=== PATIENT | male | born 1960 | race Caucasian/White ===

== ENCOUNTER 2020-04-01 06:26 | Observation (INO) ==
--- NOTE | 2020-03-31 11:02 | Anesthesiology Consultation ---
Date of Service March 31, 2020 Assessment & Plan (1) Encounter for pre-operative examination: Chart Review Chart Review: Acceptable Risk for Surgery (pending CBC with diff DOS and DOS Leal rapid test results ) and Patient NOT seen in Pre Admission Testing Will check CBC with diff stat AM of surgery (not done preoperatively) Per nursing assessment 03/31/2020, patient resides in [facility]. No recent travel. No known Covid positive contacts or Covid related symptoms. 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 Discussed with Dr. Rodrigues, will order rapid Leal test for AM of surgery. Consults Requested none History Surgery Operation Date: 04/01/20 08:15 Proposed Procedures p Transurethral Resection Bladder Tumor - John Keller DO Height/Weight Height: 5 ft 10 in Weight: 97.522 kg Allergies Allergy/AdvReac Type Severity Reaction Status Date / Time No Known Allergies Allergy Mild Verified 04/01/20 06:45 Medications Home Medications Medication Instructions Recorded Confirmed Last Taken aspirin 81 mg tablet,delayed 81 mg PO QAM 03/30/20 04/01/20 03/30/20 07:00 release levothyroxine 175 mcg capsule 175 mcg PO QAM 03/30/20 04/01/20 03/31/20 07:00 lisinopril 20 mg tablet 20 mg PO QAM 03/30/20 04/01/20 03/31/20 07:00 ciprofloxacin HCl [Cipro] 500 mg PO Q12H #6 tab 04/01/20 Unknown oxycodone-acetaminophen [Percocet] 1 tab PO Q8H PRN #7 tab 04/01/20 Unknown tamsulosin 0.4 mg PO HS #30 cap 04/01/20 Unknown Active Medications Generic Name Dose Route Start Last Admin Trade Name Freq PRN Reason Stop Dose Admin Lactated Ringer's 1,000 mls @ 15 mls/hr 04/01/20 06:00 04/01/20 06:47 Lr IV 04/02/20 05:59 15 mls/hr .Q24H UMBERTO Administration Past Medical History Medical History Arthritis Coronary artery disease S/p stent in 2007 Foot drop, right DOES NOT WEAR BRACE Hyperlipidemia Hypertension Hypothyroidism Myocardial Infarction 2008 Exercise / Class Metabolic Activity II 4-5 Yardwork/Stairs/Walk up hill Past Family History Family History Mother Diabetes Heart disease Cancer Hypertension Family history of diabetes mellitus Father Heart disease Past Surgical History Surgical History History of colonoscopy History of tooth extraction S/P coronary artery stent placement 2007 AT [facility] (1 STENT PLACED) Past Anesthesia History No Hx of Anesthesia Complications and No Family Hx of Anesthesia Complications History of PONV No Hx of PONV and No Hx of Motion Sickness Social History Smoking Status: Former smoker tobacco type: cigarettes Do You Dip or Chew Tobacco: No Smoking End Date: 30 years ago Hx Alcohol Use: No Hx Substance Use: No substance use type: does not use Physical Exam Vital Signs Last Vital Signs Temp 36.8 C 04/01/20 07:03 Pulse 51 L 04/01/20 07:03 Resp 18 04/01/20 07:03 BP 165/83 H 04/01/20 07:03 Pulse Ox 99 04/01/20 07:03 Testing Laboratory Results 04/01/20 06:57 Laboratory Tests 03/30/20 16:55 Sodium 139 Potassium 4.0 Chloride 105 Carbon Dioxide 28 BUN 16 Creatinine 1.19 Glucose 80 03/30/20= UA= 100+ protein, large urine blood, >30 urine RBC, >30 urine WBC, 1+ bacteria (culture pending) Electrocardiogram Date: 03/30/20 Findings: + SB @ (50) Otherwise normal EKG. Chest X-Ray Date: 03/30/20 Findings: + NAD The cardiomediastinal silhouette is unremarkable noting atherosclerotic calcification of the thoracic aorta.
[~2020-04-01 06:26] MED LIST: CIPROFLOXACIN / D5W 400 MG/200 ML BAG IV SCH; LR 15ML/HR IV SCH
[2020-04-01 07:13] LABS: Basophils # (auto) 0.05 K/uL (0-0.2); Basophils % (auto) 0.7 %; Eosinophils # (auto) 0.42 K/uL (0-0.5); Eosinophils % (auto) 6.2 %; Hemoglobin 14.1 g/dL (14.0-18.0); Immature Granulocytes # (auto) 0.02 K/uL (0.00-0.02); Immature Granulocytes % (auto) 0.3 %; Lymphocytes # (auto) 2.36 K/uL (1.2-3.4); Lymphocytes % (auto) 34.7 %; Mean Corpuscular Hemoglobin 30.4 pg (25-34); Mean Corpuscular Volume 92.7 fL (80-100); Mean Platelet Volume 9.2 fL (7.4-10.4); Monocytes % (auto) 8.8 %; Neutrophils # (auto) 3.35 K/uL (1.4-6.5); Neutrophils % (auto) 49.3 %; Platelet Count 240 K/uL (130-400); RDW Coefficient of Variation 12.7 % (11.5-14.5); RDW Standard Deviation 43.3 fL (36.4-46.3); Red Blood Count 4.64 M/uL (4.7-6.1)
[2020-04-01 07:17] LABS: Mean Corpuscular Hgb Conc 32.8 g/dL (32-36)
--- NOTE | 2020-04-01 07:18 | History & Physical Bridge Note ---
Date of Service April 01, 2020 History & Physical Bridge Note I have examined the patient, reviewed the History & Physical and in the interval since the performance of the History & Physical I have noted the following changes of clinical significance: no changes noted
[2020-04-01] MEDS ORDERED: MIDAZOLAM HCL 1 MG/ML 2ML VIAL ONE (07:34)
[2020-04-01] MEDS ORDERED: PROPOFOL IV EMULSION 10 MG/ML 20 ML VIAL IV ONE ×5 (07:34→10:03)
[2020-04-01] MEDS ORDERED: LIDOCAINE HCL 2% 2 ML VIAL/AMP(20MG/ML) INFIL ONE ×2 (07:34→10:03)
[2020-04-01] MEDS ORDERED: ONDANSETRON INJ 2 MG/ML 2 ML VIAL ONE (07:34)
[2020-04-01] MEDS ORDERED: fentaNYL citrate 100 MCG/2 ML VIAL ONE ×2 (07:34→09:46)
[2020-04-01] MEDS ORDERED: ACETAMINOPHEN 1000 MG/100 ML IV IV ONE (07:42)
[2020-04-01] MEDS ORDERED: ONDANSETRON INJ 2 MG/ML 2 ML VIAL IV PRN (07:47)
[2020-04-01] MEDS ORDERED: fentaNYL citrate 100 MCG/2 ML VIAL IV PRN (07:47)
[2020-04-01] MEDS ORDERED: ePHEDrine sulfate 50 MG/ML AMP IV PRN (07:47)
[2020-04-01] MEDS ORDERED: ATROPINE SULFATE 0.1 MG/ML 10ML SYR IV PRN (07:47)
[2020-04-01] MEDS ORDERED: BELLADONNA/OPIUM SUPP 60 MG SUPP PR ONE ×2 (09:30→09:32)
[2020-04-01] MEDS ORDERED: DIATRIZOATE MEGLUMINE 30% 100ML VIAL INSTIL ONE (09:41)
[2020-04-01] MEDS ORDERED: DEXAMETHASONE SOD INJ 4 MG/ML VIAL ONE (11:02)
[2020-04-01 11:13] LABS: Hematocrit (blood only) 36.8 % (42-52); Hemoglobin 12.6 g/dL (14.0-18.0)
--- NOTE | 2020-04-01 11:33 | Post Operative Brief Note ---
PG Immediate Post Op with CF Date of Surgery April 01, 2020 Pre & Post Diagnosis Operation Date: 04/01/20 08:15 Pre-Op Diagnosis: Bladder Mass Post-Op Diagnosis: Bladder Mass I identified the patient and participated in the time-out.: Yes Procedure Operation Date: 04/01/20 08:15 Actual Procedures p Transurethral Resection Large Bladder Tumor - John Keller, Surgeon John eKller, II, DO Charter Coordinator nONE Estimated Blood Loss 50 Findings Consistent with Post-Op Diagnosis Massive Tumor of base Specimens Specimen Description: A. Bladder tumor Drains Francisco Catheter (24fr Hematuria 3-way catheter inserted by surgeon at end of case) Complications none Disposition Disposition: Recovery Room Overlapping Procedure I was present for: the critical portions of procedure. I was immediately available: during the entire case. Back up surgeon: was not required during procedure.
[2020-04-01] MEDS ORDERED: MoRPHine SULFATE 4 MG/ML 1 ML CARP\\VIAL IV PRN (12:57)
[2020-04-01 13:21] LABS: Basophils # (auto) 0.03 K/uL (0-0.2); Basophils % (auto) 0.3 %; Eosinophils # (auto) 0.18 K/uL (0-0.5); Eosinophils % (auto) 1.6 %; Hematocrit (blood only) 37.9 % (42-52); Hemoglobin 12.9 g/dL (14.0-18.0); Immature Granulocytes # (auto) 0.02 K/uL (0.00-0.02); Immature Granulocytes % (auto) 0.2 %; Lymphocytes % (auto) 12.5 %; Mean Corpuscular Hemoglobin 31.3 pg (25-34); Mean Platelet Volume 9.3 fL (7.4-10.4); Monocytes # (auto) 0.37 K/uL (0.11-0.59); Monocytes % (auto) 3.3 %; Neutrophils # (auto) 9.21 K/uL (1.4-6.5); Neutrophils % (auto) 82.1 %; Platelet Count 230 K/uL (130-400); RDW Coefficient of Variation 12.6 % (11.5-14.5); RDW Standard Deviation 42.6 fL (36.4-46.3); Red Blood Count 4.12 M/uL (4.7-6.1); White Blood Count 11.21 K/uL (4.8-10.8)
--- NOTE | 2020-04-01 13:34 | Hospitalist Consultation ---
Date of Consultation April 01, 2020 Assessment & Plan (1) Bladder mass: - S/p surgical bladder mass resection completed today by Dr. Keller - Pain management, bowel regimen and DVT ppx per the primary team - PT/OT consults - Follow am CBC to monitor for acute blood loss with history of hematuria (2) Coronary artery disease: -History of FL in 2007, continue ASA 81 mg daily, lisinopril 20 mg daily (3) Essential hypertension: - BP is well controlled, no additional recommendations as far as antihypertensives at this time. (4) Hyperlipidemia: -Patient is not on statin therapy, check lipid panel with a.m. lab, none to review here in our system (5) Hypothyroidism: -Continue levothyroxine 175 mcg daily - Check TSH wih am labs CODE: Full code Thank you for involving us in the care of Mr. Degroot. If you have any questions or concerns please do not hesitate to call. At this time medicine will follow along. Supervising Physician Co-Signing Physician Notes I personally saw and examined the patient. I verified all ruelas points and agree with KELLI Castellano with the following exceptions and/or additions: 59-year-old male status post transurethral resection of large bladder tumor today. Medicine consulted for high blood pressure, coronary artery disease. Patient was doing well earlier when seen by KELLI. Since that time he had a vagal faints associated with standing up and after straining to get a bowel movement out. Captiva dizzy prior to fainting. Nursing note consistent with vasovagal event. O/E - HS, bradycardia, no murmurs, regular rate, Chest CTAB, Abdo mild suprapubic tenderness. A/P Vasovagal/orthostatic syncope - in setting of longstanding sinus bradycardia, straining bowel movement and standing. EKG without heart block. No history of syncopal events. Will hold lisinopril and monitor blood pressure. Patient is falls risk. Repeat labs in AM. If he has a further episode will transfer to med/tele for monitoring Sinus bradycardia - longstanding as per patient. Constipation - MiraLAX daily. If patient requiring ongoing opiates for pain recommend stimulant laxative such as senna in addition. Hypertension - hold lisinopril as above Coronary artery disease -remote history of myocardial infarction. He should continue on aspirin indefinitely but will defer to urology when to restart this given current hematuria and operation today. Holding lisinopril as above. He should also still be on a statin. He reports recently having lab work therefore will defer restarting this to his PCP with those results. He should follow-up in the next 1 to 2 weeks. Hypothyroidism - reportedly had this checked with his PCP as outpatient. 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 Continue levothyroxine 175 mcg p.o. every morning. Follow-up with PCP for TSH results History of Present Illness Attending Physician: John Keller, II, DO History of Present Illness This is a 59-year-old male with PMHx of CAD, history of FL in 2007 s/p stent placement, HTN, HLD, hypothyroidism who underwent transurethral resection large bladder tumor by Dr. Keller on 04/01/2020. Medicine has been consulted for hypertension and history of CAD. Highest blood pressure reading was 165/83 this morning and has subsequently improved to 120s over 70s after receiving morning dose of lisinopril 20 mg. Patient is not on any other antihypertensives. Patient is doing well since having tumor resection, three-way bladder irrigation has been placed draining sevilla red urine, little amounts of clots. He denies any abdominal pain, some mild pressure but other than that feels fairly comfortable. His is present at bedside and all their questions and concerns were addressed minus specific questions regarding surgical procedure, which hospital medicine will defer to urology to answer. He has not yet eaten, but has a tray being delivered. Patient is tolerating liquids without difficulty. Allergies Allergy/AdvReac Type Severity Reaction Status Date / Time No Known Allergies Allergy Mild Verified 04/01/20 06:45 Home Medications Home Medications Medication Instructions Recorded Confirmed Type aspirin 81 mg tablet,delayed 81 mg PO QAM 03/30/20 04/01/20 History release levothyroxine 175 mcg capsule 175 mcg PO QAM 03/30/20 04/01/20 History lisinopril 20 mg tablet 20 mg PO QAM 03/30/20 04/01/20 History ciprofloxacin HCl [Cipro] 500 mg PO Q12H #6 tab 04/01/20 Rx oxycodone-acetaminophen [Percocet] 1 tab PO Q8H PRN #7 tab 04/01/20 Rx tamsulosin 0.4 mg PO HS #30 cap 04/01/20 Rx Patient History Medical History (Updated 04/01/20 @ 13:27 by Edelmira Castellano PA-C) Arthritis Coronary artery disease S/p stent in 2007 Foot drop, right DOES NOT WEAR BRACE Hyperlipidemia Hypertension Hypothyroidism Myocardial Infarction 2007 Surgical History History of colonoscopy History of tooth extraction S/P coronary artery stent placement 2007 AT [facility] (1 STENT PLACED) Family History Mother Diabetes Heart disease Cancer Hypertension Family history of diabetes mellitus Father Heart disease Social History (Updated 03/30/20 @ 15:18 by MATIAS Contreras) Smoking Status: Former smoker Tobacco Type: Cigarettes Second Hand Exposure: Yes (IN THE PAST); Hx Alcohol Use: No Hx Substance Use: No Preferred Language: Jamaican Field Technician Required: No Beliefs That Will Affect Care: None marital status: Current Living Situation: Spouse current occupational status: employed Feels Safe at Home: Yes Review of Systems Review of Systems: Constitutional: No fever, sweats or chills Eyes: No diplopia, no worsening or blurred vision ENT: normal hearing, no trouble swallowing Respiratory: No cough, sputum, dyspnea at rest or on exertion Cardiovascular: No chest pain, tightness or palpitations Abdomen: No pain, nausea, vomiting, diarrhea or constipation : Three-way bladder irrigation in place Musculoskeletal: No joint pain, calf pain, swelling Neurologic: No weakness, numbness/tingling, or balance problems Psychiatric: No anxiety or depression Skin: No rash or itch Physical Exam Physical Exam: General: awake, alert, no apparent distress Head: Normocephalic, atraumatic ENT: PERRL, EOMI, no pharyngeal exudate, mucous membranes moist Chest: Clear to auscultation, on room air, no adventitious breath sounds Cardiac: Regular rate and rhythm, no murmur, no JVD, normal peripheral pulses, good capillary refill Abdominal: NABS x 4 quadrants, soft, nondistended, nontender to palpation, no rebound or guarding : Three-way bladder irrigation in place, draining well, bright red urine in bag, minimal clots Extremities: Normal inspection, no peripheral edema or erythema, calfs nontender to palpation Psych: Normal mood and affect Neuro: AAO x 3, strength intact bilaterally and rated 5/5, no motor deficits, speech is clear, no peripheral sensory deficits Results & Data Results & Data ([facility]) Vital Signs (Past 12 Hours) Vital Signs Temp Pulse Pulse Pulse Resp BP Pulse Ox 04/01/20 12:57 36.6 C 49 L 14 121/76 98 04/01/20 12:45 37.1 C 50 L 14 134/75 100 04/01/20 12:20 36.7 C 49 L 14 140/78 100 04/01/20 12:10 43 L 14 134/85 100 04/01/20 12:00 57 L 16 117/92 100 04/01/20 11:50 49 L 15 138/88 100 04/01/20 11:46 36.5 C 60 12 126/84 100 04/01/20 07:03 36.8 C 51 L 18 165/83 H 99 PG Care Time/CCT Total # of Minutes Spent Total Time Spent with Patient: Total time spent is greater than 50% in coordination of care (as documented) at patient's floor/unit and/or counseling patient: Coding Level of Care Code 77575 Inpt Consult Level 4 Diagnoses Bladder mass N32.89 Coronary artery disease I25.10 Essential hypertension I10 Hyperlipidemia E78.5 Hypothyroidism E03.9
[2020-04-01] MEDS: SODIUM CHLORIDE 0.9% 1000ML 1,000 ML IV SCH (13:40)
[2020-04-01 13:54] LABS: BUN Creatinine Ratio 16.3 (10-20); Calcium 8.6 mg/dl (8.5-10.1); Est GFR (African American) 69.5; Potassium 5.9 mmol/L (3.5-5.1)
--- NOTE | 2020-04-01 13:54 | Operative Report ---
PG Post Operative Report Pre & Post Diagnosis Operation Date: 04/01/20 08:15 Pre-Op Diagnosis: Bladder Mass Post-Op Diagnosis: Bladder Mass I identified the patient and participated in the time-out.: Yes Procedure Operation Date: 04/01/20 08:15 Actual Procedures p Transurethral Resection Large Bladder Tumor, Resection of left Ureteral Orifice. - John Keller DO Surgeon John Keller, II, DO Employment Interviewer None Estimated Blood Loss 50 Findings Consistent with Post-Op Diagnosis Massive tumor taking the entire base, trigone, bilateral lateral vanessa, and bladder neck. Greater than 10cm of area resected. Specimens Bladder mass. Drains [address] Anesthesia Type General Complications none Disposition Disposition: Recovery Room Indications Patient with bladder tumor. Risks and benefits discussed at length. Description of Procedure Patient was consented and brought back to the operating room. Patient was placed under anesthesia in the supine position and moved to the dorsal lithotomy position. Patient was prepped and draped in the regular sterile fashion. A time out was completed. A 30degree Cystoscope was placed into the bladder and the entire bladder was examined. The UO's as well as the entire base were obstructed by the mass. Tumor covered a majority of the base and posterior wall as well as the bladder neck, trigone, and laterall vanessa. The dome appeared free of tumor. Greater than 10 cm and approximately half of the bladder was involved with tumor. The resection scope with the fine bipolar loop was selected. The entire tumor was assessed. The tumor was resected. The bulk of the tumor was removed and sent for analysis. The left ureteral orifice was resected and unroofed of the tumor. This was wide and drained easily. An extended period of time was required and significant vascular issues were through the tumor. The resection bed and edges of the resection were fulgurated and the entire area inspected.The wound bed was irritated and bled easily. The bladder was inspected a final time. The scope was removed. A 3 way catheter was placed to allow irrigation. The patient was cleaned, aroused from anesthesia, and transferred to the pacu in stable condition having tolerated the procedure well with no complications. I was present and participated in all aspects of the procedure. The patient will be monitored in the PACU until transferred. I attest to the content of the Intraoperative Record and any orders documented therein. Any exceptions are noted below.
[2020-04-01] MEDS: CEFAZOLIN 2000MG 2,000 MG/15 ML SYR IV SCH ×2 (15:34→22:53)
[2020-04-01] MEDS ORDERED: SODIUM CHLORIDE 0.9% 1000ML 500 ML IV ONE (16:04)
[2020-04-01] MEDS: OXYCODONE HCL IR 5 MG TAB (IMMEDIATE RELEASE) PO PRN ×2 (17:02→21:40)
--- NOTE | 2020-04-01 17:41 | Anesthesiology Progress Note ---
Date of Service April 01, 2020 Anesthesia Post Procedure Vital Signs Vital Signs: Temp Pulse Pulse Pulse Resp BP Pulse Ox 04/01/20 15:47 36.8 C 48 L 16 139/85 100 04/01/20 14:40 78 16 128/83 98 04/01/20 13:52 52 L 15 126/82 96 04/01/20 12:57 36.6 C 49 L 14 121/76 98 04/01/20 12:45 37.1 C 50 L 14 134/75 100 04/01/20 12:20 36.7 C 49 L 14 140/78 100 04/01/20 12:10 43 L 14 134/85 100 04/01/20 12:00 57 L 16 117/92 100 04/01/20 11:50 49 L 15 138/88 100 04/01/20 11:46 36.5 C 60 12 126/84 100 04/01/20 07:03 36.8 C 51 L 18 165/83 H 99 Pain Intensity Lower Abdomen: Pain Intensity: 0 Transfer of Care Handoff Completed per policy Notes Mental Status: alert / awake / arousable and participated in evaluation Patient Amnestic to Procedure: Yes Nausea / Vomiting: adequately controlled Pain: adequately controlled Airway Patency, RR, SpO2: stable & adequate BP & HR: stable & adequate Hydration State: stable & adequate Anesthetic Complications: no major complications apparent and Pt Satisfied with anesthetic care
[2020-04-01 18:22] LABS: Hematocrit (blood only) 35.4 % (42-52)
[2020-04-01] MEDS ORDERED: POLYETHYLENE (MIRALAX) 17 GM PACK PO ONE (21:18)
[2020-04-02 01:36] LABS: BUN Creatinine Ratio 12.9 (10-20); Calcium 8.2 mg/dl (8.5-10.1); Creatinine Clr Calc Pharmacy 72.1 ml/min; Est GFR (African American) 70.9; Est GFR (Non-African American) 61.2; Potassium 4.4 mmol/L (3.5-5.1)
[2020-04-02] MEDS: SODIUM CHLORIDE 0.9% 1000ML 1,000 ML IV SCH (02:24)
[2020-04-02 05:32] LABS: Hematocrit (blood only) 30.9 % (42-52); Hemoglobin 10.7 g/dL (14.0-18.0); Mean Corpuscular Hemoglobin 31.9 pg (25-34); Mean Corpuscular Hgb Conc 34.6 g/dL (32-36); Mean Corpuscular Volume 92.2 fL (80-100); Mean Platelet Volume 9.3 fL (7.4-10.4); Platelet Count 217 K/uL (130-400); RDW Coefficient of Variation 12.8 % (11.5-14.5); RDW Standard Deviation 43.3 fL (36.4-46.3); Red Blood Count 3.35 M/uL (4.7-6.1); White Blood Count 11.78 K/uL (4.8-10.8)
[2020-04-02] MEDS: CEFAZOLIN 2000MG 2,000 MG/15 ML SYR IV SCH (06:06)
[2020-04-02] MEDS: OXYCODONE HCL IR 5 MG TAB (IMMEDIATE RELEASE) PO PRN ×2 (06:06→11:14)
[2020-04-02 06:07] LABS: Albumin Level 2.9 gm/dl (3.4-5.0); BUN Creatinine Ratio 13.6 (10-20); Creatinine Clr Calc Pharmacy 77.7 ml/min; Est GFR (African American) 77.5; Est GFR (Non-African American) 66.9; Potassium 4.7 mmol/L (3.5-5.1)
[2020-04-02 06:10] LABS: Albumin Globulin Ratio 1.1 (0.9-2); Bilirubin,Total 0.4 mg/dl (0.2-1); Globulin 2.5 gm/dl (2.5-4.0); Total Protein 5.4 gm/dl (6.4-8.2)
[2020-04-02] MEDS ORDERED: LEVOTHYROXINE SODIUM 175 MCG TABLET PO SCH (06:30)
--- NOTE | 2020-04-02 07:26 | Urology Progress Note ---
Date of Service April 02, 2020 Assessment & Plan (1) Bladder mass: Postop day 1 status post very large TURBT CBI clamped this morning Observe for the time being Potential DC home later this afternoon plus or minus catheter Admission and Anticipated Discharge Date Admission Date: April 01, 2020 Subjective 1 vasovagal episode last night No fall, feels well now, no recurrence of the symptoms CBI running overnight without issue, no pain Urine clear this morning Physical Exam Physical Exam: CBI slowurine clear Constitutional: well developed and well nourished Respiratory: no respiratory distress Cardiovascular: Extremities: no pedal edema Gastrointestinal (Abdomen): Inspection/Auscultation: abdomen normal to inspection Results & Data ([facility]) Vital Signs (Past 12 Hours) Vital Signs Temp Pulse Resp BP Pulse Ox 04/02/20 02:48 36.8 C 50 L 18 142/79 H 100 04/01/20 23:47 36.8 C 52 L 18 131/73 96 PG Care Time/CCT Total # of Minutes Spent Total Time Spent with Patient: Total time spent is greater than 50% in coordination of care (as documented) at patient's floor/unit and/or counseling patient: Coding Level of Care Code 51229 Subseq Hosp Care Lvl 2 Diagnoses Bladder mass N32.89
--- NOTE | 2020-04-02 08:58 | Hospitalist Progress Note ---
Date of Service April 02, 2020 Assessment & Plan (1) Bladder mass: -POD #1 S/p surgical bladder mass resection completed 04/[address] Keller - Pain management, bowel regimen and DVT ppx per the primary team - PT/OT consults -Hgb down to 10.7 today, compared, was 12.9 on admission. Expected acute blood loss with history of hematuria, no need for transfusion at this time. Syncopal episode last night resolved with fluid bolus, BP stable. 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 no additional recommendations as far as antihypertensives at this time. (4) Hyperlipidemia: -Patient is not on statin therapy (5) Hypothyroidism: -Continue levothyroxine 175 mcg daily -Check TSH wih am labs CODE: Full code Thank you for involving us in the care of Mr. Degroot. If you have any questions or concerns please do not hesitate to call. Medicine will follow along. Admission and Anticipated Discharge Date Admission Date: April 01, 2020 Subjective The patient was seen and examined this morning. Pt states doing well today. Has not yet gotten up to walk yet, but anticipating this. CBI is clamped. Hopeful for discharge home today per urology. Last night he attempted to get up and have a BM but had a syncopal episode while sitting on the toilet. Nursing was with him at all times. Our team was alerted and he received NSS 500 ml bolus with improvement in BP. Hgb down a little today, no need for transfusion. Review of Systems Review of Systems: Constitutional: No fever, sweats or chills Eyes: No diplopia, no worsening or blurred vision ENT: normal hearing, no trouble swallowing Respiratory: No cough, sputum, dyspnea at rest or on exertion Cardiovascular: No chest pain, tightness or palpitations Abdomen: No pain, nausea, vomiting, diarrhea or constipation : Three-way bladder irrigation in place Musculoskeletal: No joint pain, calf pain, swelling Neurologic: No weakness, numbness/tingling, or balance problems Psychiatric: No anxiety or depression Skin: No rash or itch Physical Exam Physical Exam: General: awake, alert, no apparent distress Head: Normocephalic, atraumatic ENT: PERRL, EOMI, no pharyngeal exudate, mucous membranes moist Chest: Clear to auscultation, on room air, no adventitious breath sounds Cardiac: Regular rate and rhythm, no murmur, no JVD, normal peripheral pulses, good capillary refill Abdominal: NABS x 4 quadrants, soft, nondistended, nontender to palpation, no rebound or guarding : Three-way bladder irrigation in place, tube clamped, red urine in bag, minimal clots Extremities: Normal inspection, no peripheral edema or erythema, calfs nontender to palpation Psych: Normal mood and affect Neuro: AAO x 3, strength intact bilaterally and rated 5/5, no motor deficits, speech is clear, no peripheral sensory deficits Results & Data Results & Data ([facility]) Vital Signs (Past 12 Hours) Vital Signs Temp Pulse Resp BP Pulse Ox 04/02/20 07:45 36.7 C 51 L 16 141/77 H 98 04/02/20 02:48 36.8 C 50 L 18 142/79 H 100 04/01/20 23:47 36.8 C 52 L 18 131/73 96 PG Care Time/CCT Total # of Minutes Spent Total Time Spent with Patient: Total time spent is greater than 50% in coordination of care (as documented) at patient's floor/unit and/or counseling patient: Coding Level of Care Code 47959 Inpt Consult Level 3 Diagnoses Bladder mass N32.89 Coronary artery disease I25.10 Essential hypertension I10 Hyperlipidemia E78.5 Hypothyroidism E03.9
[2020-04-02] MEDS ORDERED: POLYETHYLENE (MIRALAX) 17 GM PACK PO SCH (09:00)
--- NOTE | 2020-04-03 23:00 | Electrocardiogram Report ---
Test Reason : Blood Pressure : / mmHG Vent. Rate : 051 BPM Atrial Rate : 051 BPM P-R Int : 138 ms QRS Dur : 092 ms QT Int : 448 ms P-R-T Axes : 052 -02 003 degrees QTc Int : 412 ms Sinus bradycardia Otherwise normal ECG When compared with ECG of 30-MAR-2020 15:48, No significant change was found Confirmed by Hosea Guzman ([id number]) on 04/03/2020 11:00:12 PM Referred By: John Keller Confirmed By:Hosea Guzman
--- NOTE | 2020-04-06 09:19 | Discharge Summary ---
Date of Service April 06, 2020 Admission HPI Per Admitting Provider See H&P Admission Exam Per Admitting Provider See H&P Principal Diagnosis Bladder Mass, Positive Cytology Discharge Exam General: Alert in no acute distress. HEENT: Normocephalic Atraumatic. Inspection normal. Psychologic: Normal affect. Skin: [place] and Dry. No rashes or visible lesions. Abdomen: Soft Non-distended. No rebound or guarding. Discharge Data Allergies Allergy/AdvReac Type Severity Reaction Status Date / Time No Known Allergies Allergy Mild Verified 04/01/20 06:45 Consultations 04/01/20 12:57 Consult Hospitalist Routine Procedures Performed Operation Date: 04/01/20 08:15 Actual Procedures p Transurethral Resection Large Bladder Tumor - John Keller DO Hospital Course (1) Bladder mass: Postop day 1 status post very large TURBT CBI clamped this morning Observe for the time being Potential DC home later this afternoon plus or minus catheter Total Time Total Time Spent Total Time Spent (In Minutes): 10 minutes Total Time Includes: Examination of the Patient, Discharge Planning, Medication Reconciliation and Communication With Other Providers Discharge Plan Discharge Items Patient Disposition: Home - Self-Care Reason For Visit: Bladder Mass Discharge Diagnosis: Same Activity: Resume your previous activity Lifting: No more than 25 pounds Bathing Comment: May shower in 1 day, no tub bath or soaking until follow-up Sexual Activity: Wait until after follow-up appointment Exercise/Sports: Wait until after follow-up appointment Driving/Machine Use: No driving while taking prescription pain medication Non-emergency contact: Urologist Call non-emergency contact if: you have any medication questions, your symptoms worsen, your pain is not controlled, your pain is worsening, your pain is unusual for you, your pain is concerning for you, you have a fever and your temperature is above 101.5 Follow-up/Referrals: John Keller DO [Physician] - 04/16/20 ( OFFICE WILL CALL YOU IN THE MORNING OF THE FOR A PHONE CALL CHECK UP.) Juan Miguel Stephenson [Primary Care Provider] - Diet: Regular Addtl Attending Provider Instructions: May have blood in urine. May have discomfort. Call if any issues. You will have a voiding trial scheduled in about 10-14 days, call office to confirm appointment. Catheter care instructions per nursing. Please take all medications as prescribed and keep all follow-ups as scheduled. Please call our office at [phone] with any questions, concerns or need to r eschedule appointments for any reason. We are happy to assist you. Tips for your recovery at home: Dont be alarmed by brownish or reddish blood or clots in your urine. This is a result of the procedure. However, if this does not improve after 1 week, please contact our office. Drink plenty of fluids during the day (enough to keep your urine very light colored). This will help keep a healthy flow of urine. Do not lift >25 lbs until your followup Avoid constipation. Please use a stool softener (Colace) for the first two weeks after your procedure Be sure to finish the antibiotics as prescribed. If you go home with a catheter, please wash tubing where it enters your body twice daily with mild soap (Dove or Dial). Once your catheter is removed, expect some blood in your urine and some burning when you urinate. You should have an appointment to have this removed, if you do not please call our office to arrange. When to call [facility] at [phone]: Your urine contains heavy blood clots You are constantly leaking urine Fever of 101F or higher, chills, nausea, or vomiting Your pain is not relieved with medication Pending Studies at Discharge: Yes (pathology) Stand-Alone Forms: My [facility] Medications and DC Order Prescriptions: New ciprofloxacin HCl [Cipro] 500 mg tablet 500 mg PO Q12H Qty: 6 RF: 0 tamsulosin 0.4 mg capsule 0.4 mg PO HS Qty: 30 RF: 0 oxycodone-acetaminophen [Percocet] 7.5-325 mg tablet 1 tab PO Q8H PRN (Reason: pain) Qty: 7 RF: 0 Continued lisinopril 20 mg tablet 20 mg PO QAM RF: 0 levothyroxine 175 mcg capsule 175 mcg PO QAM RF: 0 aspirin 81 mg tablet,delayed release (DR/EC) 81 mg PO QAM RF: 0 Discharge Orders: Discharge Order (Routine); Ordered 04/02/20 Ordered By: Erendira Hernández/Other Patient Handouts: Emptying and Cleaning Your Urinary Catheter Bag, Discharge Instructions Caring for Your Leg Bag Admission Data Admit Date/Time: 04/01/20 12:14 Attending Provider: John Keller Admit Provider: John Keller Primary Care Provider: Juan Miguel Stephenson Other Providers: Zakia Christianson ; Los Reilly ; Zbigniew Guadarrama ; Claudia Geiger ; Fan Prince ; Geovany Thompson ; Brendan Chavira ; Joan Cabello ; Esme Sanchez ; Edelmira Castellano ; Matt Alves ; Shelby Crow ; Cata William ; Doug Kraus ; Dave Saab ; Francis Grant ; Radha Escobar ; Clarence Schaefer ; Roberto Bernard ; [place] ; Robert Burgos ; Keya Devries ; Roxann Devries ; Tj Last ; Misty Baird ; Huey Guerra ; Mykel Buckley ; Kalie Gunn ; Nick Torres Other Interventions: Discharge Summary Assessment (RN) Last Done: 04/02/20 16:00 Coding Level of Care Code D/C Day Management <30 mins Diagnoses Bladder mass N32.89
== END 2020-04-02 16:49 | disposition home or self-care (01) ==
LOC: ASU 06:26 → 3N 06:26

== ENCOUNTER 2020-06-22 19:18 | Inpatient (IN) ==
[2020-06-22] MEDS ORDERED: ACETAMINOPHEN 500 MG TAB PO STA (19:48)
[2020-06-22] MEDS ORDERED: SODIUM CHLORIDE 0.9% 1000ML 1,000 ML IV SCH (20:00)
--- NOTE | 2020-06-22 20:31 | Emergency Department Note ---
Impression & Plan Acute pyelonephritis, Sepsis ED Provider Note NAME: DAISY JONES AGE: 60 SEX: M : 1960 ARRIVES VIA: Walk-In INFORMANT: Patient, ED PROVIDER(S): Arnoldo Morales MD Chief Complaint: Fever HPI: Patient does present with concern for fever. The patient has had some associated weakness and decreased p.o. intake. The patient does have a history of bladder cancer/gross for she does see Dr. Keller on occasion. The patient states that he recently traveled to [place] to go hunting but was unable to do so as he was feeling unwell. The patient's had approximate 2 days of symptoms. The patient denies any chest pains or shortness of breath. The patient has not had any nausea or vomiting. The patient does have a known history of CAD status post stent placement this does not feel similar to that. The patient has had a dry nonproductive cough. Patient is a former smoker. Patient had tried to take Motrin earlier today after he noticed a fever of 101 seem to improve his symptoms but subsequently the patient rechecked his temperature and it was 102. ROS: See HPI for pertinent positives and negatives. A total of 10 systems were reviewed and otherwise negative. Past medical history: See below Surgical history: See below Social history: See below Physical Exam: GENERAL: Wearing glasses and a mask. NAD, non-toxic. EYE EXAM: Normal conjunctiva. PERRL, no anisocoria and EOM's grossly intact w/o pain. NECK: Supple, no nuchal rigidity, no adenopathy, non-tender. No signs of meningismus. LUNGS: Clear to auscultation. Normal chest wall mechanics. HEART: NSR, no MRG. ABDOMEN: Abdomen soft, non-tender, normo-active bowel sounds, no masses, no rebound or guarding. BACK: No CVA TTP. SKIN: No rashes and no bruising. UPPER EXTREMITIES: Upper extremities are grossly normal. LOWER EXTREMITIES: Grossly normal, no edema. Negative Homans' sign bilaterally. NEURO EXAM: A&O x3, cranial nerves II-XII grossly intact, normal speech, moves all 4 extremities on command w/o issue. Differential diagnoses: Infection, dehydration, metabolic abnormality, hypo/hyperglycemia, electrolyte disturbance, anemia, hypoxia, cardiac sources, intracerebral event, toxicologic, neurologic, as well as other pathologies. Course: Patient was seen and evaluated the bedside. Full history physical exam was pe rformed. EKG: Indication: Weakness Normal sinus rhythm, rate of 80, normal intervals, normal axis, no ST changes or T WI. Imaging Studies: 1 view chest x-ray No acute findings. No appreciable change from previous chest x-ray CT abdomen pelvis with IV contrast Bilateral ureteral stents with mild right greater than left hydronephrosis. Mild bladder wall thickening with perinephric and periureteral stranding and irregular low-attenuation of the bilateral kidneys. Findings may represent an infectious process neoplastic etiology not excluded. Mild fluid in small bowel loops. Nonspecific enteritis not excluded in the appropriate clinical setting. Scattered colonic diverticula. Normal caliber appendix mildly enlarged fatty liver. Heterogeneous opacification of the femoral veins bilaterally presumably related to phase of contrast. Mild basilar atelectatic changes. Cardiac monitoring: An order was placed for continuous cardiac monitoring. The monitor shows a rate of 99 with sinus rhythm. MDM: Patient was seen due to concern for weakness and fever. Blood work was obtained along with a coronavirus swab and the patient was treated with IV fluids and antipyretics. Patient did have a significant white count of 19 with mild anemia. Patient's Covid test was negative. Patient does have a mild hyponatremia and the patient's creatinine. Patient does have elevated glucose. Given the patient's white count with fever and history of having bladder tumor resection and stent placement a CT of the abdomen pelvis was ordered. This does show the concern for possible pyelonephritis. The patient had been ordered doxycycline given the coag negative staph seen on prior urine culture as well as Rocephin for the possibility of gram-negative coverage. The patient's vitals are stable. I did speak with the on-call hospitalist Dr. Naeem MD. The patient was admitted to the medicine service Past Med/Surg History Medical History Arthritis Coronary artery disease S/p stent in 2007, no longer follows with [facility], PCP only. 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 Negative DSE 2013. Foot drop, right DOES NOT WEAR BRACE Hyperlipidemia Hypertension Hypothyroidism Myocardial Infarction 2007. S/p single stent. EF preserved based on 2014 echo. 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 Beliefs That Will Affect Care: None marital status: Current Living Situation: Spouse and Family current occupational status: employed Feels Safe at Home: Yes Assistive Devices: Denture - Upper and Glasses Allergies Allergies Allergy/AdvReac Type Severity Reaction Status Date / Time No Known Allergies Allergy Mild Verified 06/22/20 08:17 Home Meds Home Medications Medication Instructions Recorded Confirmed aspirin 81 mg tablet,delayed 81 mg PO QAM 03/30/20 06/22/20 release levothyroxine 175 mcg capsule 175 mcg PO QAM 03/30/20 06/22/20 lisinopril 20 mg tablet 20 mg PO QAM 03/30/20 06/22/20 atorvastatin 80 mg PO QAM 05/04/20 06/22/20 acetaminophen [Tylenol Extra 1,000 mg PO Q6H PRN 06/22/20 06/22/20 Strength] fluticasone propionate 2 spray INTRANASAL DAILY PRN 06/22/20 06/22/20 tamsulosin 0.4 mg PO HS PRN 06/22/20 06/22/20 Results & Data (ED) Vital Signs Vital Signs - 24 hr 06/22/20 19:26 06/22/20 20:06 06/22/20 20:15 Temperature 37.8 C H Temperature Source Temporal Artery Scan Pulse Rate 99 H 84 Pulse Rate from SpO2 Sensor 84 Respiratory Rate 20 20 24 Respiratory Effort / Characteristics Non-Labored Respiratory Depth Shallow Normal Respiratory Pattern Regular Blood Pressure 116/79 158/83 H Blood Pressure Mean 91 128 Pulse Oximetry 96 97 Oxygen Delivery Method Room Air Room Air Sepsis Recent Fever Within 48 Hours Yes Sepsis New/Unexplained Change in Mental Status No Sepsis Action Taken by Nursing No Action Required 06/22/20 20:20 06/22/20 20:30 06/22/20 21:00 Temperature Temperature Source Pulse Rate 77 73 76 Pulse Rate from SpO2 Sensor 79 73 76 Respiratory Rate 18 23 20 Respiratory Effort / Characteristics Respiratory Depth Respiratory Pattern Blood Pressure 146/80 H 121/69 Blood Pressure Mean 102 89 Pulse Oximetry 98 97 97 Oxygen Delivery Method Sepsis Recent Fever Within 48 Hours Sepsis New/Unexplained Change in Mental Status Sepsis Action Taken by Nursing 06/22/20 21:01 06/22/20 21:30 06/22/20 22:28 Temperature Temperature Source Pulse Rate 84 73 69 Pulse Rate from SpO2 Sensor 82 73 67 Respiratory Rate 20 12 18 Respiratory Effort / Characteristics Respiratory Depth Respiratory Pattern Blood Pressure 114/51 L 120/70 Blood Pressure Mean 84 75 Pulse Oximetry 97 97 97 Oxygen Delivery Method Sepsis Recent Fever Within 48 Hours Sepsis New/Unexplained Change in Mental Status Sepsis Action Taken by Nursing 06/22/20 22:30 Temperature 36.8 C Temperature Source Pulse Rate 64 Pulse Rate from SpO2 Sensor 64 Respiratory Rate 13 Respiratory Effort / Characteristics Respiratory Depth Respiratory Pattern Blood Pressure 116/75 Blood Pressure Mean 83 Pulse Oximetry 97 Oxygen Delivery Method Sepsis Recent Fever Within 48 Hours Sepsis New/Unexplained Change in Mental Status Sepsis Action Taken by Skilled Nursing Medications Current Medication List: was personally reviewed by me Laboratory Data Attestation: I reviewed the patient's lab results. Result diagrams: 06/22/20 20:16 06/22/20 21:44 Lab Results 06/22/20 06/22/20 06/22/20 Range/Units 20:16 20:16 20:17 WBC 19.35 H (4.8-10.8) K/uL RBC 4.18 L (4.7-6.1) M/uL Hgb 11.8 L (14.0-18.0) g/dL Hct 35.8 L (42-52) % MCV 85.6 (80-100) fL MCH 28.2 (25-34) pg MCHC 33.0 (32-36) g/dL RDW Std Deviation 46.4 H (36.4-46.3) fL RDW Coeff of Jovanna 14.8 H (11.5-14.5) % Plt Count 567 H (130-400) K/uL MPV 8.4 (7.4-10.4) fL Immature Gran % (Auto) 0.5 % Neut % (Auto) 75.9 % Lymph % (Auto) 11.5 % Andrews % (Auto) 11.7 % Eos % (Auto) 0.2 % Baso % (Auto) 0.2 % Neut # (Auto) 14.69 H (1.4-6.5) K/uL Lymph # (Auto) 2.23 (1.2-3.4) K/uL Andrews # (Auto) 2.27 H (0.11-0.59) K/uL Eos # (Auto) 0.04 (0-0.5) K/uL Baso # (Auto) 0.03 (0-0.2) K/uL Immature Gran # (Auto) 0.09 H (0.00-0.02) K/uL Sodium 129 L (136-145) mmol/L Potassium (3.5-5.1) mmol/L Chloride 98 (98-107) mmol/L Carbon Dioxide 27 (21-32) mmol/L Anion Gap 4.0 (3-11) BUN 17 (7-18) mg/dl Creatinine 1.70 H (0.6-1.4) mg/dl Est Cr Clr Drug Dosing 49.5 ml/min Est GFR ( Amer) 49.0 Est GFR (Non-Af Amer) 42.3 BUN/Creatinine Ratio 10.3 (10-20) Glucose 199 H (70-99) mg/dl Calcium 8.9 (8.5-10.1) mg/dl Total Bilirubin 0.6 (0.2-1) mg/dl AST (15-37) U/L ALT 41 (12-78) U/L Alkaline Phosphatase 97 (45-117) U/L Troponin I < 0.015 (0-0.045) ng/ml Total Protein 8.2 (6.4-8.2) gm/dl Albumin 2.8 L (3.4-5.0) gm/dl Globulin 5.4 H (2.5-4.0) gm/dl Albumin/Globulin Ratio 0.5 L (0.9-2) TSH 1.610 (0.300-4.500) uIu/ml Urine Color Urine Appearance (Clear) Urine pH (4.5-7.5) Ur Specific [place]ina (1.000-1.030) Urine Protein (Negative) Urine Glucose (UA) (Negative) Urine Ketones (Negative) Urine Blood (Negative) Urine Nitrite (Negative) Urine Bilirubin (Negative) Urine Urobilinogen (Negative) Ur Leukocyte Esterase (Negative) Urine WBC (Auto) (0-5) /hpf Urine RBC (Auto) (0-4) /hpf U Hyaline Cast (Auto) (0-5) /lpf U Epithel Cells (Auto) (0-5) /lpf Urine Bacteria (Auto) (Negative) Urine Yeast COVID-19 Eval Order Influ A Molecular Assay Negative (Negative) Influ B Molecular Assay Negative (Negative) SARS-CoV-2, RNA, NAAT (NEGATIVE) 06/22/20 06/22/20 06/22/20 Range/Units 20:17 20:17 20:17 WBC (4.8-10.8) K/uL RBC (4.7-6.1) M/uL Hgb (14.0-18.0) g/dL Hct (42-52) % MCV (80-100) fL MCH (25-34) pg MCHC (32-36) g/dL RDW Std Deviation (36.4-46.3) fL RDW Coeff of Jovanna (11.5-14.5) % Plt Count (130-400) K/uL MPV (7.4-10.4) fL Immature Gran % (Auto) % Neut % (Auto) % Lymph % (Auto) % Andrews % (Auto) % Eos % (Auto) % Baso % (Auto) % Neut # (Auto) (1.4-6.5) K/uL Lymph # (Auto) (1.2-3.4) K/uL Andrews # (Auto) (0.11-0.59) K/uL Eos # (Auto) (0-0.5) K/uL Baso # (Auto) (0-0.2) K/uL Immature Gran # (Auto) (0.00-0.02) K/uL Sodium (136-145) mmol/L Potassium (3.5-5.1) mmol/L Chloride (98-107) mmol/L Carbon Dioxide (21-32) mmol/L Anion Gap (3-11) BUN (7-18) mg/dl Creatinine (0.6-1.4) mg/dl Est Cr Clr Drug Dosing ml/min Est GFR ( Amer) Est GFR (Non-Af Amer) BUN/Creatinine Ratio (10-20) Glucose (70-99) mg/dl Calcium (8.5-10.1) mg/dl Total Bilirubin (0.2-1) mg/dl AST (15-37) U/L ALT (12-78) U/L Alkaline Phosphatase (45-117) U/L Troponin I (0-0.045) ng/ml Total Protein (6.4-8.2) gm/dl Albumin (3.4-5.0) gm/dl Globulin (2.5-4.0) gm/dl Albumin/Globulin Ratio (0.9-2) TSH (0.300-4.500) uIu/ml Urine Color Yellow Urine Appearance Turbid A (Clear) Urine pH 5.5 (4.5-7.5) Ur Specific [place] 1.016 (1.000-1.030) Urine Protein 2+ H (Negative) Urine Glucose (UA) 1+ H (Negative) Urine Ketones Negative (Negative) Urine Blood 3+ H (Negative) Urine Nitrite Positive A (Negative) Urine Bilirubin Negative (Negative) Urine Urobilinogen Negative (Negative) Ur Leukocyte Esterase 3+ H (Negative) Urine WBC (Auto) >30 H (0-5) /hpf Urine RBC (Auto) 10-30 H (0-4) /hpf U Hyaline Cast (Auto) 1-5 (0-5) /lpf U Epithel Cells (Auto) 10-20 H (0-5) /lpf Urine Bacteria (Auto) 1+ H (Negative) Urine Yeast Not Reportable COVID-19 Eval [facility] Influ A Molecular Assay (Negative) Influ B Molecular Assay (Negative) SARS-CoV-2, RNA, NAAT NEGATIVE (NEGATIVE) 06/22/20 Range/Units 21:44 WBC (4.8-10.8) K/uL RBC (4.7-6.1) M/uL Hgb (14.0-18.0) g/dL Hct (42-52) % MCV (80-100) fL MCH (25-34) pg MCHC (32-36) g/dL RDW Std Deviation (36.4-46.3) fL RDW Coeff of Jovanna (11.5-14.5) % Plt Count (130-400) K/uL MPV (7.4-10.4) fL Immature Gran % (Auto) % Neut % (Auto) % Lymph % (Auto) % Andrews % (Auto) % Eos % (Auto) % Baso % (Auto) % Neut # (Auto) (1.4-6.5) K/uL Lymph # (Auto) (1.2-3.4) K/uL Andrews # (Auto) (0.11-0.59) K/uL Eos # (Auto) (0-0.5) K/uL Baso # (Auto) (0-0.2) K/uL Immature Gran # (Auto) (0.00-0.02) K/uL Sodium (136-145) mmol/L Potassium 3.6 (3.5-5.1) mmol/L Chloride (98-107) mmol/L Carbon Dioxide (21-32) mmol/L Anion Gap (3-11) BUN (7-18) mg/dl Creatinine (0.6-1.4) mg/dl Est Cr Clr Drug Dosing ml/min Est GFR ( Amer) Est GFR (Non-Af Amer) BUN/Creatinine Ratio (10-20) Glucose (70-99) mg/dl Calcium (8.5-10.1) mg/dl Total Bilirubin (0.2-1) mg/dl AST 25 (15-37) U/L ALT (12-78) U/L Alkaline Phosphatase (45-117) U/L Troponin I (0-0.045) ng/ml Total Protein (6.4-8.2) gm/dl Albumin (3.4-5.0) gm/dl Globulin (2.5-4.0) gm/dl Albumin/Globulin Ratio (0.9-2) TSH (0.300-4.500) uIu/ml Urine Color Urine Appearance (Clear) Urine pH (4.5-7.5) Ur Specific Nakina (1.000-1.030) Urine Protein (Negative) Urine Glucose (UA) (Negative) Urine Ketones (Negative) Urine Blood (Negative) Urine Nitrite (Negative) Urine Bilirubin (Negative) Urine Urobilinogen (Negative) Ur Leukocyte Esterase (Negative) Urine WBC (Auto) (0-5) /hpf Urine RBC (Auto) (0-4) /hpf U Hyaline Cast (Auto) (0-5) /lpf U Epithel Cells (Auto) (0-5) /lpf Urine Bacteria (Auto) (Negative) Urine Yeast COVID-19 Eval Order Influ A Molecular Assay (Negative) Influ B Molecular Assay (Negative) SARS-CoV-2, RNA, NAAT (NEGATIVE) Administered Medications Discontinued Medications Acetaminophen (Acetaminophen 500 Mg Tab) 1,000 mg PO NOW STA Stop: 06/22/20 19:49 Last Admin: 06/22/20 20:19 Dose: 1,000 mg Documented by: [id number] Doxycycline Hyclate (Doxycycline Hyclate 100 Mg Cap) 100 mg PO NOW STA Stop: 06/22/20 21:35 Last Admin: 06/22/20 21:49 Dose: 100 mg Documented by: [id number] Sodium Chloride (Nss 1000ml) 1,000 mls @ 999 mls/hr IV .Q1H1M UMBERTO Stop: 06/22/20 21:00 Last Infusion: 06/22/20 21:20 Dose: 0 mls/hr Documented by: [id number] Admin: 06/22/20 20:19 Dose: 999 mls/hr Documented by: [id number] Ceftriaxone Sodium (Rocephin) 2,000 mg in 70 mls @ 140 mls/hr IV NOW STA Stop: 06/22/20 22:03 Last Infusion: 06/22/20 22:19 Dose: 0 mls/hr Documented by: [id number] Admin: 06/22/20 21:49 Dose: 140 mls/hr Documented by: [id number] Ioversol (Ioversol 100ml) 95 ml IV ONCE ONE Stop: 06/22/20 22:08 Last Admin: 06/22/20 22:10 Dose: 95 ml Documented by: [id number] Discharge Plan Visit Data Chief Complaint: Fever Stated Complaint: FEVER FOR A WEEK ED Provider: Arnoldo Morales Discharge Problem: Acute pyelonephritis, Sepsis Forms Stand Alone Forms: [facility] Prescriptions Prescriptions: No Action lisinopril 20 mg tablet 20 mg PO QAM RF: 0 levothyroxine 175 mcg capsule 175 mcg PO QAM RF: 0 aspirin 81 mg tablet,delayed release (DR/EC) 81 mg PO QAM RF: 0 acetaminophen [Tylenol Extra Strength] 500 mg Capsule 1,000 mg PO Q6H PRN (Reason: Pain) RF: 0 atorvastatin 80 mg Tablet 80 mg PO QAM RF: 0 fluticasone propionate 50 mcg/actuation spray,suspension 2 spray INTRANASAL DAILY PRN (Reason: Nasal Congestion) RF: 0 tamsulosin 0.4 mg capsule 0.4 mg PO HS PRN (Reason: ..) RF: 0 Discharge Problem: Sepsis Qualifiers: Sepsis type: sepsis due to unspecified organism Sepsis acute organ dysfunction status: unspecified Qualified Code(s): A41.9 - Sepsis, unspecified organism
[2020-06-22 20:34] LABS: Basophils # (auto) 0.03 K/uL (0-0.2); Basophils % (auto) 0.2 %; Eosinophils # (auto) 0.04 K/uL (0-0.5); Eosinophils % (auto) 0.2 %; Hematocrit (blood only) 35.8 % (42-52); Hemoglobin 11.8 g/dL (14.0-18.0); Immature Granulocytes # (auto) 0.09 K/uL (0.00-0.02); Immature Granulocytes % (auto) 0.5 %; Lymphocytes # (auto) 2.23 K/uL (1.2-3.4); Lymphocytes % (auto) 11.5 %; Mean Corpuscular Hemoglobin 28.2 pg (25-34); Mean Corpuscular Volume 85.6 fL (80-100); Mean Platelet Volume 8.4 fL (7.4-10.4); Monocytes # (auto) 2.27 K/uL (0.11-0.59); Monocytes % (auto) 11.7 %; Neutrophils # (auto) 14.69 K/uL (1.4-6.5); Neutrophils % (auto) 75.9 %; Platelet Count 567 K/uL (130-400); RDW Coefficient of Variation 14.8 % (11.5-14.5); RDW Standard Deviation 46.4 fL (36.4-46.3); Red Blood Count 4.18 M/uL (4.7-6.1); White Blood Count 19.35 K/uL (4.8-10.8)
[2020-06-22 20:54] LABS: Influenza A virus by PCR Negative (Negative); Influenza B virus by PCR Negative (Negative)
[2020-06-22 21:07] LABS: Alanine Aminotransferase 41 U/L (12-78); Albumin Globulin Ratio 0.5 (0.9-2); Albumin Level 2.8 gm/dl (3.4-5.0); Alkaline Phosphatase 97 U/L (45-117); BUN Creatinine Ratio 10.3 (10-20); Bilirubin,Total 0.6 mg/dl (0.2-1); Blood Urea Nitrogen 17 mg/dl (7-18); Calcium 8.9 mg/dl (8.5-10.1); Carbon Dioxide 27 mmol/L (21-32); Chloride 98 mmol/L (98-107); Creatinine Clr Calc Pharmacy 49.5 ml/min; Est GFR (Non-African American) 42.3; Globulin 5.4 gm/dl (2.5-4.0); Glucose 199 mg/dl (70-99); Sodium 129 mmol/L (136-145); Total Protein 8.2 gm/dl (6.4-8.2); Troponin I < 0.015 ng/ml (0-0.045)
[2020-06-22 21:25] LABS: Appearance Urine Turbid (Clear); Bilirubin Urine Negative (Negative); Blood Urine 3+ (Negative); Color Urine Yellow; Glucose Urine UA 1+ (Negative); Ketones Urine Negative (Negative); Leukocyte Esterase Urine 3+ (Negative); Nitrite Urine Positive (Negative); Protein Urine 2+ (Negative); Specific Gravity Urine 1.016 (1.000-1.030); Urobilinogen Urine Negative (Negative); WBC Urine Automated >30 /hpf (0-5); pH Urine 5.5 (4.5-7.5)
[2020-06-22] MEDS ORDERED: DOXYCYCLINE HYCLATE 100 MG CAP PO STA (21:34)
[2020-06-22] MEDS ORDERED: cefTRIAXone SODIUM 2,000 MG/70 ML BAG IV STA (21:34)
[2020-06-22 21:41] LABS: Bacteria Urine Automated 1+ (Negative)
[2020-06-22] MEDS ORDERED: IOVERSOL 100ml IV ONE (22:07)
[2020-06-22 22:25] LABS: Potassium 3.6 mmol/L (3.5-5.1)
--- NOTE | 2020-06-22 23:30 | History & Physical Report ---
Date of Service June 22, 2020 Assessment & Plan (1) Acute pyelonephritis: Pt is a 60yo with a Hx of bladder cancer s/p 2 resections with upcoming BCG therapy, CAD s/p stent placement, HLD, HTN and Hypothyroidism admitted with an acute complicated UTI. Acute complicated UTI in the setting of stent placements for bladder cancer -Pt states he has been having fevers as high as 102 for the last week, denies dysuria or suprapubic tenderness. -Also with weakness, nonproductive cough -Has Dx of noninvasive papillary urothelial carcinoma. -Vitals stable on admission, WBC=19.3, Cr-1.70 with baseline ~1.1. -UA with 3+ blood, 1+glucose, +nitrites, 3+leukocyte esterase, 1+ bacteria. Urine Cx pending -CT abd/pelvis: stents present with R>L hydronephrosis, mild bladder wall thickening with perinephric/periureteral stranding -No blood Cx drawn as pt received antibiotics in ED -COVID negative -Lyme IgM, IgG pending with AM labs. Received a dose of doxycycline in the ED (pt states he was recently hunting in [place]). -consult [facility]- Pt follows with Dr. Keller -NPO for possible procedure in AM -Continue Rocephin, s/p one dose in ED -continue home tamsulosin 0.4mg PRN -NSS@80mls/hr YOHAN -Cr of 1.70 as noted above -Baseline of ~1.1 -NSS@80mls/hr -hold nephrotoxic drugs- home lisinopril -trend BMP for continued monitoring Hyponatremia -Na of 129 on admission -Likely secondary to dehydration -NSS@80mls -Trend with AM BMPs, consider further workup if persistent Hyperglycemia -Glucose of 199 noted on admission, also glucose noted in urine -HgbA1c ordered for AM -consider ISS while hospitalized if a1c> or equal to 6.5 CAD s/p stent placement -EKG with NSR, HR of 80, qtc of 415 -Hx of stents placement ~2007 -continue home atorvastatin 80mg -hold home aspirin given potential procedure in AM -hold home lisinopril due to nephrotoxicity as above HTN -holding home lisinopril due to nephrotoxicity as above Hypothyroidism -continue home levothyroxine 175mcg FEN/GI: NPO, NSS@80mls/hr DVT prophylaxis: SCDs, holding chemicals due to potential procedure in AM CODE STATUS: Full Code Dispo: Med/Surg (2) Essential hypertension: (3) Bladder cancer: (4) Hyperlipidemia: (5) Coronary artery disease: (6) Hypothyroidism: History of Present Illness Primary Care Provider: Juan Miguel Will Stephenson Pt is a 60yo with a Hx of bladder cancer s/p 2 resections with upcoming BCG therapy, CAD s/p stent placement, HLD, HTN and Hypothyroidism admitted with an acute complicated UTI. Pt states that for the last week he has been having fevers without dysuria or abdominal/suprapubic pain. States today his fever was as high as 102. States he has a Hx of bladder cancer diagnosed about 2 months ago and has had 2 surgeries. States he is scheduled to have followup procedures in a few weeks. In addition to the fevers, he has been having weakness, cough. States he was also hunting in [place] during the last week, though he denies coming into contact with any known COVID contacts. He states that he smoked for 20years 2ppd but stopped about 20 years ago. Also distant Hx of alcohol use. Lives in [place] with his . 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 Allergies Allergy/AdvReac Type Severity Reaction Status Date / Time No Known Allergies Allergy Mild Verified 06/22/20 08:17 Home Medications Medication Instructions Recorded Confirmed Type aspirin 81 mg tablet,delayed 81 mg PO QAM 03/30/20 06/22/20 History release levothyroxine 175 mcg capsule 175 mcg PO QAM 03/30/20 06/22/20 History lisinopril 20 mg tablet 20 mg PO QAM 03/30/20 06/22/20 History atorvastatin 80 mg PO QAM 05/04/20 06/22/20 History acetaminophen [Tylenol Extra 1,000 mg PO Q6H PRN 06/22/20 06/22/20 History Strength] fluticasone propionate 2 spray INTRANASAL DAILY PRN 06/22/20 06/22/20 History tamsulosin 0.4 mg PO HS PRN 06/22/20 06/22/20 History Past Med/Surg History Medical History Arthritis Coronary artery disease S/p stent in 2007, no longer follows with [facility], PCP only. 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 Negative DSE 2013. Foot drop, right DOES NOT WEAR BRACE Hyperlipidemia Hypertension Hypothyroidism Myocardial Infarction 2007. S/p single stent. EF preserved based on 2013 echo. Surgical History History of colonoscopy History of surgery for bladder tumor> Mar 2020 History of tooth extraction S/P coronary artery stent placement 2007 AT [facility] (1 STENT PLACED) Family History Mother Diabetes Heart disease Cancer Hypertension Family history of diabetes mellitus Father Heart disease Social History Smoking Status: Former smoker Tobacco Type: Cigarettes Second Hand Exposure: No; Do You Dip or Chew Tobacco: No; Tobacco Cessation Education Requested by Patient: No Hx Alcohol Use: No Hx Substance Use: No Preferred Language: Serbian Communication Ability: Effective Industrial Safety Engineer Required: No Beliefs That Will Affect Care: None marital status: Current Living Situation: Spouse current occupational status: employed Other Information That Helps Us Care for You: No Feels Safe at Home: Yes Safety Concerns: Feels Safe At This Time Assistive Devices: Glasses Review of Systems Constitutional: + fever, + fatigue and + weakness; no chills and no sweats Eyes: no worsening vision Ear, Nose, Mouth, Throat: no nasal congestion, no nasal discharge and no sore throat Respiratory: + cough; no dyspnea Cardiovascular: + dyspnea; no chest pain, no palpitations and no edema Gastrointestinal: no abdominal pain, no nausea, no vomiting, no constipation, no diarrhea/loose stools and no blood in stools Genitourinary: no dysuria and no hematuria Musculoskeletal: no back pain Integumentary: no rash Neurologic: no tingling, no numbness, no headache(s) and no confusion Psychiatric: no confusion Physical Exam Physical Exam: General: Alert, oriented. No acute distress, laying in bed resting Skin: No noted rashes or bruises Psych: Appropriate mood and affect Neuro: No gross deficits HEENT: NC/AT Chest: Nontender to palpation. CV: RRR, Normal s1, s2. No murmurs appreciated Resp: Breath sounds clear bilaterally, no increased effort of breathing. Abdomen:Soft, tender to palpation in suprapubic area. No guarding. Extremities: No edema in lower extremities bilaterally. Results & Data Results & Data ([facility]) Vital Signs (Past 12 Hours) Vital Signs Temp Pulse Resp BP Pulse Ox 06/22/20 22:30 36.8 C 64 13 116/75 97 06/22/20 22:28 69 18 120/70 97 06/22/20 21:30 73 12 114/51 L 97 06/22/20 21:01 84 20 97 06/22/20 21:00 76 20 121/69 97 06/22/20 20:30 73 23 146/80 H 97 06/22/20 20:20 77 18 98 06/22/20 20:15 84 24 158/83 H 06/22/20 20:06 20 97 06/22/20 19:26 37.8 C H 99 H 20 116/79 96 Supervising Physician Co-Signing Physician Notes Attending addendum: I have physically seen this patient, have supervised the medical residents activities, and agree with the H&P unless as otherwise noted. Assessment and Plan: Acute pyelonephritis/bilateral ureteral stents/mild right greater than left hydronephrosis- History of noninvasive papillary urothelial carcinoma Follow urinalysis and urine culture and sensitivity Tamsulosin 0.4 mg p.o. daily empiric ceftriaxone 1 g IV daily NSS at 80 mils per hour Consult urology Dr. Keller Acute kidney injury- Creatinine 1.70 [place] base 1.12. NSS at 80 mils per hour. Repeat BMP and magnesium level in the a.m. Hyponatremia- Sodium 129 upon admission. Repeat BMP in a.m. CAD/hypertension/stented coronary arteries- Hold aspirin and lisinopril for now. Remainder of orders and notations as noted Resident Activity Tracking Resident Involvement: Resident Care Provided Care Provided: Adult [facility]
[2020-06-23] MEDS: SODIUM CHLORIDE 0.9% 1000ML 1,000 ML IV SCH ×2 (00:56→13:24)
[2020-06-23] MEDS ORDERED: TAMSULOSIN HCL 0.4 MG CAP PO PRN (00:56)
[2020-06-23] MEDS: LEVOTHYROXINE SODIUM 175 MCG TABLET PO SCH (06:03)
[2020-06-23] MEDS: ACETAMINOPHEN 1,000 MG/100 ML VIAL IV PRN ×2 (06:11→15:29)
--- NOTE | 2020-06-23 06:51 | XRay Report ---
XR chest 1V portable CLINICAL HISTORY: weakness COMPARISON STUDY: Chest radiograph March 30, 2020. FINDINGS: Lung volumes are normal. Lungs are clear. There is no pneumothorax or pleural effusion. Car diac size is normal. Mediastinal contours are normal. There is no evidence for pulmonary edema. IMPRESSION: No acute cardiopulmonary findings. ACT 112: Negative or not required by law. Electronically signed by: Rolf Jc M.D. 06/23/2020 6:49 AM
--- NOTE | 2020-06-23 07:50 | CT Scan Report ---
CT SCAN OF THE ABDOMEN AND PELVIS WITH IV CONTRAST CLINICAL HISTORY: Fever. Leukocytosis. Bladder mass. COMPARISON STUDY: Abdominal CT dated 03/30/2020. TECHNIQUE: Following the IV administration of 95 cc of Optiray 320, CT scan of the abdomen and pelvi s is performed from the lung bases to the proximal femora. Images are reviewed in the axial, sagittal , and coronal planes. IV contrast was administered without complication. A dose lowering technique wa s utilized adhering to the principles of ALARA. CT DOSE: 814.37 mGy.cm FINDINGS: Lung bases: The heart is normal in size and without pericardial effusion. There are coronary artery c alcifications. A small hiatal hernia is noted. The lung bases are clear. Liver: The contrast-enhanced liver is normal in size and contour. There is diminished hepatic attenua tion suggesting steatosis. There is no intrahepatic biliary ductal dilatation. The hepatic veins and portal veins are patent. Gallbladder: Unremarkable. Spleen: Normal in size and attenuation. Pancreas: Unremarkable. Adrenal glands: Unremarkable. Kidneys: The contrast enhanced kidneys are normal in size. Bilateral ureteral stents are in appropria te position. There is fullness of the renal collecting system bilaterally without hydronephrosis. An extrarenal pelvis is seen on the right. There is diffuse urothelial thickening and enhancement identi fied in the renal collecting system bilaterally and involving both ureters. No ureteral calcification s are identified. There is no gas present within the renal collecting systems. There is heterogeneous enhancement of both kidneys with bilateral perinephric stranding. Abdominal vasculature: The abdominal aorta is normal in course and caliber noting mild atheroscleroti c calcification. Bowel: There is no bowel obstruction. There are scattered colonic diverticula without CT evidence of acute diverticulitis. Moderate fecal retention is noted in the colon. The appendix is well-visualize d and normal. Peritoneum: There is no intraperitoneal free air or abdominal ascites. Lymphadenopathy: None. Pelvic viscera: The prostate gland is diminutive and heterogeneous. The bladder wall is thickened and there is pericystic inflammation. The large bladder mass seen on 03/30/2020 is not visualized on today 's examination. The bladder contains the ends of bilateral ureteral stents. Skeletal structures: No lytic or blastic lesions are seen. IMPRESSION: 1. Bilateral ureteral stents are in appropriate position. There is fullness of the renal collecting s ystems without hydronephrosis. 2. Urothelial thickening and enhancement is present involving both ureters and the renal collecting s ystems. Additionally, there is heterogeneous enhancement of both kidneys with associated perinephric and periureteric stranding. Although some of this could be related to the presence of indwelling sten ts, urinary tract infection/bilateral pyelonephritis is favored. Correlation with urinalysis will be required. 3. The bladder wall is thickened and there is pericystic inflammation. This could represent treatment related change and/or superimposed cystitis. Again, correlation with clinical findings and urinalysi s will be required. 4. The large bladder mass seen on 03/30/2020 is no longer apparent. 5. Additional findings as above. ACT 112: Negative or not required by law. Electronically signed by: Alex Nieto M.D. 06/23/2020 7:49 AM
[2020-06-23] MEDS: ATORVASTATIN 40 MG TAB PO SCH (08:24)
[2020-06-23 08:49] LABS: Basophils # (auto) 0.04 K/uL (0-0.2); Basophils % (auto) 0.2 %; Eosinophils # (auto) 0.02 K/uL (0-0.5); Eosinophils % (auto) 0.1 %; Hematocrit (blood only) 33.9 % (42-52); Hemoglobin 11.3 g/dL (14.0-18.0); Immature Granulocytes # (auto) 0.07 K/uL (0.00-0.02); Immature Granulocytes % (auto) 0.4 %; Lymphocytes # (auto) 2.32 K/uL (1.2-3.4); Lymphocytes % (auto) 12.3 %; Mean Corpuscular Hemoglobin 28.3 pg (25-34); Mean Corpuscular Hgb Conc 33.3 g/dL (32-36); Mean Platelet Volume 8.3 fL (7.4-10.4); Monocytes # (auto) 1.97 K/uL (0.11-0.59); Monocytes % (auto) 10.5 %; Neutrophils # (auto) 14.43 K/uL (1.4-6.5); Neutrophils % (auto) 76.5 %; Platelet Count 508 K/uL (130-400); RDW Coefficient of Variation 14.5 % (11.5-14.5); RDW Standard Deviation 45.3 fL (36.4-46.3); Red Blood Count 3.99 M/uL (4.7-6.1); White Blood Count 18.85 K/uL (4.8-10.8)
[2020-06-23] MEDS ORDERED: lisinopril 20 MG TAB PO SCH (09:00)
[2020-06-23 09:23] LABS: Estimated Average Glucose 160 mg/dl; Hemoglobin A1C 7.2 % (4.5-5.6)
[2020-06-23 09:25] LABS: BUN Creatinine Ratio 11.7 (10-20); Calcium 9.2 mg/dl (8.5-10.1); Creatinine Clr Calc Pharmacy 58.3 ml/min; Est GFR (African American) 59.9; Est GFR (Non-African American) 51.7; Potassium 3.9 mmol/L (3.5-5.1)
[2020-06-23 09:39] LABS: Lyme Ab IgG w/WB Rflx Negative (Negative); Lyme Ab IgM w/WB Rflx Negative (Negative)
--- NOTE | 2020-06-23 10:29 | Urology Consultation ---
Date of Consultation June 23, 2020 Assessment & Plan (1) Sepsis: 60 yo M with history of bladder cancer admitted for sepsis, complicated UTI. - Imaging and plan of care reviewed with Dr. Keller - CT showed stents in good position, mild thickening and distention of bladder, mild fullness of renal collecting system - No acute intervention planned today, okay to have diet today and reassess in AM - UC&S pending, continue broad spectrum abx, follow cultures - Continue antibiotics and supportive care - Order placed for bladder scan post void residual after next void to ensure bladder emptying, bladder scan Q6H prn - Per chart review, pt voided 250 mL, PVR 0 mL @1145 - Will continue to follow while inpatient History of Present Illness Reason for Consultation: Hydronephrosis, UTI Attending Physician: Mukesh James MD History of Present Illness 60 yo M with history of bladder cancer admitted for sepsis, complicated UTI. PMHx of CAD, hyperlipidemia, hypothyroidism, bladder cancer, hypertension. Patient is known to our service, follows with Dr. Keller for history of bladder cancer s/p TURBT x 2. He presented to [facility] ED on 06/22/20 with symptoms of fever and weakness ongoing for about 1 week. Temperature on arrival 37.8. Lab work: creatinine 1.70, WBC 19.35, Hgb 11.8. UA positive for nitrites, 1+ bacteria, 10-30 RBCs, >30 WBCs. Urine culture collected. Treated with IVF, Tylenol, Doxycycline and IV Rocephin in ED, no blood cultures collected. Admitted for sepsis, acute pyelonephritis. Our service is consulted for complicated UTI, hydronephrosis. Chart review: Tmax 39.2 on 06/23 @0600 Creatinine (06/23) - 1.44 WBC (06/23) - 18.85 UC&S - pending On IV Ceftriaxone Contrasted CT A/P IMPRESSION: 1. Bilateral ureteral stents are in appropriate position. There is fullness of the renal collecting systems without hydronephrosis. 2. Urothelial thickening and enhancement is present involving both ureters and the renal collecting systems. Heterogeneous enhancement of both kidneys with associated perinephric and periureteric stranding. 3. The bladder wall is thickened and there is pericystic inflammation. 4. The large bladder mass seen on 03/30/2020 is no longer apparent. Pt seen and examined at bedside this AM. Awake, alert and sitting up in bed. Reports he is feeling better since admission. Reports fever this AM, feeling better at this time. No nausea or vomiting. Denies fever or chills at present. Voiding without difficulty. No dysuria or hematuria. Feels he is emptying bladder completely. No additional concerns today. Allergies Allergy/AdvReac Type Severity Reaction Status Date / Time No Known Allergies Allergy Mild Verified 06/22/20 08:17 Home Medications Medication Instructions Recorded Confirmed Type aspirin 81 mg tablet,delayed 81 mg PO QAM 03/30/20 06/22/20 History release levothyroxine 175 mcg capsule 175 mcg PO QAM 03/30/20 06/22/20 History lisinopril 20 mg tablet 20 mg PO QAM 03/30/20 06/22/20 History atorvastatin 80 mg PO QAM 05/04/20 06/22/20 History acetaminophen [Tylenol Extra 1,000 mg PO Q6H PRN 06/22/20 06/22/20 History Strength] fluticasone propionate 2 spray INTRANASAL DAILY PRN 06/22/20 06/22/20 History tamsulosin 0.4 mg PO HS PRN 06/22/20 06/22/20 History Patient History Medical History Arthritis Coronary artery disease S/p stent in 2007, no longer follows with [facility], PCP only. 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 Negative DSE 2013. Foot drop, right DOES NOT WEAR BRACE Hyperlipidemia Hypertension Hypothyroidism Myocardial Infarction 2007. S/p single stent. EF preserved based on 2014 echo. Surgical History History of colonoscopy History of surgery for bladder tumor> Mar 2020 History of tooth extraction S/P coronary artery stent placement 2007 AT [facility] (1 STENT PLACED) Family History Mother Diabetes Heart disease Cancer Hypertension Family history of diabetes mellitus Father Heart disease Social History Smoking Status: Former smoker Tobacco Type: Cigarettes Second Hand Exposure: No; Do You Dip or Chew Tobacco: No; Tobacco Cessation Education Requested by Patient: No Hx Alcohol Use: No Hx Substance Use: No Preferred Language: Somali Communication Ability: Effective Machinery Cleaner Required: No Beliefs That Will Affect Care: None marital status: Current Living Situation: Spouse current occupational status: employed Other Information That Helps Us Care for You: No Feels Safe at Home: Yes Safety Concerns: Feels Safe At This Time Assistive Devices: Denture - Lower and Glasses Review of Systems Review of Systems: All systems reviewed & are unremarkable except as noted in HPI & below Constitutional: as per Subjective / HPI Gastrointestinal: as per Subjective / HPI Genitourinary: + as per Subjective / HPI Physical Exam Constitutional: well developed and well nourished; no acute distress and not ill appearing Respiratory: normal respiratory effort and able to speak in complete sentences; no respiratory distress and no labored breathing Cardiovascular: Extremities: no pedal edema Gastrointestinal (Abdomen): Inspection/Auscultation: abdomen normal to inspection; abdomen not distended Percussion/Palpation: abdomen soft; abdomen nontender and no guarding Musculoskeletal: Head/Neck/Chest: normocephalic and head atraumatic Extremities: extremities normal to inspection Skin: Skin warm Neurologic: moves all extremities and awake Psychiatric: Orientation: alert and oriented x 3 Genitourinary: no CVA tenderness Pt voiding spontaneously, urinal on bedside table with clear concentrated yellow urine Results & Data ([facility]) Vital Signs (Past 12 Hours) Vital Signs Temp Pulse Pulse Resp BP BP Pulse Ox 06/23/20 07:14 37.7 C H 68 18 100/62 96 06/23/20 06:04 39.2 C H 06/23/20 00:20 37.7 C H 82 14 184/77 H 100 06/23/20 00:01 59 L 22 145/78 H 100 06/23/20 00:00 59 L 22 99 06/22/20 23:30 57 L 23 113/70 98 06/22/20 23:01 58 L 17 99 06/22/20 23:00 58 L 17 131/71 99 06/22/20 22:31 63 96 06/22/20 22:30 36.8 C 64 13 116/75 97 06/22/20 22:28 69 18 120/70 97 PG Care Time/CCT Total # of Minutes Spent Total Time Spent with Patient: Total time spent is greater than 50% in coordination of care (as documented) at patient's floor/unit and/or counseling patient: Coding Level of Care Code 96043 Inpt Consult Level 3 Diagnoses Sepsis A41.9 Sepsis acute organ dysfunction status: unspecified Sepsis type: sepsis due to unspecified organism (1) Sepsis Sepsis acute organ dysfunction status: unspecified Sepsis type: sepsis due to unspecified organism Qualified Code(s): A41.9 - Sepsis, unspecified organism
--- NOTE | 2020-06-23 17:06 | Hospitalist Progress Note ---
Date of Service June 23, 2020 Assessment & Plan (1) Acute pyelonephritis: -Pt states he has been having fevers as high as 102 for the last week, denies dysuria or suprapubic tenderness. -Also with weakness, nonproductive cough -Has Dx of noninvasive papillary urothelial carcinoma. -UA with 3+ blood, 1+glucose, +nitrites, 3+leukocyte esterase, 1+ bacteria. Urine Cx pending -CT abd/pelvis: stents present with R>L hydronephrosis, mild bladder wall thickening with perinephric/periureteral stranding -No blood Cx drawn as pt received antibiotics in ED -COVID negative -Lyme negative -[facility] -NPO tonight and re-evaluate in the morning for need for procedure -Continue Rocephin -continue home tamsulosin 0.4mg PRN -Continue NSS@80mls/hr (2) Acute kidney injury: -Cr of 1.70 on admission, trending down to 1.44 today -Baseline of ~1.1 -NSS@80mls/hr -hold nephrotoxic drugs- home lisinopril -trend BMP for continued monitoring (3) Hyponatremia: Resolved (4) Hyperglycemia: A1c is 7.2% Patient has not previously been diagnosed with diabetes Discussed with patient and machine joint cutter was also in to see him. Bsgs ac & hs Pharmacy glycemic management (5) Coronary artery disease: -EKG with NSR, HR of 80, qtc of 415 -Hx of stents placement ~2007 -continue home atorvastatin 80mg -hold home aspirin given potential procedure in AM -hold home lisinopril due to nephrotoxicity as above (6) Hypothyroidism: continue levothyroxine (7) DVT prophylaxis: scds - hold chemoprophylaxis in case patient needs procedure tomorrow Admission and Anticipated Discharge Date Admission Date: June 22, 2020 Supervising Physician Co-Signing Physician Notes Attending Attestation: Chart reviewed in detail, care plan d/w MATIAS Escobar. I agree w/ the ruelas components of her documentation. b/l pyelonephritis / UTI. COMPLICATED given the presence of ureteral stents. await final cx results. cont IV rocephin. YOHAN improved. wbc count improving. oLs Reilly MD Subjective Mr. Degroot is feeling better today. He was febrile early this morning. Review of Systems Constitutional: + fever; no chills and no body aches Respiratory: no cough and no dyspnea Cardiovascular: no chest pain and no palpitations Gastrointestinal: no abdominal pain, no nausea and no vomiting Genitourinary: no dysuria and no urinary hesitancy Musculoskeletal: no back pain and no joint pain Integumentary: no rash Physical Exam Physical Exam: General: no distress Eyes: normal inspection, PERLL Respiratory: chest non tender, clear to auscultation, normal breath sounds, no respiratory distress, no accessory muscle use Cardiac: regular rate and rhythm, no rub or gallop, no murmur, no edema, no jvd GI/: active bowel sounds, no abd pain or tenderness, soft, non distended Extremities: normal range of motion, normal strength, non tender Neuro/Psych: alert and oriented x 3, normal mood and affect Skin: normal color, dry Results & Data Results & Data ([facility]) Vital Signs (Past 12 Hours) Vital Signs Temp Pulse Resp BP Pulse Ox 06/23/20 16:56 37.1 C 06/23/20 15:03 38.9 C H 76 16 123/66 97 06/23/20 07:14 37.7 C H 68 18 100/62 96 06/23/20 06:04 39.2 C H PG Care Time/CCT Total # of Minutes Spent Total Time Spent with Patient: Total time spent is greater than 50% in coordination of care (as documented) at patient's floor/unit and/or counseling patient: Coding Level of Care Code 39703 Subseq Hosp Care Lvl 3 Diagnoses Acute pyelonephritis N10 Acute kidney injury N17.9 Hyponatremia E87.1 Hyperglycemia R73.9 Coronary artery disease I25.10 Hypothyroidism E03.9 DVT prophylaxis Z29.9
[2020-06-23] MEDS ORDERED: PHARMACY GLYCEMIC MGMT CONSULT PRN (17:22)
[2020-06-23] MEDS: INSULIN ASPART 100 UNITS/ML 3 ML PEN SC SCH ×2 (18:39→20:55)
--- NOTE | 2020-06-23 19:38 | Pharmacy Report ---
Pharmacy Glycemic Short Note 2 - Date of Service June 23, 2020 - Glycemic Short BSG Results (Last 24 hours): 06/22/20 06/23/20 06/23/20 20:16 08:31 18:35 Glucose 199 H 141 H POC Glucose 248 H OUTPATIENT ANTIDIABETIC REGIMEN: * ASSESSMENT: * Patient has not previously been diagnosed with diabetes. Hemoglobin A1C is 7.2. Started more conservatively since we are unsure of how the patient will respond to insulin treatment. PLAN FOR INPATIENT GLYCEMIC CONTROL: * Hold outpatient oral diabetes medications * Bolus insulin * NovoLog per scale ACHS or Q6hrs while NPO * Goal Range: Low 120 mg/dL - High 150 mg/dL * Correction Factor: 30 mg/dL/unit * Nutritional / Prandial insulin per carb ratio of 1 unit per 10 grams CHO consumed PLAN FOR DISCHARGE: *
--- NOTE | 2020-06-23 21:15 | Electrocardiogram Report ---
Test Reason : Blood Pressure : / mmHG Vent. Rate : 080 BPM Atrial Rate : 080 BPM P-R Int : 130 ms QRS Dur : 090 ms QT Int : 360 ms P-R-T Axes : 056 017 051 degrees QTc Int : 415 ms Normal sinus rhythm Normal ECG When compared with ECG of 01-APR-2020 21:52, Vent. rate has increased BY 29 BPM Nonspecific T wave abnormality no longer evident in Inferior leads Confirmed by Hosea Guzman ([id number]) on 06/23/2020 9:15:24 PM Referred By: REFERRED SELF Confirmed By:Hosea Guzman
[2020-06-23] MEDS ORDERED: DEXTROSE 50% 50 ML SYRINGE IV PRN (21:45)
[2020-06-23] MEDS ORDERED: GLUCOSE 10 TABS/TUBE PO PRN (21:45)
[2020-06-23] MEDS ORDERED: CARBOHYDRATES FOR HYPOGLYCEMIA PO PRN (21:45)
[2020-06-23] MEDS ORDERED: GLUCAGON FOR INJ 1 MG VIAL IM PRN (21:45)
[2020-06-23] MEDS ORDERED: GLUCOSE 40% GEL 15 GM TUBE PO PRN (21:45)
[2020-06-23] MEDS: cefTRIAXone SODIUM 2,000 MG in DEXTROSE 5% 50 ML IV SCH (21:58)
[2020-06-24] MEDS: SODIUM CHLORIDE 0.9% 1000ML 1,000 ML IV SCH ×2 (02:41→15:24)
[2020-06-24] MEDS ORDERED: Nursing to Pharmacy Communication SCH ×2 (04:45→12:15)
--- NOTE | 2020-06-24 05:14 | Billing Data ---
Date of Service June 24, 2020 Coding Level of Care Code 04997 Initial Inpt Care Lvl 3
[2020-06-24] MEDS: LEVOTHYROXINE SODIUM 175 MCG TABLET PO SCH (05:44)
[2020-06-24] MEDS: INSULIN ASPART 100 UNITS/ML 3 ML PEN SC SCH ×5 (05:44→22:16)
[2020-06-24 07:05] LABS: Basophils # (auto) 0.03 K/uL (0-0.2); Basophils % (auto) 0.3 %; Eosinophils % (auto) 1.9 %; Hematocrit (blood only) 32.5 % (42-52); Hemoglobin 10.5 g/dL (14.0-18.0); Immature Granulocytes # (auto) 0.03 K/uL (0.00-0.02); Immature Granulocytes % (auto) 0.3 %; Lymphocytes # (auto) 2.41 K/uL (1.2-3.4); Lymphocytes % (auto) 22.3 %; Mean Corpuscular Hemoglobin 27.9 pg (25-34); Mean Corpuscular Hgb Conc 32.3 g/dL (32-36); Mean Corpuscular Volume 86.2 fL (80-100); Mean Platelet Volume 8.2 fL (7.4-10.4); Monocytes # (auto) 0.99 K/uL (0.11-0.59); Monocytes % (auto) 9.2 %; Neutrophils # (auto) 7.13 K/uL (1.4-6.5); Platelet Count 524 K/uL (130-400); RDW Coefficient of Variation 14.5 % (11.5-14.5); RDW Standard Deviation 45.8 fL (36.4-46.3); Red Blood Count 3.77 M/uL (4.7-6.1); White Blood Count 10.79 K/uL (4.8-10.8)
[2020-06-24 07:34] LABS: BUN Creatinine Ratio 16.1 (10-20); Calcium 8.6 mg/dl (8.5-10.1); Creatinine Clr Calc Pharmacy 66.7 ml/min; Est GFR (African American) 70.4; Est GFR (Non-African American) 60.7; Potassium 4.2 mmol/L (3.5-5.1)
[2020-06-24] MEDS: ATORVASTATIN 40 MG TAB PO SCH (08:29)
--- NOTE | 2020-06-24 10:25 | Pharmacy Report ---
Pharmacy Glycemic Short Note 2 - Date of Service June 24, 2020 - Glycemic Short BSG Results (Last 24 hours): 06/23/20 06/23/20 06/24/20 18:35 20:51 05:42 Glucose POC Glucose 248 H 139 H 138 H 06/24/20 06:43 Glucose 115 H POC Glucose OUTPATIENT ANTIDIABETIC REGIMEN: * n/a * HbA1c: 7.2% ASSESSMENT: * Patient with previously undiagnosed DM. * Novolog initiated last evening, conservatively. * Patient rec'd one dose of insulin to cover carbs at dinner, which seemed to be sufficient. * No further changes required at this time. PLAN FOR INPATIENT GLYCEMIC CONTROL: * Hold outpatient oral diabetes medications * Bolus insulin * NovoLog per scale ACHS or Q6hrs while NPO * Goal Range: Low 120 mg/dL - High 150 mg/dL * Correction Factor: 30 mg/dL/unit * Nutritional / Prandial insulin per carb ratio of 1 unit per 10 grams CHO consumed
--- NOTE | 2020-06-24 11:48 | Urology Progress Note ---
Date of Service June 24, 2020 Assessment & Plan (1) Acute pyelonephritis: Assessment Pyelonephritis Patient is improving on current antibiotic regimen Cultures are pending Anticipate switching to oral antibiotics once sensitivities obtained Stents are in good position No plans on further OR this admission Admission and Anticipated Discharge Date Admission Date: June 22, 2020 Subjective Patient is afebrile vital signs are stable He says he feels much better He is voiding without difficulty Urine is clear Physical Exam Physical Exam: Constitutional Well-developed well-nourished In no acute distress, Healthy appearing Neuro/psych Alert and oriented x3 Normal mood Normal affect Normal coordination Skin Normal color Normal turgor No rashes Warm and Dry Neck Normal visual inspection Pulmonary Normal rhythm and effort No respiratory distress No audible wheezes Able to speak in complete sentences Cardiac No peripheral edema Results & Data ([facility]) Vital Signs (Past 12 Hours) Vital Signs Temp Pulse Resp BP Pulse Ox 06/24/20 07:27 37.0 C 45 L 18 136/65 96 Laboratory Results Laboratory Results - last 24 hr 06/23/20 06/23/20 06/24/20 18:35 20:51 05:42 WBC RBC Hgb Hct MCV MCH MCHC RDW Std Deviation RDW Coeff of Jovanna Plt Count MPV Immature Gran % (Auto) Neut % (Auto) Lymph % (Auto) Cassia % (Auto) Eos % (Auto) Baso % (Auto) Neut # (Auto) Lymph # (Auto) [place] # (Auto) Eos # (Auto) Baso # (Auto) Immature Gran # (Auto) Sodium Potassium Chloride Carbon Dioxide Anion Gap BUN Creatinine Est Cr Clr Drug Dosing Est GFR ( Amer) Est GFR (Non-Af Amer) BUN/Creatinine Ratio Glucose POC Glucose 248 H 139 H 138 H Calcium 06/24/20 06/24/20 06:43 06:43 WBC 10.79 RBC 3.77 L Hgb 10.5 L Hct 32.5 L MCV 86.2 MCH 27.9 MCHC 32.3 RDW Std Deviation 45.8 RDW Coeff of Jovanna 14.5 Plt Count 524 H MPV 8.2 Immature Gran % (Auto) 0.3 Neut % (Auto) 66.0 Lymph % (Auto) 22.3 Cassia % (Auto) 9.2 Eos % (Auto) 1.9 Baso % (Auto) 0.3 Neut # (Auto) 7.13 H Lymph # (Auto) 2.41 Cassia # (Auto) 0.99 H Eos # (Auto) 0.20 Baso # (Auto) 0.03 Immature Gran # (Auto) 0.03 H Sodium 135 L Potassium 4.2 Chloride 105 Carbon Dioxide 26 Anion Gap 4.0 BUN 20 H Creatinine 1.26 Est Cr Clr Drug Dosing 66.7 Est GFR ( Amer) 70.4 Est GFR (Non-Af Amer) 60.7 BUN/Creatinine Ratio 16.1 Glucose 115 H POC Glucose Calcium 8.6 PG Care Time/CCT Total # of Minutes Spent Total Time Spent with Patient: Total time spent is greater than 50% in coordination of care (as documented) at patient's floor/unit and/or counseling patient: Coding Level of Care Code 87811 Subseq Hosp Care Lvl 2 Diagnoses Acute pyelonephritis N10
--- NOTE | 2020-06-24 11:53 | Hospitalist Progress Note ---
Date of Service June 24, 2020 Assessment & Plan (1) Acute pyelonephritis: * Pt states he has been having fevers as high as 102 for the last week, denies dysuria or suprapubic tenderness. * Also with weakness, nonproductive cough. COVID negative. CXR without acute findings. * Has Dx of noninvasive papillary urothelial carcinoma. * UA with 3+ blood, 1+glucose, +nitrites, 3+leukocyte esterase, 1+ bacteria. * --> Urine Cx pending -- now with staph species. sensitivities to fol;pw * CT abd/pelvis: stents present with R>L hydronephrosis, mild bladder wall thickening with perinephric/periureteral stranding * No blood Cx drawn as pt received antibiotics in ED * -COVID negative * Lyme negative * Consult [facility] Urology -- no plans for OR during this admission and will order diet * Continue rocpephin until sensitivities resulted -- likely able to transition to macrobid tomorrow morning * continue home tamsulosin 0.4mg PRN * Continue NSS@80mls/hr * Cr improved to 1.26 (was 1.7 on admission) (2) Essential hypertension: * Chronic. Stable * BP 136/65 * Home lisinopril on hold in setting of YOHAN/pyelo as above * Continue to monitor (3) Bladder cancer: * Follows locally with Urology * Stents in acceptable position * To follow up outpatient for further management (4) Hyperlipidemia: * Atorvastatin 80mg daily (5) Coronary artery disease: * EKG with NSR, HR of 80, qtc of 415 * -Hx of stents placement ~2007 * -continue home atorvastatin 80mg * -hold home aspirin given potential procedure in AM * -hold home lisinopril due to nephrotoxicity as above (6) Hypothyroidism: * continue levothyroxine 175mcg daily (7) Diabetes: * New * A1c 7.0 * Educator consulted -- diet/exercise and follow up with PCP (8) DVT prophylaxis: * SCDs * Chemoprophylaxis held for possible OR today Dispo: likely transition to PO abx in am and discharge with Urology follow up Admission and Anticipated Discharge Date Admission Date: June 22, 2020 Supervising Physician Co-Signing Physician Notes Attending Attestation: Chart reviewed in detail, care plan d/w KELLI Christianson. I agree w/ the ruelas components of her documentation. b/l pyelonephritis / UTI. COMPLICATED given the presence of ureteral stents. urine cx with staph species - cont rocephin. await final cx results. noted that leukocytosis has resolved Los Reilly MD Subjective Patient evaluated this morning. Has not been seen by Urology yet this morning. Discussed if no intervention then we will order diet. Urine culture still pending. No reported further subjective fevers although did have a fever yesterday. None further this morning. No chest pain, shortness of breath, abdominal pain, nausea or vomiting at this time. PVR have been acceptable. Possible discharge tomorrow on oral antibiotics once we have sensitivities. Questions/concerns addressed at this time. Review of Systems Review of Systems: All systems reviewed & are unremarkable except as noted in HPI & below Physical Exam Constitutional: WD/WN, vitals as above + well hydrated; no acute distress Eyes: + anicteric sclerae and PERRL Neck: normal visual inspection and trachea midline Respiratory: normal respiratory effort, lungs clear to auscultation Cardiovascular: RRR, no murmur, no edema Gastrointestinal (Abdomen): normal bowel sounds, soft, nontender, no hepatosplenomegaly Musculoskeletal: no cyanosis or clubbing, extremities motor strength 5/5 Skin: warm, moist Psychiatric: A+Ox3, euthymic affect Results & Data Results & Data ([facility]) Vital Signs (Past 12 Hours) Vital Signs Temp Pulse Resp BP Pulse Ox 06/24/20 07:27 37.0 C 45 L 18 136/65 96 Laboratory Results 06/24/20 06/24/20 06/24/20 Range/Units 12:01 06:43 06:43 WBC 10.79 (4.8-10.8) K/uL RBC 3.77 L (4.7-6.1) M/uL Hgb 10.5 L (14.0-18.0) g/dL Hct 32.5 L (42-52) % MCV 86.2 (80-100) fL MCH 27.9 (25-34) pg MCHC 32.3 (32-36) g/dL RDW Std Deviation 45.8 (36.4-46.3) fL RDW Coeff of Jovanna 14.5 (11.5-14.5) % Plt Count 524 H (130-400) K/uL MPV 8.2 (7.4-10.4) fL Immature Gran % (Auto) 0.3 % Neut % (Auto) 66.0 % Lymph % (Auto) 22.3 % [place] % (Auto) 9.2 % Eos % (Auto) 1.9 % Baso % (Auto) 0.3 % Neut # (Auto) 7.13 H (1.4-6.5) K/uL Lymph # (Auto) 2.41 (1.2-3.4) K/uL [place] # (Auto) 0.99 H (0.11-0.59) K/uL Eos # (Auto) 0.20 (0-0.5) K/uL Baso # (Auto) 0.03 (0-0.2) K/uL Immature Gran # (Auto) 0.03 H (0.00-0.02) K/uL Sodium 135 L (136-145) mmol/L Potassium 4.2 (3.5-5.1) mmol/L Chloride 105 (98-107) mmol/L Carbon Dioxide 26 (21-32) mmol/L Anion Gap 4.0 (3-11) BUN 20 H (7-18) mg/dl Creatinine 1.26 (0.6-1.4) mg/dl Est Cr Clr Drug Dosing 66.7 ml/min Est GFR ( Amer) 70.4 Est GFR (Non-Af Amer) 60.7 BUN/Creatinine Ratio 16.1 (10-20) Glucose 115 H (70-99) mg/dl POC Glucose 119 H (70-99) mg/dl Calcium 8.6 (8.5-10.1) mg/dl 06/24/20 06/23/20 06/23/20 Range/Units 05:42 20:51 18:35 WBC (4.8-10.8) K/uL RBC (4.7-6.1) M/uL Hgb (14.0-18.0) g/dL Hct (42-52) % MCV (80-100) fL MCH (25-34) pg MCHC (32-36) g/dL RDW Std Deviation (36.4-46.3) fL RDW Coeff of Jovanna (11.5-14.5) % Plt Count (130-400) K/uL MPV (7.4-10.4) fL Immature Gran % (Auto) % Neut % (Auto) % Lymph % (Auto) % [place] % (Auto) % Eos % (Auto) % Baso % (Auto) % Neut # (Auto) (1.4-6.5) K/uL Lymph # (Auto) (1.2-3.4) K/uL [place] # (Auto) (0.11-0.59) K/uL Eos # (Auto) (0-0.5) K/uL Baso # (Auto) (0-0.2) K/uL Immature Gran # (Auto) (0.00-0.02) K/uL Sodium (136-145) mmol/L Potassium (3.5-5.1) mmol/L Chloride (98-107) mmol/L Carbon Dioxide (21-32) mmol/L Anion Gap (3-11) BUN (7-18) mg/dl Creatinine (0.6-1.4) mg/dl Est Cr Clr Drug Dosing ml/min Est GFR ( Amer) Est GFR (Non-Af Amer) BUN/Creatinine Ratio (10-20) Glucose (70-99) mg/dl POC Glucose 138 H 139 H 248 H (70-99) mg/dl Calcium (8.5-10.1) mg/dl PG Care Time/CCT Total # of Minutes Spent Total Time Spent with Patient: Total time spent is greater than 50% in coordination of care (as documented) at patient's floor/unit and/or counseling patient: Coding Level of Care Code 83116 Subseq Hosp Care Lvl 2 Diagnoses Acute pyelonephritis N10 Essential hypertension I10 Bladder cancer C67.9 Hyperlipidemia E78.5 Coronary artery disease I25.10 Hypothyroidism E03.9 Diabetes E11.9 DVT prophylaxis Z29.9
[2020-06-24] MEDS ORDERED: COUGH DROP (SUGAR FREE) LOZ 24 LOZ/1 BOX BUCCAL ONE (17:52)
[2020-06-24] MEDS: cefTRIAXone SODIUM 2,000 MG in DEXTROSE 5% 50 ML IV SCH (22:01)
[2020-06-25] MEDS: LEVOTHYROXINE SODIUM 175 MCG TABLET PO SCH (04:09)
[2020-06-25] MEDS: SODIUM CHLORIDE 0.9% 1000ML 1,000 ML IV SCH (04:09)
[2020-06-25 05:08] LABS: Basophils # (auto) 0.03 K/uL (0-0.2); Basophils % (auto) 0.3 %; Eosinophils # (auto) 0.31 K/uL (0-0.5); Eosinophils % (auto) 3.1 %; Hematocrit (blood only) 35.5 % (42-52); Hemoglobin 11.4 g/dL (14.0-18.0); Immature Granulocytes # (auto) 0.03 K/uL (0.00-0.02); Immature Granulocytes % (auto) 0.3 %; Lymphocytes # (auto) 2.62 K/uL (1.2-3.4); Lymphocytes % (auto) 26.4 %; Mean Corpuscular Hemoglobin 27.7 pg (25-34); Mean Corpuscular Hgb Conc 32.1 g/dL (32-36); Mean Corpuscular Volume 86.4 fL (80-100); Mean Platelet Volume 8.7 fL (7.4-10.4); Monocytes # (auto) 0.73 K/uL (0.11-0.59); Monocytes % (auto) 7.4 %; Neutrophils % (auto) 62.5 %; Platelet Count 566 K/uL (130-400); RDW Coefficient of Variation 14.4 % (11.5-14.5); RDW Standard Deviation 46.1 fL (36.4-46.3); Red Blood Count 4.11 M/uL (4.7-6.1); White Blood Count 9.92 K/uL (4.8-10.8)
[2020-06-25 05:30] LABS: BUN Creatinine Ratio 16.9 (10-20); Creatinine Clr Calc Pharmacy 68.9 ml/min; Est GFR (African American) 73.2; Est GFR (Non-African American) 63.1; Potassium 4.4 mmol/L (3.5-5.1)
[2020-06-25] MEDS: ATORVASTATIN 40 MG TAB PO SCH (08:49)
[2020-06-25] MEDS: INSULIN ASPART 100 UNITS/ML 3 ML PEN SC SCH ×2 (08:51→12:53)
--- NOTE | 2020-06-25 09:45 | Discharge Summary ---
Date of Service June 25, 2020 Admission HPI Per Admitting Provider Pt is a 60yo with a Hx of bladder cancer s/p 2 resections with upcoming BCG therapy, CAD s/p stent placement, HLD, HTN and Hypothyroidism admitted with an acute complicated UTI. Pt states that for the last week he has been having fevers without dysuria or abdominal/suprapubic pain. States today his fever was as high as 102. States he has a Hx of bladder cancer diagnosed about 2 months ago and has had 2 surgeries. States he is scheduled to have followup procedures in a few weeks. In addition to the fevers, he has been having weakness, cough. States he was also hunting in [place] during the last week, though he denies coming into contact with any known COVID contacts. He states that he smoked for 20years 2ppd but stopped about 20 years ago. Also distant Hx of alcohol use. Lives in [place] with his . 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 Admission Exam Per Admitting Provider General: Alert, oriented. No acute distress, laying in bed resting Skin: No noted rashes or bruises Psych: Appropriate mood and affect Neuro: No gross deficits HEENT: NC/AT Chest: Nontender to palpation. CV: RRR, Normal s1, s2. No murmurs appreciated Resp: Breath sounds clear bilaterally, no increased effort of breathing. Abdomen:Soft, tender to palpation in suprapubic area. No guarding. Extremities: No edema in lower extremities bilaterally. Principal Diagnosis Acute Complicated Pyelonephritis Discharge Exam Constitutional WD/WN, vitals as above + well hydrated; no acute distress Eyes + anicteric sclerae and PERRL ENMT mmm Neck normal visual inspection and trachea midline Respiratory normal respiratory effort, lungs clear to auscultation Cardiovascular RRR, no murmur, no edema Gastrointestinal (Abdomen) normal bowel sounds, soft, nontender, no hepatosplenomegaly Musculoskeletal no cyanosis or clubbing, extremities motor strength 5/5 Skin warm, dry Neurologic PERRL, EOMI, accommodation nl, no face palsy, no dysarthria Psychiatric A+Ox3, euthymic affect Lymphatic no cervical or axillary lymphadenopathy Discharge Data Allergies Allergy/AdvReac Type Severity Reaction Status Date / Time No Known Allergies Allergy Mild Verified 06/22/20 08:17 Consultations 06/22/20 23:11 ED Decision to Admit Stat 06/23/20 00:56 Consult Urology Routine Ordered Studies 06/22/20 21:36 CT abd pelvis IV con only Urgent CXR Diabetes Follow up Diabetes Follow-up Needed for Newly Diagnosed Diabetes Hospital Course (1) Acute pyelonephritis: Pt presented with reported fevers as high as 102 for the last week, denies dysuria or suprapubic tenderness. Also of note with weakness, non-productive cough (on lisinopril but not new). Has Dx of noninvasive papillary urothelial carcinoma -- s/p resection x 2 (last May 17, 2020) No further fever since 37.8 evening 06/23 but max 39.2C on admission COVID negative. Lyme negative. Anaplasmosis not checked although patient LFTs wnl and continues to be afebrile since 06/23. If continues outpt would rec checking via PCP given recent travel to [place] CXR without acute findings CTA/P with b/l stents (for recent bladder CA and stenting with Urology) in appropriate position, fullness of renal collecting systems without hydronephrosis. Urothelial thickening and enhancement is present involving both ureters and the renal collecting systems. Additionally, there is heterogeneous enhancement of both kidneys with associated perinephric and periureteric stranding. Although some of this could be related to the presence of indwelling stents, urinary tract infection/bilateral pyelonephritis is favored. BCx NGTD preliminary, although were drawn after abx UA with 3+ blood, 1+glucose, +nitrites, 3+leukocyte esterase, 1+ bacteria Symptom control, IVF and supportive care provided Culture with coag negative staph (same as cx 05/13/19) and was transitioned from Rocephin to Bactrim at discharge to complete abx course 14 days Urology consulted -- no plans for OR during this admission and follow up for routine procedures recommended Cr 1.7 on admission but normalized to 1.22 prior to discharge. Encouraged PO fluids and rec repeat labs next week to ensure resolution (2) Acute kidney injury: Cr of 1.70 on admission IVF as above Cr 1.22 Rec continued holding of lisinopril for next day and then can resume Sunday unless BPs elevated prior to that. Of note, patient with chronic dry cough for months and could be from lisinopril. Also, has never had dedicated chest CT but with weight loss/cough, could consider outpatient per PCP descretion (3) Hyponatremia: Resolved (4) Hyperglycemia: A1c is 7.2% Patient had not previously been diagnosed with diabetes Discussed with patient and staff educator was also in to see him. Bsgs ac & hs Pharmacy glycemic management Recommended diet/exercise and f/u with PCP. If continues to be elevated would initiate metformin (5) Coronary artery disease: EKG with NSR, HR of 80, qtc of 415 Hx of stents placement ~2007 continue home atorvastatin 80mg hold home lisinopril due to nephrotoxicity as above and can resume in next 2 days Continued ASA at discharge (held for possible procedure) (6) Hypothyroidism: continued levothyroxine 175mcg daily (7) DVT prophylaxis: SCDs Chemoprophylaxis held for possible OR. Patient ambulating frequently. 99% on RA and no calf tenderness reported Total Time Total Time Spent Total Time Spent (In Minutes): 60 Discharge Plan Discharge Items Patient Disposition: Home - Self-Care Reason For Visit: UTI, HYDRONEPHROSIS Discharge Diagnosis: UTI, Pyelonephritis Goals: You have been hospitalized for an acute medical problem. During your stay at [facility], we have made an effort to correct the problem that brought you to the hospital while keeping you as comfortable as possible. Medications were used to bring your condition under control and your discharge instructions will include directions for any medications you should take after leaving the hospital. Please make sure you see your Primary Care Provider as pa rt of your follow up plan. Activity: Resume your previous activity Non-emergency contact: Primary Care Provider and Urologist Call non-emergency contact if: you have any medication questions, your symptoms worsen and you have a fever Follow-up/Referrals: Maxx Stark MD [Physician] - Juan Miguel Stephenson [Primary Care Provider] - Diet: Carb Consistent or DM2 and Heart Healthy Addtl Attending Provider Instructions: You have been hospitalized for fever and found to have a urinary tract infection with backup of fluid to your kidneys, called pyelonephritis. You have been treated with IV antibiotics and are being discharged on: * Bactrim 1 tablet by mouth TWICE daily for total of 14 days -- you have * 12 days left of treatment as you have received 2 days worth in IV while in the hospital You should continue to hold your lisinopril for the next 2 days and resume on 06/27. Your kidney function returned to normal range with IV fluids, but you should continue to hold for next day to ensure it remains normal and follow up with PCP for repeat labs once resumed. Of note, chronic cough can also be due to lisinopril use and you may want to discuss switching to alternative agent in the future to see if this resolves your issue as well. Urology was consulted and felt stents to be in good position and did not feel surgical intervention warranted at this time and will follow up for routine procedure as an outpatient. Your A1c was checked (for diabetes) and found to be elevated at 7.2. Please follow healthy diet and follow up with your primary care provider regarding starting diabetic medication such as metformin if diet/exercise alone are inef fective. You were tested for COVID-19 and this was NEGATIVE. Regarding your cough, your CXR was negative for acute findings, but you were noted to have a small hiatal hernia and are being sent with Pepcid to take for possible reflux but also Tessalon pearls to use as needed for cough. If this persists, as discussed, would recommend more dedicated chest imaging given chronic cough and weight loss (although weight loss could have been sign from recent bladder cancer). You may also want to discuss following up with hematology/oncology, Dr. Alonzo, in the future. As per our discussion, you would not like this set up at this time but their office number is [phone]. Please follow up with Urology and your primary care provider in the next week to monitor your progress. Please return to the emergency department with any worsening fever, chills, abdominal pain, nausea or vomiting, or for any other symptoms that are concerning for you. It has been a pleasure being a part of the medical team providing for you while you have been in the hospital. Take care! Pending Studies at Discharge: Yes Studies:: Blood cultures-- no growth to date Stand-Alone Forms: My [employer], Smoking Cessation Medications and DC Order Prescriptions: New sulfamethoxazole-trimethoprim [Bactrim DS] 800-160 mg tablet 1 tab PO BID 12 Days Qty: 24 RF: 0 benzonatate 100 mg capsule 100 mg PO TID PRN (Reason: cough) Qty: 14 RF: 0 famotidine [Pepcid AC] 20 mg tablet 20 mg PO DAILY Qty: 30 RF: 0 Continued lisinopril 20 mg tablet 20 mg PO QAM RF: 0 levothyroxine 175 mcg capsule 175 mcg PO QAM RF: 0 aspirin 81 mg tablet,delayed release (DR/EC) 81 mg PO QAM RF: 0 acetaminophen 500 mg Capsule 1,000 mg PO Q6H PRN (Reason: Pain) RF: 0 atorvastatin 80 mg Tablet 80 mg PO QAM RF: 0 fluticasone propionate 50 mcg/actuation spray,suspension 2 spray INTRANASAL DAILY PRN (Reason: Nasal Congestion) RF: 0 tamsulosin 0.4 mg capsule 0.4 mg PO HS PRN (Reason: ..) RF: 0 Discharge Orders: Discharge Order (Routine); Ordered 06/25/20 Ordered By: Zakia Hernández/Other Patient Handouts: Exercise to Manage Your Blood Sugar, Diabetes: Meal Planning, A1C Admission Data Admit Date/Time: 06/22/20 23:30 Attending Provider: Brendan Chavira Admit Provider: Mukesh James Primary Care Provider: Juan Miguel Stephenson Other Providers: Mukesh James ; Maxx Stark Other Interventions: Discharge Summary Assessment (RN) Last Done: 06/25/20 12:30 Supervising Physician Co-Signing Physician Notes Patient seen and examined on the day of discharge. I agree with the discharge summary by Zakia PEREIRA. I have reviewed the chart including labs, imaging and plans for discharge. patient feeling much, much better ambulating in the halls, eating better, no difficulty breathing labs show that Cr is back to baseline urine culture with coag negative staph, sensitive to Bactrim - Pyelonephritis: coag negative staph on culture, transition to Bactrim on discharge for a full 14 day course - Acute kidney injury: resolved with hydration and treatment of UTI - Bladder cancer: follow up with urology Coding Level of Care Code D/C Day Management >30 mins Diagnoses Acute pyelonephritis N10 Acute kidney injury N17.9 Hyponatremia E87.1 Hyperglycemia R73.9 Coronary artery disease I25.10 Hypothyroidism E03.9 DVT prophylaxis Z29.9
--- NOTE | 2020-06-25 11:45 | Pharmacy Report ---
Pharmacy Glycemic Short Note 2 - Date of Service June 25, 2020 - Glycemic Short BSG Results (Last 24 hours): 06/24/20 06/24/20 06/24/20 12:01 17:18 20:34 Glucose POC Glucose 119 H 96 103 H 06/25/20 06/25/20 04:37 08:16 Glucose 104 H POC Glucose 126 H OUTPATIENT ANTIDIABETIC REGIMEN: * n/a * HbA1c: 7.2% ASSESSMENT: 06/25: * Mr Degroot was concerned about his Novolog dose at dinnertime yesterday, so carb coverage was loosened slightly to allow for a lower dose. * BSGs remain well-controlled. * No other changes required at this time. 06/24 * Patient with previously undiagnosed DM. * Novolog initiated last evening, conservatively. * Patient rec'd one dose of insulin to cover carbs at dinner, which seemed to be sufficient. * No further changes required at this time. PLAN FOR INPATIENT GLYCEMIC CONTROL: * Hold outpatient oral diabetes medications * Basal insulin -- not required at this time * Bolus insulin * NovoLog per scale ACHS or Q6hrs while NPO * Goal Range: Low 120 mg/dL - High 150 mg/dL * Correction Factor: 30 mg/dL/unit * Nutritional / Prandial insulin per carb ratio of 1 unit per 12 grams CHO consumed
--- NOTE | 2020-07-04 19:32 | Coding Query ---
SEPSIS To promote full compliance with coding requirements relating to patient care, physician participation is requested in all cases of security services manager uncertainty. Please assist us with the question(s) below: In responding to this query, please exercise your independent professional judgement. The fact that a question is asked does not imply that any particular answer is desired or expected. We appreciate your clarification on this issue. Throughout the medical record, you have clearly documented a localized infection and your patient has clinical evidence of a generalized sepsis or severe sepsis. The term urosepsis is a nonspecific entity and is coded as an UTI. If the patient has sepsis, severe sepsis, from an urinary source or some other source, please clarify in your response below. The medical record reflects the following clinical findings: Patient admitted with acute pyelonephritis . Has bilateral indwelling ureteral stents to treat CA bladder. Acute Kidney failure mentioned in progress notes. ED and H/P records mention Sepsis. Seeking clarification - if Sepsis was treated during this IP stay. Please select the appropriate response below. Thanks for your help! MARCI Guidry [facility] [place] ____ ( )Bacteremia (Nonspecific laboratory finding of bacteria in the blood) Specify Organism ( ) Present on Admission ( ) Not present on admission ( ) Unable to clinically determine ( ) Septicemia (Systemic disease associated with the presence of pathogenic microorganisms in the blood): Specify Organism ( ) Present on Admission ( ) Not present on admission ( ) Unable to clinically determine ( ) Sepsis Specify Organism Specify Associated Condition/Diagnosis ( ) Present on Admission ( ) Not present on admission ( ) Unable to clinically determine ( ) Severe Sepsis (Sepsis associated with acute organ dysfunction) Specify Organism Specify Associated Condition/Diagnosis ( ) Present on Admission ( ) Not present on admission ( ) Unable to clinically determine ( ) Septic Shock (Severe sepsis with acute circulatory failure, unexplained by other causes) ( ) Present on Admission ( ) Not present on admission ( ) Unable to clinically determine ( x) Other, patient has: no evidence of sepsis, had pyelonephritis, sepsis is NOT in the discharge summary for this reason [facility]
== END 2020-06-25 13:45 | disposition home or self-care (01) | DRG 690 ==
LOC: ED 19:18 → 3N 23:30 → SUATTDRO 23:30 → 3N 06-23 00:11

== ENCOUNTER 2021-02-16 17:44 | Inpatient (IN) ==
[2021-02-16] MEDS ORDERED: ACETAMINOPHEN 1,000 MG/100 ML VIAL IV STA (19:29)
[2021-02-16] MEDS ORDERED: SODIUM CHLORIDE 0.9% 1000ML 1,000 ML IV SCH (19:30)
[2021-02-16 19:53] LABS: Appearance Urine Turbid (Clear); Bacteria Urine Automated 2+ (Negative); Bilirubin Urine Negative (Negative); Blood Urine 3+ (Negative); Color Urine Yellow; Glucose Urine UA Negative (Negative); Ketones Urine Negative (Negative); Leukocyte Esterase Urine 3+ (Negative); Nitrite Urine Positive (Negative); Protein Urine 2+ (Negative); RBC Urine Automated >30 /hpf (0-4); Specific Gravity Urine 1.012 (1.000-1.030); Urobilinogen Urine Negative (Negative); WBC Urine Automated >30 /hpf (0-5); pH Urine 5.5 (4.5-7.5)
[2021-02-16 20:06] LABS: Basophils # (auto) 0.07 K/uL (0-0.2); Basophils % (auto) 0.4 %; Eosinophils # (auto) 0.77 K/uL (0-0.5); Eosinophils % (auto) 3.9 %; Hematocrit (blood only) 42.7 % (42-52); Hemoglobin 14.9 g/dL (14.0-18.0); Immature Granulocytes # (auto) 0.08 K/uL (0.00-0.02); Immature Granulocytes % (auto) 0.4 %; Lymphocytes # (auto) 2.18 K/uL (1.2-3.4); Lymphocytes % (auto) 10.9 %; Mean Corpuscular Hemoglobin 31.6 pg (25-34); Mean Corpuscular Hgb Conc 34.9 g/dL (32-36); Mean Corpuscular Volume 90.5 fL (80-100); Mean Platelet Volume 9.3 fL (7.4-10.4); Monocytes # (auto) 1.71 K/uL (0.11-0.59); Monocytes % (auto) 8.6 %; Neutrophils # (auto) 15.12 K/uL (1.4-6.5); Neutrophils % (auto) 75.8 %; Platelet Count 217 K/uL (130-400); Red Blood Count 4.72 M/uL (4.7-6.1); White Blood Count 19.93 K/uL (4.8-10.8)
[2021-02-16] MEDS ORDERED: PIPERACILLIN/TAZOBACTAM 4.5 GM/120 ML BAG IV ONE (20:13)
--- NOTE | 2021-02-16 20:18 | Emergency Department Note ---
History of Present Illness General Chief complaint: Fever Stated complaint: FEVER Time Seen by Provider: 02/16/21 19:28 History of Present Illness Provider complaint: Fever Onset (ago): day(s) 1 Maximum Pain Intensity: 7 Current Pain Intensity: 7 Associated symptoms: + fever/chills; no confusion, no chest pain, no cough, no headaches, no loss of appetite, no malaise, no nausea/vomiting, no shortness of breath, no syncope or no weakness 60-year-old male presents emergency department for fever. Patient reports he started having chills last night and started having fever today. Patient is currently being treated by urology for bladder cancer. He recently had a stent placed in his ureter and had his Francisco catheter removed on Sunday. Patient is reporting suprapubic abdominal pain. Patient states he feels like he has a UTI. No chest pain or difficulty breathing. Patient is vaccine gets COVID-19. No nausea vomiting or diarrhea. Home Medications Medication Instructions Recorded Confirmed Type aspirin 81 mg tablet,delayed 81 mg PO QAM 03/30/20 02/07/21 History release levothyroxine 175 mcg capsule 175 mcg PO QAM 03/30/20 02/07/21 History lisinopril 20 mg tablet (Zestril) 20 mg PO QAM 03/30/20 02/07/21 History atorvastatin 80 mg tablet 80 mg PO QAM 05/04/20 02/07/21 History fluticasone propionate 50 2 spray INTRANASAL DAILY PRN 06/22/20 02/07/21 History mcg/actuation nasal spray,suspension (Flonase Allergy Relief) ezetimibe 10 mg tablet (Zetia) 10 mg PO QAM 10/09/20 02/07/21 History ibuprofen 200 mg tablet 600 mg PO Q6H PRN 10/09/20 02/07/21 History metformin 500 mg tablet,extended 500 mg PO QAM 10/09/20 02/07/21 History release 24 hr omeprazole 20 mg capsule,delayed 20 mg PO QAM 10/09/20 02/07/21 History release acetaminophen 500 mg capsule 1,000 mg PO Q6H PRN 01/25/21 02/07/21 History oxycodone-acetaminophen 5 mg-325 1 tab PO Q8H PRN #10 tab 02/07/21 Rx mg tablet (Percocet) phenazopyridine 200 mg tablet 200 mg PO Q8H PRN #10 tab 02/07/21 Rx (Pyridium) tamsulosin 0.4 mg capsule 0.4 mg PO HS #30 cap 02/07/21 Rx Allergies Allergy/AdvReac Type Severity Reaction Status Date / Time No Known Allergies Allergy Mild Verified 02/07/21 07:49 Past Med/Surg History Medical History Arthritis Bladder cancer AND URETERAL CANCER? 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 Diabetes NIDDM Foot drop, right No brace GERD (gastroesophageal reflux disease) Hyperlipidemia Hypomagnesemia Myocardial Infarction 2007 > stent x1 Ureteral cancer Surgical History History of cardiac cath stent x1 (2007) History of colonoscopy History of cystoscopy Multiple Cysto, bladder biopsy (07/12/20): MAC sedation at [facility] TURBT (05/17/20): LMA#5 at [facility] History of tooth extraction Family History Mother Diabetes Heart disease Cancer Hypertension Family history of diabetes mellitus Father Heart disease Social History Smoking Status: Former smoker Tobacco Type: Cigarettes Second Hand Exposure: Yes (FATHER SMOKED/SPOUSE USED TO SMOKE); Hx Alcohol Use: No Hx Substance Use: No Preferred Language: Bengali Communication Ability: Effective Tilting Saw Operator Required: No Beliefs That Will Affect Care: None marital status: Current Living Situation: Spouse current occupational status: employed 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 Feels Safe at Home: Yes Assistive Devices: Denture - Upper and Glasses Review of Systems A total of 10 systems reviewed and were otherwise negative Physical Exam Vital Signs Vital Signs - 24 hr 02/16/21 17:52 02/16/21 19:28 02/16/21 19:31 Temperature 37.7 C H Temperature Source Oral Pulse Rate 104 H 87 Pulse Rate [Finger] Pulse Rate from SpO2 Sensor 82 Respiratory Rate 20 16 Respiratory Effort / Characteristics Non-Labored Spontaneous Non-Labored Spontaneous Respiratory Depth Normal Blood Pressure 124/77 137/77 Blood Pressure [Right Arm] Blood Pressure Mean 92 97 Blood Pressure Mean [Right Arm] Pulse Oximetry 94 94 Oxygen Delivery Method Room Air Room Air Room Air Sepsis Recent Fever Within 48 Hours Yes Sepsis New/Unexplained Change in Mental Status N/A Sepsis Action Taken by Nursing No Action Required 02/16/21 19:32 02/16/21 19:33 02/16/21 19:58 Temperature 38.0 C H Temperature Source Oral Pulse Rate Pulse Rate [Finger] 93 H Pulse Rate from SpO2 Sensor Respiratory Rate 14 Respiratory Effort / Characteristics Non-Labored Spontaneous Respiratory Depth Blood Pressure Blood Pressure [Right Arm] 137/77 Blood Pressure Mean Blood Pressure Mean [Right Arm] 97 Pulse Oximetry 94 Oxygen Delivery Method Room Air Room Air Sepsis Recent Fever Within 48 Hours Sepsis New/Unexplained Change in Mental Status Sepsis Action Taken by Nursing 02/16/21 20:28 02/16/21 20:30 02/16/21 21:00 Temperature Temperature Source Pulse Rate 85 Pulse Rate [Finger] Pulse Rate from SpO2 Sensor 83 Respiratory Rate 24 Respiratory Effort / Characteristics Non-Labored Spontaneous Non-Labored Spontaneous Respiratory Depth Blood Pressure 118/70 Blood Pressure [Right Arm] Blood Pressure Mean 86 Blood Pressure Mean [Right Arm] Pulse Oximetry 95 Oxygen Delivery Method Room Air Room Air Room Air Sepsis Recent Fever Within 48 Hours Sepsis New/Unexplained Change in Mental Status Sepsis Action Taken by Nursing Physical Exam GENERAL: He is oriented to person, place, and time. He appears well-developed and well-nourished. He does not appear distressed. HENT: Exam performed. - Head: Normocephalic and atraumatic. - Right Ear: External ear normal. No mastoid tenderness. - Left Ear: External ear normal. No mastoid tenderness. - Mouth/Throat: The oropharynx is clear and moist. No trismus in the jaw. No dental abscesses or uvula swelling. No oropharyngeal exudate or tonsillar absc esses. EYES: Conjunctivae and EOM are normal. Pupils are equal, round, and reactive to light. Right eye exhibits no discharge. Left eye exhibits no discharge. No scleral icterus. NECK: Normal range of motion. Neck supple. No JVD present. No spinous process tenderness present. No carotid bruit present. No rigidity. No tracheal deviation and normal range of motion present. No Brudzinski's sign and no Kernig's sign noted. CV: Normal rate, regular rhythm, normal heart sounds and intact distal pulses. There is no peripheral edema. Palpable radial pulses bue. PULM/CHEST: Effort normal and breath sounds normal. No respiratory distress. No stridor. He has no wheezes. He has no rales. - Chest Wall: He exhibits no tenderness. ABD: The abdomen is soft. Bowel sounds are normal. He has no distension. No mass is present. There is no tenderness. There is no rebound, no guarding, no Calvin's sign and no tenderness at McBurney's point. Rovsig negative. MUSC/SKEL: Normal range of motion. There is no peripheral edema, tenderness or deformity. LYMPH: No cervical adenopathy. NEURO: He is alert and oriented to person, place, and time. He has normal strength. No cranial nerve deficit or sensory deficit. Coordination and gait normal. GCS eye subscore is 4. GCS verbal subscore is 5. GCS motor subscore is 6. Cerebellar tests wnl. SKIN: Skin is warm and dry. He is not diaphoretic. PSYCH: He has a normal mood and affect. Behavior is normal. Judgment and thought content normal. Course Course 1927: The patient was evaluated in room B2. A complete history and physical exam was performed Cardiac monitoring: An order was placed for continuous cardiac monitoring. The monitor shows a rate of 90 with sinus rhythm EMR reviewed. Patient follows with Dr. Keller and Dr. Ayala. On February 07, 2021, 9 days ago the patient had a cystoscopy with urethral dilatation and transurethral resection of a prostate lesion patient had a laser tumor ablation retrograde pyelogram and a stent placed. Patient had his Francisco catheter removed 2 days ago by nurse. 2125: Vital signs stable. Labs show leukocytosis of 19.9. Lactic acid within normal limits. Urinalysis does appear to be because of infection. CT does show bilateral ureteral stents in place with hydronephrosis and bladder wall thickening. [facility] Zosyn ordered for the patient. Administered Medications Discontinued Medications Sodium Chloride (Nss 1000ml) 1,000 mls @ 999 mls/hr IV .Q1H1M [facility] Stop: 02/16/21 20:30 Last Infusion: 02/16/21 21:08 Dose: 0 mls/hr Documented by: [id number] Admin: 02/16/21 20:07 Dose: 999 mls/hr Documented by: [id number] Acetaminophen (Ofirmev) 1,000 mg in 100 mls @ 400 mls/hr IV NOW STA Stop: 02/16/21 19:43 Last Infusion: 02/16/21 20:23 Dose: 0 mls/hr Documented by: [id number] Admin: 02/16/21 20:08 Dose: 400 mls/hr Documented by: [id number] Piperacillin Sod/Tazobactam Sod (Zosyn) 4.5 gm in 120 mls @ 240 mls/hr IV NOW ONE Stop: 02/16/21 20:42 Last Admin: 02/16/21 21:12 Dose: 240 mls/hr Documented by: [id number] Medical Decision Making Laboratory Data Result diagrams: 02/16/21 19:51 02/16/21 20:30 Lab Results 02/16/21 02/16/21 02/16/21 Range/Units 19:42 19:51 19:51 WBC 19.93 H (4.8-10.8) K/uL RBC 4.72 (4.7-6.1) M/uL Hgb 14.9 (14.0-18.0) g/dL Hct 42.7 (42-52) % MCV 90.5 (80-100) fL MCH 31.6 (25-34) pg MCHC 34.9 (32-36) g/dL RDW Std Deviation 43.0 (36.4-46.3) fL RDW Coeff of Jovanna 13.0 (11.5-14.5) % Plt Count 217 (130-400) K/uL MPV 9.3 (7.4-10.4) fL Immature Gran % (Auto) 0.4 % Neut % (Auto) 75.8 % Lymph % (Auto) 10.9 % [place] % (Auto) 8.6 % Eos % (Auto) 3.9 % Baso % (Auto) 0.4 % Neut # (Auto) 15.12 H (1.4-6.5) K/uL Lymph # (Auto) 2.18 (1.2-3.4) K/uL [place] # (Auto) 1.71 H (0.11-0.59) K/uL Eos # (Auto) 0.77 H (0-0.5) K/uL Baso # (Auto) 0.07 (0-0.2) K/uL Immature Gran # (Auto) 0.08 H (0.00-0.02) K/uL PT Cancelled INR Cancelled APTT Cancelled PTT Ratio Cancelled Sodium Potassium Chloride Carbon Dioxide Anion Gap BUN Creatinine Est Cr Clr Drug Dosing Est GFR ( Amer) Est GFR (Non-Af Amer) BUN/Creatinine Ratio Glucose Lactate (0.4-2.0) mmol/L Calcium Magnesium Total Bilirubin AST ALT Alkaline Phosphatase Troponin I Total Protein Albumin Globulin Albumin/Globulin Ratio Procalcitonin Urine Color Yellow Urine Appearance Turbid A (Clear) Urine pH 5.5 (4.5-7.5) Ur Specific [place] 1.012 (1.000-1.030) Urine Protein 2+ H (Negative) Urine Glucose (UA) Negative (Negative) Urine Ketones Negative (Negative) Urine Blood 3+ H (Negative) Urine Nitrite Positive A (Negative) Urine Bilirubin Negative (Negative) Urine Urobilinogen Negative (Negative) Ur Leukocyte Esterase 3+ H (Negative) Urine WBC (Auto) >30 H (0-5) /hpf Urine RBC (Auto) >30 H (0-4) /hpf U Hyaline Cast (Auto) 1-5 (0-5) /lpf U Epithel Cells (Auto) 5-10 H (0-5) /lpf Urine Bacteria (Auto) 2+ H (Negative) COVID-19 Eval Order SARS-CoV-2 (PCR) (Negative) 02/16/21 02/16/21 02/16/21 Range/Units 19:51 19:51 19:51 WBC (4.8-10.8) K/uL RBC (4.7-6.1) M/uL Hgb (14.0-18.0) g/dL Hct (42-52) % MCV (80-100) fL MCH (25-34) pg MCHC (32-36) g/dL RDW Std Deviation (36.4-46.3) fL RDW Coeff of Jovanna (11.5-14.5) % Plt Count (130-400) K/uL MPV (7.4-10.4) fL Immature Gran % (Auto) % Neut % (Auto) % Lymph % (Auto) % [place] % (Auto) % Eos % (Auto) % Baso % (Auto) % Neut # (Auto) (1.4-6.5) K/uL Lymph # (Auto) (1.2-3.4) K/uL [place] # (Auto) (0.11-0.59) K/uL Eos # (Auto) (0-0.5) K/uL Baso # (Auto) (0-0.2) K/uL Immature Gran # (Auto) (0.00-0.02) K/uL PT INR APTT PTT Ratio Sodium Cancelled Potassium Cancelled Chloride Cancelled Carbon Dioxide Cancelled Anion Gap Cancelled BUN Cancelled Creatinine Cancelled Est Cr Clr Drug Dosing Cancelled Est GFR ( Amer) Cancelled Est GFR (Non-Af Amer) Cancelled BUN/Creatinine Ratio Cancelled Glucose Cancelled Lactate 1.2 (0.4-2.0) mmol/L Calcium Cancelled Magnesium Cancelled Total Bilirubin Cancelled AST Cancelled ALT Cancelled Alkaline Phosphatase Cancelled Troponin I Cancelled Total Protein Cancelled Albumin Cancelled Globulin Cancelled Albumin/Globulin Ratio Cancelled Procalcitonin Cancelled Urine Color Urine Appearance (Clear) Urine pH (4.5-7.5) Ur Specific [place] (1.000-1.030) Urine Protein (Negative) Urine Glucose (UA) (Negative) Urine Ketones (Negative) Urine Blood (Negative) Urine Nitrite (Negative) Urine Bilirubin (Negative) Urine Urobilinogen (Negative) Ur Leukocyte Esterase (Negative) Urine WBC (Auto) (0-5) /hpf Urine RBC (Auto) (0-4) /hpf U Hyaline Cast (Auto) (0-5) /lpf U Epithel Cells (Auto) (0-5) /lpf Urine Bacteria (Auto) (Negative) COVID-19 Eval Order SARS-CoV-2 (PCR) (Negative) 02/16/21 02/16/21 02/16/21 Range/Units 20:03 20:03 20:30 WBC (4.8-10.8) K/uL RBC (4.7-6.1) M/uL Hgb (14.0-18.0) g/dL Hct (42-52) % MCV (80-100) fL MCH (25-34) pg MCHC (32-36) g/dL RDW Std Deviation (36.4-46.3) fL RDW Coeff of Jovanna (11.5-14.5) % Plt Count (130-400) K/uL MPV (7.4-10.4) fL Immature Gran % (Auto) % Neut % (Auto) % Lymph % (Auto) % [place] % (Auto) % Eos % (Auto) % Baso % (Auto) % Neut # (Auto) (1.4-6.5) K/uL Lymph # (Auto) (1.2-3.4) K/uL [place] # (Auto) (0.11-0.59) K/uL Eos # (Auto) (0-0.5) K/uL Baso # (Auto) (0-0.2) K/uL Immature Gran # (Auto) (0.00-0.02) K/uL PT INR APTT PTT Ratio Sodium 136 Potassium 3.9 Chloride 106 Carbon Dioxide 24 Anion Gap 6.0 BUN 14 Creatinine 1.23 Est Cr Clr Drug Dosing 71.4 Est GFR ( Amer) 72.5 Est GFR (Non-Af Amer) 62.5 BUN/Creatinine Ratio 11.7 Glucose 135 H Lactate (0.4-2.0) mmol/L Calcium 8.4 L Magnesium 1.6 L Total Bilirubin 0.5 AST 17 ALT 38 Alkaline Phosphatase 66 Troponin I < 0.015 Total Protein 6.5 Albumin 3.2 L Globulin 3.3 Albumin/Globulin Ratio 1.0 Procalcitonin Urine Color Urine Appearance (Clear) Urine pH (4.5-7.5) Ur Specific [place] (1.000-1.030) Urine Protein (Negative) Urine Glucose (UA) (Negative) Urine Ketones (Negative) Urine Blood (Negative) Urine Nitrite (Negative) Urine Bilirubin (Negative) Urine Urobilinogen (Negative) Ur Leukocyte Esterase (Negative) Urine WBC (Auto) (0-5) /hpf Urine RBC (Auto) (0-4) /hpf U Hyaline Cast (Auto) (0-5) /lpf U Epithel Cells (Auto) (0-5) /lpf Urine Bacteria (Auto) (Negative) COVID-19 Eval Order Covid19 at [facility] SARS-CoV-2 (PCR) NEGATIVE (Negative) 02/16/21 Range/Units 20:30 WBC (4.8-10.8) K/uL RBC (4.7-6.1) M/uL Hgb (14.0-18.0) g/dL Hct (42-52) % MCV (80-100) fL MCH (25-34) pg MCHC (32-36) g/dL RDW Std Deviation (36.4-46.3) fL RDW Coeff of Jovanna (11.5-14.5) % Plt Count (130-400) K/uL MPV (7.4-10.4) fL Immature Gran % (Auto) % Neut % (Auto) % Lymph % (Auto) % [place] % (Auto) % Eos % (Auto) % Baso % (Auto) % Neut # (Auto) (1.4-6.5) K/uL Lymph # (Auto) (1.2-3.4) K/uL [place] # (Auto) (0.11-0.59) K/uL Eos # (Auto) (0-0.5) K/uL Baso # (Auto) (0-0.2) K/uL Immature Gran # (Auto) (0.00-0.02) K/uL PT 10.3 INR 1.0 APTT 37.6 H PTT Ratio 1.4 Sodium Potassium Chloride Carbon Dioxide Anion Gap BUN Creatinine Est Cr Clr Drug Dosing Est GFR ( Amer) Est GFR (Non-Af Amer) BUN/Creatinine Ratio Glucose Lactate (0.4-2.0) mmol/L Calcium Magnesium Total Bilirubin AST ALT Alkaline Phosphatase Troponin I Total Protein Albumin Globulin Albumin/Globulin Ratio Procalcitonin Urine Color Urine Appearance (Clear) Urine pH (4.5-7.5) Ur Specific [place] (1.000-1.030) Urine Protein (Negative) Urine Glucose (UA) (Negative) Urine Ketones (Negative) Urine Blood (Negative) Urine Nitrite (Negative) Urine Bilirubin (Negative) Urine Urobilinogen (Negative) Ur Leukocyte Esterase (Negative) Urine WBC (Auto) (0-5) /hpf Urine RBC (Auto) (0-4) /hpf U Hyaline Cast (Auto) (0-5) /lpf U Epithel Cells (Auto) (0-5) /lpf Urine Bacteria (Auto) (Negative) COVID-19 Eval Order SARS-CoV-2 (PCR) (Negative) Imaging Data Radiologist's Impression: Abdomen/Pelvis CT 02/16/21 19:28 CT OF THE ABDOMEN AND PELVIS WITHOUT CONTRAST CLINICAL HISTORY: Fever. Bladder cancer. COMPARISON STUDY: CT of the abdomen and pelvis October 09, 2020. TECHNIQUE: Axial images of the abdomen and pelvis were obtained without IV contrast. Images were reviewed in the axial, sagittal, and coronal planes. Automated exposure control was utilized for the study. A dose lowering technique was utilized adhering to the principles of ALARA. FINDINGS: Lung bases are unremarkable. Evaluation of the abdomen and pelvis is suboptimal on this unenhanced exam. No pneumatosis, free air or portal venous gas is present. Hepatic steatosis is noted. Unenhanced images of the spleen, adrenal glands and pancreas are unremarkable. There is no biliary or pancreatic ductal dilatation. There is no peripancreatic or pericholecystic infiltration. Colonic diverticulosis is noted without evidence for acute diverticulitis. The appendix is normal. No suspicious lesions are identified within visualized skeletal structures. There is no abdominal or pelvic lymphadenopathy. Bilateral ureteral stents are in place. Bilateral ureteral dilatation is again noted. This was shown on prior exam. There is mild right hydronephrosis. There is no left hydronephrosis. A small amount of gas within the bladder is present. Irregular bladder wall thickening is noted with adjacent infiltration. There is also presacral/perirectal infiltration. No urinary calculi are identified. IMPRESSION: 1. Bilateral ureteral stents in place. Persistent bilateral ureteral dilatation with mild right hydronephrosis. 2. Irregular bladder wall thickening with adjacent infiltration. The findings are nonspecific and could be correlated with urinalysis. 3. Colonic diverticulosis. No evidence for acute diverticulitis. No bowel obstruction. ACT 112: Negative or not required by law. Electronically signed by: Rolf Jc M.D. 02/16/2021 9:10 PM Chest X-Ray 02/16/21 19:28 XR chest 1V portable CLINICAL HISTORY: SEPSIS COMPARISON STUDY: Chest radiograph October 09, 2020. FINDINGS: Lung volumes are normal. Lungs are clear. There is no pneumothorax or pleural effusion. Cardiac size is normal. Mediastinal contours are normal. There is no evidence for pulmonary edema. IMPRESSION: No acute cardiopulmonary findings. ACT 112: Negative or not required by law. Electronically signed by: Rolf Jc M.D. 02/16/2021 8:20 PM ECG Data Indication: + abdominal pain Rate (beats per minute): 91 Rhythm: + normal sinus ECG Intervals/blocks: + Normal QRS, + Normal [place] and + Normal QT-c ECG ST segments: + Normal ST segments [facility] Narrative 1927: The patient was evaluated in room B2. A complete history and physical exam was performed Cardiac monitoring: An order was placed for continuous cardiac monitoring. The monitor shows a rate of 90 with sinus rhythm EMR reviewed. Patient follows with Dr. Keller and Dr. Ayala. On February 07, 2021, 9 days ago the patient had a cystoscopy with urethral dilatation and transurethral resection of a prostate lesion patient had a laser tumor ablation retrograde pyelogram and a stent placed. Patient had his [place] catheter removed 2 days ago by nurse. 2125: Vital signs stable. Labs show leukocytosis of 19.9. Lactic acid within normal limits. Urinalysis does appear to be because of infection. CT does show bilateral ureteral stents in place with hydronephrosis and bladder wall thickening. [facility] Zosyn ordered for the patient. Impression & Plan Acute UTI, Sepsis Discharge Plan Visit Data Chief Complaint: Fever Stated Complaint: FEVER ED Provider: Dawson Wilkinson Discharge Problem: Acute UTI, Sepsis Patient Disposition: Admitted As Inpatient Forms Stand Alone Forms: [facility] Prescriptions Prescriptions: No Action oxycodone-acetaminophen [Percocet] 5-325 mg tablet 1 tab PO Q8H PRN (Reason: pain) Qty: 10 RF: 0 lisinopril [Zestril] 20 mg tablet 20 mg PO QAM RF: 0 levothyroxine 175 mcg capsule 175 mcg PO QAM RF: 0 aspirin 81 mg tablet,delayed release (DR/EC) 81 mg PO QAM RF: 0 atorvastatin 80 mg Tablet 80 mg PO QAM RF: 0 fluticasone propionate [Flonase Allergy Relief] 50 mcg/actuation spray,suspension 2 spray INTRANASAL DAILY PRN (Reason: Nasal Congestion) RF: 0 acetaminophen [Tylenol Extra Strength] 500 mg Capsule 1,000 mg PO Q6H PRN (Reason: Pain) RF: 0 phenazopyridine [Pyridium] 200 mg tablet 200 mg PO Q8H PRN (Reason: pain) Qty: 10 RF: 0 tamsulosin 0.4 mg capsule 0.4 mg PO HS Qty: 30 RF: 0 ibuprofen 200 mg Tablet 600 mg PO Q6H PRN (Reason: Pain) RF: 0 omeprazole 20 mg capsule,delayed release(DR/EC) 20 mg PO QAM RF: 0 metformin 500 mg tablet extended release 24 hr 500 mg PO QAM RF: 0 ezetimibe [Zetia] 10 mg tablet 10 mg PO QAM RF: 0 Referrals Referrals: Shemar Tai MD [Primary Care Provider] - Discharge Problem: Sepsis Qualifiers: Sepsis type: sepsis due to unspecified organism Severe sepsis acute organ dysfunction type: unspecified Severe sepsis shock status: unspecified
--- NOTE | 2021-02-16 20:21 | XRay Report ---
XR chest 1V portable CLINICAL HISTORY: SEPSIS COMPARISON STUDY: Chest radiograph October 09, 2020. FINDINGS: Lung volumes are normal. Lungs are clear. There is no pneumothorax or pleural effusion. Car diac size is normal. Mediastinal contours are normal. There is no evidence for pulmonary edema. IMPRESSION: No acute cardiopulmonary findings. ACT 112: Negative or not required by law. Electronically signed by: Rolf Jc M.D. 02/16/2021 8:20 PM
[2021-02-16 21:04] LABS: Partial Thromboplastin Ratio 1.4; Partial Thromboplastin Time 37.6 Seconds (21.0-31.0); Prothrombin Time 10.3 Seconds (9.0-12.0)
[2021-02-16 21:08] LABS: Alanine Aminotransferase 38 U/L (12-78); Albumin Level 3.2 gm/dl (3.4-5.0); Aspartate Aminotransferase 17 U/L (15-37); BUN Creatinine Ratio 11.7 (10-20); Blood Urea Nitrogen 14 mg/dl (7-18); Calcium 8.4 mg/dl (8.5-10.1); Carbon Dioxide 24 mmol/L (21-32); Chloride 106 mmol/L (98-107); Creatinine Clr Calc Pharmacy 71.4 ml/min; Est GFR (African American) 72.5 ml/min; Est GFR (Non-African American) 62.5 ml/min; Glucose 135 mg/dl (70-99); Magnesium 1.6 mg/dl (1.8-2.4); Potassium 3.9 mmol/L (3.5-5.1); Sodium 136 mmol/L (136-145)
--- NOTE | 2021-02-16 21:11 | CT Scan Report ---
CT OF THE ABDOMEN AND PELVIS WITHOUT CONTRAST CLINICAL HISTORY: Fever. Bladder cancer. COMPARISON STUDY: CT of the abdomen and pelvis October 09, 2020. TECHNIQUE: Axial images of the abdomen and pelvis were obtained without IV contrast. Images were revi ewed in the axial, sagittal, and coronal planes. Automated exposure control was utilized for the cassi dy. A dose lowering technique was utilized adhering to the principles of ALARA. FINDINGS: Lung bases are unremarkable. Evaluation of the abdomen and pelvis is suboptimal on this une nhanced exam. No pneumatosis, free air or portal venous gas is present. Hepatic steatosis is noted. U nenhanced images of the spleen, adrenal glands and pancreas are unremarkable. There is no biliary or pancreatic ductal dilatation. There is no peripancreatic or pericholecystic infiltration. Colonic div erticulosis is noted without evidence for acute diverticulitis. The appendix is normal. No suspicious lesions are identified within visualized skeletal structures. There is no abdominal or pelvic lympha denopathy. Bilateral ureteral stents are in place. Bilateral ureteral dilatation is again noted. This was shown on prior exam. There is mild right hydronephrosis. There is no left hydronephrosis. A small amount of gas within the bladder is present. Irregular bladder wall thickening is noted with adjacent infiltra tion. There is also presacral/perirectal infiltration. No urinary calculi are identified. IMPRESSION: 1. Bilateral ureteral stents in place. Persistent bilateral ureteral dilatation with mild right hydro nephrosis. 2. Irregular bladder wall thickening with adjacent infiltration. The findings are nonspecific and cou ld be correlated with urinalysis. 3. Colonic diverticulosis. No evidence for acute diverticulitis. No bowel obstruction. ACT 112: Negative or not required by law. Electronically signed by: Rolf Jc M.D. 02/16/2021 9:10 PM
[2021-02-16 21:13] LABS: Alkaline Phosphatase 66 U/L (45-117); Bilirubin,Total 0.5 mg/dl (0.2-1); Globulin 3.3 gm/dl (2.5-4.0); Total Protein 6.5 gm/dl (6.4-8.2); Troponin I < 0.015 ng/ml (0-0.045)
[2021-02-16] MEDS ORDERED: POLYETHYLENE (MIRALAX) 17 GM PACK PO PRN (23:01)
[2021-02-16] MEDS ORDERED: PIPERACILL/TAZOBAC CONSULT ACTIVE PRN (23:01)
[2021-02-16] MEDS ORDERED: FLUTICASONE PROPIONATE NA SPR 16 GM BTL PRN (23:01)
[2021-02-16] MEDS ORDERED: NITROGLYCERIN SL 0.4 MG/TAB TAB SL PRN (23:01)
[2021-02-16] MEDS: SODIUM CHLORIDE 0.9% 1000ML 1,000 ML IV SCH (23:54)
[2021-02-16] MEDS: ENOXAPARIN INJ 40 MG/0.4 ML SYR SQ SCH (23:55)
--- NOTE | 2021-02-17 00:20 | History and Physical Report ---
DATE OF ADMISSION: 02/16/2021. CHIEF COMPLAINT: Fever, abdominal pain. HISTORY OF PRESENT ILLNESS: This is a 60-year-old male with past medical history significant for hypothyroidism, prediabetes, hyperlipidemia, chronic rhinitis, history of [place], history of sinus bradycardia, history of GERD, history of right foot drop, history of cardiac stent, history of beta chong intolerance. The patient recently on 02/07/2021 had a cystoscopy for bladder cancer and status post cystoscopy with ureteral dilatation and transurethral resection of the prostate lesion and bilateral ureteroscopy with ureteral dilatation, brush biopsy, and stent placement. The patient has not had the biopsy results yet. The patient says since couple of days he is having chills and today afternoon he developed fever and lower abdominal discomfort, that is the reason he came here. Denies any burning micturition or hematuria. Normal bowel movements. Currently, no chest pain, no shortness of breath, no cough, no headache, no blurred visions, no earache, no runny nose, no sore throat. Appetite is okay. No dysphagia. The patient was having temp spike in the ER at 38 degrees and somewhat tachycardic when he came in. He had white count of 19. Urinalysis positive. ALLERGIES: No known drug allergies. PAST MEDICAL HISTORY: As mentioned above. PAST SURGICAL HISTORY: Cardiac catheterization, colonoscopy. MEDICATIONS: The patient is on Tylenol Extra Strength 1000 mg p.o. q. 6 hours p.r.n., aspirin 81 mg p.o. daily, atorvastatin 80 mg p.o. a.m., Zetia 10 mg p.o. a.m., Flonase 2 sprays intranasal daily p.r.n., ibuprofen 600 mg p.o. q. 6 hours p.r.n., levothyroxine 175 mcg p.o. a.m., lisinopril 20 mg p.o. a.m., Metformin 500 mg p.o. a.m., omeprazole 20 mg p.o. a.m., Flomax 0.4 mg p.o. at bedtime. FAMILY HISTORY: Significant for aunt has diabetes, uncle has diabetes, mother has hypertension and thyroid disorder, maternal grandfather had lung disorder. SOCIAL HISTORY: . Quit smoking in 2001. Smoked 2 packs a day for 20 years. Alcohol, rarely. No drug use. REVIEW OF SYSTEMS: As per HPI. Rest of the review of systems is negative. PHYSICAL EXAMINATION: GENERAL: The patient is of moderate build, not in acute distress. VITAL SIGNS: T-max 38, pulse currently 72, respiratory rate 18, blood pressure 100/52, oxygen 96% on room air. HEENT: Pupils equal, round and reactive to light. Oral mucosa moist. NECK: No JVD, no neck masses. CARDIOVASCULAR: S1 and S2 heard. Regular rate and rhythm. No murmur, no gallop. RESPIRATORY SYSTEM: Normal AP diameter. No accessory muscle use. No wheezing, no crackles. ABDOMEN: Soft, bowel sounds present, nontender, no distention. No CVA tenderness. CENTRAL NERVOUS SYSTEM: Cranial nerves II-XII grossly intact, nonfocal. EXTREMITIES: No edema, no erythema. LABORATORY DATA: WBC 19.9, hemoglobin 14.9, hematocrit 42.7, platelets 217. PT 10.3, INR 1, APTT 37.6. Sodium 136, potassium 3.9, chloride 106, bicarbonate 24, BUN 14, creatinine 1.2, serum glucose 135. Lactate 1.2, calcium 8.4, magnesium 1.6, total bilirubin 0.5, AST 17, ALT 38, alkaline phosphatase 66. Troponin I less than 0.015. Procalcitonin 0.9. Urinalysis, positive for nitrite and +3 leukocyte esterase and +2 bacteria. SARS-CoV-2 PCR negative. IMAGING DATA: Chest x-ray, no acute cardiopulmonary findings. CT of the abdomen and pelvis, bilateral ureteral stents in place, persistent bilateral ureteral dilatation with mild right hydronephrosis. Irregular bladder wall thickening with adjacent infiltration, the findings are nonspecific and could be correlated with urinalysis. Colonic diverticulosis, no evidence of acute diverticulitis. No bowel obstruction. EKG: Sinus rhythm with marked sinus arrhythmia at a rate of 91, no significant change was found. ASSESSMENT AND PLAN: This is a 60-year-old male who recently had a procedure for his urinary bladder cancer and status post stent placement, presents with fever and abdominal discomfort. 1. Fever and abdominal discomfort with urinary tract infection complicated, possible sepsis with tachycardia and white count and fever. ER started Zosyn, which will continue. IV fluids. Consult urology in the a.m.. 2. History of diabetes: We will hold metformin and placed on insulin sliding scale. Follow the blood sugars. 3. History of hypothyroidism: Continue Synthroid. 4. History of hypertension: Continue lisinopril. 5. History of coronary artery disease: Status post stent, continue statin, Zetia, aspirin. 6. Deep venous thrombosis prophylaxis: Lovenox. DISPOSITION: Admit to med tele. PT/OT prior to discharge. Social service to help with discharge planning. Level 1 full code. Job ID: [id number] [facility]
[2021-02-17] MEDS: PIPERACILLIN/TAZOBACTAM 3.375 GM in DEXTROSE 5% 100 ML IV SCH ×3 (02:30→17:09)
[2021-02-17 05:41] LABS: Basophils # (auto) 0.05 K/uL (0-0.2); Basophils % (auto) 0.3 %; Eosinophils # (auto) 0.48 K/uL (0-0.5); Eosinophils % (auto) 2.5 %; Hematocrit (blood only) 39.3 % (42-52); Hemoglobin 13.3 g/dL (14.0-18.0); Immature Granulocytes # (auto) 0.05 K/uL (0.00-0.02); Immature Granulocytes % (auto) 0.3 %; Lymphocytes % (auto) 12.2 %; Mean Corpuscular Hemoglobin 30.9 pg (25-34); Mean Corpuscular Hgb Conc 33.8 g/dL (32-36); Mean Corpuscular Volume 91.2 fL (80-100); Mean Platelet Volume 8.8 fL (7.4-10.4); Monocytes # (auto) 1.99 K/uL (0.11-0.59); Monocytes % (auto) 10.5 %; Neutrophils # (auto) 14.04 K/uL (1.4-6.5); Neutrophils % (auto) 74.2 %; Platelet Count 199 K/uL (130-400); RDW Coefficient of Variation 13.1 % (11.5-14.5); Red Blood Count 4.31 M/uL (4.7-6.1); White Blood Count 18.91 K/uL (4.8-10.8)
[2021-02-17] MEDS: LEVOTHYROXINE SODIUM 175 MCG TABLET PO SCH (05:56)
[2021-02-17 06:08] LABS: BUN Creatinine Ratio 10.1 (10-20); Calcium 8.5 mg/dl (8.5-10.1); Creatinine Clr Calc Pharmacy 66.2 ml/min; Est GFR (African American) 65.9 ml/min; Est GFR (Non-African American) 56.9 ml/min; Magnesium 1.7 mg/dl (1.8-2.4); Potassium 3.8 mmol/L (3.5-5.1)
[2021-02-17] MEDS ORDERED: VANCOMYCIN CONSULT ACTIVE PRN (06:58)
[2021-02-17] MEDS ORDERED: VANCOMYCIN HCL 2,250 MG in SODIUM CHLORIDE 0.9% 500 ML IV STA (07:00)
[2021-02-17] MEDS ORDERED: MAGNESIUM SULFATE / D5W 1 GM/100 ML BAG IV ONE (07:15)
[2021-02-17 07:32] LABS: Estimated Average Glucose 143 mg/dl; Hemoglobin A1C 6.6 % (4.5-5.6)
[2021-02-17] MEDS: ATORVASTATIN 40 MG TAB PO SCH (08:12)
[2021-02-17] MEDS: EZETIMIBE 10 MG TABLET PO SCH (08:12)
[2021-02-17] MEDS: PANTOprazole 40 MG TAB PO SCH (08:13)
[2021-02-17] MEDS: ASPIRIN 81 MG ECTAB PO SCH (08:13)
[2021-02-17] MEDS: MAGNESIUM OXIDE 400 MG TAB PO SCH ×2 (08:14→20:10)
[2021-02-17] MEDS: INSULIN ASPART 100 UNITS/ML 3 ML PEN SC SCH ×4 (08:15→20:11)
--- NOTE | 2021-02-17 08:49 | Electrocardiogram Report ---
Test Reason : Blood Pressure : / mmHG Vent. Rate : 091 BPM Atrial Rate : 091 BPM P-R Int : 126 ms QRS Dur : 090 ms QT Int : 332 ms P-R-T Axes : 065 016 054 degrees QTc Int : 408 ms Sinus rhythm with occasional Premature atrial complexes Otherwise normal ECG When compared with ECG of 09-OCT-2020 12:50, No significant change was found Confirmed by Mustapha Daniel ([id number]) on 02/17/2021 8:48:37 AM Referred By: Harsha Bai Confirmed By:Mustapha Daniel
[2021-02-17] MEDS ORDERED: lisinopril 20 MG TAB PO SCH (09:00)
--- NOTE | 2021-02-17 09:38 | Pharmacy Report ---
Pharmacy Vanc AUC Short Note - Date of Service February 17, 2021 - Assessment & Plan Assessment 60 year old M receiving vancomycin/Zosyn for treatment of complicated UTI. 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 urine culture growing Gram negative bacilli with nitrite positive. Day # 1 of antimicrobial therapy. Plan Vancomycin * AUC/BEREKET is the preferred PK/PD target for vancomycin * AUC guided dosing is effective and associated with decreased risk of nephrotoxicity compared to traditional trough targets * Trough level of ~15 mcg/mL is predicted to achieve target AUC/BEREKET of 400-600 mg/L.hr * vancomycin 2250 mg IV x 1 then Continue dose of 1250 mg IV every 12 hours * No trough as ordered empirically (48 hours). Order trough as appropriate. Pharmacy will continue to follow and will adjust dose/frequency as necessary. Thank you.
--- NOTE | 2021-02-17 10:42 | Urology Consultation ---
Date of Consultation February 17, 2021 Assessment & Plan (1) Acute UTI: (2) Bladder cancer: 60 year old male with bladder cancer and upper tract UCC admitted for fever secondary to presumed UTI; s/p recent urologic procedure on 02/07. - Plan of care reviewed with Dr. Keller - Patient afebrile overnight, Tmax 38.0 on 02/16 at 1933 - Lab work reviewed - creatinine 1.33, WBC 18.91 (previously 19.93), Hgb 13.3 - UC&S showing prelim gram negative bacilli, BCx pending - on IV Vancomycin and Zosyn, follow cultures - CTAP shows b/l stents in good position, b/l ureteral dilatation, mild right hydro; bladder wall thickening with adjacent infiltration - No acute intervention indicated at this time - Pathology still under review with Dr. Keller and pathologist - Continue antibiotics, supportive care, and management per primary team - Will continue to follow History of Present Illness Reason for Consultation: UTI, bladder tumor Requesting Physician: Dr. Landaverde Attending Physician: Lee Ware MD History of Present Illness 60 year old male with past medical history of hyperlipidemia, diabetes, GERD, [place], CAD s/p stent, bladder cancer, upper tract UCC admitted for fever secondary to presumed UTI, s/p recent urologic procedure. He presented to [facility] ED on 02/16/21 with c/o fever, chills, urinary symptoms. Temp 37.7 on arrival, Tmax 38.0. Lab work showed leukocytosis 19.93, creatinine 1.23, Lactic acid within normal limits. Urinalysis showed >30 WBCs, >30 RBCs, 2+ bacteria, positive nitrates. Urine culture and blood cultures collected. CTAP showed bilateral ureteral stents in place; persistent bilateral ureteral dilatation with mild right hydronephrosis; irregular bladder wall thickening with adjacent infiltration. He was treated with IVF, Acetaminophen and Zosyn in ER. He was admitted to hospital medicine service. Our service is consulted for UTI, bladder tumor. Patient known to our service, follows with Dr. Keller for history of bladder cancer and upper tract UCC. He is recently s/p TURBT large, Transurethral resection of prostate lesion, Bilateral ureteroscopy with ureteral dilation, brush biopsy, selective cytology, LASER tumor ablation, retrograde pyelogram, and stent placement; Right ureteral biopsy on 02/07/[address] Keller. Chart review: Afebrile overnight Tmax 38.0 on 02/16 at 1933 Creatinine 1.33 WBC 18.91 Urine culture prelim gram negative bacilli BCx pending On IV Zosyn and Vancomycin VS - BP 108/71, HR 76, Resp 20, Temp 37.1, O2 93% RA Patient seen and examined at bedside. He is awake, alert and sitting up in bed. No complaints at this time. Reports feeling better since arrival. No flank pain. Notes intermittent chills, last episode yesterday evening. Denies fever overnight. Notes urinary frequency. Feels like he is emptying bladder. No dysuria at present. Mild bladder discomfort. No hematuria. Low appetite, but no nausea or vomiting. No additional concerns at this time. Allergies Allergy/AdvReac Type Severity Reaction Status Date / Time No Known Allergies Allergy Mild Verified 02/16/21 21:39 Home Medications Medication Instructions Recorded Confirmed Type aspirin 81 mg tablet,delayed 81 mg PO QAM 03/30/20 02/16/21 History release levothyroxine 175 mcg capsule 175 mcg PO QAM 03/30/20 02/16/21 History lisinopril 20 mg tablet (Zestril) 20 mg PO QAM 03/30/20 02/16/21 History atorvastatin 80 mg tablet 80 mg PO QAM 05/04/20 02/16/21 History fluticasone propionate 50 2 spray INTRANASAL DAILY PRN 06/22/20 02/16/21 History mcg/actuation nasal spray,suspension (Flonase Allergy Relief) ezetimibe 10 mg tablet (Zetia) 10 mg PO QAM 10/09/20 02/16/21 History ibuprofen 200 mg tablet 600 mg PO Q6H PRN 10/09/20 02/16/21 History metformin 500 mg tablet,extended 500 mg PO QAM 10/09/20 02/16/21 History release 24 hr omeprazole 20 mg capsule,delayed 20 mg PO QAM 10/09/20 02/16/21 History release acetaminophen 500 mg capsule 1,000 mg PO Q6H PRN 01/25/21 02/16/21 History tamsulosin 0.4 mg capsule 0.4 mg PO HS #30 cap 02/07/21 02/16/21 Rx Patient History Medical History Arthritis Bladder cancer AND URETERAL CANCER? 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 Diabetes NIDDM Foot drop, right No brace GERD (gastroesophageal reflux disease) Hyperlipidemia Hypomagnesemia Myocardial Infarction 2008 > stent x1 Ureteral cancer Surgical History History of cardiac cath stent x1 (2007) History of colonoscopy History of cystoscopy Multiple Cysto, bladder biopsy (07/12/20): MAC sedation at [facility] TURBT (05/17/20): LMA#5 at [facility] History of tooth extraction Family History Mother Diabetes Heart disease Cancer Hypertension Family history of diabetes mellitus Father Heart disease Social History Smoking Status: Former smoker Tobacco Type: Cigarettes Smoking End Date: 25 years ago; Second Hand Exposure: No; Hx Alcohol Use: No Hx Substance Use: No Preferred Language: Malagasy Communication Ability: Effective [employer] Required: No Beliefs That Will Affect Care: None marital status: Current Living Situation: Spouse current occupational status: employed current occupation: [[employer] How many Children do You have: 2 Other Information That Helps Us Care for You: No Feels Safe at Home: Yes Safety Concerns: Feels Safe At This Time Assistive Devices: Denture - Upper, Denture - Lower and Glasses Review of Systems Constitutional: as per Subjective / HPI Gastrointestinal: as per Subjective / HPI Genitourinary: + as per Subjective / HPI Physical Exam Constitutional: WD/WN, vitals as above Respiratory: normal respiratory effort and able to speak in complete sentences; no respiratory distress and no labored breathing Cardiovascular: Extremities: no pedal edema Gastrointestinal (Abdomen): Inspection/Auscultation: abdomen normal to inspection; abdomen not distended Musculoskeletal: Head/Neck/Chest: normocephalic and head atraumatic Skin: no rashes, warm and dry Neurologic: moves all extremities and awake Psychiatric: Orientation: alert, oriented x 3 and cooperative Affect: euthymic affect Results & Data ([facility]) Vital Signs (Past 12 Hours) Vital Signs Temp Pulse Resp BP BP Pulse Ox 02/17/21 08:00 37.1 C 76 20 108/71 93 02/17/21 03:42 37.6 C H 87 16 98/61 L 93 02/16/21 22:58 36.8 C 76 20 125/81 96 PG Care Time/CCT Total # of Minutes Spent Total Time Spent with Patient: Total time spent is greater than 50% in coordination of care (as documented) at patient's floor/unit and/or counseling patient: Coding Level of Care Code 51317 Inpt Consult Level 3 Diagnoses Acute UTI N39.0 Bladder cancer C67.9
[2021-02-17] MEDS: SODIUM CHLORIDE 0.9% 1000ML 1,000 ML IV SCH (11:25)
--- NOTE | 2021-02-17 12:27 | Hospitalist Progress Note ---
Date of Service February 17, 2021 Assessment & Plan (1) Acute UTI: (2) Bladder cancer: Plan: This is a 60-year-old male who recently had a procedure for his urinary bladder cancer and status post stent placement, presents with fever and abdominal discomfort. 1. Fever and abdominal discomfort with urinary tract infection complicated, possible sepsis with tachycardia and white count and fever. ER started Zosyn, which will continue. Added vanco. IV fluids. Urology consulted - cont. current treatment U cultx - Gram negat. bacilli Blood cultx - negative so far 2. History of diabetes: We will hold metformin and placed on insulin sliding scale. Follow the blood sugars. 3. History of hypothyroidism: Continue Synthroid. 4. History of hypertension: Continue lisinopril. 5. History of coronary artery disease: Status post stent, continue statin, Zetia, aspirin. DVT prophylaxis: Lovenox. DISPOSITION: PT/OT prior to discharge. Social service to help with discharge planning. Code: Full code. Admission and Anticipated Discharge Date Admission Date: February 16, 2021 Subjective Pt seen in follow up of UTI (after urological procedure) Currently laying in bed and stating occasional chills, frequent urination Spiked fever agian No chest pain, shortness of breath, nausea or vomiting Urology following Review of Systems Review of Systems: all systems reviewed - negative except as above Physical Exam Physical Exam: This is a 60-year-old male who recently had a procedure for his urinary bladder cancer and status post stent placement, presents with fever and abdominal discomfort. 1. Fever and abdominal discomfort with urinary tract infection complicated, possible sepsis with tachycardia and white count and fever. ER started Zosyn, which will continue. IV fluids. Consult urology in the a.m.. 2. History of diabetes: We will hold metformin and placed on insulin sliding scale. Follow the blood sugars. 3. History of hypothyroidism: Continue Synthroid. 4. History of hypertension: Continue lisinopril. 5. History of coronary artery disease: Status post stent, continue statin, Zetia, aspirin. 6. Deep venous thrombosis prophylaxis: Lovenox. DISPOSITION: Admit to med tele. PT/OT prior to discharge. Social service to help with discharge planning. Level 1 full code. Results & Data Results & Data ([facility]) Vital Signs (Past 12 Hours) Vital Signs Temp Pulse Resp BP BP Pulse Ox 02/17/21 12:24 36.9 C 74 20 123/74 96 02/17/21 08:00 37.1 C 76 20 108/71 93 02/17/21 03:42 37.6 C H 87 16 98/61 L 93 Laboratory Results 02/17/21 02/17/21 02/17/21 Range/Units 08:13 05:27 05:27 WBC (4.8-10.8) K/uL RBC (4.7-6.1) M/uL Hgb (14.0-18.0) g/dL Hct (42-52) % MCV (80-100) fL MCH (25-34) pg MCHC (32-36) g/dL RDW Std Deviation (36.4-46.3) fL RDW Coeff of Jovanna (11.5-14.5) % Plt Count (130-400) K/uL MPV (7.4-10.4) fL Immature Gran % (Auto) % Neut % (Auto) % Lymph % (Auto) % Smyth % (Auto) % Eos % (Auto) % Baso % (Auto) % Neut # (Auto) (1.4-6.5) K/uL Lymph # (Auto) (1.2-3.4) K/uL Smyth # (Auto) (0.11-0.59) K/uL Eos # (Auto) (0-0.5) K/uL Baso # (Auto) (0-0.2) K/uL Immature Gran # (Auto) (0.00-0.02) K/uL PT INR APTT PTT Ratio Sodium 137 Potassium 3.8 Chloride 107 Carbon Dioxide 26 Anion Gap 4.0 BUN 13 Creatinine 1.33 Est Cr Clr Drug Dosing 66.2 Est GFR ( Amer) 65.9 Est GFR (Non-Af Amer) 56.9 BUN/Creatinine Ratio 10.1 Glucose 151 H POC Glucose 143 H (70-99) mg/dl Estimat Average Glucose 143 mg/dl Hemoglobin A1c 6.6 H (4.5-5.6) % Lactate (0.4-2.0) mmol/L Calcium 8.5 Magnesium 1.7 L Total Bilirubin AST ALT Alkaline Phosphatase Troponin I Total Protein Albumin Globulin Albumin/Globulin Ratio Procalcitonin Urine Color Urine Appearance (Clear) Urine pH (4.5-7.5) Ur Specific Langston (1.000-1.030) Urine Protein (Negative) Urine Glucose (UA) (Negative) Urine Ketones (Negative) Urine Blood (Negative) Urine Nitrite (Negative) Urine Bilirubin (Negative) Urine Urobilinogen (Negative) Ur Leukocyte Esterase (Negative) Urine WBC (Auto) (0-5) /hpf Urine RBC (Auto) (0-4) /hpf U Hyaline Cast (Auto) (0-5) /lpf U Epithel Cells (Auto) (0-5) /lpf Urine Bacteria (Auto) (Negative) COVID-19 Eval Order SARS-CoV-2 (PCR) (Negative) 02/17/21 02/16/21 02/16/21 Range/Units 05:27 23:20 20:30 WBC 18.91 H (4.8-10.8) K/uL RBC 4.31 L (4.7-6.1) M/uL Hgb 13.3 L (14.0-18.0) g/dL Hct 39.3 L (42-52) % MCV 91.2 (80-100) fL MCH 30.9 (25-34) pg MCHC 33.8 (32-36) g/dL RDW Std Deviation 44.0 (36.4-46.3) fL RDW Coeff of Jovanna 13.1 (11.5-14.5) % Plt Count 199 (130-400) K/uL MPV 8.8 (7.4-10.4) fL Immature Gran % (Auto) 0.3 % Neut % (Auto) 74.2 % Lymph % (Auto) 12.2 % Smyth % (Auto) 10.5 % Eos % (Auto) 2.5 % Baso % (Auto) 0.3 % Neut # (Auto) 14.04 H (1.4-6.5) K/uL Lymph # (Auto) 2.30 (1.2-3.4) K/uL Smyth # (Auto) 1.99 H (0.11-0.59) K/uL Eos # (Auto) 0.48 (0-0.5) K/uL Baso # (Auto) 0.05 (0-0.2) K/uL Immature Gran # (Auto) 0.05 H (0.00-0.02) K/uL PT INR APTT PTT Ratio Sodium Potassium Chloride Carbon Dioxide Anion Gap BUN Creatinine Est Cr Clr Drug Dosing Est GFR ( Amer) Est GFR (Non-Af Amer) BUN/Creatinine Ratio Glucose POC Glucose 125 H (70-99) mg/dl Estimat Average Glucose mg/dl Hemoglobin A1c (4.5-5.6) % Lactate (0.4-2.0) mmol/L Calcium Magnesium Total Bilirubin AST ALT Alkaline Phosphatase Troponin I Total Protein Albumin Globulin Albumin/Globulin Ratio Procalcitonin 0.94 H Urine Color Urine Appearance (Clear) Urine pH (4.5-7.5) Ur Specific Langston (1.000-1.030) Urine Protein (Negative) Urine Glucose (UA) (Negative) Urine Ketones (Negative) Urine Blood (Negative) Urine Nitrite (Negative) Urine Bilirubin (Negative) Urine Urobilinogen (Negative) Ur Leukocyte Esterase (Negative) Urine WBC (Auto) (0-5) /hpf Urine RBC (Auto) (0-4) /hpf U Hyaline Cast (Auto) (0-5) /lpf U Epithel Cells (Auto) (0-5) /lpf Urine Bacteria (Auto) (Negative) COVID-19 Eval Order SARS-CoV-2 (PCR) (Negative) 02/16/21 02/16/21 02/16/21 Range/Units 20:30 20:30 20:03 WBC (4.8-10.8) K/uL RBC (4.7-6.1) M/uL Hgb (14.0-18.0) g/dL Hct (42-52) % MCV (80-100) fL MCH (25-34) pg MCHC (32-36) g/dL RDW Std Deviation (36.4-46.3) fL RDW Coeff of Jovanna (11.5-14.5) % Plt Count (130-400) K/uL MPV (7.4-10.4) fL Immature Gran % (Auto) % Neut % (Auto) % Lymph % (Auto) % Smyth % (Auto) % Eos % (Auto) % Baso % (Auto) % Neut # (Auto) (1.4-6.5) K/uL Lymph # (Auto) (1.2-3.4) K/uL Smyth # (Auto) (0.11-0.59) K/uL Eos # (Auto) (0-0.5) K/uL Baso # (Auto) (0-0.2) K/uL Immature Gran # (Auto) (0.00-0.02) K/uL PT 10.3 INR 1.0 APTT 37.6 H PTT Ratio 1.4 Sodium 136 Potassium 3.9 Chloride 106 Carbon Dioxide 24 Anion Gap 6.0 BUN 14 Creatinine 1.23 Est Cr Clr Drug Dosing 71.4 Est GFR ( Amer) 72.5 Est GFR (Non-Af Amer) 62.5 BUN/Creatinine Ratio 11.7 Glucose 135 H POC Glucose (70-99) mg/dl Estimat Average Glucose mg/dl Hemoglobin A1c (4.5-5.6) % Lactate (0.4-2.0) mmol/L Calcium 8.4 L Magnesium 1.6 L Total Bilirubin 0.5 AST 17 ALT 38 Alkaline Phosphatase 66 Troponin I < 0.015 Total Protein 6.5 Albumin 3.2 L Globulin 3.3 Albumin/Globulin Ratio 1.0 Procalcitonin Urine Color Urine Appearance (Clear) Urine pH (4.5-7.5) Ur Specific Langston (1.000-1.030) Urine Protein (Negative) Urine Glucose (UA) (Negative) Urine Ketones (Negative) Urine Blood (Negative) Urine Nitrite (Negative) Urine Bilirubin (Negative) Urine Urobilinogen (Negative) Ur Leukocyte Esterase (Negative) Urine WBC (Auto) (0-5) /hpf Urine RBC (Auto) (0-4) /hpf U Hyaline Cast (Auto) (0-5) /lpf U Epithel Cells (Auto) (0-5) /lpf Urine Bacteria (Auto) (Negative) COVID-19 Eval Order SARS-CoV-2 (PCR) NEGATIVE (Negative) 02/16/21 02/16/21 02/16/21 Range/Units 20:03 19:51 19:51 WBC (4.8-10.8) K/uL RBC (4.7-6.1) M/uL Hgb (14.0-18.0) g/dL Hct (42-52) % MCV (80-100) fL MCH (25-34) pg MCHC (32-36) g/dL RDW Std Deviation (36.4-46.3) fL RDW Coeff of Jovanna (11.5-14.5) % Plt Count (130-400) K/uL MPV (7.4-10.4) fL Immature Gran % (Auto) % Neut % (Auto) % Lymph % (Auto) % Smyth % (Auto) % Eos % (Auto) % Baso % (Auto) % Neut # (Auto) (1.4-6.5) K/uL Lymph # (Auto) (1.2-3.4) K/uL Smyth # (Auto) (0.11-0.59) K/uL Eos # (Auto) (0-0.5) K/uL Baso # (Auto) (0-0.2) K/uL Immature Gran # (Auto) (0.00-0.02) K/uL PT INR APTT PTT Ratio Sodium Potassium Chloride Carbon Dioxide Anion Gap BUN Creatinine Est Cr Clr Drug Dosing Est GFR ( Amer) Est GFR (Non-Af Amer) BUN/Creatinine Ratio Glucose POC Glucose (70-99) mg/dl Estimat Average Glucose mg/dl Hemoglobin A1c (4.5-5.6) % Lactate 1.2 (0.4-2.0) mmol/L Calcium Magnesium Total Bilirubin AST ALT Alkaline Phosphatase Troponin I Total Protein Albumin Globulin Albumin/Globulin Ratio Procalcitonin Cancelled Urine Color Urine Appearance (Clear) Urine pH (4.5-7.5) Ur Specific Langston (1.000-1.030) Urine Protein (Negative) Urine Glucose (UA) (Negative) Urine Ketones (Negative) Urine Blood (Negative) Urine Nitrite (Negative) Urine Bilirubin (Negative) Urine Urobilinogen (Negative) Ur Leukocyte Esterase (Negative) Urine WBC (Auto) (0-5) /hpf Urine RBC (Auto) (0-4) /hpf U Hyaline Cast (Auto) (0-5) /lpf U Epithel Cells (Auto) (0-5) /lpf Urine Bacteria (Auto) (Negative) COVID-19 Eval Order Covid19 at [facility] SARS-CoV-2 (PCR) (Negative) 02/16/21 02/16/21 02/16/21 Range/Units 19:51 19:51 19:51 WBC 19.93 H (4.8-10.8) K/uL RBC 4.72 (4.7-6.1) M/uL Hgb 14.9 (14.0-18.0) g/dL Hct 42.7 (42-52) % MCV 90.5 (80-100) fL MCH 31.6 (25-34) pg MCHC 34.9 (32-36) g/dL RDW Std Deviation 43.0 (36.4-46.3) fL RDW Coeff of Jovanna 13.0 (11.5-14.5) % Plt Count 217 (130-400) K/uL MPV 9.3 (7.4-10.4) fL Immature Gran % (Auto) 0.4 % Neut % (Auto) 75.8 % Lymph % (Auto) 10.9 % Smyth % (Auto) 8.6 % Eos % (Auto) 3.9 % Baso % (Auto) 0.4 % Neut # (Auto) 15.12 H (1.4-6.5) K/uL Lymph # (Auto) 2.18 (1.2-3.4) K/uL Smyth # (Auto) 1.71 H (0.11-0.59) K/uL Eos # (Auto) 0.77 H (0-0.5) K/uL Baso # (Auto) 0.07 (0-0.2) K/uL Immature Gran # (Auto) 0.08 H (0.00-0.02) K/uL PT Cancelled INR Cancelled APTT Cancelled PTT Ratio Cancelled Sodium Cancelled Potassium Cancelled Chloride Cancelled Carbon Dioxide Cancelled Anion Gap Cancelled BUN Cancelled Creatinine Cancelled Est Cr Clr Drug Dosing Cancelled Est GFR ( Amer) Cancelled Est GFR (Non-Af Amer) Cancelled BUN/Creatinine Ratio Cancelled Glucose Cancelled POC Glucose (70-99) mg/dl Estimat Average Glucose mg/dl Hemoglobin A1c (4.5-5.6) % Lactate (0.4-2.0) mmol/L Calcium Cancelled Magnesium Cancelled Total Bilirubin Cancelled AST Cancelled ALT Cancelled Alkaline Phosphatase Cancelled Troponin I Cancelled Total Protein Cancelled Albumin Cancelled Globulin Cancelled Albumin/Globulin Ratio Cancelled Procalcitonin Urine Color Urine Appearance (Clear) Urine pH (4.5-7.5) Ur Specific Langston (1.000-1.030) Urine Protein (Negative) Urine Glucose (UA) (Negative) Urine Ketones (Negative) Urine Blood (Negative) Urine Nitrite (Negative) Urine Bilirubin (Negative) Urine Urobilinogen (Negative) Ur Leukocyte Esterase (Negative) Urine WBC (Auto) (0-5) /hpf Urine RBC (Auto) (0-4) /hpf U Hyaline Cast (Auto) (0-5) /lpf U Epithel Cells (Auto) (0-5) /lpf Urine Bacteria (Auto) (Negative) COVID-19 Eval Order SARS-CoV-2 (PCR) (Negative) 02/16/21 Range/Units 19:42 WBC (4.8-10.8) K/uL RBC (4.7-6.1) M/uL Hgb (14.0-18.0) g/dL Hct (42-52) % MCV (80-100) fL MCH (25-34) pg MCHC (32-36) g/dL RDW Std Deviation (36.4-46.3) fL RDW Coeff of Jovanna (11.5-14.5) % Plt Count (130-400) K/uL MPV (7.4-10.4) fL Immature Gran % (Auto) % Neut % (Auto) % Lymph % (Auto) % Smyth % (Auto) % Eos % (Auto) % Baso % (Auto) % Neut # (Auto) (1.4-6.5) K/uL Lymph # (Auto) (1.2-3.4) K/uL Smyth # (Auto) (0.11-0.59) K/uL Eos # (Auto) (0-0.5) K/uL Baso # (Auto) (0-0.2) K/uL Immature Gran # (Auto) (0.00-0.02) K/uL PT INR APTT PTT Ratio Sodium Potassium Chloride Carbon Dioxide Anion Gap BUN Creatinine Est Cr Clr Drug Dosing Est GFR ( Amer) Est GFR (Non-Af Amer) BUN/Creatinine Ratio Glucose POC Glucose (70-99) mg/dl Estimat Average Glucose mg/dl Hemoglobin A1c (4.5-5.6) % Lactate (0.4-2.0) mmol/L Calcium Magnesium Total Bilirubin AST ALT Alkaline Phosphatase Troponin I Total Protein Albumin Globulin Albumin/Globulin Ratio Procalcitonin Urine Color Yellow Urine Appearance Turbid A (Clear) Urine pH 5.5 (4.5-7.5) Ur Specific Langston 1.012 (1.000-1.030) Urine Protein 2+ H (Negative) Urine Glucose (UA) Negative (Negative) Urine Ketones Negative (Negative) Urine Blood 3+ H (Negative) Urine Nitrite Positive A (Negative) Urine Bilirubin Negative (Negative) Urine Urobilinogen Negative (Negative) Ur Leukocyte Esterase 3+ H (Negative) Urine WBC (Auto) >30 H (0-5) /hpf Urine RBC (Auto) >30 H (0-4) /hpf U Hyaline Cast (Auto) 1-5 (0-5) /lpf U Epithel Cells (Auto) 5-10 H (0-5) /lpf Urine Bacteria (Auto) 2+ H (Negative) COVID-19 Eval Order SARS-CoV-2 (PCR) (Negative) Medications Administered Current Inpatient Medications Acetaminophen (Acetaminophen 325 Mg Tab) 650 mg PO Q4H PRN PRN Reason: Pain or Fever Stop: 03/18/21 23:00 Aspirin (Aspirin 81 Mg Ectab) 81 mg PO [facility] Stop: 03/19/21 08:59 Last Admin: 02/17/21 08:13 Dose: 81 mg Documented by: Atorvastatin Calcium ([facility]vastatin 40 Mg Tab) [facility] Stop: 03/19/21 08:59 Last Admin: 02/17/21 08:12 Dose: 80 mg Documented by: Ezetimibe (Ezetimibe 10 Mg Tablet) [facility] [place] Stop: 03/19/21 08:59 Last Admin: 02/17/21 08:12 Dose: 10 mg Documented by: Enoxaparin Sodium (Enoxaparin Inj 40 Mg/0.4 Ml Syr) 40 mg SQ Q24H [facility] Stop: 03/19/21 00:00 Last Admin: 02/16/21 23:55 Dose: 40 mg Documented by: Fluticasone Propionate (Fluticasone Propionate Na Spr 16 Gm Btl) 2 sprays NA DAILY PRN PRN Reason: Nasal Congestion Stop: 03/18/21 23:00 Sodium Chloride (Nss 1000ml) 1,000 mls @ 125 mls/hr IV .Q8H [facility] Stop: 02/17/21 15:14 Last Admin: 02/17/21 11:25 Dose: 125 mls/hr Documented by: Piperacillin Sod/Tazobactam (Sod 3.375 gm/ Dextrose) 115 mls @ 28.75 mls/hr IV Q8H [facility]; Protocol Stop: 02/27/21 01:59 Last Admin: 02/17/21 12:19 Dose: 28.8 mls/hr Documented by: Vancomycin HCl 1,250 mg/ (Sodium Chloride) 275 mls @ 200 mls/hr IV Q12H [facility]; Pr otocol Stop: 02/19/21 19:59 Insulin Aspart (Insulin Aspart 100 Units/Ml 3 Ml Pen) 0 units SC ACHS [facility] Stop: 03/19/21 07:29 Last Admin: 02/17/21 12:22 Dose: Not Given Documented by: Levothyroxine Sodium (Levothyroxine Sodium 175 Mcg Tablet) 175 mcg PO DAILYBB [facility] Stop: 03/19/21 06:29 Last Admin: 02/17/21 05:56 Dose: 175 mcg Documented by: Lisinopril (Lisinopril 20 Mg Tab) [facility] [place] Stop: 03/19/21 08:59 Magnesium Oxide (Magnesium Oxide 400 Mg Tab) 400 mg PO BID [facility] Stop: 03/19/21 08:59 Last Admin: 02/17/21 08:14 Dose: 400 mg Documented by: Miscellaneous Information (Piperacill/Tazobac Consult Active) 1 ea N/A UD PRN PRN Reason: Consult Stop: 03/18/21 23:00 Miscellaneous Information (Vancomycin Consult Active) 1 ea N/A UD PRN PRN Reason: Consult Stop: 03/19/21 06:57 Nitroglycerin (Nitroglycerin Sl 0.4 Mg/Tab Tab) 0.4 mg SL UD PRN PRN Reason: Chest Pain Stop: 03/18/21 23:00 Pantoprazole Sodium (Pantoprazole 40 Mg Tab) 40 mg PO QAM [facility] Stop: 03/19/21 08:59 Last Admin: 02/17/21 08:13 Dose: 40 mg Documented by: Polyethylene Glycol (Polyethylene (Miralax) 17 Gm Pack) 17 gm PO DAILY PRN PRN Reason: Constipation Stop: 03/18/21 23:00 Tamsulosin HCl (Tamsulosin Hcl 0.4 Mg Cap) 0.4 mg PO [facility] Stop: 03/19/21 20:59
[2021-02-17] MEDS: ACETAMINOPHEN 325 MG TAB PO PRN ×2 (17:09→22:59)
[2021-02-17] MEDS: VANCOMYCIN HCL 1,250 MG in SODIUM CHLORIDE 0.9% 250 ML IV SCH (20:10)
[2021-02-17] MEDS: TAMSULOSIN HCL 0.4 MG CAP PO SCH (20:10)
[2021-02-17] MEDS: ENOXAPARIN INJ 40 MG/0.4 ML SYR SQ SCH (22:58)
[2021-02-18] MEDS: PIPERACILLIN/TAZOBACTAM 3.375 GM in DEXTROSE 5% 100 ML IV SCH ×3 (02:17→17:48)
[2021-02-18] MEDS: LEVOTHYROXINE SODIUM 175 MCG TABLET PO SCH (05:27)
--- NOTE | 2021-02-18 07:36 | Hospitalist Progress Note ---
Date of Service February 18, 2021 Assessment & Plan (1) Acute UTI: (2) Bladder cancer: Plan: This is a 60-year-old male who recently had a procedure for his urinary bladder cancer and status post stent placement, presents with fever and abdominal discomfort. 1. Fever and abdominal discomfort with urinary tract infection complicated, possible sepsis with tachycardia and white count and fever. ER started Zosyn, which will continue. Added vanco. IV fluids. Urology consulted - cont. current treatment U cultx - Gram negat. bacilli Blood cultx - negative so far 2. History of diabetes: We will hold metformin and placed on insulin sliding scale. Follow the blood sugars. 3. History of hypothyroidism: Continue Synthroid. 4. History of hypertension: Continue lisinopril. 5. History of coronary artery disease: Status post stent, continue statin, Zetia, aspirin. DVT prophylaxis: Lovenox. DISPOSITION: PT/OT prior to discharge. Social service to help with discharge planning. Code: Full code. Admission and Anticipated Discharge Date Admission Date: February 16, 2021 Subjective Pt seen in follow up of UTI (after urological procedure) Currently laying in bed in NAD Spiked fever again but feeling better overall No chest pain, shortness of breath, nausea or vomiting Urology following Review of Systems Review of Systems: Already systems reviewed, negative unless mentioned above Physical Exam Physical Exam: GENERAL: The patient is of moderate build, not in acute distress. HEENT: NC/AT, Pupils equal, round and reactive to light. Oral mucosa moist. NECK: No JVD, no neck masses. CARDIOVASCULAR: S1 and S2 heard. Regular rate and rhythm. No murmur, no gallop. RESPIRATORY: Normal AP diameter. No accessory muscle use. No wheezing, no crackles. ABDOMEN: Soft, bowel sounds present, nontender, no distention. No CVA tenderness. NEURO: Alert and oriented x3, speech fluent, no facial asymmetry, moves extremities spontaneously EXTREMITIES: No edema, no erythema. Results & Data Results & Data ([facility]) Vital Signs (Past 12 Hours) Vital Signs Temp Pulse Pulse Resp BP Pulse Ox 02/18/21 03:00 37.1 C 65 18 104/52 L 95 02/17/21 23:29 37.9 C H 59 L 62 18 124/53 L 99 Laboratory Results 02/18/21 02/18/21 02/18/21 Range/Units 11:58 08:59 08:59 WBC 13.14 H (4.8-10.8) K/uL RBC 4.21 L (4.7-6.1) M/uL Hgb 12.9 L (14.0-18.0) g/dL Hct 38.8 L (42-52) % MCV 92.2 (80-100) fL MCH 30.6 (25-34) pg MCHC 33.2 (32-36) g/dL RDW Std Deviation 43.6 (36.4-46.3) fL RDW Coeff of Jovanna 13.0 (11.5-14.5) % Plt Count 199 (130-400) K/uL MPV 9.0 (7.4-10.4) fL Sodium 137 (136-145) mmol/L Potassium 4.0 (3.5-5.1) mmol/L Chloride 107 (98-107) mmol/L Carbon Dioxide 22 (21-32) mmol/L Anion Gap 8.0 (3-11) BUN 17 (7-18) mg/dl Creatinine 1.36 (0.6-1.4) mg/dl Est Cr Clr Drug Dosing 64.7 ml/min Est GFR ( Amer) 64.2 ml/min Est GFR (Non-Af Amer) 55.4 ml/min BUN/Creatinine Ratio 12.4 (10-20) Glucose 209 H (70-99) mg/dl POC Glucose 181 H (70-99) mg/dl Calcium 8.8 (8.5-10.1) mg/dl Phosphorus 1.6 L (2.5-4.9) mg/dl Magnesium 1.9 (1.8-2.4) mg/dl 02/18/21 02/17/21 02/17/21 Range/Units 07:58 20:02 17:08 WBC (4.8-10.8) K/uL RBC (4.7-6.1) M/uL Hgb (14.0-18.0) g/dL Hct (42-52) % MCV (80-100) fL MCH (25-34) pg MCHC (32-36) g/dL RDW Std Deviation (36.4-46.3) fL RDW Coeff of Jovanna (11.5-14.5) % Plt Count (130-400) K/uL MPV (7.4-10.4) fL Sodium (136-145) mmol/L Potassium (3.5-5.1) mmol/L Chloride (98-107) mmol/L Carbon Dioxide (21-32) mmol/L Anion Gap (3-11) BUN (7-18) mg/dl Creatinine (0.6-1.4) mg/dl Est Cr Clr Drug Dosing ml/min Est GFR ( Amer) ml/min Est GFR (Non-Af Amer) ml/min BUN/Creatinine Ratio (10-20) Glucose (70-99) mg/dl POC Glucose 114 H 155 H 112 H (70-99) mg/dl Calcium (8.5-10.1) mg/dl Phosphorus (2.5-4.9) mg/dl Magnesium (1.8-2.4) mg/dl Medications Administered Current Inpatient Medications Acetaminophen (Acetaminophen 325 Mg Tab) 650 mg PO Q4H PRN PRN Reason: Pain or Fever Stop: 03/18/21 23:00 Last Admin: 02/18/21 12:47 Dose: 650 mg Documented by: Aspirin (Aspirin 81 Mg Ectab) 81 mg PO [facility] Stop: 03/19/21 08:59 Last Admin: 02/18/21 09:00 Dose: 81 mg Documented by: Atorvastatin Calcium ([facility]orvastatin 40 Mg Tab) [facility] Stop: 03/19/21 08:59 Last Admin: 02/18/21 09:01 Dose: 80 mg Documented by: Ezetimibe (Ezetimibe 10 Mg Tablet) 10 mg PO [facility] Stop: 03/19/21 08:59 Last Admin: 02/18/21 09:00 Dose: 10 mg Documented by: Enoxaparin Sodium (Enoxaparin Inj 40 Mg/0.4 Ml Syr) [address] [facility] Stop: 03/19/21 00:00 Last Admin: 02/17/21 22:58 Dose: 40 mg Documented by: Fluticasone Propionate (Fluticasone Propionate Na Spr 16 Gm Btl) 2 sprays NA DAILY PRN PRN Reason: Nasal Congestion Stop: 03/18/21 23:00 Piperacillin Sod/Tazobactam (Sod 3.375 gm/ Dextrose) 115 mls @ 28.75 mls/hr IV Q8H [facility]; Protocol Stop: 02/27/21 01:59 Last Infusion: 02/18/21 13:43 Dose: Infused Documented by: Vancomycin HCl 1,250 mg/ (Sodium Chloride) 275 mls @ 200 mls/hr IV Q12H [facility]; Protocol Stop: 02/19/21 19:59 Last Infusion: 02/18/21 11:10 Dose: Infused Documented by: Insulin Aspart (Insulin Aspart 100 Units/Ml 3 Ml Pen) [address] [facility] Stop: 03/19/21 07:29 Last Admin: 02/18/21 12:47 Dose: 2 units Documented by: Levothyroxine Sodium (Levothyroxine Sodium 175 Mcg Tablet) [address] [facility] Stop: 03/19/21 06:29 Last Admin: 02/18/21 05:27 Dose: 175 mcg Documented by: Lisinopril (Lisinopril 20 Mg Tab) [address] [facility] Stop: 03/19/21 08:59 Magnesium Oxide (Magnesium Oxide 400 Mg Tab) [address] [facility] Stop: 03/19/21 08:59 Last Admin: 02/18/21 09:01 Dose: 400 mg Documented by: Miscellaneous Information (Piperacill/Tazobac Consult Active) 1 ea N/A UD PRN PRN Reason: Consult Stop: 03/18/21 23:00 Miscellaneous Information (Vancomycin Consult Active) 1 ea N/A UD PRN PRN Reason: Consult Stop: 03/19/21 06:57 Nitroglycerin (Nitroglycerin Sl 0.4 Mg/Tab Tab) 0.4 mg SL UD PRN PRN Reason: Chest Pain Stop: 03/18/21 23:00 Pantoprazole Sodium (Pantoprazole 40 Mg Tab) [address] [facility] Stop: 03/19/21 08:59 Last Admin: 02/18/21 09:01 Dose: 40 mg Documented by: Polyethylene Glycol (Polyethylene (Miralax) 17 Gm Pack) 17 gm PO DAILY PRN PRN Reason: Constipation Stop: 03/18/21 23:00 Potassium Phosphate (Potassium Phos 3 Mmol/1 Ml Infusion) 9 mmol IV NOW STA Stop: 02/18/21 14:16 Potassium Phosphate (Pot Phosphate Monobasic W/ Sod Tab) [address] [facility] Stop: 03/20/21 16:59 Tamsulosin HCl (Tamsulosin Hcl 0.4 Mg Cap) 0.[address] [facility] Stop: 03/19/21 20:59 Last Admin: 02/17/21 20:10 Dose: 0.4 mg Documented by:
[2021-02-18] MEDS: VANCOMYCIN HCL 1,250 MG in SODIUM CHLORIDE 0.9% 250 ML IV SCH ×2 (08:59→20:13)
[2021-02-18] MEDS: INSULIN ASPART 100 UNITS/ML 3 ML PEN SC SCH ×4 (08:59→20:19)
[2021-02-18] MEDS: EZETIMIBE 10 MG TABLET PO SCH (09:00)
[2021-02-18] MEDS: ASPIRIN 81 MG ECTAB PO SCH (09:00)
[2021-02-18] MEDS ORDERED: MAGNESIUM SULFATE / D5W 1 GM/100 ML BAG IV ONE (09:00)
[2021-02-18] MEDS: PANTOprazole 40 MG TAB PO SCH (09:01)
[2021-02-18] MEDS: ATORVASTATIN 40 MG TAB PO SCH (09:01)
[2021-02-18] MEDS: MAGNESIUM OXIDE 400 MG TAB PO SCH ×2 (09:01→20:21)
[2021-02-18 09:11] LABS: Hematocrit (blood only) 38.8 % (42-52); Hemoglobin 12.9 g/dL (14.0-18.0); Mean Corpuscular Hemoglobin 30.6 pg (25-34); Mean Corpuscular Hgb Conc 33.2 g/dL (32-36); Mean Corpuscular Volume 92.2 fL (80-100); Platelet Count 199 K/uL (130-400); RDW Standard Deviation 43.6 fL (36.4-46.3); Red Blood Count 4.21 M/uL (4.7-6.1); White Blood Count 13.14 K/uL (4.8-10.8)
--- NOTE | 2021-02-18 09:22 | Urology Progress Note ---
Date of Service February 18, 2021 Assessment & Plan (1) Acute UTI: (2) Bladder cancer: Plan: 60 year old male with bladder cancer and upper tract UCC admitted for fever secondary to presumed UTI; s/p recent urologic procedure on 02/07. - Plan of care reviewed with Dr. Keller - Patient afebrile overnight, febrile yesterday - Tmax 38.7 on 02/17 at 1700 - Lab work reviewed - creatinine 1.36, WBC 13.14 (previously 18.91) - UC&S showing prelim gram negative bacilli, BCx NGTD - on IV Vancomycin and Zosyn, follow cultures - No acute intervention indicated at this time - Voiding spontaneously, PVR yesterday 190 mL - acceptable, continue to monitor qshift and prn - Pathology still under review with Dr. Keller and pathologist - Continue antibiotics, supportive care, and management per primary team - Follow-up outpatient with Dr. Keller as scheduled on 02/25 Thank you for allowing us to participate in the acute care of Mr. Degroot. Please reconsult us with additional questions, concerns or changes in patient status. Admission and Anticipated Discharge Date Admission Date: February 16, 2021 Subjective Awake, alert and sitting up in bed. No issues overnight. Reports that he feels better today. Notes fever/chills yesterday early evening, but none overnight. Denies flank, abdominal or suprapubic pain. Low appetite, but improving. No nausea or vomiting. Voiding spontaneously. No dysuria or hematuria. Per chart review, voided 400 mL, PVR of 190 mL yesterday. No additional concerns today. Chart review: Afebrile overnight, Tmax 38.7 on 02/17 @1700, WBC 13.14, Creatinine 1.36 UC&S prelim gram negative bacilli BCx NGTD On IV Vancomycin, Zosyn Review of Systems Constitutional: as per Subjective / HPI Gastrointestinal: as per Subjective / HPI Genitourinary: + as per Subjective / HPI Physical Exam Constitutional: WD/WN, vitals as above Respiratory: normal respiratory effort and able to speak in complete sentences; no respiratory distress and no labored breathing Cardiovascular: Extremities: no pedal edema Gastrointestinal (Abdomen): Inspection/Auscultation: abdomen normal to inspection; abdomen not distended Percussion/Palpation: abdomen soft; abdomen nontender and no guarding Musculoskeletal: Head/Neck/Chest: normocephalic and head atraumatic Extremities: extremities normal to inspection Skin: no rashes, warm and dry Neurologic: moves all extremities and awake Psychiatric: Orientation: alert, oriented x 3 and cooperative Affect: euthymic affect Genitourinary: no CVA tenderness Results & Data ([facility]) Vital Signs (Past 12 Hours) Vital Signs Temp Pulse Pulse Resp BP BP Pulse Ox 02/18/21 07:52 37.3 C 71 19 125/70 95 02/18/21 03:00 37.1 C 65 18 104/52 L 95 02/17/21 23:29 37.9 C H 59 L 62 18 124/53 L 99 PG Care Time/CCT Total # of Minutes Spent Total Time Spent with Patient: Total time spent is greater than 50% in coordination of care (as documented) at patient's floor/unit and/or counseling patient: Coding Level of Care Code 38626 Subseq Hosp Care Lvl 2 Diagnoses Acute UTI N39.0 Bladder cancer C67.9
[2021-02-18 09:48] LABS: BUN Creatinine Ratio 12.4 (10-20); Calcium 8.8 mg/dl (8.5-10.1); Creatinine Clr Calc Pharmacy 64.7 ml/min; Est GFR (African American) 64.2 ml/min; Est GFR (Non-African American) 55.4 ml/min; Magnesium 1.9 mg/dl (1.8-2.4)
[2021-02-18 09:49] LABS: Phosphorus 1.6 mg/dl (2.5-4.9)
[2021-02-18] MEDS: ACETAMINOPHEN 325 MG TAB PO PRN (12:47)
[2021-02-18] MEDS ORDERED: POTASSIUM PHOS 3 MMOL/1 ML INFUSION IV STA (14:15)
[2021-02-18] MEDS ORDERED: POTASSIUM PHOSPHATE 9 MMOL in SODIUM CHLORIDE 0.9% 250 ML IV ONE (14:45)
[2021-02-18] MEDS: POT PHOSPHATE MONOBASIC W/ SOD TAB PO SCH ×2 (17:48→20:19)
[2021-02-18] MEDS ORDERED: VANCOMYCIN TROUGH ONE (19:30)
[2021-02-18] MEDS: TAMSULOSIN HCL 0.4 MG CAP PO SCH (20:20)
--- NOTE | 2021-02-18 21:24 | Pharmacy Report ---
Pharmacy Abx Dose Short Note - Date of Service February 18, 2021 - Assessment & Plan Assessment 60 year old M receiving vancomycin/Zosyn for treatment of complicated UTI. 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 Urine culture from 02/16 growing gram-negative bacilli. Patient has been persistently/intermittently febrile (Tmax of 38.1 C today). WBC improving (19 -> 13 K). Plan Vancomycin * Trough level of 9.5 mcg/mL is subtherapeutic * Change to 1500 mg IV every 12 hours * Goal trough level for this empiric indication : 15 to 20 mcg/mL * Trough random level ordered for: 02/20/21 Zosyn * 3.375 g IV q8h is appropriate based on BMI, indication, and renal function Pharmacy will continue to follow and will adjust dose/frequency as necessary. Thank you.
[2021-02-18] MEDS: ENOXAPARIN INJ 40 MG/0.4 ML SYR SQ SCH (23:18)
[2021-02-19] MEDS: PIPERACILLIN/TAZOBACTAM 3.375 GM in DEXTROSE 5% 100 ML IV SCH ×3 (02:30→18:03)
[2021-02-19] MEDS ORDERED: VANCOMYCIN HCL 1,500 MG in SODIUM CHLORIDE 0.9% 500 ML IV SCH (06:00)
[2021-02-19] MEDS: LEVOTHYROXINE SODIUM 175 MCG TABLET PO SCH (06:18)
[2021-02-19] MEDS: PANTOprazole 40 MG TAB PO SCH (08:39)
[2021-02-19] MEDS: ASPIRIN 81 MG ECTAB PO SCH (08:39)
[2021-02-19] MEDS: ATORVASTATIN 40 MG TAB PO SCH (08:39)
[2021-02-19] MEDS: EZETIMIBE 10 MG TABLET PO SCH (08:39)
[2021-02-19] MEDS: MAGNESIUM OXIDE 400 MG TAB PO SCH ×2 (08:39→20:38)
[2021-02-19] MEDS: POT PHOSPHATE MONOBASIC W/ SOD TAB PO SCH ×4 (08:40→20:37)
[2021-02-19 08:43] LABS: Creatinine Clr Calc Pharmacy 71.5 ml/min; Est GFR (African American) 72.5 ml/min; Est GFR (Non-African American) 62.5 ml/min
[2021-02-19] MEDS: INSULIN ASPART 100 UNITS/ML 3 ML PEN SC SCH ×4 (08:48→21:03)
[2021-02-19 09:27] LABS: Hematocrit (blood only) 34.3 % (42-52); Hemoglobin 11.8 g/dL (14.0-18.0); Mean Corpuscular Hemoglobin 31.3 pg (25-34); Mean Corpuscular Hgb Conc 34.4 g/dL (32-36); Mean Platelet Volume 9.5 fL (7.4-10.4); Platelet Count 205 K/uL (130-400); RDW Coefficient of Variation 12.7 % (11.5-14.5); RDW Standard Deviation 42.3 fL (36.4-46.3); Red Blood Count 3.77 M/uL (4.7-6.1)
--- NOTE | 2021-02-19 09:45 | Hospitalist Progress Note ---
Date of Service February 19, 2021 Assessment & Plan (1) Acute UTI: (2) Bladder cancer: Plan: This is a 60-year-old male who recently had a procedure for his urinary bladder cancer and status post stent placement, presents with fever and abdominal discomfort. 1. Fever and abdominal discomfort with urinary tract infection complicated, possible sepsis with tachycardia and white count and fever. ER started Zosyn, which will continue. Added vanco. IV fluids. Urology consulted - cont. current treatment U cultx - Gram negat. bacilli - E.coli Blood cultx - negative so far 2. History of diabetes: We will hold metformin and placed on insulin sliding scale. Follow the blood sugars. 3. History of hypothyroidism: Continue Synthroid. 4. History of hypertension: Continue lisinopril. 5. History of coronary artery disease: Status post stent, continue statin, Zetia, aspirin. DVT prophylaxis: Lovenox. DISPOSITION: Plan to discharge home once medically stable. Code: Full code. Admission and Anticipated Discharge Date Admission Date: February 16, 2021 Subjective Pt seen in follow up of UTI (after urological procedure) Currently laying in bed in NAD Spiked fever again yesterday but feeling better overall No chest pain, shortness of breath, nausea or vomiting No abd. pain, nausea or vomiting Urology consulted Review of Systems Constitutional: + fever (yesterday) Respiratory: no cough and no dyspnea Cardiovascular: no chest pain and no palpitations Gastrointestinal: no abdominal pain and no vomiting Physical Exam Physical Exam: GENERAL: The patient is of moderate build, not in acute distress. HEENT: NC/AT, Pupils equal, round and reactive to light. Oral mucosa moist. NECK: No JVD, no neck masses. CARDIOVASCULAR: S1 and S2 heard. Regular rate and rhythm. No murmur, no gallop. RESPIRATORY: Normal AP diameter. No accessory muscle use. No wheezing, no crackles. ABDOMEN: Soft, bowel sounds present, nontender, no distention. No CVA tenderness. NEURO: Alert and oriented x3, speech fluent, no facial asymmetry, moves extremities spontaneously EXTREMITIES: No edema, no erythema. Results & Data Results & Data ([facility]) Vital Signs (Past 12 Hours) Vital Signs Temp Pulse Pulse Resp BP BP Pulse Ox 02/19/21 07:47 37.0 C 51 L 53 L 19 135/81 96 02/19/21 03:45 36.9 C 69 18 117/69 97 02/19/21 00:00 36.9 C 79 18 126/75 93 02/18/21 23:59 61 Laboratory Results 02/19/21 02/19/21 02/19/21 Range/Units 08:00 08:00 07:56 WBC 11.60 H (4.8-10.8) K/uL RBC 3.77 L (4.7-6.1) M/uL Hgb 11.8 L (14.0-18.0) g/dL Hct 34.3 L (42-52) % MCV 91.0 (80-100) fL MCH 31.3 (25-34) pg MCHC 34.4 (32-36) g/dL RDW Std Deviation 42.3 (36.4-46.3) fL RDW Coeff of Jovanna 12.7 (11.5-14.5) % Plt Count 205 (130-400) K/uL MPV 9.5 (7.4-10.4) fL Sodium 138 (136-145) mmol/L Potassium 3.9 (3.5-5.1) mmol/L Chloride 109 H (98-107) mmol/L Carbon Dioxide 28 (21-32) mmol/L Anion Gap 1.0 L (3-11) BUN 18 (7-18) mg/dl Creatinine 1.18 1.23 (0.6-1.4) mg/dl Est Cr Clr Drug Dosing 74.5 71.5 ml/min Est GFR ( Amer) 76.2 72.5 ml/min Est GFR (Non-Af Amer) 65.7 62.5 ml/min BUN/Creatinine Ratio 15.0 (10-20) Glucose 110 H (70-99) mg/dl POC Glucose (70-99) mg/dl Calcium 8.6 (8.5-10.1) mg/dl Phosphorus 2.5 (2.5-4.9) mg/dl Magnesium 2.1 (1.8-2.4) mg/dl Vancomycin Trough (See Comment) mcg/ml 02/19/21 02/18/21 02/18/21 Range/Units 07:35 20:19 19:49 WBC (4.8-10.8) K/uL RBC (4.7-6.1) M/uL Hgb (14.0-18.0) g/dL Hct (42-52) % MCV (80-100) fL MCH (25-34) pg MCHC (32-36) g/dL RDW Std Deviation (36.4-46.3) fL RDW Coeff of Jovanna (11.5-14.5) % Plt Count (130-400) K/uL MPV (7.4-10.4) fL Sodium (136-145) mmol/L Potassium (3.5-5.1) mmol/L Chloride (98-107) mmol/L Carbon Dioxide (21-32) mmol/L Anion Gap (3-11) BUN (7-18) mg/dl Creatinine (0.6-1.4) mg/dl Est Cr Clr Drug Dosing ml/min Est GFR ( Amer) ml/min Est GFR (Non-Af Amer) ml/min BUN/Creatinine Ratio (10-20) Glucose (70-99) mg/dl POC Glucose 122 H 142 H (70-99) mg/dl Calcium (8.5-10.1) mg/dl Phosphorus (2.5-4.9) mg/dl Magnesium (1.8-2.4) mg/dl Vancomycin Trough 9.5 (See Comment) mcg/ml 02/18/21 02/18/21 Range/Units 16:49 11:58 WBC (4.8-10.8) K/uL RBC (4.7-6.1) M/uL Hgb (14.0-18.0) g/dL Hct (42-52) % MCV (80-100) fL MCH (25-34) pg MCHC (32-36) g/dL RDW Std Deviation (36.4-46.3) fL RDW Coeff of Jovanna (11.5-14.5) % Plt Count (130-400) K/uL MPV (7.4-10.4) fL Sodium (136-145) mmol/L Potassium (3.5-5.1) mmol/L Chloride (98-107) mmol/L Carbon Dioxide (21-32) mmol/L Anion Gap (3-11) BUN (7-18) mg/dl Creatinine (0.6-1.4) mg/dl Est Cr Clr Drug Dosing ml/min Est GFR ( Amer) ml/min Est GFR (Non-Af Amer) ml/min BUN/Creatinine Ratio (10-20) Glucose (70-99) mg/dl POC Glucose 115 H 181 H (70-99) mg/dl Calcium (8.5-10.1) mg/dl Phosphorus (2.5-4.9) mg/dl Magnesium (1.8-2.4) mg/dl Vancomycin Trough (See Comment) mcg/ml Medications Administered Current Inpatient Medications Acetaminophen (Acetaminophen 325 Mg Tab) 650 mg PO Q4H PRN PRN Reason: Pain or Fever Stop: 03/18/21 23:00 Last Admin: 02/18/21 12:47 Dose: 650 mg Documented by: Aspirin (Aspirin 81 Mg Ectab) [facility] [place] Stop: 03/19/21 08:59 Last Admin: 02/19/21 08:39 Dose: 81 mg Documented by: Atorvastatin Calcium (Atorvastatin 40 Mg Tab) 80 [facility] [place] Stop: 03/19/21 08:59 Last Admin: 02/19/21 08:39 Dose: 80 mg Documented by: Ezetimibe (Ezetimibe 10 Mg Tablet) 10 [facility] [place] Stop: 03/19/21 08:59 Last Admin: 02/19/21 08:39 Dose: 10 mg Documented by: Enoxaparin Sodium (Enoxaparin Inj 40 Mg/0.4 Ml Syr) 40 mg SQ Q24H [facility] Stop: 03/19/21 00:00 Last Admin: 02/18/21 23:18 Dose: 40 mg Documented by: Fluticasone Propionate (Fluticasone Propionate Na Spr 16 Gm Btl) 2 sprays NA DAILY PRN PRN Reason: Nasal Congestion Stop: 03/18/21 23:00 Piperacillin Sod/Tazobactam (Sod 3.375 gm/ Dextrose) 115 mls @ 28.75 mls/hr IV Q8H [facility]; Protocol Stop: 02/27/21 01:59 Last Admin: 02/19/21 10:09 Dose: 28.8 mls/hr Documented by: Vancomycin HCl 1,500 mg/ (Sodium Chloride) 530 mls @ 200 mls/hr IV Q12H [facility]; Protocol Stop: 02/24/21 05:59 Last Infusion: 02/19/21 08:54 Dose: Infused Documented by: Insulin Aspart (Insulin Aspart 100 Units/Ml 3 Ml Pen) 0 units SC ACHS [facility] Stop: 03/19/21 07:29 Last Admin: 02/19/21 08:48 Dose: Not Given Documented by: Levothyroxine Sodium (Levothyroxine Sodium 175 Mcg Tablet) 175 mcg PO DAILYBB [facility] Stop: 03/19/21 06:29 Last Admin: 02/19/21 06:18 Dose: 175 mcg Documented by: Lisinopril (Lisinopril 20 Mg Tab) 20 mg PO QAM [facility] Stop: 03/19/21 08:59 Magnesium Oxide (Magnesium Oxide 400 Mg Tab) 400 mg PO BID [facility] Stop: 03/19/21 08:59 Last Admin: 02/19/21 08:39 Dose: 400 mg Documented by: Miscellaneous Information (Piperacill/Tazobac Consult Active) 1 ea N/A UD PRN PRN Reason: Consult Stop: 03/18/21 23:00 Miscellaneous Information (Vancomycin Consult Active) 1 ea N/A UD PRN PRN Reason: Consult Stop: 03/19/21 06:57 Nitroglycerin (Nitroglycerin Sl 0.4 Mg/Tab Tab) 0.4 mg SL UD PRN PRN Reason: Chest Pain Stop: 03/18/21 23:00 Pantoprazole Sodium (Pantoprazole 40 Mg Tab) 40 mg PO QAM [facility] Stop: 03/19/21 08:59 Last Admin: 02/19/21 08:39 Dose: 40 mg Documented by: Polyethylene Glycol (Polyethylene (Miralax) 17 Gm Pack) 17 gm PO DAILY PRN PRN Reason: Constipation Stop: 03/18/21 23:00 Potassium Phosphate (Pot Phosphate Monobasic W/ Sod Tab) 1 tab PO QID [facility] Stop: 03/20/21 16:59 Last Admin: 02/19/21 08:40 Dose: 1 tab Documented by: Tamsulosin HCl (Tamsulosin Hcl 0.4 Mg Cap) 0.4 mg PO HS [facility] Stop: 03/19/21 20:59 Last Admin: 02/18/21 20:20 Dose: 0.4 mg Documented by:
[2021-02-19 09:52] LABS: Calcium 8.6 mg/dl (8.5-10.1); Creatinine Clr Calc Pharmacy 74.5 ml/min; Est GFR (African American) 76.2 ml/min; Est GFR (Non-African American) 65.7 ml/min; Magnesium 2.1 mg/dl (1.8-2.4); Potassium 3.9 mmol/L (3.5-5.1)
[2021-02-19 09:54] LABS: Phosphorus 2.5 mg/dl (2.5-4.9)
[2021-02-19] MEDS: POLYETHYLENE (MIRALAX) 17 GM PACK PO SCH (12:06)
[2021-02-19] MEDS: TAMSULOSIN HCL 0.4 MG CAP PO SCH (20:37)
[2021-02-20] MEDS: ENOXAPARIN INJ 40 MG/0.4 ML SYR SQ SCH ×2 (01:01→23:10)
[2021-02-20] MEDS: PIPERACILLIN/TAZOBACTAM 3.375 GM in DEXTROSE 5% 100 ML IV SCH (03:06)
[2021-02-20] MEDS ORDERED: VANCOMYCIN TROUGH ONE (05:30)
[2021-02-20] MEDS: LEVOTHYROXINE SODIUM 175 MCG TABLET PO SCH (05:44)
[2021-02-20 06:41] LABS: Hematocrit (blood only) 35.4 % (42-52); Mean Corpuscular Hemoglobin 30.5 pg (25-34); Mean Corpuscular Hgb Conc 33.9 g/dL (32-36); Mean Corpuscular Volume 89.8 fL (80-100); Mean Platelet Volume 8.9 fL (7.4-10.4); Platelet Count 211 K/uL (130-400); RDW Coefficient of Variation 12.5 % (11.5-14.5); RDW Standard Deviation 41.3 fL (36.4-46.3); Red Blood Count 3.94 M/uL (4.7-6.1); White Blood Count 10.05 K/uL (4.8-10.8)
[2021-02-20 07:06] LABS: BUN Creatinine Ratio 15.5 (10-20); Calcium 9.1 mg/dl (8.5-10.1); Creatinine Clr Calc Pharmacy 76.5 ml/min; Est GFR (African American) 78.6 ml/min; Est GFR (Non-African American) 67.8 ml/min; Magnesium 2.2 mg/dl (1.8-2.4); Potassium 3.9 mmol/L (3.5-5.1)
[2021-02-20 07:12] LABS: Phosphorus 3.5 mg/dl (2.5-4.9)
[2021-02-20] MEDS: INSULIN ASPART 100 UNITS/ML 3 ML PEN SC SCH ×4 (08:12→20:45)
[2021-02-20] MEDS: POLYETHYLENE (MIRALAX) 17 GM PACK PO SCH (08:12)
[2021-02-20] MEDS: POT PHOSPHATE MONOBASIC W/ SOD TAB PO SCH ×4 (08:13→20:44)
[2021-02-20] MEDS: EZETIMIBE 10 MG TABLET PO SCH (08:13)
[2021-02-20] MEDS: MAGNESIUM OXIDE 400 MG TAB PO SCH ×2 (08:14→20:45)
[2021-02-20] MEDS: ASPIRIN 81 MG ECTAB PO SCH (08:14)
[2021-02-20] MEDS: ATORVASTATIN 40 MG TAB PO SCH (08:14)
[2021-02-20] MEDS: PANTOprazole 40 MG TAB PO SCH (08:15)
--- NOTE | 2021-02-20 08:29 | Hospitalist Progress Note ---
Date of Service February 20, 2021 Assessment & Plan (1) Acute UTI: (2) Bladder cancer: Plan: This is a 60-year-old male who recently had a procedure for his urinary bladder cancer and status post stent placement, presents with fever and abdominal discomfort. 1. Fever and abdominal discomfort with urinary tract infection complicated, possible sepsis with tachycardia and white count and fever. ER started Zosyn, which will continue. Added vanco. IV fluids. Urology consulted - cont. current treatment U cultx - Gram negat. bacilli - E.coli Blood cultx - negative so far Pt continues to intermittently spike fever, feeling much better clinically however. T-max yesterday (02/19) 37.9 C, will switch to ciprofloxacin according to urine culture sensitivities. Plan is also to discharge on ciprofloxacin. Continue to closely monitor for any fevers, but blood cell count now normalized. 2. History of diabetes: We will hold metformin and placed on insulin sliding scale. Follow the blood sugars. 3. History of hypothyroidism: Continue Synthroid. 4. History of hypertension: Continue lisinopril. 5. History of coronary artery disease: Status post stent, continue statin, Zetia, aspirin. DVT prophylaxis: Lovenox. DISPOSITION: Plan to discharge home once medically stable (likely tomorrow). Code: Full code. Admission and Anticipated Discharge Date Admission Date: February 16, 2021 Subjective Pt seen in follow up of UTI (after urological procedure) Currently sitting up in chair in NAD Spiked fever again yesterday but feeling well overall No chest pain, shortness of breath, nausea or vomiting No abd. pain, nausea or vomiting Urology consulted Review of Systems Review of Systems: Already systems reviewed, negative unless mentioned above Constitutional: + fever (yesterday) Respiratory: no cough and no dyspnea Cardiovascular: no chest pain and no palpitations Gastrointestinal: no abdominal pain and no vomiting Physical Exam Physical Exam: GENERAL: The patient is of moderate build, not in acute distress. HEENT: NC/AT, Pupils equal, round and reactive to light. Oral mucosa moist. NECK: No JVD, no neck masses. CARDIOVASCULAR: S1 and S2 heard. Regular rate and rhythm. No murmur, no gallop. RESPIRATORY: Normal AP diameter. No accessory muscle use. No wheezing, no crackles. ABDOMEN: Soft, bowel sounds present, nontender, no distention. No CVA tenderness. NEURO: Alert and oriented x3, speech fluent, no facial asymmetry, moves extremities spontaneously EXTREMITIES: No edema, no erythema. Results & Data Results & Data ([facility]) Vital Signs (Past 12 Hours) Vital Signs Temp Pulse Pulse Resp BP Pulse Ox 02/20/21 07:44 36.6 C 50 L 16 125/75 98 02/20/21 02:50 36.8 C 51 L 18 108/62 97 02/20/21 00:17 47 L 02/19/21 22:37 36.9 C 50 L 18 113/68 96 Laboratory Results 02/20/21 02/20/21 02/20/21 Range/Units 07:27 06:31 06:31 WBC 10.05 (4.8-10.8) K/uL RBC 3.94 L (4.7-6.1) M/uL Hgb 12.0 L (14.0-18.0) g/dL Hct 35.4 L (42-52) % MCV 89.8 (80-100) fL MCH 30.5 (25-34) pg MCHC 33.9 (32-36) g/dL RDW Std Deviation 41.3 (36.4-46.3) fL RDW Coeff of Jovanna 12.5 (11.5-14.5) % Plt Count 211 (130-400) K/uL MPV 8.9 (7.4-10.4) fL Sodium 140 (136-145) mmol/L Potassium 3.9 (3.5-5.1) mmol/L Chloride 107 (98-107) mmol/L Carbon Dioxide 29 (21-32) mmol/L Anion Gap 4.0 (3-11) BUN 18 (7-18) mg/dl Creatinine 1.15 (0.6-1.4) mg/dl Est Cr Clr Drug Dosing 76.5 ml/min Est GFR ( Amer) 78.6 ml/min Est GFR (Non-Af Amer) 67.8 ml/min BUN/Creatinine Ratio 15.5 (10-20) Glucose 145 H (70-99) mg/dl POC Glucose 118 H (70-99) mg/dl Calcium 9.1 (8.5-10.1) mg/dl Phosphorus 3.5 D (2.5-4.9) mg/dl Magnesium 2.2 (1.8-2.4) mg/dl 02/19/21 02/19/21 02/19/21 Range/Units 20:34 16:37 11:43 WBC (4.8-10.8) K/uL RBC (4.7-6.1) M/uL Hgb (14.0-18.0) g/dL Hct (42-52) % MCV (80-100) fL MCH (25-34) pg MCHC (32-36) g/dL RDW Std Deviation (36.4-46.3) fL RDW Coeff of Jovanna (11.5-14.5) % Plt Count (130-400) K/uL MPV (7.4-10.4) fL Sodium (136-145) mmol/L Potassium (3.5-5.1) mmol/L Chloride (98-107) mmol/L Carbon Dioxide (21-32) mmol/L Anion Gap (3-11) BUN (7-18) mg/dl Creatinine (0.6-1.4) mg/dl Est Cr Clr Drug Dosing ml/min Est GFR ( Amer) ml/min Est GFR (Non-Af Amer) ml/min BUN/Creatinine Ratio (10-20) Glucose (70-99) mg/dl POC Glucose 116 H 98 138 H (70-99) mg/dl Calcium (8.5-10.1) mg/dl Phosphorus (2.5-4.9) mg/dl Magnesium (1.8-2.4) mg/dl 02/19/21 02/19/21 02/19/21 Range/Units 08:00 08:00 07:56 WBC 11.60 H (4.8-10.8) K/uL RBC 3.77 L (4.7-6.1) M/uL Hgb 11.8 L (14.0-18.0) g/dL Hct 34.3 L (42-52) % MCV 91.0 (80-100) fL MCH 31.3 (25-34) pg MCHC 34.4 (32-36) g/dL RDW Std Deviation 42.3 (36.4-46.3) fL RDW Coeff of Jovanna 12.7 (11.5-14.5) % Plt Count 205 (130-400) K/uL MPV 9.5 (7.4-10.4) fL Sodium 138 (136-145) mmol/L Potassium 3.9 (3.5-5.1) mmol/L Chloride 109 H (98-107) mmol/L Carbon Dioxide 28 (21-32) mmol/L Anion Gap 1.0 L (3-11) BUN 18 (7-18) mg/dl Creatinine 1.18 1.23 (0.6-1.4) mg/dl Est Cr Clr Drug Dosing 74.5 71.5 ml/min Est GFR ( Amer) 76.2 72.5 ml/min Est GFR (Non-Af Amer) 65.7 62.5 ml/min BUN/Creatinine Ratio 15.0 (10-20) Glucose 110 H (70-99) mg/dl POC Glucose (70-99) mg/dl Calcium 8.6 (8.5-10.1) mg/dl Phosphorus 2.5 (2.5-4.9) mg/dl Magnesium 2.1 (1.8-2.4) mg/dl Medications Administered Current Inpatient Medications Acetaminophen (Acetaminophen 325 Mg Tab) 650 mg PO Q4H PRN PRN Reason: Pain or Fever Stop: 03/18/21 23:00 Last Admin: 02/18/21 12:47 Dose: 650 mg Documented by: Aspirin (Aspirin 81 Mg Ectab) 81 mg PO [facility] Stop: 03/19/21 08:59 Last Admin: 02/20/21 08:14 Dose: 81 mg Documented by: Atorvastatin Calcium (Atorvastatin 40 Mg Tab) 80 mg PO [facility] Stop: 03/19/21 08:59 Last Admin: 02/20/21 08:14 Dose: 80 mg Documented by: Ezetimibe (Ezetimibe 10 Mg Tablet) 10 mg PO [facility] Stop: 03/19/21 08:59 Last Admin: 02/20/21 08:13 Dose: 10 mg Documented by: Enoxaparin Sodium (Enoxaparin Inj 40 Mg/0.4 Ml Syr) 40 mg SQ Q24H [facility] Stop: 03/19/21 00:00 Last Admin: 02/20/21 01:01 Dose: 40 mg Documented by: Fluticasone Propionate (Fluticasone Propionate Na Spr 16 Gm Btl) 2 sprays NA DAILY PRN PRN Reason: Nasal Congestion Stop: 03/18/21 23:00 Piperacillin Sod/Tazobactam (Sod 3.375 gm/ Dextrose) 115 mls @ 28.75 mls/hr IV Q8H [facility]; Protocol Stop: 02/27/21 01:59 Last Infusion: 02/20/21 07:34 Dose: Infused Documented by: Ciprofloxacin (Cipro / D5w) 400 mg in 200 mls @ 100 mls/hr IV Q12H [facility]; Protocol Stop: 03/02/21 08:29 Insulin Aspart (Insulin Aspart 100 Units/Ml 3 Ml Pen) 0 units SC ACHS [facility] Stop: 03/19/21 07:29 Last Admin: 02/20/21 08:12 Dose: Not Given Documented by: Levothyroxine Sodium (Levothyroxine Sodium 175 Mcg Tablet) 175 mcg PO DAILYBB [facility] Stop: 03/19/21 06:29 Last Admin: 02/20/21 05:44 Dose: 175 mcg Documented by: Lisinopril (Lisinopril 20 Mg Tab) 20 mg PO QAM [facility] Stop: 03/19/21 08:59 Magnesium Oxide (Magnesium Oxide 400 Mg Tab) 400 mg PO BID [facility] Stop: 03/19/21 08:59 Last Admin: 02/20/21 08:14 Dose: 400 mg Documented by: Miscellaneous Information (Piperacill/Tazobac Consult Active) 1 ea N/A UD PRN PRN Reason: Consult Stop: 03/18/21 23:00 Nitroglycerin (Nitroglycerin Sl 0.4 Mg/Tab Tab) 0.4 mg SL UD PRN PRN Reason: Chest Pain Stop: 03/18/21 23:00 Pantoprazole Sodium (Pantoprazole 40 Mg Tab) 40 mg PO QAM [facility] Stop: 03/19/21 08:59 Last Admin: 02/20/21 08:15 Dose: 40 mg Documented by: Polyethylene Glycol (Polyethylene (Miralax) 17 Gm Pack) 17 gm PO DAILY [facility] Stop: 03/21/21 10:59 Last Admin: 02/20/21 08:12 Dose: Not Given Documented by: Potassium Phosphate (Pot Phosphate Monobasic W/ Sod Tab) 1 tab PO QID [facility] Stop: 03/20/21 16:59 Last Admin: 02/20/21 08:13 Dose: 1 tab Documented by: Tamsulosin HCl (Tamsulosin Hcl 0.4 Mg Cap) 0.4 mg PO HS [facility] Stop: 03/19/21 20:59 Last Admin: 02/19/21 20:37 Dose: 0.4 mg Documented by:
[2021-02-20] MEDS: CIPROFLOXACIN / D5W 400 MG/200 ML BAG IV SCH ×2 (11:14→23:09)
[2021-02-20] MEDS: TAMSULOSIN HCL 0.4 MG CAP PO SCH (20:45)
[2021-02-21 04:40] VITALS: TEMP 98.1
[2021-02-21] MEDS: LEVOTHYROXINE SODIUM 175 MCG TABLET PO SCH (06:16)
[2021-02-21 07:42] VITALS: PULSE 47; O2SAT 97
[2021-02-21] MEDS: ASPIRIN 81 MG ECTAB PO SCH (08:09)
[2021-02-21] MEDS: ATORVASTATIN 40 MG TAB PO SCH (08:09)
[2021-02-21] MEDS: EZETIMIBE 10 MG TABLET PO SCH (08:10)
[2021-02-21] MEDS: MAGNESIUM OXIDE 400 MG TAB PO SCH (08:10)
[2021-02-21] MEDS: POT PHOSPHATE MONOBASIC W/ SOD TAB PO SCH (08:10)
[2021-02-21] MEDS: PANTOprazole 40 MG TAB PO SCH (08:10)
--- NOTE | 2021-02-21 08:14 | Hospitalist Progress Note ---
Date of Service February 21, 2021 Assessment & Plan (1) Acute UTI: (2) Bladder cancer: Plan: This is a 60-year-old male who recently had a procedure for his urinary bladder cancer and status post stent placement, presents with fever and abdominal discomfort. 1. Fever and abdominal discomfort with urinary tract infection complicated, possible sepsis with tachycardia and white count and fever. ER started Zosyn, which will continue. Added vanco. IV fluids. Urology consulted - cont. current treatment U cultx - Gram negat. bacilli - E.coli Blood cultx - negative so far Pt continues to intermittently spike fever, feeling much better clinically however. T-max yesterday (02/19) 37.9 C, will switch to ciprofloxacin according to urine culture sensitivities. Plan is also to discharge on ciprofloxacin. Continue to closely monitor for any fevers, but blood cell count now normalized. 02/21 -switch Zosyn to ciprofloxacin according to sensitivities yesterday Patient afebrile at least for 24 hours Clinically patient feels well and eager to be discharged Patient will need to follow-up with urology, PCP, and finish antibiotic treatment with ciprofloxacin at home 2. History of diabetes: We will hold metformin and placed on insulin sliding scale. Follow the blood sugars. 3. History of hypothyroidism: Continue Synthroid. 4. History of hypertension: Continue lisinopril. 5. History of coronary artery disease: Status post stent, continue statin, Zetia, aspirin. DVT prophylaxis: Lovenox. DISPOSITION: Plan to discharge home today. Code: Full code. Admission and Anticipated Discharge Date Admission Date: February 16, 2021 Subjective Pt seen in follow up of UTI (after urological procedure) Currently sitting up in chair in NAD Afebrile at least 24 hrs No chest pain, shortness of breath, nausea or vomiting No abd. pain, nausea or vomiting Urology consulted Patient eager to be discharged home Review of Systems Constitutional: no fever and no chills Respiratory: no cough and no dyspnea Cardiovascular: no chest pain and no palpitations Gastrointestinal: no abdominal pain and no vomiting Physical Exam Physical Exam: GENERAL: The patient is of moderate build, not in acute distress. HEENT: NC/AT, Pupils equal, round and reactive to light. Oral mucosa moist. NECK: No JVD, no neck masses. CARDIOVASCULAR: S1 and S2 heard. Regular rate and rhythm. No murmur, no gallop. RESPIRATORY: Normal AP diameter. No accessory muscle use. No wheezing, no crackles. ABDOMEN: Soft, bowel sounds present, nontender, no distention. No CVA tenderness. NEURO: Alert and oriented x3, speech fluent, no facial asymmetry, moves extremities spontaneously EXTREMITIES: No edema, no erythema. Results & Data Results & Data ([facility]) Vital Signs (Past 12 Hours) Vital Signs Temp Pulse Pulse Resp BP Pulse Ox 02/21/21 07:40 36.7 C 47 L 20 132/80 97 02/21/21 07:00 46 L 02/21/21 03:46 36.7 C 44 L 18 133/77 96 02/21/21 00:00 43 L 02/20/21 23:29 37.2 C 45 L 18 144/82 H 95 Medications Administered Current Inpatient Medications Acetaminophen (Acetaminophen 325 Mg Tab) 650 mg PO Q4H PRN PRN Reason: Pain or Fever Stop: 03/18/21 23:00 Last Admin: 02/18/21 12:47 Dose: 650 mg Documented by: Aspirin (Aspirin 81 Mg Ectab) 81 mg PO [facility] Stop: 03/19/21 08:59 Last Admin: 02/21/21 08:09 Dose: 81 mg Documented by: Atorvastatin Calcium (Atorvastatin 40 Mg Tab) 80 mg PO [facility] Stop: 03/19/21 08:59 Last Admin: 02/21/21 08:09 Dose: 80 mg Documented by: Ezetimibe (Ezetimibe 10 Mg Tablet) 10 mg PO [facility] Stop: 03/19/21 08:59 Last Admin: 02/21/21 08:10 Dose: 10 mg Documented by: Enoxaparin Sodium (Enoxaparin Inj 40 Mg/0.4 Ml Syr) 40 mg SQ Q24H [facility] Stop: 03/19/21 00:00 Last Admin: 02/20/21 23:10 Dose: 40 mg Documented by: Fluticasone Propionate (Fluticasone Propionate Na Spr 16 Gm Btl) 2 sprays NA DAILY PRN PRN Reason: Nasal Congestion Stop: 03/18/21 23:00 Ciprofloxacin (Cipro / D5w) 400 mg in 200 mls @ 100 mls/hr IV Q12H [facility]; Protocol Stop: 03/02/21 09:59 Last Infusion: 02/21/21 01:38 Dose: Infused Documented by: Insulin Aspart (Insulin Aspart 100 Units/Ml 3 Ml Pen) 0 units SC ACHS [facility] Stop: 03/19/21 07:29 Last Admin: 02/20/21 20:45 Dose: Not Given Documented by: Levothyroxine Sodium (Levothyroxine Sodium 175 Mcg Tablet) 175 mcg PO DAILYBB [facility] Stop: 03/19/21 06:29 Last Admin: 02/21/21 06:16 Dose: 175 mcg Documented by: Lisinopril (Lisinopril 20 Mg Tab) 20 mg PO QAM [facility] Stop: 03/19/21 08:59 Magnesium Oxide (Magnesium Oxide 400 Mg Tab) 400 mg PO BID [facility] Stop: 03/19/21 08:59 Last Admin: 02/21/21 08:10 Dose: 400 mg Documented by: Nitroglycerin (Nitroglycerin Sl 0.4 Mg/Tab Tab) 0.4 mg SL UD PRN PRN Reason: Chest Pain Stop: 03/18/21 23:00 Pantoprazole Sodium (Pantoprazole 40 Mg Tab) 40 mg PO QAM [facility] Stop: 03/19/21 08:59 Last Admin: 02/21/21 08:10 Dose: 40 mg Documented by: Polyethylene Glycol (Polyethylene (Miralax) 17 Gm Pack) 17 gm PO DAILY [facility] Stop: 03/21/21 10:59 Last Admin: 02/20/21 08:12 Dose: Not Given Documented by: Potassium Phosphate (Pot Phosphate Monobasic W/ Sod Tab) 1 tab PO QID [facility] Stop: 03/20/21 16:59 Last Admin: 02/21/21 08:10 Dose: 1 tab Documented by: Tamsulosin HCl (Tamsulosin Hcl 0.4 Mg Cap) 0.4 mg PO HS [facility] Stop: 03/19/21 20:59 Last Admin: 02/20/21 20:45 Dose: 0.4 mg Documented by:
[2021-02-21] MEDS: INSULIN ASPART 100 UNITS/ML 3 ML PEN SC SCH (08:23)
--- NOTE | 2021-02-21 08:23 | Discharge Summary ---
Date of Service February 21, 2021 Admission HPI Per Admitting Provider This is a 60-year-old male with past medical history significant for hypothyroidism, prediabetes, hyperlipidemia, chronic rhinitis, history of AR, history of sinus bradycardia, history of GERD, history of right foot drop, history of cardiac stent, history of beta chong intolerance. The patient recently on 02/07/2021 had a cystoscopy for bladder cancer and status post cystoscopy with ureteral dilatation and transurethral resection of the prostate lesion and bilateral ureteroscopy with ureteral dilatation, brush biopsy, and stent placement. The patient has not had the biopsy results yet. The patient says since couple of days he is having chills and today afternoon he developed fever and lower abdominal discomfort, that is the reason he came here. Denies any burning micturition or hematuria. Normal bowel movements. Currently, no chest pain, no shortness of breath, no cough, no headache, no blurred visions, no earache, no runny nose, no sore throat. Appetite is okay. No dysphagia. The patient was having temp spike in the ER at 38 degrees and somewhat tachycardic when he came in. He had white count of 19. Urinalysis positive. Admission Exam Per Admitting Provider GENERAL: The patient is of moderate build, not in acute distress. VITAL SIGNS: T-max 38, pulse currently 72, respiratory rate 18, blood pressure 100/52, oxygen 96% on room air. HEENT: Pupils equal, round and reactive to light. Oral mucosa moist. NECK: No JVD, no neck masses. CARDIOVASCULAR: S1 and S2 heard. Regular rate and rhythm. No murmur, no gallop. RESPIRATORY SYSTEM: Normal AP diameter. No accessory muscle use. No wheezing, no crackles. ABDOMEN: Soft, bowel sounds present, nontender, no distention. No CVA tenderness. CENTRAL NERVOUS SYSTEM: Cranial nerves II-XII grossly intact, nonfocal. EXTREMITIES: No edema, no erythema. Principal Diagnosis UTI History of bladder carcinoma Discharge Exam GENERAL: The patient is of moderate build, not in acute distress. HEENT: NC/AT, Pupils equal, round and reactive to light. Oral mucosa moist. NECK: No JVD, no neck masses. CARDIOVASCULAR: S1 and S2 heard. Regular rate and rhythm. No murmur, no gallop. RESPIRATORY: Normal AP diameter. No accessory muscle use. No wheezing, no crackles. ABDOMEN: Soft, bowel sounds present, nontender, no distention. No CVA tenderness. NEURO: Alert and oriented x3, speech fluent, no facial asymmetry, moves extremities spontaneously EXTREMITIES: No edema, no erythema. Discharge Data Allergies Allergy/AdvReac Type Severity Reaction Status Date / Time No Known Allergies Allergy Mild Verified 02/16/21 21:39 Consultations 02/16/21 21:17 ED Decision to Admit Stat 02/17/21 08:00 Consult Urology Routine Ordered Studies 02/16/21 19:28 CT abd pelvis wo con Stat IMPRESSION: 1. Bilateral ureteral stents in place. Persistent bilateral ureteral dilatation with mild right hydronephrosis. 2. Irregular bladder wall thickening with adjacent infiltration. The findings are nonspecific and could be correlated with urinalysis. 3. Colonic diverticulosis. No evidence for acute diverticulitis. No bowel obstruction. Hospital Course (1) Acute UTI: (2) Bladder cancer: This is a 60-year-old male who recently had a procedure for his urinary bladder cancer and status post stent placement, presents with fever and abdominal discomfort. 1. Fever and abdominal discomfort with urinary tract infection complicated, possible sepsis with tachycardia and white count and fever. ER started Zosyn, which will continue. Added vanco. IV fluids. Urology consulted - cont. current treatment U cultx - Gram negat. bacilli - E.coli Blood cultx - negative so far Pt continues to intermittently spike fever, feeling much better clinically howev er. T-max yesterday (02/19) 37.9 C, will switch to ciprofloxacin according to urine culture sensitivities. Plan is also to discharge on ciprofloxacin. Continue to closely monitor for any fevers, but blood cell count now normalized. 02/21 -switch Zosyn to ciprofloxacin according to sensitivities yesterday Patient afebrile at least for 24 hours Clinically patient feels well and eager to be discharged Patient will need to follow-up with urology, PCP, and finish antibiotic treatment with ciprofloxacin at home 2. History of diabetes: We will hold metformin and placed on insulin sliding scale. Follow the blood sugars. 3. History of hypothyroidism: Continue Synthroid. 4. History of hypertension: Continue lisinopril. 5. History of coronary artery disease: Status post stent, continue statin, Zetia, aspirin. DVT prophylaxis: Lovenox. DISPOSITION: Plan to discharge home today. Code: Full code. Total Time Total Time Spent Total Time Spent (In Minutes): 35 Discharge Plan Discharge Items Patient Disposition: Home - Self-Care Reason For Visit: FEVER Discharge Diagnosis: UTI History of bladder carcinoma Activity: Per Instructions section Non-emergency contact: Primary Care Provider and Urologist Call non-emergency contact if: you have any medication questions and your symptoms worsen Follow-up/Referrals: Shemar Tai MD [Primary Care Provider] - (Date & Time 02/25/2021 11:00 AM Provider Shemar Tai III, MD Department [facility] ) Diet: Carb Consistent or DM2 Addtl Attending Provider Instructions: Follow-up with your primary care doctor and urologist. Your primary care doctor appointment is scheduled for February 25. You can re- schedule at your convenience however you should be seen within 1 to 2 weeks. Take ciprofloxacin, antibiotic, for next 5 days as prescribed. It is recommended that you take probiotic while you are taking antibiotic, to prevent any abdominal discomfort. Pending Studies at Discharge: Yes Studies:: Final blood cultures Stand-Alone Forms: My [facility], Smoking Cessation Medications and DC Order Prescriptions: New ciprofloxacin HCl 500 mg tablet 500 mg PO Q12H 5 Days Qty: 10 RF: 0 Continued lisinopril [Zestril] 20 mg tablet 20 mg PO QAM RF: 0 levothyroxine 175 mcg capsule 175 mcg PO QAM RF: 0 aspirin 81 mg tablet,delayed release (DR/EC) 81 mg PO QAM RF: 0 atorvastatin 80 mg Tablet 80 mg PO QAM RF: 0 fluticasone propionate [Flonase Allergy Relief] 50 mcg/actuation spray,suspension 2 spray INTRANASAL DAILY PRN (Reason: Nasal Congestion) RF: 0 acetaminophen [Tylenol Extra Strength] 500 mg Capsule 1,000 mg PO Q6H PRN (Reason: Pain) RF: 0 tamsulosin 0.4 mg capsule 0.4 mg PO HS Qty: 30 RF: 0 ibuprofen 200 mg Tablet 600 mg PO Q6H PRN (Reason: Pain) RF: 0 omeprazole 20 mg capsule,delayed release(DR/EC) 20 mg PO QAM RF: 0 metformin 500 mg tablet extended release 24 hr 500 mg PO QAM RF: 0 ezetimibe [Zetia] 10 mg tablet 10 mg PO QAM RF: 0 Discharge Orders: Discharge Order (Routine); Ordered 02/21/21 Ordered By: Lee Hernández/Other Patient Handouts: A1C, Managing Type 2 Diabetes Admission Data Admit Date/Time: 02/16/21 22:07 Attending Provider: Lee Ware Admit Provider: Toney Landaverde Primary Care Provider: Shemar Tai Other Providers: Toney Landaverde ; John Keller
[2021-02-21 08:24] LABS: Hematocrit (blood only) 38.2 % (42-52); Hemoglobin 13.2 g/dL (14.0-18.0); Mean Corpuscular Hemoglobin 31.1 pg (25-34); Mean Corpuscular Hgb Conc 34.6 g/dL (32-36); Mean Corpuscular Volume 89.9 fL (80-100); Platelet Count 257 K/uL (130-400); RDW Coefficient of Variation 12.4 % (11.5-14.5); RDW Standard Deviation 40.8 fL (36.4-46.3); Red Blood Count 4.25 M/uL (4.7-6.1); White Blood Count 10.02 K/uL (4.8-10.8)
[2021-02-21] MEDS: POLYETHYLENE (MIRALAX) 17 GM PACK PO SCH (08:25)
[2021-02-21] MEDS: CIPROFLOXACIN / D5W 400 MG/200 ML BAG IV SCH (08:26)
[2021-02-21 08:40] LABS: BUN Creatinine Ratio 15.6 (10-20); Calcium 9.7 mg/dl (8.5-10.1); Creatinine Clr Calc Pharmacy 70.2 ml/min; Est GFR (African American) 71.8 ml/min; Est GFR (Non-African American) 61.9 ml/min; Magnesium 2.2 mg/dl (1.8-2.4); Phosphorus 3.5 mg/dl (2.5-4.9); Potassium 4.3 mmol/L (3.5-5.1)
[2021-02-21 10:52] VITALS: BP 117/69
== END 2021-02-21 11:57 | disposition home or self-care (01) | DRG 872 ==
LOC: ED 17:44 → 2N 22:07

== ENCOUNTER 2021-05-11 17:07 | Inpatient (IN) ==
--- NOTE | 2021-05-11 19:16 | XRay Report ---
SINGLE VIEW CHEST CLINICAL HISTORY: Sepsis. FINDINGS: 2 AP, portable, upright chest radiographs are compared to study dated 02/16/2021. The cardio mediastinal silhouette is unremarkable. The lungs and pleural spaces are clear. No pneumothorax is se en. The bony thorax is grossly intact. IMPRESSION: No active disease in the chest. ACT 112: Negative or not required by law. Electronically signed by: Alex Nieto M.D. 05/11/2021 7:15 PM
[2021-05-11 19:30] LABS: Appearance Urine Turbid (Clear); Bacteria Urine Automated Negative (Negative); Blood Urine 3+ (Negative); Color Urine Orange; Epithelial Cell Urine Auto >30 /lpf (0-5); Glucose Urine UA Trace (Negative); Ketones Urine Negative (Negative); Leukocyte Esterase Urine 2+ (Negative); Nitrite Urine Negative (Negative); Protein Urine 3+ (Negative); Specific Gravity Urine 1.021 (1.000-1.030); Urobilinogen Urine Negative (Negative); WBC Urine Automated >30 /hpf (0-5)
[2021-05-11 19:37] LABS: Basophils # (auto) 0.02 K/uL (0-0.2); Basophils % (auto) 0.2 %; Eosinophils # (auto) 0.36 K/uL (0-0.5); Eosinophils % (auto) 3.9 %; Immature Granulocytes # (auto) 0.03 K/uL (0.00-0.02); Immature Granulocytes % (auto) 0.3 %; Lymphocytes # (auto) 0.36 K/uL (1.2-3.4); Lymphocytes % (auto) 3.9 %; Mean Corpuscular Hemoglobin 31.1 pg (25-34); Mean Corpuscular Volume 88.9 fL (80-100); Mean Platelet Volume 9.2 fL (7.4-10.4); Monocytes # (auto) 0.29 K/uL (0.11-0.59); Monocytes % (auto) 3.2 %; Neutrophils # (auto) 8.12 K/uL (1.4-6.5); Neutrophils % (auto) 88.5 %; Platelet Count 185 K/uL (130-400); RDW Coefficient of Variation 13.8 % (11.5-14.5); RDW Standard Deviation 45.2 fL (36.4-46.3); White Blood Count 9.18 K/uL (4.8-10.8)
[2021-05-11 19:39] LABS: Bilirubin Urine 1+ (Negative)
[2021-05-11 19:43] LABS: RBC Urine Automated >30 /hpf (0-4)
[2021-05-11] MEDS ORDERED: SODIUM CHLORIDE 0.9% 1000ML 500 ML IV ONE (19:52)
--- NOTE | 2021-05-11 19:52 | Emergency Department Note ---
History of Present Illness General Chief complaint: Urinary Symptoms Stated complaint: UTI, FEVER, CHILLS Time Seen by Provider: 05/11/21 19:42 Source: patient History of Present Illness Provider complaint: Fever Onset (ago): hour(s) Location: head Severity: moderate Pain Consistency: + constant Quality: + other (Fever up to 102) Relieved By: + medication (Tylenol) Associated symptoms: no chest pain, no cough, no fever/chills, no headaches, no nausea/vomiting or no shortness of breath This is a 61-year-old male who presents with a fever starting approximately 3 PM today. The patient underwent cystoscopy and replacement of ureteral stent for bladder cancer. He was driving home from [facility] and he developed the chills. He is currently on an antibiotic which she thinks is ciprofloxacin. He started it 2 days ago. He does state after the surgery he felt like he had needles when he urinated. When he got here his temperature was over 102. He did take Tylenol prior to arrival and he is feeling better currently. He denies any headache, vomiting, cough or cold symptoms, chest pain, shortness of breath, abdominal pain, back pain or diarrhea. Home Medications Medication Instructions Recorded Confirmed Type aspirin 81 mg tablet,delayed 81 mg PO QAM 03/30/20 05/11/21 History release levothyroxine 175 mcg capsule 175 mcg PO QAM 03/30/20 05/11/21 History lisinopril 20 mg tablet (Zestril) 20 mg PO QAM 03/30/20 05/11/21 History atorvastatin 80 mg tablet 80 mg PO QAM 05/04/20 05/11/21 History fluticasone propionate 50 2 spray INTRANASAL DAILY PRN 06/22/20 05/11/21 History mcg/actuation nasal spray,suspension (Flonase Allergy Relief) ezetimibe 10 mg tablet (Zetia) 10 mg PO QAM 10/09/20 05/11/21 History ibuprofen 200 mg tablet 600 mg PO Q6H PRN 10/09/20 05/11/21 History metformin 500 mg tablet,extended 1,000 mg PO QAM 10/09/20 05/11/21 History release 24 hr omeprazole 20 mg capsule,delayed 20 mg PO QAM 10/09/20 05/11/21 History release acetaminophen 500 mg capsule 1,000 mg PO Q6H PRN 01/25/21 05/11/21 History tamsulosin 0.4 mg capsule 0.4 mg PO HS #30 cap 02/07/21 05/11/21 Rx oxybutynin chloride 5 mg tablet 5 mg PO DAILY #30 tab 04/05/21 05/11/21 Rx amitriptyline 25 mg tablet 25 mg PO DAILY 05/11/21 05/11/21 History Allergies Allergy/AdvReac Type Severity Reaction Status Date / Time No Known Allergies Allergy Mild Verified 03/30/21 09:52 Past Med/Surg History Medical History Arthritis Bladder cancer AND URETERAL CANCER? 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 Diabetes NIDDM Foot drop, right No brace GERD (gastroesophageal reflux disease) Hyperlipidemia Hypomagnesemia Myocardial Infarction 2007 > stent x1 Ureteral cancer Surgical History History of cardiac cath stent x1 (2007) History of colonoscopy History of cystoscopy Multiple Cysto, bladder biopsy (07/12/20): MAC sedation at [facility] TURBT (05/17/20): LMA#5 at [facility] History of tooth extraction Family History Mother Diabetes Heart disease Cancer Hypertension Family history of diabetes mellitus Father Heart disease Social History Smoking Status: Former smoker Tobacco Type: Cigarettes Second Hand Exposure: No; Do You Dip or Chew Tobacco: No; Tobacco Cessation Education Requested by Patient: No Hx Alcohol Use: No Hx Substance Use: No Preferred Language: [place] Communication Ability: Effective 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 and A total of 10 systems reviewed and were otherwise negative Physical Exam Vital Signs Vital Signs - 24 hr 05/11/21 17:13 05/11/21 20:49 Temperature 39.2 C H 37.7 C H Temperature Source Oral Oral Pulse Rate 117 H Pulse Rate [Finger] 91 H Pulse Rhythm Regular Pulse Strength Normal Pulse Strength [Finger] Normal Respiratory Rate 20 16 Respiratory Effort / Characteristics Non-Labored Spontaneous Non-Labored Spontaneous Respiratory Depth Normal Normal Respiratory Pattern Regular Blood Pressure 116/61 Blood Pressure [Right Arm] 96/57 L Blood Pressure Mean 79 Blood Pressure Mean [Right Arm] 70 Blood Pressure Position Sitting Blood Pressure Position [Right Arm] Lying Pulse Oximetry 95 94 Oxygen Delivery Method Room Air Room Air Sepsis Recent Fever Within 48 Hours Yes Sepsis New/Unexplained Change in Mental Status No Sepsis Action Taken by Nursing No Action Required Constitutional: Vital signs reviewed. Eyes: Pupils are equal round reactive to light. Conjunctiva are noninjected. ENT: Pharynx is clear without erythema or exudate. Mucous membranes are moist. Neck supple without meningeal signs. Respiratory: Clear to auscultation bilaterally. Breath sounds are equal bilaterally. Cardiovascular: Regular rate and rhythm. No rubs or gallops. GI: Soft, nondistended and nontender. Bowel sounds are present. Musculoskeletal: No peripheral edema. No CVA tenderness. Integumentary: No cyanosis. or jaundice. Neurological: The patient is awake and alert. No focal deficits. Psychiatric: Normal affect. Not anxious appearing. Course Administered Medications Sodium Chloride (Nss 1000ml) 1,000 mls @ 125 mls/hr IV .[facility]H [facility] Stop: 06/11/21 00:37 Last Admin: 05/12/21 01:20 Dose: 125 mls/hr Documented by: [id number] Piperacillin Sod/Tazobactam (Sod 3.375 gm/ Dextrose) 115 mls @ 28.75 mls/hr IV Q8H [facility]; Protocol Stop: 05/22/21 01:59 Last Admin: 05/12/21 01:20 Dose: 28.8 mls/hr Documented by: [id number] Magnesium Sulfate/Dextrose (Magnesium Sulfate / D5w) 1 gm in 100 mls @ 50 mls/hr IV Q2H [facility] Stop: 05/12/21 04:59 Last Admin: 05/12/21 01:20 Dose: 50 mls/hr Documented by: [id number] Discontinued Medications Acetaminophen (Acetaminophen 325 Mg Tab) 650 mg PO NOW STA Stop: 05/11/21 20:51 Last Admin: 05/11/21 21:25 Dose: 650 mg Documented by: [id number] Sodium Chloride (Nss 1000ml) 500 mls @ 999 mls/hr IV .Q31M ONE Stop: 05/11/21 20:22 Last Infusion: 05/11/21 21:20 Dose: 0 mls/hr Documented by: [id number] Admin: 05/11/21 20:07 Dose: 999 mls/hr Documented by: [id number] Piperacillin Sod/Tazobactam Sod (Zosyn) 4.5 gm in 120 mls @ 240 mls/hr IV NOW ONE Stop: 05/11/21 21:19 Last Infusion: 05/11/21 22:21 Dose: 0 mls/hr Documented by: [id number] Admin: 05/11/21 21:44 Dose: 240 mls/hr Documented by: [id number] Medical Decision Making Differential Diagnosis UTI, bacteremia, sepsis, YOHAN, pneumonia Medical Records Attestation: I reviewed the patient's medical records. I did perform a limited focused review of portions of the patient's old chart on the electronic medical record. The patient was seen by urology for bladder cancer involving both of his ureters. He was referred to [facility] for further care. Prior urine cultures demonstrate coag negative staph sensitive to Bactrim and E. coli sensitive to Bactrim and Cipro. Home Medications Current Medication List: was personally reviewed by me Laboratory Data Attestation: I reviewed the patient's lab results. Result diagrams: 05/11/21 19:19 05/11/21 19:19 Lab Results 05/11/21 05/11/21 05/11/21 Range/Units 19:09 19:19 19:19 WBC 9.18 (4.8-10.8) K/uL RBC 4.50 L (4.7-6.1) M/uL Hgb 14.0 (14.0-18.0) g/dL Hct 40.0 L (42-52) % MCV 88.9 (80-100) fL MCH 31.1 (25-34) pg MCHC 35.0 (32-36) g/dL RDW Std Deviation 45.2 (36.4-46.3) fL RDW Coeff of Jovanna 13.8 (11.5-14.5) % Plt Count 185 (130-400) K/uL MPV 9.2 (7.4-10.4) fL Immature Gran % (Auto) 0.3 % Neut % (Auto) 88.5 % Lymph % (Auto) 3.9 % [place] % (Auto) 3.2 % Eos % (Auto) 3.9 % Baso % (Auto) 0.2 % Neut # (Auto) 8.12 H (1.4-6.5) K/uL Lymph # (Auto) 0.36 L (1.2-3.4) K/uL [place] # (Auto) 0.29 (0.11-0.59) K/uL Eos # (Auto) 0.36 (0-0.5) K/uL Baso # (Auto) 0.02 (0-0.2) K/uL Immature Gran # (Auto) 0.03 H (0.00-0.02) K/uL PT (9.0-12.0) Seconds INR (0.9-1.1) APTT (21.0-31.0) Seconds PTT Ratio Sodium 134 L (136-145) mmol/L Potassium 4.1 (3.5-5.1) mmol/L Chloride 105 (98-107) mmol/L Carbon Dioxide 20 L (21-32) mmol/L Anion Gap 9.0 (3-11) BUN 22 H (7-18) mg/dl Creatinine 2.26 H (0.6-1.4) mg/dl Est Cr Clr Drug Dosing 39.0 ml/min Est GFR ( Amer) 34.5 ml/min Est GFR (Non-Af Amer) 29.8 ml/min BUN/Creatinine Ratio 9.5 L (10-20) Glucose 138 H (70-99) mg/dl Lactate (0.4-2.0) mmol/L Calcium 8.5 (8.5-10.1) mg/dl Magnesium 1.5 L (1.8-2.4) mg/dl Total Bilirubin 0.6 (0.2-1) mg/dl AST 39 H (15-37) U/L ALT 47 (12-78) U/L Alkaline Phosphatase 68 (45-117) U/L Troponin I < 0.015 (0-0.045) ng/ml Total Protein 7.2 (6.4-8.2) gm/dl Albumin 3.9 (3.4-5.0) gm/dl Globulin 3.3 (2.5-4.0) gm/dl Albumin/Globulin Ratio 1.2 (0.9-2) Urine Color Wagoner Urine Appearance Turbid A (Clear) Urine pH 6.0 (4.5-7.5) Ur Specific [place] 1.021 (1.000-1.030) Urine Protein 3+ H (Negative) Urine Glucose (UA) Trace H (Negative) Urine Ketones Negative (Negative) Urine Blood 3+ H (Negative) Urine Nitrite Negative (Negative) Urine Bilirubin 1+ H (Negative) Urine Urobilinogen Negative (Negative) Ur Leukocyte Esterase 2+ H (Negative) Urine WBC (Auto) >30 H (0-5) /hpf Urine RBC (Auto) >30 H (0-4) /hpf U Hyaline Cast (Auto) 5-10 H (0-5) /lpf U Epithel Cells (Auto) >30 H (0-5) /lpf Urine Bacteria (Auto) Negative (Negative) Ur Renal Epithelial Cell Not Reportable Granular Casts 1-5 H (0) /lpf Urine Yeast Not Reportable COVID-19 Eval Order SARS-CoV-2 (PCR) (Negative) 05/11/21 05/11/21 05/11/21 Range/Units 19:49 19:55 21:41 WBC (4.8-10.8) K/uL RBC (4.7-6.1) M/uL Hgb (14.0-18.0) g/dL Hct (42-52) % MCV (80-100) fL MCH (25-34) pg MCHC (32-36) g/dL RDW Std Deviation (36.4-46.3) fL RDW Coeff of Jovanna (11.5-14.5) % Plt Count (130-400) K/uL MPV (7.4-10.4) fL Immature Gran % (Auto) % Neut % (Auto) % Lymph % (Auto) % [place] % (Auto) % Eos % (Auto) % Baso % (Auto) % Neut # (Auto) (1.4-6.5) K/uL Lymph # (Auto) (1.2-3.4) K/uL [place] # (Auto) (0.11-0.59) K/uL Eos # (Auto) (0-0.5) K/uL Baso # (Auto) (0-0.2) K/uL Immature Gran # (Auto) (0.00-0.02) K/uL PT 11.0 (9.0-12.0) Seconds INR 1.1 (0.9-1.1) APTT 33.9 H (21.0-31.0) Seconds PTT Ratio 1.3 Sodium (136-145) mmol/L Potassium (3.5-5.1) mmol/L Chloride (98-107) mmol/L Carbon Dioxide (21-32) mmol/L Anion Gap (3-11) BUN (7-18) mg/dl Creatinine (0.6-1.4) mg/dl Est Cr Clr Drug Dosing ml/min Est GFR ( Amer) ml/min Est GFR (Non-Af Amer) ml/min BUN/Creatinine Ratio (10-20) Glucose (70-99) mg/dl Lactate 1.5 (0.4-2.0) mmol/L Calcium (8.5-10.1) mg/dl Magnesium (1.8-2.4) mg/dl Total Bilirubin (0.2-1) mg/dl AST (15-37) U/L ALT (12-78) U/L Alkaline Phosphatase (45-117) U/L Troponin I (0-0.045) ng/ml Total Protein (6.4-8.2) gm/dl Albumin (3.4-5.0) gm/dl Globulin (2.5-4.0) gm/dl Albumin/Globulin Ratio (0.9-2) Urine Color Urine Appearance (Clear) Urine pH (4.5-7.5) Ur Specific [place] (1.000-1.030) Urine Protein (Negative) Urine Glucose (UA) (Negative) Urine Ketones (Negative) Urine Blood (Negative) Urine Nitrite (Negative) Urine Bilirubin (Negative) Urine Urobilinogen (Negative) Ur Leukocyte Esterase (Negative) Urine WBC (Auto) (0-5) /hpf Urine RBC (Auto) (0-4) /hpf U Hyaline Cast (Auto) (0-5) /lpf U Epithel Cells (Auto) (0-5) /lpf Urine Bacteria (Auto) (Negative) Ur Renal Epithelial Cell Granular Casts (0) /lpf Urine Yeast COVID-19 Eval Order Covid19 at [facility] SARS-CoV-2 (PCR) (Negative) 05/11/21 Range/Units 21:41 WBC (4.8-10.8) K/uL RBC (4.7-6.1) M/uL Hgb (14.0-18.0) g/dL Hct (42-52) % MCV (80-100) fL MCH (25-34) pg MCHC (32-36) g/dL RDW Std Deviation (36.4-46.3) fL RDW Coeff of Jovanna (11.5-14.5) % Plt Count (130-400) K/uL MPV (7.4-10.4) fL Immature Gran % (Auto) % Neut % (Auto) % Lymph % (Auto) % [place] % (Auto) % Eos % (Auto) % Baso % (Auto) % Neut # (Auto) (1.4-6.5) K/uL Lymph # (Auto) (1.2-3.4) K/uL [place] # (Auto) (0.11-0.59) K/uL Eos # (Auto) (0-0.5) K/uL Baso # (Auto) (0-0.2) K/uL Immature Gran # (Auto) (0.00-0.02) K/uL PT (9.0-12.0) Seconds INR (0.9-1.1) APTT (21.0-31.0) Seconds PTT Ratio Sodium (136-145) mmol/L Potassium (3.5-5.1) mmol/L Chloride (98-107) mmol/L Carbon Dioxide (21-32) mmol/L Anion Gap (3-11) BUN (7-18) mg/dl Creatinine (0.6-1.4) mg/dl Est Cr Clr Drug Dosing ml/min Est GFR ( Amer) ml/min Est GFR (Non-Af Amer) ml/min BUN/Creatinine Ratio (10-20) Glucose (70-99) mg/dl Lactate (0.4-2.0) mmol/L Calcium (8.5-10.1) mg/dl Magnesium (1.8-2.4) mg/dl Total Bilirubin (0.2-1) mg/dl AST (15-37) U/L ALT (12-78) U/L Alkaline Phosphatase (45-117) U/L Troponin I (0-0.045) ng/ml Total Protein (6.4-8.2) gm/dl Albumin (3.4-5.0) gm/dl Globulin (2.5-4.0) gm/dl Albumin/Globulin Ratio (0.9-2) Urine Color Urine Appearance (Clear) Urine pH (4.5-7.5) Ur Specific [place] (1.000-1.030) Urine Protein (Negative) Urine Glucose (UA) (Negative) Urine Ketones (Negative) Urine Blood (Negative) Urine Nitrite (Negative) Urine Bilirubin (Negative) Urine Urobilinogen (Negative) Ur Leukocyte Esterase (Negative) Urine WBC (Auto) (0-5) /hpf Urine RBC (Auto) (0-4) /hpf U Hyaline Cast (Auto) (0-5) /lpf U Epithel Cells (Auto) (0-5) /lpf Urine Bacteria (Auto) (Negative) Ur Renal Epithelial Cell Granular Casts (0) /lpf Urine Yeast COVID-19 Eval Order SARS-CoV-2 (PCR) NEGATIVE (Negative) Imaging Data Radiologist's Impression: Chest X-Ray 05/11/21 17:16 SINGLE VIEW CHEST CLINICAL HISTORY: Sepsis. FINDINGS: 2 AP, portable, upright chest radiographs are compared to study dated 02/16/2021. The cardiomediastinal silhouette is unremarkable. The lungs and pleural spaces are clear. No pneumothorax is seen. The bony thorax is grossly intact. IMPRESSION: No active disease in the chest. ACT 112: Negative or not required by law. Electronically signed by: Alex Nieto M.D. 05/11/2021 7:15 PM KUB X-Ray 05/11/21 20:44 XR KUB/Abdomen 1 view INDICATION: MN ^eval stent. TECHNIQUE: 1 view of the abdomen was obtained. Comparison: None available at the time of this dictation. FINDINGS: Bilateral nephroureteral stents seen. The osseous structures are grossly unremarkable. The bowel gas pattern is nonobstructive. A moderate amount of stool is noted within the large bowel. IMPRESSION: Bilateral nephroureteral stents in expected position. ACT 112: Negative or not required by law. Electronically signed by: Brendan Kelly M.D. 05/11/2021 9:44 PM MDM Narrative I did evaluate the patient as noted above. The patient just underwent cystoscopy ureteroscopy at [facility]. He has bladder and ureteral cancer. He had a stent replaced as well and developed fever on the way home. IV access was established. I did treat him with normal saline IV. He was also given Tylenol p.o. I did order and personally reviewed the images of the patient's chest and KUB x-ray as described above. There is no evidence of pneumonia. KUB x-ray does not show any stent displacement. I did order a urine analysis. He does have an obvious infection. I did review his prior cultures on the EMR. His cultures have demonstrated E. coli and coag negative staph. I therefore treated him with Zosyn IV based on his sensitivities. Blood cultures were obtained prior to this. I did order and review the patient's blood work as noted in the electronic medical record. His white blood cell count is not elevated. He is not anemic. His chemistries demonstrate a sodium 134 and a carbon dioxide of 20. His creatinine unfortunately is elevated at 2.26 above his baseline. BUN is 22. Magnesium is 1.5. He was given IV magnesium. I did discuss case with Dr. Lee at [facility]. He is the urologist covering the patient's regular doctor. He agreed with my plan for management and recommended we place a Francisco catheter. I did order a Francisco catheter. I did discuss the plan with the patient he is agreeable to hospitalization here. He does state that he feels much better after the fluids and Tylenol. He does state that he has not really urinated much despite having a liter of fluids. A Francisco catheter was placed. Covid screening test is negative. I did discuss the case with the hospitalist and briefcase sewer. Impression & Plan YOHAN (acute kidney injury), Acute UTI, Postoperative fever, Hypomagnesemia Discharge Plan Visit Data Chief Complaint: Urinary Symptoms Stated Complaint: UTI, FEVER, CHILLS ED Provider: Fan Menjivar Discharge Problem: YOHAN (acute kidney injury), Acute UTI, Postoperative fever, Hypomagnesemia Patient Disposition: Admitted As Inpatient Discharge Instructions Interventions: ED Discharge Assessment Last Done: 05/12/21 00:30
[2021-05-11 19:54] LABS: Alanine Aminotransferase 47 U/L (12-78); Albumin Level 3.9 gm/dl (3.4-5.0); Aspartate Aminotransferase 39 U/L (15-37); BUN Creatinine Ratio 9.5 (10-20); Blood Urea Nitrogen 22 mg/dl (7-18); Calcium 8.5 mg/dl (8.5-10.1); Carbon Dioxide 20 mmol/L (21-32); Chloride 105 mmol/L (98-107); Est GFR (African American) 34.5 ml/min; Est GFR (Non-African American) 29.8 ml/min; Glucose 138 mg/dl (70-99); Magnesium 1.5 mg/dl (1.8-2.4); Potassium 4.1 mmol/L (3.5-5.1); Sodium 134 mmol/L (136-145)
[2021-05-11 19:59] LABS: Albumin Globulin Ratio 1.2 (0.9-2); Alkaline Phosphatase 68 U/L (45-117); Bilirubin,Total 0.6 mg/dl (0.2-1); Globulin 3.3 gm/dl (2.5-4.0); Total Protein 7.2 gm/dl (6.4-8.2); Troponin I < 0.015 ng/ml (0-0.045)
[2021-05-11 20:19] LABS: INR 1.1 (0.9-1.1); Partial Thromboplastin Ratio 1.3; Partial Thromboplastin Time 33.9 Seconds (21.0-31.0)
[2021-05-11] MEDS ORDERED: PIPERACILL/TAZOBAC CONSULT ACTIVE PRN (20:50)
[2021-05-11] MEDS ORDERED: PIPERACILLIN/TAZOBACTAM 4.5 GM/120 ML BAG IV ONE (20:50)
[2021-05-11] MEDS ORDERED: ACETAMINOPHEN 325 MG TAB PO STA (20:50)
--- NOTE | 2021-05-11 21:46 | XRay Report ---
XR KUB/Abdomen 1 view INDICATION: MN ^eval stent. TECHNIQUE: 1 view of the abdomen was obtained. Comparison: None available at the time of this dictation. FINDINGS: Bilateral nephroureteral stents seen. The osseous structures are grossly unremarkable. The bowel gas pattern is nonobstructive. A moderate amount of stool is noted within the large bowel. IMPRESSION: Bilateral nephroureteral stents in expected position. ACT 112: Negative or not required by law. Electronically signed by: Brendan Kelly M.D. 05/11/2021 9:44 PM
[2021-05-11] MEDS ORDERED: MAGNESIUM SULFATE / D5W 1 GM/100 ML BAG IV STA (23:42)
[2021-05-12] MEDS ORDERED: FLUTICASONE PROPIONATE NA SPR 16 GM BTL PRN (00:38)
[2021-05-12] MEDS ORDERED: NITROGLYCERIN SL 0.4 MG/TAB TAB SL PRN (00:38)
[2021-05-12] MEDS ORDERED: ONDANSETRON INJ 2 MG/ML 2 ML VIAL IV PRN (00:38)
[2021-05-12] MEDS ORDERED: hydrALAZINE HCL 20 MG/ML VIAL IV PRN (00:38)
[2021-05-12] MEDS ORDERED: GLUCAGON FOR INJ 1 MG VIAL IM PRN (01:00)
[2021-05-12] MEDS ORDERED: DEXTROSE 50% 50 ML SYRINGE IV PRN (01:00)
[2021-05-12] MEDS ORDERED: CARBOHYDRATES FOR HYPOGLYCEMIA PO PRN (01:00)
[2021-05-12] MEDS ORDERED: GLUCOSE 10 TABS/TUBE PO PRN (01:00)
[2021-05-12] MEDS ORDERED: GLUCOSE 40% GEL 15 GM TUBE PO PRN (01:00)
[2021-05-12] MEDS ORDERED: FLUARIX QUADRIVALENT 0.5 ML SYR IM ONE (01:03)
--- NOTE | 2021-05-12 01:14 | History and Physical Report ---
DATE OF ADMISSION: 05/11/2021. CHIEF COMPLAINT: UTI, possible sepsis. HISTORY OF PRESENT ILLNESS: This is a 61-year-old male with past medical history significant for hypothyroidism, prediabetes, hyperlipidemia, chronic rhinitis, history of SD, history of sinus bradycardia, history of GERD, history of right footdrop, history of cardiac stent, history of beta chong intolerance. 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 Today he went to [facility] for the plan of action and a cystoscopy was done and one of the stents were replaced. While coming back home, he developed fever. Recently also he was started on antibiotics, ciprofloxacin, 2 days ago. When he came to the ER, his temperature was 102. Currently resting comfortably. Mild abdominal discomfort. He micturated a small amount of urine in the ER, which was cloudy with mild burning micturition. No hematuria. Normal bladder and bowel movements. No chest pain, no shortness of breath, no cough, no headache, no blurred visions, no earache, no runny nose, no sore throat, no dysphagia, no nausea. ALLERGIES: No known drug allergies. PAST MEDICAL HISTORY: As mentioned above. PAST SURGICAL HISTORY: Cardiac catheterization, colonoscopy, cystoscopy. MEDICATIONS: The patient is on Tylenol 1000 mg p.o. q. 6 hours p.r.n., amitriptyline 25 mg p.o. daily, aspirin 81 mg p.o. daily, atorvastatin 80 mg p.o. a.m., Zetia 10 mg p.o. a.m., Flonase 2 sprays intranasal daily p.r.n., ibuprofen 600 mg p.o. q. 6 hours p.r.n., levothyroxine 175 mcg p.o. a.m., lisinopril 20 mg p.o. a.m., metformin 1000 mg p.o. a.m., omeprazole 20 mg p.o. a.m., oxybutynin 5 mg p.o. daily, Flomax 0.4 mg p.o. at bedtime. FAMILY HISTORY: Significant for aunt has diabetes, uncle has diabetes, mother has hypertension and thyroid disorder, maternal grandfather has lung disorder. SOCIAL HISTORY: . Quit smoking in 2001. Smoked 2 packs a day for 20 years. Alcohol, rarely. No drug use. REVIEW OF SYSTEMS: As per HPI. Rest of the review of systems is negative. PHYSICAL EXAMINATION: GENERAL: The patient is of moderate build, not in acute distress. VITAL SIGNS: Temperature 39, T-max 39.2, pulse 91, respiratory rate 16, blood pressure 96/57, oxygen 94% on room air. HEENT: Pupils equal, round and reactive to light. Oral mucosa moist. NECK: No JVD. No neck masses. CARDIOVASCULAR: S1 and S2 heard. Regular rate and rhythm. No murmur, no gallop. RESPIRATORY SYSTEM: Normal AP diameter. No accessory muscle use. No wheezing, no crackles. ABDOMEN: Soft, bowel sounds present, nontender, no distention. CENTRAL NERVOUS SYSTEM: Cranial nerves II through XII are grossly intact, nonfocal. EXTREMITIES: No edema, no erythema. LABORATORY DATA: WBC 10.1, hemoglobin 14, hematocrit 40, platelets 185. PT 11, INR 1.1, APTT 33.9. Sodium 134, potassium 4.1, chloride 105, bicarbonate 20, BUN 22, creatinine 2.2, serum glucose 138. Lactate 1.5, calcium 8.5, magnesium 1.5, total bilirubin 0.6, AST 39, ALT 47, alkaline phosphatase 60. Troponin I less than 0.015. Urinalysis positive for +3 blood, +2 leukocyte esterase. SARS-CoV-2 PCR negative. IMAGING DATA: KUB x-ray, bilateral ureteral stents in expected position. Chest x-ray, no active disease in the chest. EKG: Normal sinus rhythm at a rate of 74. Nonspecific ST abnormalities. No acute ST changes seen. ASSESSMENT AND PLAN: This is a 61-year-old male who presents with a complicated urinary tract infection, possible sepsis. 1. Complicated urinary tract infection and possible sepsis: History of bladder and ureteral cancer, status post bilateral ureteral stents. Today, one of the stents was replaced in [facility]. Based on previous cultures, he was in ER started on IV Zosyn, which will be continued. He has possible sepsis with a temp spike, tachycardia, and having blood pressures on the lower side. Lactic acid is okay. Placed him on IV fluids at 125 mL per hour. Follow the cultures. Follow the response. Closely monitor in the med tele.Later added iv vanco as he still spiking temp 2. bladder cancer. Stated post bilateral stents. Will also place him on Francisco catheter. Consult urology in the a.m. for further recommendations. 3. Acute kidney injury: Creatinine of 2.2, baseline creatinine of around 1.2, getting fluids, and Francisco and avoid nephrotoxic agents. Follow the labs. Will hold his lisinopril. Follow the labs in the a.m. 4. Hypomagnesemia: Will replace. 5. History of diabetes: Hold metformin. Placed on insulin sliding scale. Follow the blood sugars. 6. History of hypothyroidism: Continue Synthroid. 7. History of hypertension: Holding lisinopril for acute kidney injury. Will place him on IV hydralazine p.r.n. 8. History of coronary artery disease: Status post stent. Continue statin, Zetia, and aspirin. 9. Deep venous thrombosis prophylaxis: Lovenox. DISPOSITION: Closely monitor in the [employer] tele. PT/OT prior to discharge. Social service to help with discharge planning. Job ID: [id number] HEATHER
[2021-05-12] MEDS: SODIUM CHLORIDE 0.9% 1000ML 1,000 ML IV SCH ×3 (01:20→17:45)
[2021-05-12] MEDS: MAGNESIUM SULFATE / D5W 1 GM/100 ML BAG IV SCH ×2 (01:20→03:15)
[2021-05-12] MEDS: PIPERACILLIN/TAZOBACTAM 3.375 GM in DEXTROSE 5% 100 ML IV SCH ×3 (01:20→17:44)
[2021-05-12] MEDS: LEVOTHYROXINE SODIUM 175 MCG TABLET PO SCH (05:31)
[2021-05-12 05:46] LABS: Hematocrit (blood only) 35.3 % (42-52); Hemoglobin 12.1 g/dL (14.0-18.0); Mean Corpuscular Hgb Conc 34.3 g/dL (32-36); Mean Corpuscular Volume 90.5 fL (80-100); Mean Platelet Volume 8.7 fL (7.4-10.4); Platelet Count 142 K/uL (130-400); RDW Coefficient of Variation 14.1 % (11.5-14.5); RDW Standard Deviation 46.4 fL (36.4-46.3); White Blood Count 8.13 K/uL (4.8-10.8)
[2021-05-12 06:08] LABS: Calcium 7.8 mg/dl (8.5-10.1); Creatinine Clr Calc Pharmacy 38.8 ml/min; Est GFR (African American) 34.5 ml/min; Est GFR (Non-African American) 29.8 ml/min; Magnesium 2.2 mg/dl (1.8-2.4); Potassium 4.1 mmol/L (3.5-5.1)
[2021-05-12 06:21] LABS: Basophils # (auto) 0.03 K/uL (0-0.2); Basophils % (auto) 0.4 %; Eosinophils # (auto) 0.32 K/uL (0-0.5); Eosinophils % (auto) 3.9 %; Immature Granulocytes # (auto) 0.02 K/uL (0.00-0.02); Immature Granulocytes % (auto) 0.2 %; Lymphocytes # (auto) 0.76 K/uL (1.2-3.4); Lymphocytes % (auto) 9.3 %; Monocytes # (auto) 0.67 K/uL (0.11-0.59); Monocytes % (auto) 8.2 %; Neutrophils # (auto) 6.33 K/uL (1.4-6.5); RBC Morphology Unremarkable
--- NOTE | 2021-05-12 06:59 | Hospitalist Progress Note ---
Date of Service May 12, 2021 Assessment & Plan (1) Sepsis: (2) Acute UTI: (3) Ureteral cancer: (4) Postoperative fever: Plan: This is a 61-year-old male who presents with a complicated urinary tract infection, possible sepsis. 1. Complicated urinary tract infection and possible sepsis: History of bladder and ureteral cancer, status post bilateral ureteral stents. Status post urological procedure in [place] on today presentation. Developed fever on the way home from [facility]. Based on previous cultures, he was in ER started on IV Zosyn, which will be continued. He has possible sepsis with a temp spike, tachycardia, and having blood pressures on the lower side. Lactic acid normal Placed him on IV fluids at 125 mL per hour. Follow the cultures. Patient spiked fever this morning, vancomycin was also added 2. Bladder cancer, ureteral cancer. Stated post bilateral stents. Francisco catheter placed. Urology consulted for further recommendations. 3. Acute kidney injury: Creatinine of 2.2, baseline creatinine of around 1.2 Cont. IV fluids, and Francisco and avoid nephrotoxic agents. Follow the labs. Will hold his lisinopril for now 4. Hypomagnesemia: replace and monitor 5. History of diabetes: Hold metformin. Placed on insulin sliding scale. Follow the blood sugars. 6. History of hypothyroidism: Continue Synthroid. 7. History of hypertension: Holding lisinopril for acute kidney injury. IV hydralazine p.r.n. 8. CAD s/p stent. Continue statin, Zetia, and aspirin. DVT prophylaxis: Lovenox. Code: Full DISPOSITION: med tele. Plan to DC home once medically stable. Admission and Anticipated Discharge Date Admission Date: May 11, 2021 Subjective Patient seen in follow-up of fever, poss. sepsis, after urological procedure Had fever this morning, however now feeling better, tired However denies any chest pain shortness of breath abdominal pain, nausea vomiting Review of Systems Review of Systems: All systems reviewed & are unremarkable except as noted in Subjective Physical Exam Physical Exam: GENERAL: The patient is of moderate build, not in acute distress. HEENT: NC/AT, EOMI, PERR, Oral mucosa moist. NECK: No JVD. No neck masses. CARDIOVASCULAR: S1 and S2 heard. Regular rate and rhythm. No murmur, no gallop. RESPIRATORY: Normal AP diameter. No accessory muscle use. No wheezing, no crackles. ABDOMEN: Soft, bowel sounds present, nontender, no distention. NEURO: Alert oriented, answering questions appropriately, no facial asymmetry, speech fluent, moves extremities EXTREMITIES: No edema, no erythema. Results & Data Results & Data ([facility]) Vital Signs (Past 12 Hours) Vital Signs Temp Pulse Pulse Resp BP BP Pulse Ox 05/12/21 03:00 37.6 C H 68 18 90/50 L 95 05/12/21 01:30 64 05/12/21 00:38 36.8 C 70 18 105/62 91 05/12/21 00:00 37.4 C 70 16 95/69 L 95 05/11/21 20:49 37.7 C H 91 H 16 96/57 L 94 Pulse Ox 05/12/21 03:00 05/12/21 01:30 05/12/21 00:38 91 05/12/21 00:00 05/11/21 20:49 Laboratory Results 05/12/21 05/12/21 05/12/21 Range/Units 05:32 05:32 05:32 WBC 8.13 (4.8-10.8) K/uL RBC 3.90 L (4.7-6.1) M/uL Hgb 12.1 L (14.0-18.0) g/dL Hct 35.3 L (42-52) % MCV 90.5 (80-100) fL MCH 31.0 (25-34) pg MCHC 34.3 (32-36) g/dL RDW Std Deviation 46.4 H (36.4-46.3) fL RDW Coeff of Jovanna 14.1 (11.5-14.5) % Plt Count 142 (130-400) K/uL MPV 8.7 (7.4-10.4) fL Immature Gran % (Auto) 0.2 % Neut % (Auto) 78.0 % Lymph % (Auto) 9.3 % [place] % (Auto) 8.2 % Eos % (Auto) 3.9 % Baso % (Auto) 0.4 % Neut # (Auto) 6.33 (1.4-6.5) K/uL Lymph # (Auto) 0.76 L (1.2-3.4) K/uL [place] # (Auto) 0.67 H (0.11-0.59) K/uL Eos # (Auto) 0.32 (0-0.5) K/uL Baso # (Auto) 0.03 (0-0.2) K/uL Immature Gran # (Auto) 0.02 (0.00-0.02) K/uL RBC Morphology Unremarkable PT (9.0-12.0) Seconds INR (0.9-1.1) APTT (21.0-31.0) Seconds PTT Ratio Sodium 137 (136-145) mmol/L Potassium 4.1 (3.5-5.1) mmol/L Chloride 107 (98-107) mmol/L Carbon Dioxide 24 (21-32) mmol/L Anion Gap 6.0 (3-11) BUN 23 H (7-18) mg/dl Creatinine 2.26 H (0.6-1.4) mg/dl Est Cr Clr Drug Dosing 38.8 ml/min Est GFR ( Amer) 34.5 ml/min Est GFR (Non-Af Amer) 29.8 ml/min BUN/Creatinine Ratio 10.0 (10-20) Glucose 134 H (70-99) mg/dl Estimat Average Glucose Pending Hemoglobin A1c Pending Lactate (0.4-2.0) mmol/L Calcium 7.8 L (8.5-10.1) mg/dl Magnesium 2.2 (1.8-2.4) mg/dl Total Bilirubin (0.2-1) mg/dl AST (15-37) U/L ALT (12-78) U/L Alkaline Phosphatase (45-117) U/L Troponin I (0-0.045) ng/ml Total Protein (6.4-8.2) gm/dl Albumin (3.4-5.0) gm/dl Globulin (2.5-4.0) gm/dl Albumin/Globulin Ratio (0.9-2) Urine Color Urine Appearance (Clear) Urine pH (4.5-7.5) Ur Specific [place] (1.000-1.030) Urine Protein (Negative) Urine Glucose (UA) (Negative) Urine Ketones (Negative) Urine Blood (Negative) Urine Nitrite (Negative) Urine Bilirubin (Negative) Urine Urobilinogen (Negative) Ur Leukocyte Esterase (Negative) Urine WBC (Auto) (0-5) /hpf Urine RBC (Auto) (0-4) /hpf U Hyaline Cast (Auto) (0-5) /lpf U Epithel Cells (Auto) (0-5) /lpf Urine Bacteria (Auto) (Negative) Ur Renal Epithelial Cell Granular Casts (0) /lpf Urine Yeast COVID-19 Eval Order SARS-CoV-2 (PCR) (Negative) 05/11/21 05/11/21 05/11/21 Range/Units 21:41 21:41 19:55 WBC (4.8-10.8) K/uL RBC (4.7-6.1) M/uL Hgb (14.0-18.0) g/dL Hct (42-52) % MCV (80-100) fL MCH (25-34) pg MCHC (32-36) g/dL RDW Std Deviation (36.4-46.3) fL RDW Coeff of Jovanna (11.5-14.5) % Plt Count (130-400) K/uL MPV (7.4-10.4) fL Immature Gran % (Auto) % Neut % (Auto) % Lymph % (Auto) % [place] % (Auto) % Eos % (Auto) % Baso % (Auto) % Neut # (Auto) (1.4-6.5) K/uL Lymph # (Auto) (1.2-3.4) K/uL [place] # (Auto) (0.11-0.59) K/uL Eos # (Auto) (0-0.5) K/uL Baso # (Auto) (0-0.2) K/uL Immature Gran # (Auto) (0.00-0.02) K/uL RBC Morphology PT (9.0-12.0) Seconds INR (0.9-1.1) APTT (21.0-31.0) Seconds PTT Ratio Sodium (136-145) mmol/L Potassium (3.5-5.1) mmol/L Chloride (98-107) mmol/L Carbon Dioxide (21-32) mmol/L Anion Gap (3-11) BUN (7-18) mg/dl Creatinine (0.6-1.4) mg/dl Est Cr Clr Drug Dosing ml/min Est GFR ( Amer) ml/min Est GFR (Non-Af Amer) ml/min BUN/Creatinine Ratio (10-20) Glucose (70-99) mg/dl Estimat Average Glucose Hemoglobin A1c Lactate 1.5 (0.4-2.0) mmol/L Calcium (8.5-10.1) mg/dl Magnesium (1.8-2.4) mg/dl Total Bilirubin (0.2-1) mg/dl AST (15-37) U/L ALT (12-78) U/L Alkaline Phosphatase (45-117) U/L Troponin I (0-0.045) ng/ml Total Protein (6.4-8.2) gm/dl Albumin (3.4-5.0) gm/dl Globulin (2.5-4.0) gm/dl Albumin/Globulin Ratio (0.9-2) Urine Color Urine Appearance (Clear) Urine pH (4.5-7.5) Ur Specific [place] (1.000-1.030) Urine Protein (Negative) Urine Glucose (UA) (Negative) Urine Ketones (Negative) Urine Blood (Negative) Urine Nitrite (Negative) Urine Bilirubin (Negative) Urine Urobilinogen (Negative) Ur Leukocyte Esterase (Negative) Urine WBC (Auto) (0-5) /hpf Urine RBC (Auto) (0-4) /hpf U Hyaline Cast (Auto) (0-5) /lpf U Epithel Cells (Auto) (0-5) /lpf Urine Bacteria (Auto) (Negative) Ur Renal Epithelial Cell Granular Casts (0) /lpf Urine Yeast COVID-19 Eval Order Covid19 at [facility] SARS-CoV-2 (PCR) NEGATIVE (Negative) 05/11/21 05/11/21 05/11/21 Range/Units 19:49 19:19 19:19 WBC 9.18 (4.8-10.8) K/uL RBC 4.50 L (4.7-6.1) M/uL Hgb 14.0 (14.0-18.0) g/dL Hct 40.0 L (42-52) % MCV 88.9 (80-100) fL MCH 31.1 (25-34) pg MCHC 35.0 (32-36) g/dL RDW Std Deviation 45.2 (36.4-46.3) fL RDW Coeff of Jovanna 13.8 (11.5-14.5) % Plt Count 185 (130-400) K/uL MPV 9.2 (7.4-10.4) fL Immature Gran % (Auto) 0.3 % Neut % (Auto) 88.5 % Lymph % (Auto) 3.9 % [place] % (Auto) 3.2 % Eos % (Auto) 3.9 % Baso % (Auto) 0.2 % Neut # (Auto) 8.12 H (1.4-6.5) K/uL Lymph # (Auto) 0.36 L (1.2-3.4) K/uL [place] # (Auto) 0.29 (0.11-0.59) K/uL Eos # (Auto) 0.36 (0-0.5) K/uL Baso # (Auto) 0.02 (0-0.2) K/uL Immature Gran # (Auto) 0.03 H (0.00-0.02) K/uL RBC Morphology PT 11.0 (9.0-12.0) Seconds INR 1.1 (0.9-1.1) APTT 33.9 H (21.0-31.0) Seconds PTT Ratio 1.3 Sodium 134 L (136-145) mmol/L Potassium 4.1 (3.5-5.1) mmol/L Chloride 105 (98-107) mmol/L Carbon Dioxide 20 L (21-32) mmol/L Anion Gap 9.0 (3-11) BUN 22 H (7-18) mg/dl Creatinine 2.26 H (0.6-1.4) mg/dl Est Cr Clr Drug Dosing 39.0 ml/min Est GFR ( Amer) 34.5 ml/min Est GFR (Non-Af Amer) 29.8 ml/min BUN/Creatinine Ratio 9.5 L (10-20) Glucose 138 H (70-99) mg/dl Estimat Average Glucose Hemoglobin A1c Lactate (0.4-2.0) mmol/L Calcium 8.5 (8.5-10.1) mg/dl Magnesium 1.5 L (1.8-2.4) mg/dl Total Bilirubin 0.6 (0.2-1) mg/dl AST 39 H (15-37) U/L ALT 47 (12-78) U/L Alkaline Phosphatase 68 (45-117) U/L Troponin I < 0.015 (0-0.045) ng/ml Total Protein 7.2 (6.4-8.2) gm/dl Albumin 3.9 (3.4-5.0) gm/dl Globulin 3.3 (2.5-4.0) gm/dl Albumin/Globulin Ratio 1.2 (0.9-2) Urine Color Urine Appearance (Clear) Urine pH (4.5-7.5) Ur Specific [place] (1.000-1.030) Urine Protein (Negative) Urine Glucose (UA) (Negative) Urine Ketones (Negative) Urine Blood (Negative) Urine Nitrite (Negative) Urine Bilirubin (Negative) Urine Urobilinogen (Negative) Ur Leukocyte Esterase (Negative) Urine WBC (Auto) (0-5) /hpf Urine RBC (Auto) (0-4) /hpf U Hyaline Cast (Auto) (0-5) /lpf U Epithel Cells (Auto) (0-5) /lpf Urine Bacteria (Auto) (Negative) Ur Renal Epithelial Cell Granular Casts (0) /lpf Urine Yeast COVID-19 Eval Order SARS-CoV-2 (PCR) (Negative) 05/11/21 Range/Units 19:09 WBC (4.8-10.8) K/uL RBC (4.7-6.1) M/uL Hgb (14.0-18.0) g/dL Hct (42-52) % MCV (80-100) fL MCH (25-34) pg MCHC (32-36) g/dL RDW Std Deviation (36.4-46.3) fL RDW Coeff of Jovanna (11.5-14.5) % Plt Count (130-400) K/uL MPV (7.4-10.4) fL Immature Gran % (Auto) % Neut % (Auto) % Lymph % (Auto) % [place] % (Auto) % Eos % (Auto) % Baso % (Auto) % Neut # (Auto) (1.4-6.5) K/uL Lymph # (Auto) (1.2-3.4) K/uL [place] # (Auto) (0.11-0.59) K/uL Eos # (Auto) (0-0.5) K/uL Baso # (Auto) (0-0.2) K/uL Immature Gran # (Auto) (0.00-0.02) K/uL RBC Morphology PT (9.0-12.0) Seconds INR (0.9-1.1) APTT (21.0-31.0) Seconds PTT Ratio Sodium (136-145) mmol/L Potassium (3.5-5.1) mmol/L Chloride (98-107) mmol/L Carbon Dioxide (21-32) mmol/L Anion Gap (3-11) BUN (7-18) mg/dl Creatinine (0.6-1.4) mg/dl Est Cr Clr Drug Dosing ml/min Est GFR ( Amer) ml/min Est GFR (Non-Af Amer) ml/min BUN/Creatinine Ratio (10-20) Glucose (70-99) mg/dl Estimat Average Glucose Hemoglobin A1c Lactate (0.4-2.0) mmol/L Calcium (8.5-10.1) mg/dl Magnesium (1.8-2.4) mg/dl Total Bilirubin (0.2-1) mg/dl AST (15-37) U/L ALT (12-78) U/L Alkaline Phosphatase (45-117) U/L Troponin I (0-0.045) ng/ml Total Protein (6.4-8.2) gm/dl Albumin (3.4-5.0) gm/dl Globulin (2.5-4.0) gm/dl Albumin/Globulin Ratio (0.9-2) Urine Color Check Urine Appearance Turbid A (Clear) Urine pH 6.0 (4.5-7.5) Ur Specific [place] 1.021 (1.000-1.030) Urine Protein 3+ H (Negative) Urine Glucose (UA) Trace H (Negative) Urine Ketones Negative (Negative) Urine Blood 3+ H (Negative) Urine Nitrite Negative (Negative) Urine Bilirubin 1+ H (Negative) Urine Urobilinogen Negative (Negative) Ur Leukocyte Esterase 2+ H (Negative) Urine WBC (Auto) >30 H (0-5) /hpf Urine RBC (Auto) >30 H (0-4) /hpf U Hyaline Cast (Auto) 5-10 H (0-5) /lpf U Epithel Cells (Auto) >30 H (0-5) /lpf Urine Bacteria (Auto) Negative (Negative) Ur Renal Epithelial Cell Not Reportable Granular Casts 1-5 H (0) /lpf Urine Yeast Not Reportable COVID-19 Eval Order SARS-CoV-2 (PCR) (Negative) Medications Administered Current Inpatient Medications Acetaminophen (Acetaminophen 325 Mg Tab) 650 mg PO Q4H PRN PRN Reason: Pain or Fever Stop: 06/11/21 00:37 Last Admin: 05/12/21 07:49 Dose: 650 mg Documented by: Amitriptyline HCl (Amitriptyline Hcl 25 Mg Tab) 25 mg PO DAILY [facility] Stop: 06/11/21 08:59 Last Admin: 05/12/21 07:50 Dose: 25 mg Documented by: Aspirin (Aspirin 81 Mg Ectab) 81 mg PO QAM [facility] Stop: 06/11/21 08:59 Last Admin: 05/12/21 07:50 Dose: 81 mg Documented by: Atorvastatin Calcium (Atorvastatin 40 Mg Tab) 80 mg PO QAM [facility] Stop: 06/11/21 08:59 Last Admin: 05/12/21 07:50 Dose: 80 mg Documented by: Dextrose (Dextrose 50% 50 Ml Syringe) 25 - 50 ml IV UD PRN; Protocol PRN Reason: Hypoglycemia Protocol Stop: 06/11/21 00:59 Ezetimibe (Ezetimibe 10 Mg Tablet) 10 mg PO QAM [facility] Stop: 06/11/21 08:59 Last Admin: 05/12/21 07:50 Dose: 10 mg Documented by: Enoxaparin Sodium (Enoxaparin Inj 40 Mg/0.4 Ml Syr) 40 mg SQ Q24H [facility] Stop: 06/11/21 08:59 Last Admin: 05/12/21 07:51 Dose: 40 mg Documented by: Fluticasone Propionate (Fluticasone Propionate Na Spr 16 Gm Btl) 2 sprays NA DAILY PRN PRN Reason: Nasal Congestion Stop: 06/11/21 00:37 Glucagon (Glucagon For Inj 1 Mg Vial) 1 mg IM UD PRN; Protocol PRN Reason: Hypoglycemia Protocol Stop: 06/11/21 00:59 Glucose (Glucose 40% Gel 15 Gm Tube) 15 - 30 gm PO UD PRN; Protocol PRN Reason: Hypoglycemia Protocol Stop: 06/11/21 00:59 Glucose (Glucose 10 Tabs/Tube) 4 - 8 tabs PO UD PRN; Protocol PRN Reason: Hypoglycemia Protocol Stop: 06/11/21 00:59 Hydralazine HCl (Hydralazine Hcl 20 Mg/Ml Vial) 7.5 mg IV Q6H PRN PRN Reason: Hypertension Stop: 06/11/21 00:37 Sodium Chloride (Nss 1000ml) 1,000 mls @ 125 mls/hr IV .Q8H UMBERTO Stop: 06/11/21 00:37 Last Admin: 05/12/21 07:56 Dose: 125 mls/hr Documented by: Piperacillin Sod/Tazobactam (Sod 3.375 gm/ Dextrose) 115 mls @ 28.75 mls/hr IV Q8H UMBERTO; Protocol Stop: 05/22/21 01:59 Last Infusion: 05/12/21 04:58 Dose: Infused Documented by: Vancomycin HCl 2,250 mg/ (Sodium Chloride) 545 mls @ 200 mls/hr IV NOW ONE Stop: 05/12/21 10:43 Last Admin: 05/12/21 08:21 Dose: 200 mls/hr Documented by: Insulin Aspart (Insulin Aspart 100 Units/Ml 3 Ml Pen) 0 units SC ACHS UMBERTO Stop: 06/11/21 07:29 Levothyroxine Sodium (Levothyroxine Sodium 175 Mcg Tablet) 175 mcg PO DAILYBB [facility] Stop: 06/11/21 06:29 Last Admin: 05/12/21 05:31 Dose: 175 mcg Documented by: Miscellaneous (Carbohydrates For Hypoglycemia ) 15 - 30 gm PO UD PRN PRN Reason: Hypoglycemia Treatment Stop: 06/11/21 00:59 Miscellaneous Information (Piperacill/Tazobac Consult Active) 1 ea N/A UD PRN PRN Reason: Consult Stop: 06/10/21 20:49 Miscellaneous Information (Vancomycin Consult Active) 1 ea N/A UD PRN PRN Reason: Consult Stop: 06/11/21 07:00 Nitroglycerin (Nitroglycerin Sl 0.4 Mg/Tab Tab) 0.4 mg SL UD PRN PRN Reason: Chest Pain Stop: 06/11/21 00:37 Ondansetron HCl (Ondansetron Inj 2 Mg/Ml 2 Ml Vial) 4 mg IV Q6H PRN PRN Reason: Nausea Stop: 06/11/21 00:37 Oxybutynin Chloride (Oxybutynin Chloride 5 Mg Tab) 5 mg PO DAILY [facility] Stop: 06/11/21 08:59 Last Admin: 05/12/21 07:50 Dose: 5 mg Documented by: Pantoprazole Sodium (Pantoprazole 40 Mg Tab) 40 mg PO QAM [facility] Stop: 06/11/21 08:59 Last Admin: 05/12/21 07:50 Dose: 40 mg Documented by: Tamsulosin HCl (Tamsulosin Hcl 0.4 Mg Cap) 0.4 mg PO HS [facility] Stop: 06/11/21 20:59 (1) Sepsis Sepsis type: sepsis due to unspecified organism Severe sepsis acute organ dysfunction type: unspecified Severe sepsis shock status: unspecified
[2021-05-12] MEDS ORDERED: VANCOMYCIN CONSULT ACTIVE PRN (07:01)
[2021-05-12 07:15] LABS: Estimated Average Glucose 143 mg/dl; Hemoglobin A1C 6.6 % (4.5-5.6)
[2021-05-12] MEDS ORDERED: VANCOMYCIN HCL 1,000 MG in SODIUM CHLORIDE 0.9% 250 ML IV SCH (07:15)
--- NOTE | 2021-05-12 07:33 | Urology Consultation ---
Date of Consultation May 12, 2021 Assessment & Plan (1) Acute UTI: (2) YOHAN (acute kidney injury): (3) Ureteral cancer: (4) Bladder cancer: 61yo M with a hx of bladder cancer and upper tract UCC admitted for fever secondary to presumed UTI, s/p recent urologic procedure. - Plan of care reviewed with Dr. Keller - Tmax 39.2 over last 24 hrs; Febrile this morning at 38.6C - Labs reviewed -Wbc 8.13 and creatinine above baseline at 2.26, will continue to trend - KUB imaging reviewed- Bilateral ureteral stents in good positioning - Francisco catheter intact/draining, maintain for now - Urine and blood cultures pending, continues on IV Vanco and Zosyn - No acute intervention warranted at this time - Continue supportive care and antibiotic therapy, follow cultures - Exact procedure performed yesterday unknown at this time, will obtain recent records from [place] for review - Will continue to follow History of Present Illness Reason for Consultation: Bladder cancer, complicated UTI Attending Physician: Lee Ware MD History of Present Illness 61 year old male with past medical history of hyperlipidemia, diabetes, GERD, [place], CAD s/p stent, bladder cancer, upper tract UCC admitted for fever secondary to presumed UTI, s/p recent urologic procedure. Patient known to our service, follows with Dr. Keller for history of bladder cancer and upper tract UCC. He is recently s/p TURBT large, Transurethral resection of prostate lesion, Bilateral ureteroscopy with ureteral dilation, brush biopsy, selective cytology, LASER tumor ablation, retrograde pyelogram, and stent placement; Right ureteral biopsy on 02/07/[address] Keller. Chart review: T-max in 24 hours 39.2, recheck this AM 38.6 Wbc 8.13 Hgb 12.1 Creatinine 2.26 Urinalysis +2 leukocytes, >30 wbc, >30 rbc, negative bacteria, negative nitrates Urine culture pending Blood cultures pending Patient currently on IV Vancomycin and IV Zosyn. Francisco catheter intact/draining, urine output overnight 650ml KUB IMPRESSION: Bilateral nephroureteral stents in expected position. Patient examined at bedside this AM. Awake, resting in bed on arrival. He denies any pain or discomfort at this time. Febrile this AM at 38.6C, Tylenol administered per nursing. Denies chills. Tolerating diet, no nausea or vomiting. Francisco catheter intact, draining clear, yellow urine. No hematuria or dysuria. Denies back, flank, and suprapubic pain. No additional complaints at time of exam. Patient reports he was in [place] yesterday for a procedure. He is unsure of the exact procedure, but believes he had a kidney biopsy and exchange of one ureteral stent. While coming back home, he developed fever and reported to the ED immediately. He also reports being on oral antibiotics per [place] for his procedure. He started 2 days ago and had one dose left to take prior to coming into the ED. Allergies Allergy/AdvReac Type Severity Reaction Status Date / Time No Known Allergies Allergy Mild Verified 03/30/21 09:52 Home Medications Medication Instructions Recorded Confirmed Type aspirin 81 mg tablet,delayed 81 mg PO QAM 03/30/20 05/11/21 History release levothyroxine 175 mcg capsule 175 mcg PO QAM 03/30/20 05/11/21 History lisinopril 20 mg tablet (Zestril) 20 mg PO QAM 03/30/20 05/11/21 History atorvastatin 80 mg tablet 80 mg PO QAM 05/04/20 05/11/21 History fluticasone propionate 50 2 spray INTRANASAL DAILY PRN 06/22/20 05/11/21 History mcg/actuation nasal spray,suspension (Flonase Allergy Relief) ezetimibe 10 mg tablet (Zetia) 10 mg PO QAM 10/09/20 05/11/21 History ibuprofen 200 mg tablet 600 mg PO Q6H PRN 10/09/20 05/11/21 History metformin 500 mg tablet,extended 1,000 mg PO QAM 10/09/20 05/11/21 History release 24 hr omeprazole 20 mg capsule,delayed 20 mg PO QAM 10/09/20 05/11/21 History release acetaminophen 500 mg capsule 1,000 mg PO Q6H PRN 01/25/21 05/11/21 History tamsulosin 0.4 mg capsule 0.4 mg PO HS #30 cap 02/07/21 05/11/21 Rx oxybutynin chloride 5 mg tablet 5 mg PO DAILY #30 tab 04/05/21 05/11/21 Rx amitriptyline 25 mg tablet 25 mg PO DAILY 05/11/21 05/11/21 History Patient History Medical History Arthritis Bladder cancer AND URETERAL CANCER? 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 Diabetes NIDDM Foot drop, right No brace GERD (gastroesophageal reflux disease) Hyperlipidemia Hypomagnesemia Myocardial Infarction 2007 > stent x1 Ureteral cancer Surgical History History of cardiac cath stent x1 (2007) History of colonoscopy History of cystoscopy Multiple Cysto, bladder biopsy (07/12/20): MAC sedation at [facility] TURBT (05/17/20): LMA#5 at [facility] History of tooth extraction Family History Mother Diabetes Heart disease Cancer Hypertension Family history of diabetes mellitus Father Heart disease Social History Smoking Status: Former smoker Tobacco Type: Cigarettes Second Hand Exposure: No; Do You Dip or Chew Tobacco: No; Tobacco Cessation Education Requested by Patient: No Hx Alcohol Use: No Hx Substance Use: No Preferred Language: Fijian Communication Ability: Effective 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 Beliefs That Will Affect Care: None marital status: Current Living Situation: Spouse current occupational status: employed current occupation: [employer] How many Children do You have: 2 Other Information That Helps Us Care for You: No Feels Safe at Home: Yes Safety Concerns: Feels Safe At This Time Assistive Devices: Denture - Upper and Glasses Review of Systems Review of Systems: All systems reviewed & are unremarkable except as noted in HPI & below Physical Exam Constitutional: well developed and well nourished; no acute distress and not ill appearing Neck: normal visual inspection Respiratory: normal respiratory effort and able to speak in complete sentences; no labored breathing and no audible wheezes Gastrointestinal (Abdomen): Inspection/Auscultation: abdomen normal to inspection; abdomen not distended Percussion/Palpation: abdomen soft; abdomen nontender and no guarding Musculoskeletal: Head/Neck/Chest: normocephalic Skin: No visible rashes or lesions to exposed skin areas Neurologic: moves all extremities and awake Psychiatric: Orientation: alert, oriented x 3 and cooperative Genitourinary: no CVA tenderness Francisco catheter intact, draining clear, yellow urine Results & Data ([facility]) Vital Signs (Past 12 Hours) Vital Signs Temp Pulse Pulse Resp BP BP Pulse Ox 05/12/21 07:24 38.6 C H 79 20 97/58 L 92 05/12/21 07:20 74 05/12/21 03:00 37.6 C H 68 18 90/50 L 95 05/12/21 01:30 64 05/12/21 00:38 36.8 C 70 18 105/62 91 05/12/21 00:00 37.4 C 70 16 95/69 L 95 05/11/21 20:49 37.7 C H 91 H 16 96/57 L 94 Pulse Ox 05/12/21 07:24 05/12/21 07:20 05/12/21 03:00 05/12/21 01:30 05/12/21 00:38 91 05/12/21 00:00 05/11/21 20:49 PG Care Time/CCT Total # of Minutes Spent Total Time Spent with Patient: Total time spent is greater than 50% in coordination of care (as documented) at patient's floor/unit and/or counseling patient: Coding Level of Care Code 49925 Inpt Consult Level 3 Diagnoses Acute UTI N39.0 YOHAN (acute kidney injury) N17.9 Ureteral cancer C66.9 Bladder cancer C67.9
[2021-05-12] MEDS: ACETAMINOPHEN 325 MG TAB PO PRN ×2 (07:49→17:45)
[2021-05-12] MEDS: PANTOprazole 40 MG TAB PO SCH (07:50)
[2021-05-12] MEDS: ATORVASTATIN 40 MG TAB PO SCH (07:50)
[2021-05-12] MEDS: EZETIMIBE 10 MG TABLET PO SCH (07:50)
[2021-05-12] MEDS: OXYBUTYNIN CHLORIDE 5 MG TAB PO SCH (07:50)
[2021-05-12] MEDS: AMITRIPTYLINE HCL 25 MG TAB PO SCH (07:50)
[2021-05-12] MEDS: ASPIRIN 81 MG ECTAB PO SCH (07:50)
[2021-05-12] MEDS: ENOXAPARIN INJ 40 MG/0.4 ML SYR SQ SCH (07:51)
[2021-05-12] MEDS ORDERED: VANCOMYCIN HCL 2,250 MG in SODIUM CHLORIDE 0.9% 500 ML IV ONE (08:00)
[2021-05-12] MEDS: INSULIN ASPART 100 UNITS/ML 3 ML PEN SC SCH ×4 (09:39→21:10)
--- NOTE | 2021-05-12 10:11 | Pharmacy Report ---
Pharmacy Vanc AUC Short Note - Date of Service May 12, 2021 - Assessment & Plan Assessment 61 year old M receiving zosyn/vancomycin for treatment of suspected UTI. Patient has history of bladder cancer, with recent urologic procedures, patient reported procedure in [place] before developing fevers. Patient was on Bactrim for procedure, also has been on doxy and cipro in the last 90 days. Blood and urine cultures pending, previous urine cultures have grown e. coli, Enterococcus faecalis. Started empirically on zosyn/vancomycin, will follow culture. Current SCr is ~ double January value but has been steady. Plan Vancomycin * AUC/BEREKET is the preferred PK/PD target for vancomycin * AUC guided dosing is effective and associated with decreased risk of nephrotoxicity compared to traditional trough targets * Will begin 1250 mg q24H which is predicting an AUC of 584 mg/L.hr which is within target AUC/BEREKET of 400-600 mg/L.hr * Will re-assess tomorrow for change in renal function/appropriate trough timing. Pharmacy will continue to follow and will adjust dose/frequency as necessary. Thank you.
--- NOTE | 2021-05-12 16:35 | Electrocardiogram Report ---
Test Reason : Blood Pressure : / mmHG Vent. Rate : 074 BPM Atrial Rate : 074 BPM P-R Int : 130 ms QRS Dur : 094 ms QT Int : 374 ms P-R-T Axes : 071 028 040 degrees QTc Int : 415 ms Normal sinus rhythm Nonspecific ST abnormality Abnormal ECG When compared with ECG of 16-FEB-2021 19:44, Premature atrial complexes are no longer Present Confirmed by Hosea Guzman ([id number]) on 05/12/2021 4:35:25 PM Referred By: Sotero Jenkins Confirmed By:Hosea Guzman
[2021-05-12] MEDS ORDERED: KETOROLAC TROMETHAMINE 15 MG/ML VIAL IV ONE (19:38)
[2021-05-12] MEDS: TAMSULOSIN HCL 0.4 MG CAP PO SCH (21:13)
[2021-05-13] MEDS: SODIUM CHLORIDE 0.9% 1000ML 1,000 ML IV SCH ×3 (01:42→19:21)
[2021-05-13] MEDS: PIPERACILLIN/TAZOBACTAM 3.375 GM in DEXTROSE 5% 100 ML IV SCH ×3 (01:45→18:15)
[2021-05-13] MEDS ORDERED: VANCOMYCIN HCL 1,250 MG in SODIUM CHLORIDE 0.9% 250 ML IV SCH (04:00)
[2021-05-13] MEDS: LEVOTHYROXINE SODIUM 175 MCG TABLET PO SCH (05:54)
--- NOTE | 2021-05-13 07:46 | Urology Progress Note ---
Date of Service May 13, 2021 Assessment & Plan (1) Acute UTI: (2) YOHAN (acute kidney injury): (3) Ureteral cancer: (4) Bladder cancer: Plan: 61yo M with a hx of bladder cancer and upper tract UCC admitted for fever secondary to presumed UTI, s/p recent urologic procedure. - S/p cystoscopy, bilateral retrograde pyelogram, bilateral ureteroscopy with tumor biopsy, and bilateral stent placement with Dr. Graves on 05/11 ([facility]). - Plan of care reviewed with Dr. Keller. - T-max 38.7 C over last 24 hrs, afebrile this AM. - Labs reviewed - creatinine improved to 1.65 (previously 2.26). - Preliminary urine culture no growth. - Preliminary blood cultures no growth after 24 hours. - KUB imaging reviewed- Bilateral ureteral stents in good positioning. - Tolerating lara catheter with clear urine, maintain catheter at this time. - No acute intervention warranted at this time. - Continue supportive care, antibiotic therapy, and close monitoring. - Ultimately patient will need close follow up with [facility] Urology. Per patient, plans to undergo more extensive surgical procedure with Dr. Graves pending results of most recent pathology. - Will continue to follow clinical progress during hospital stay. Admission and Anticipated Discharge Date Admission Date: May 11, 2021 Subjective Patient examined at bedside. He is awake, alert, non-toxic on exam. Reports he is feeling better overall since admission. Currently denies flank or abdominal pain. Denies dysuria or hematuria. Tolerating lara catheter well without difficulty. Lara patent, draining clear yellow urine. Subjectively denies fevers or chills. Denies nausea or vomiting. Has been ambulating without difficulty. Chart review: T-max over past 24 hours 38.7 C, afebrile this AM. Labs 05/12 - Wbc 8.13 Hgb 12.1 Creatinine 2.23 Labs this AM - Creatinine 1.65 Preliminary urine culture no growth. Preliminary blood cultures no growth after 24 hours. Patient currently on IV Vanco and IV Zosyn. Did review operative note from [facility]. Patient underwent cystoscopy, bilateral retrograde pyelogram, bilateral ureteroscopy with tumor biopsy, and bilateral stent placement with Dr. Graves on 10/13. Denies additional urologic concerns today. Review of Systems Constitutional: as per Subjective / HPI and + fever; no chills Gastrointestinal: as per Subjective / HPI; no nausea and no vomiting Genitourinary: + as per Subjective / HPI Physical Exam Constitutional: well developed and well nourished; no acute distress and not ill appearing Respiratory: normal respiratory effort and able to speak in complete sentences; no respiratory distress and no audible wheezes Gastrointestinal (Abdomen): Inspection/Auscultation: abdomen normal to inspection; abdomen not distended Percussion/Palpation: abdomen soft; abdomen nontender and no guarding Psychiatric: Orientation: alert, oriented x 3 and cooperative Affect: euthymic affect Genitourinary: no CVA tenderness Lara catheter intact draining clear yellow urine. Results & Data ([facility]) Vital Signs (Past 12 Hours) Vital Signs Temp Pulse Pulse Resp BP Pulse Ox 05/13/21 04:13 37.0 C 57 L 18 122/74 97 05/12/21 23:42 36.6 C 53 L 18 107/64 94 05/12/21 23:09 65 PG Care Time/CCT Total # of Minutes Spent Total Time Spent with Patient: Total time spent is greater than 50% in coordination of care (as documented) at patient's floor/unit and/or counseling patient: Coding Level of Care Code 11099 Subseq Hosp Care Lvl 2 Diagnoses Acute UTI N39.0 YOHAN (acute kidney injury) N17.9 Ureteral cancer C66.9 Bladder cancer C67.9
[2021-05-13 08:22] LABS: Creatinine Clr Calc Pharmacy 53.2 ml/min; Est GFR (African American) 50.4 ml/min; Est GFR (Non-African American) 43.5 ml/min
[2021-05-13] MEDS: OXYBUTYNIN CHLORIDE 5 MG TAB PO SCH (09:12)
[2021-05-13] MEDS: EZETIMIBE 10 MG TABLET PO SCH (09:12)
[2021-05-13] MEDS: AMITRIPTYLINE HCL 25 MG TAB PO SCH (09:12)
[2021-05-13] MEDS: ATORVASTATIN 40 MG TAB PO SCH (09:12)
[2021-05-13] MEDS: PANTOprazole 40 MG TAB PO SCH (09:12)
[2021-05-13] MEDS: ASPIRIN 81 MG ECTAB PO SCH (09:12)
[2021-05-13] MEDS: ENOXAPARIN INJ 40 MG/0.4 ML SYR SQ SCH (09:16)
[2021-05-13] MEDS: INSULIN ASPART 100 UNITS/ML 3 ML PEN SC SCH ×4 (11:32→20:49)
--- NOTE | 2021-05-13 13:17 | Hospitalist Progress Note ---
Date of Service May 13, 2021 Assessment & Plan (1) Sepsis: (2) Acute UTI: (3) Ureteral cancer: (4) Postoperative fever: Plan: This is a 61-year-old male who presents with a complicated urinary tract infection, possible sepsis. 1. Complicated urinary tract infection and possible sepsis: History of bladder and ureteral cancer, status post bilateral ureteral stents. Status post urological procedure in [place] on the day of presentation. S/p cystoscopy, bilateral retrograde pyelogram, bilateral ureteroscopy with tumor biopsy, and bilateral stent placement with Dr. Graves on 05/11 ([facility]). Developed fever on the way home from [facility]. Based on previous cultures, he was in ER started on IV Zosyn, which is continued. He has possible sepsis with a temp spike, tachycardia, and having blood p ressures on the lower side. Lactic acid normal Placed him on IV fluids at 125 mL per hour. Patient spiked fever morning after admission, vancomycin was also added, continued urine cultx - negative Blood cultx - NGTD Fever last evening (05/12) 2. Bladder cancer, ureteral cancer. Stated post bilateral stents. Francisco catheter placed. Urology consulted for further recommendations while inpt. Ultimately patient will need close follow up with [facility] Urology. Per patient, plans to undergo more extensive surgical procedure with Dr. Graves pending results of most recent pathology. 3. Acute kidney injury: Creatinine of 2.2, baseline creatinine of around 1.2 Current Cr down to 1.7 Cont. IV fluids, and Francisco and avoid nephrotoxic agents. Follow the labs. Will hold his lisinopril for now 4. Hypomagnesemia: replace and monitor 5. History of diabetes: Hold metformin. Placed on insulin sliding scale. Follow the blood sugars. 6. History of hypothyroidism: Continue Synthroid. 7. History of hypertension: Holding lisinopril for acute kidney injury. IV hydralazine p.r.n. 8. CAD s/p stent. Continue statin, Zetia, and aspirin. DVT prophylaxis: Lovenox. Code: Full DISPOSITION: med tele. Plan to DC home once medically stable. Admission and Anticipated Discharge Date Admission Date: May 11, 2021 Subjective Patient seen in follow-up of fever, poss. sepsis, after urological procedure Had fever last evening Overall feeling better Denies any chest pain shortness of breath abdominal pain, nausea vomiting Review of Systems Review of Systems: All systems reviewed & are unremarkable except as noted in Subjective Physical Exam Physical Exam: GENERAL: The patient is of moderate build, not in acute distress. HEENT: NC/AT, EOMI, PERR, Oral mucosa moist. NECK: No JVD. No neck masses. CARDIOVASCULAR: S1 and S2 heard. Regular rate and rhythm. No murmur, no gallop. RESPIRATORY: Normal AP diameter. No accessory muscle use. No wheezing, no crackles. ABDOMEN: Soft, bowel sounds present, nontender, no distention. NEURO: Alert oriented, answering questions appropriately, no facial asymmetry, speech fluent, moves extremities EXTREMITIES: No edema, no erythema. Results & Data Results & Data ([facility]) Vital Signs (Past 12 Hours) Vital Signs Temp Pulse Pulse Resp BP BP Pulse Ox 05/13/21 12:24 37.3 C 69 20 115/67 96 05/13/21 09:11 37.1 C 65 20 131/73 96 05/13/21 08:00 57 L 05/13/21 04:13 37.0 C 57 L 18 122/74 97 Laboratory Results 05/13/21 05/13/21 05/13/21 Range/Units 11:56 07:59 07:06 Creatinine 1.65 H D (0.6-1.4) mg/dl Est Cr Clr Drug Dosing 53.2 ml/min Est GFR ( Amer) 50.4 ml/min Est GFR (Non-Af Amer) 43.5 ml/min POC Glucose 139 H 118 H (70-99) mg/dl 05/12/21 05/12/21 Range/Units 20:28 16:32 Creatinine (0.6-1.4) mg/dl Est Cr Clr Drug Dosing ml/min Est GFR ( Amer) ml/min Est GFR (Non-Af Amer) ml/min POC Glucose 124 H 105 H (70-99) mg/dl Medications Administered Current Inpatient Medications Acetaminophen (Acetaminophen 325 Mg Tab) 650 mg PO Q4H PRN PRN Reason: Pain or Fever Stop: 06/11/21 00:37 Last Admin: 05/12/21 17:45 Dose: 650 mg Documented by: Amitriptyline HCl (Amitriptyline Hcl 25 Mg Tab) 25 mg PO DAILY [facility] Stop: 06/11/21 08:59 Last Admin: 05/13/21 09:12 Dose: 25 mg Documented by: Aspirin (Aspirin 81 Mg Ectab) 81 mg PO QAM [facility] Stop: 06/11/21 08:59 Last Admin: 05/13/21 09:12 Dose: 81 mg Documented by: Atorvastatin Calcium (Atorvastatin 40 Mg Tab) 80 mg PO QAM [facility] Stop: 06/11/21 08:59 Last Admin: 05/13/21 09:12 Dose: 80 mg Documented by: Dextrose (Dextrose 50% 50 Ml Syringe) 25 - 50 ml IV UD PRN; Protocol PRN Reason: Hypoglycemia Protocol Stop: 06/11/21 00:59 Ezetimibe (Ezetimibe 10 Mg Tablet) 10 mg PO QAM [facility] Stop: 06/11/21 08:59 Last Admin: 05/13/21 09:12 Dose: 10 mg Documented by: Enoxaparin Sodium (Enoxaparin Inj 40 Mg/0.4 Ml Syr) 40 mg SQ Q24H [facility] Stop: 06/11/21 08:59 Last Admin: 05/13/21 09:16 Dose: Not Given Documented by: Fluticasone Propionate (Fluticasone Propionate Na Spr 16 Gm Btl) 2 sprays NA DAILY PRN PRN Reason: Nasal Congestion Stop: 06/11/21 00:37 Glucagon (Glucagon For Inj 1 Mg Vial) 1 mg IM UD PRN; Protocol PRN Reason: Hypoglycemia Protocol Stop: 06/11/21 00:59 Glucose (Glucose 40% Gel 15 Gm Tube) 15 - 30 gm PO UD PRN; Protocol PRN Reason: Hypoglycemia Protocol Stop: 06/11/21 00:59 Glucose (Glucose 10 Tabs/Tube) 4 - 8 tabs PO UD PRN; Protocol PRN Reason: Hypoglycemia Protocol Stop: 06/11/21 00:59 Hydralazine HCl (Hydralazine Hcl 20 Mg/Ml Vial) 7.5 mg IV Q6H PRN PRN Reason: Hypertension Stop: 06/11/21 00:37 Sodium Chloride (Nss 1000ml) 1,000 mls @ 125 mls/hr IV .Q8H [facility] Stop: 06/11/21 00:37 Last Admin: 05/13/21 11:06 Dose: 125 mls/hr Documented by: Piperacillin Sod/Tazobactam (Sod 3.375 gm/ Dextrose) 115 mls @ 28.75 mls/hr IV Q8H [facility]; Protocol Stop: 05/22/21 01:59 Last Admin: 05/13/21 09:19 Dose: 28.8 mls/hr Documented by: Vancomycin HCl 1,250 mg/ (Sodium Chloride) 275 mls @ 200 mls/hr IV Q12H [facility] Stop: 05/23/21 15:59 Insulin Aspart (Insulin Aspart 100 Units/Ml 3 Ml Pen) 0 units SC ACHS [facility] Stop: 06/11/21 07:29 Last Admin: 05/13/21 13:10 Dose: Not Given Documented by: Levothyroxine Sodium (Levothyroxine Sodium 175 Mcg Tablet) 175 mcg PO DAILYBB [facility] Stop: 06/11/21 06:29 Last Admin: 05/13/21 05:54 Dose: 175 mcg Documented by: Miscellaneous (Carbohydrates For Hypoglycemia ) 15 - 30 gm PO UD PRN PRN Reason: Hypoglycemia Treatment Stop: 06/11/21 00:59 Miscellaneous Information (Piperacill/Tazobac Consult Active) 1 ea N/A UD PRN PRN Reason: Consult Stop: 06/10/21 20:49 Miscellaneous Information (Vancomycin Consult Active) 1 ea N/A UD PRN PRN Reason: Consult Stop: 06/11/21 07:00 Nitroglycerin (Nitroglycerin Sl 0.4 Mg/Tab Tab) 0.4 mg SL UD PRN PRN Reason: Chest Pain Stop: 06/11/21 00:37 Ondansetron HCl (Ondansetron Inj 2 Mg/Ml 2 Ml Vial) 4 mg IV Q6H PRN PRN Reason: Nausea Stop: 06/11/21 00:37 Oxybutynin Chloride (Oxybutynin Chloride 5 Mg Tab) 5 mg PO DAILY [facility] Stop: 06/11/21 08:59 Last Admin: 05/13/21 09:12 Dose: 5 mg Documented by: Pantoprazole Sodium (Pantoprazole 40 Mg Tab) 40 mg PO QAM [facility] Stop: 06/11/21 08:59 Last Admin: 05/13/21 09:12 Dose: 40 mg Documented by: Tamsulosin HCl (Tamsulosin Hcl 0.4 Mg Cap) 0.4 mg PO HS [facility] Stop: 06/11/21 20:59 Last Admin: 05/12/21 21:13 Dose: 0.4 mg Documented by: (1) Sepsis Sepsis type: sepsis due to unspecified organism Severe sepsis acute organ dysfunction type: unspecified Severe sepsis shock status: unspecified
[2021-05-13 13:55] LABS: Hematocrit (blood only) 33.7 % (42-52); Hemoglobin 11.6 g/dL (14.0-18.0); Mean Corpuscular Hgb Conc 34.4 g/dL (32-36); Mean Corpuscular Volume 90.1 fL (80-100); Mean Platelet Volume 9.2 fL (7.4-10.4); Platelet Count 147 K/uL (130-400); RDW Coefficient of Variation 13.9 % (11.5-14.5); RDW Standard Deviation 46.2 fL (36.4-46.3); Red Blood Count 3.74 M/uL (4.7-6.1); White Blood Count 6.95 K/uL (4.8-10.8)
[2021-05-13] MEDS: VANCOMYCIN HCL 1,250 MG in SODIUM CHLORIDE 0.9% 250 ML IV SCH (15:47)
[2021-05-13] MEDS ORDERED: POLYETHYLENE (MIRALAX) 17 GM PACK PO ONE (17:15)
[2021-05-13] MEDS: ADVANCED PROBIOTIC 1250 MG CAPSULE PO SCH (18:14)
[2021-05-13] MEDS: TAMSULOSIN HCL 0.4 MG CAP PO SCH (20:50)
[2021-05-14] MEDS: SODIUM CHLORIDE 0.9% 1000ML 1,000 ML IV SCH ×2 (02:15→10:26)
[2021-05-14] MEDS: PIPERACILLIN/TAZOBACTAM 3.375 GM in DEXTROSE 5% 100 ML IV SCH ×2 (02:16→09:16)
[2021-05-14] MEDS: VANCOMYCIN HCL 1,250 MG in SODIUM CHLORIDE 0.9% 250 ML IV SCH ×2 (04:22→17:04)
[2021-05-14] MEDS: LEVOTHYROXINE SODIUM 175 MCG TABLET PO SCH (05:55)
[2021-05-14 07:32] LABS: BUN Creatinine Ratio 12.2 (10-20); Calcium 8.2 mg/dl (8.5-10.1); Creatinine Clr Calc Pharmacy 66.1 ml/min; Est GFR (African American) 64.9 ml/min; Hematocrit (blood only) 32.5 % (42-52); Hemoglobin 11.2 g/dL (14.0-18.0); Magnesium 1.9 mg/dl (1.8-2.4); Mean Corpuscular Hemoglobin 30.8 pg (25-34); Mean Corpuscular Hgb Conc 34.5 g/dL (32-36); Mean Corpuscular Volume 89.3 fL (80-100); Mean Platelet Volume 9.6 fL (7.4-10.4); Platelet Count 156 K/uL (130-400); Potassium 4.4 mmol/L (3.5-5.1); RDW Coefficient of Variation 13.8 % (11.5-14.5); RDW Standard Deviation 45.8 fL (36.4-46.3); Red Blood Count 3.64 M/uL (4.7-6.1); White Blood Count 7.71 K/uL (4.8-10.8)
[2021-05-14 07:33] LABS: Phosphorus 2.2 mg/dl (2.5-4.9)
[2021-05-14] MEDS: ATORVASTATIN 40 MG TAB PO SCH (07:36)
[2021-05-14] MEDS: OXYBUTYNIN CHLORIDE 5 MG TAB PO SCH (07:37)
[2021-05-14] MEDS: ASPIRIN 81 MG ECTAB PO SCH (07:37)
[2021-05-14] MEDS: PANTOprazole 40 MG TAB PO SCH (07:37)
[2021-05-14] MEDS: AMITRIPTYLINE HCL 25 MG TAB PO SCH (07:37)
[2021-05-14] MEDS: EZETIMIBE 10 MG TABLET PO SCH (07:37)
[2021-05-14] MEDS: ADVANCED PROBIOTIC 1250 MG CAPSULE PO SCH (07:38)
[2021-05-14] MEDS: INSULIN ASPART 100 UNITS/ML 3 ML PEN SC SCH ×3 (09:00→18:38)
[2021-05-14] MEDS: ENOXAPARIN INJ 40 MG/0.4 ML SYR SQ SCH (09:00)
[2021-05-14] MEDS ORDERED: VANCOMYCIN TROUGH ONE (15:30)
--- NOTE | 2021-05-14 17:22 | Pharmacy Report ---
Pharmacy Vanc AUC Short Note - Date of Service May 14, 2021 - Assessment & Plan Assessment 61 year old M receiving zosyn/vancomycin for treatment of suspected UTI. Patient has history of bladder cancer, with recent urologic procedures, patient reported procedure in [place] before developing fevers. Patient was on Bactrim for procedure, also has been on doxy and cipro in the last 90 days. Blood and urine cultures pending, previous urine cultures have grown e. coli, Enterococcus faecalis. * Day #3 of antimicrobial therapy. * Afebrile x 48 hours now. Cultures with no growth to date. Plan Vancomycin * AUC/BEREKET is the preferred PK/PD target for vancomycin * AUC guided dosing is effective and associated with decreased risk of nephrotoxicity compared to traditional trough targets * Trough level of 11 mcg/mL is slightly lower than expected and does not meet goal AUC/BEREKET of 400 - 600. * Change to 1500 mg IV every 12 hours * Trough ordered for 05/16/21 Zosyn * Continue 3.375 g IV Q8H Pharmacy will continue to follow and will adjust dose/frequency as necessary. Thank you.
[2021-05-14] MEDS ORDERED: CIPROFLOXACIN 500 MG TAB PO STA (18:20)
--- NOTE | 2021-05-14 18:22 | Hospitalist Progress Note ---
Date of Service May 14, 2021 Assessment & Plan (1) Sepsis: (2) Acute UTI: (3) Ureteral cancer: (4) Postoperative fever: Plan: UTI following urologic procedure in the setting of stent placements This is a 61-year-old male who presents with a complicated urinary tract infection, possible sepsis. 1. Complicated urinary tract infection and possible sepsis: History of bladder and ureteral cancer, status post bilateral ureteral stents. Status post urological procedure in [place] on the day of presentation. S/p cystoscopy, bilateral retrograde pyelogram, bilateral ureteroscopy with tumor biopsy, and bilateral stent placement with Dr. Graves on 05/11 ([facility]). Developed fever on the way home from [facility]. Based on previous cultures, he was in ER started on IV Zosyn, which is cont inued. He has possible sepsis with a temp spike, tachycardia, and having blood pressures on the lower side. Lactic acid normal Placed him on IV fluids at 125 mL per hour. Patient spiked fever morning after admission, vancomycin was also added, continued urine cultx - negative Blood cultx - NGTD Last fever evening of (05/12), since then afebrile 2. Bladder cancer, ureteral cancer. Stated post bilateral stents. Francisco catheter placed. Urology consulted for further recommendations while inpt. Ultimately patient will need close follow up with [facility]rology. Per patient, plans to undergo more extensive surgical procedure with Dr. Graves pending results of most recent pathology. 3. Acute kidney injury: Creatinine of 2.2, baseline creatinine of around 1.2 Current Cr down to 1.3 Cont. IV fluids, and Francisco and avoid nephrotoxic agents. Follow the labs. Will hold his lisinopril for now 4. Hypomagnesemia: replace and monitor 5. History of diabetes: Hold metformin. Placed on insulin sliding scale. Follow the blood sugars. 6. History of hypothyroidism: Continue Synthroid. 7. History of hypertension: Holding lisinopril for acute kidney injury. IV hydralazine p.r.n. 8. CAD s/p stent. Continue statin, Zetia, and aspirin. DVT prophylaxis: Lovenox. Code: Full DISPOSITION: med tele. Plan to DC home, follow-up with PCP and urology Admission and Anticipated Discharge Date Admission Date: May 11, 2021 Subjective Patient seen in follow-up of fever, poss. sepsis, after urological procedure Had fever in the evening of May 12 since then afebrile Overall feeling much better and would like to go home Denies any chest pain shortness of breath abdominal pain, nausea vomiting Review of Systems Review of Systems: All systems reviewed & are unremarkable except as noted in Subjective Physical Exam Physical Exam: GENERAL: The patient is of moderate build, not in acute distress. HEENT: NC/AT, EOMI, PERR, Oral mucosa moist. NECK: No JVD. No neck masses. CARDIOVASCULAR: S1 and S2 heard. Regular rate and rhythm. No murmur, no gallop. RESPIRATORY: Normal AP diameter. No accessory muscle use. No wheezing, no cr ackles. ABDOMEN: Soft, bowel sounds present, nontender, no distention. NEURO: Alert oriented, answering questions appropriately, no facial asymmetry, speech fluent, moves extremities EXTREMITIES: No edema, no erythema. Results & Data Results & Data ([facility]) Vital Signs (Past 12 Hours) Vital Signs Temp Pulse Pulse Resp BP Pulse Ox 05/14/21 16:00 36.7 C 53 L 20 115/70 97 05/14/21 15:00 54 L 05/14/21 11:33 36.7 C 61 18 119/68 99 05/14/21 08:00 55 L 05/14/21 07:35 36.8 C 47 L 18 130/73 97 Laboratory Results 05/14/21 05/14/21 05/14/21 Range/Units 15:24 07:28 07:03 WBC (4.8-10.8) K/uL RBC (4.7-6.1) M/uL Hgb (14.0-18.0) g/dL Hct (42-52) % MCV (80-100) fL MCH (25-34) pg MCHC (32-36) g/dL RDW Std Deviation (36.4-46.3) fL RDW Coeff of Jovanna (11.5-14.5) % Plt Count (130-400) K/uL MPV (7.4-10.4) fL Sodium 142 (136-145) mmol/L Potassium 4.4 (3.5-5.1) mmol/L Chloride 115 H (98-107) mmol/L Carbon Dioxide 23 (21-32) mmol/L Anion Gap 4.0 (3-11) BUN 16 (7-18) mg/dl Creatinine 1.34 D (0.6-1.4) mg/dl Est Cr Clr Drug Dosing 66.1 ml/min Est GFR ( Amer) 64.9 ml/min Est GFR (Non-Af Amer) 56.0 ml/min BUN/Creatinine Ratio 12.2 (10-20) Glucose 117 H (70-99) mg/dl POC Glucose 121 H (70-99) mg/dl Calcium 8.2 L (8.5-10.1) mg/dl Phosphorus 2.2 L (2.5-4.9) mg/dl Magnesium 1.9 (1.8-2.4) mg/dl Vancomycin Trough 11.0 (See Comment) mcg/ml 05/14/21 05/13/21 Range/Units 07:03 20:12 WBC 7.71 (4.8-10.8) K/uL RBC 3.64 L (4.7-6.1) M/uL Hgb 11.2 L (14.0-18.0) g/dL Hct 32.5 L (42-52) % MCV 89.3 (80-100) fL MCH 30.8 (25-34) pg MCHC 34.5 (32-36) g/dL RDW Std Deviation 45.8 (36.4-46.3) fL RDW Coeff of Jovanna 13.8 (11.5-14.5) % Plt Count 156 (130-400) K/uL MPV 9.6 (7.4-10.4) fL Sodium (136-145) mmol/L Potassium (3.5-5.1) mmol/L Chloride (98-107) mmol/L Carbon Dioxide (21-32) mmol/L Anion Gap (3-11) BUN (7-18) mg/dl Creatinine (0.6-1.4) mg/dl Est Cr Clr Drug Dosing ml/min Est GFR ( Amer) ml/min Est GFR (Non-Af Amer) ml/min BUN/Creatinine Ratio (10-20) Glucose (70-99) mg/dl POC Glucose 135 H (70-99) mg/dl Calcium (8.5-10.1) mg/dl Phosphorus (2.5-4.9) mg/dl Magnesium (1.8-2.4) mg/dl Vancomycin Trough (See Comment) mcg/ml Medications Administered Current Inpatient Medications Acetaminophen (Acetaminophen 325 Mg Tab) 650 mg PO Q4H PRN PRN Reason: Pain or Fever Stop: 06/11/21 00:37 Last Admin: 05/12/21 17:45 Dose: 650 mg Documented by: Amitriptyline HCl (Amitriptyline Hcl 25 Mg Tab) 25 mg PO DAILY [facility] Stop: 06/11/21 08:59 Last Admin: 05/14/21 07:37 Dose: 25 mg Documented by: Aspirin (Aspirin 81 Mg Ectab) 81 mg PO QAM [facility] Stop: 06/11/21 08:59 Last Admin: 05/14/21 07:37 Dose: 81 mg Documented by: Atorvastatin Calcium (Atorvastatin 40 Mg Tab) 80 mg PO QAM [facility] Stop: 06/11/21 08:59 Last Admin: 05/14/21 07:36 Dose: 80 mg Documented by: Ciprofloxacin (Ciprofloxacin 500 Mg Tab) 500 mg PO NOW STA Stop: 05/14/21 18:21 Dextrose (Dextrose 50% 50 Ml Syringe) 25 - 50 ml IV UD PRN; Protocol PRN Reason: Hypoglycemia Protocol Stop: 06/11/21 00:59 Ezetimibe (Ezetimibe 10 Mg Tablet) 10 mg PO QAM [facility] Stop: 06/11/21 08:59 Last Admin: 05/14/21 07:37 Dose: 10 mg Documented by: Enoxaparin Sodium (Enoxaparin Inj 40 Mg/0.4 Ml Syr) 40 mg SQ Q24H [facility] Stop: 06/11/21 08:59 Last Admin: 05/14/21 09:00 Dose: Not Given Documented by: Fluticasone Propionate (Fluticasone Propionate Na Spr 16 Gm Btl) 2 sprays NA DAILY PRN PRN Reason: Nasal Congestion Stop: 06/11/21 00:37 Glucagon (Glucagon For Inj 1 Mg Vial) 1 mg IM UD PRN; Protocol PRN Reason: Hypoglycemia Protocol Stop: 06/11/21 00:59 Glucose (Glucose 40% Gel 15 Gm Tube) 15 - 30 gm PO UD PRN; Protocol PRN Reason: Hypoglycemia Protocol Stop: 06/11/21 00:59 Glucose (Glucose 10 Tabs/Tube) 4 - 8 tabs PO UD PRN; Protocol PRN Reason: Hypoglycemia Protocol Stop: 06/11/21 00:59 Hydralazine HCl (Hydralazine Hcl 20 Mg/Ml Vial) 7.5 mg IV Q6H PRN PRN Reason: Hypertension Stop: 06/11/21 00:37 Sodium Chloride (Nss 1000ml) 1,000 mls @ 125 mls/hr IV .Q8H [facility] Stop: 06/11/21 00:37 Last Admin: 05/14/21 10:26 Dose: 125 mls/hr Documented by: Piperacillin Sod/Tazobactam (Sod 3.375 gm/ Dextrose) 115 mls @ 28.75 mls/hr IV Q8H [facility]; Protocol Stop: 05/22/21 01:59 Last Infusion: 05/14/21 13:56 Dose: Infused Documented by: Vancomycin HCl 1,250 mg/ (Sodium Chloride) 275 mls @ 200 mls/hr IV Q12H [facility] Stop: 05/14/21 20:00 Last Admin: 05/14/21 17:04 Dose: 200 mls/hr Documented by: Vancomycin HCl 1,500 mg/ (Sodium Chloride) 530 mls @ 200 mls/hr IV Q12H [facility] Stop: 05/25/21 03:59 Insulin Aspart (Insulin Aspart 100 Units/Ml 3 Ml Pen) 0 units SC ACHS [facility] Stop: 06/11/21 07:29 Last Admin: 05/14/21 13:52 Dose: Not Given Documented by: Lactobacillus Acidoph/Casei/Rhamnos (Advanced Probiotic 1250 Mg Capsule) 2 cap PO DAILY [facility] Stop: 06/12/21 17:14 Last Admin: 05/14/21 07:38 Dose: 2 cap Documented by: Levothyroxine Sodium (Levothyroxine Sodium 175 Mcg Tablet) 175 mcg PO DAILYBB [facility] Stop: 06/11/21 06:29 Last Admin: 05/14/21 05:55 Dose: 175 mcg Documented by: Miscellaneous (Carbohydrates For Hypoglycemia ) 15 - 30 gm PO UD PRN PRN Reason: Hypoglycemia Treatment Stop: 06/11/21 00:59 Miscellaneous Information (Piperacill/Tazobac Consult Active) 1 ea N/A UD PRN PRN Reason: Consult Stop: 06/10/21 20:49 Miscellaneous Information (Vancomycin Consult Active) 1 ea N/A UD PRN PRN Reason: Consult Stop: 06/11/21 07:00 Nitroglycerin (Nitroglycerin Sl 0.4 Mg/Tab Tab) 0.4 mg SL UD PRN PRN Reason: Chest Pain Stop: 06/11/21 00:37 Ondansetron HCl (Ondansetron Inj 2 Mg/Ml 2 Ml Vial) 4 mg IV Q6H PRN PRN Reason: Nausea Stop: 06/11/21 00:37 Oxybutynin Chloride (Oxybutynin Chloride 5 Mg Tab) 5 mg PO DAILY [facility] Stop: 06/11/21 08:59 Last Admin: 05/14/21 07:37 Dose: 5 mg Documented by: Pantoprazole Sodium (Pantoprazole 40 Mg Tab) 40 mg PO QAM [facility] Stop: 06/11/21 08:59 Last Admin: 05/14/21 07:37 Dose: 40 mg Documented by: Tamsulosin HCl (Tamsulosin Hcl 0.4 Mg Cap) 0.4 mg PO HS [facility] Stop: 06/11/21 20:59 Last Admin: 05/13/21 20:50 Dose: 0.4 mg Documented by: (1) Sepsis Sepsis type: sepsis due to unspecified organism Severe sepsis acute organ dysfunction type: unspecified Severe sepsis shock status: unspecified
--- NOTE | 2021-05-14 18:40 | Discharge Summary ---
Date of Service May 14, 2021 Admission HPI Per Admitting Provider This is a 61-year-old male with past medical history significant for hypothyroidism, prediabetes, hyperlipidemia, chronic rhinitis, history of ID, history of sinus bradycardia, history of GERD, history of right footdrop, history of cardiac stent, history of beta chong intolerance. 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 Today he went to [place] for the plan of action and a cystoscopy was done and one of the stents were replaced. While coming back home, he developed fever. Recently also he was started on antibiotics, ciprofloxacin, 2 days ago. When he came to the ER, his temperature was 102. Currently resting comfortably. Mild abdominal discomfort. He micturated a small amount of urine in the ER, which was cloudy with mild burning micturition. No hematuria. Normal bladder and bowel movements. No chest pain, no shortness of breath, no cough, no headache, no blurred visions, no earache, no runny nose, no sore throat, no dysphagia, no nausea. Admission Exam Per Admitting Provider GENERAL: The patient is of moderate build, not in acute distress. VITAL SIGNS: Temperature 39, T-max 39.2, pulse 91, respiratory rate 16, blood pressure 96/57, oxygen 94% on room air. HEENT: Pupils equal, round and reactive to light. Oral mucosa moist. NECK: No JVD. No neck masses. CARDIOVASCULAR: S1 and S2 heard. Regular rate and rhythm. No murmur, no gallop. RESPIRATORY SYSTEM: Normal AP diameter. No accessory muscle use. No wheezing, no crackles. ABDOMEN: Soft, bowel sounds present, nontender, no distention. CENTRAL NERVOUS SYSTEM: Cranial nerves II through XII are grossly intact, nonfocal. EXTREMITIES: No edema, no erythema. Principal Diagnosis Sepsis UTI following urologic procedure in the setting of stent placements Discharge Exam GENERAL: The patient is of moderate build, not in acute distress. HEENT: NC/AT, EOMI, PERR, Oral mucosa moist. NECK: No JVD. No neck masses. CARDIOVASCULAR: S1 and S2 heard. Regular rate and rhythm. No murmur, no gallop. RESPIRATORY: Normal AP diameter. No accessory muscle use. No wheezing, no crackles. ABDOMEN: Soft, bowel sounds present, nontender, no distention. NEURO: Alert oriented, answering questions appropriately, no facial asymmetry, speech fluent, moves extremities EXTREMITIES: No edema, no erythema. Discharge Data Allergies Allergy/AdvReac Type Severity Reaction Status Date / Time No Known Allergies Allergy Mild Verified 03/30/21 09:52 Consultations 05/11/21 22:12 ED Decision to Admit Stat 05/12/21 08:00 Consult Urology Routine Diabetes Follow up Diabetes Follow-up Needed for Newly Diagnosed Diabetes Hospital Course (1) Sepsis: (2) Acute UTI: (3) Ureteral cancer: (4) Postoperative fever: UTI following urologic procedure in the setting of stent placements This is a 61-year-old male who presents with a complicated urinary tract infection, possible sepsis. 1. Complicated urinary tract infection and possible sepsis: History of bladder and ureteral cancer, status post bilateral ureteral stents. Status post urological procedure in [place] on the day of presentation. S/p cystoscopy, bilateral retrograde pyelogram, bilateral ureteroscopy with tumor biopsy, and bilateral stent placement with Dr. Graves on 05/11 ([facility]). Developed fever on the way home from [facility]. Based on previous cultures, he was in ER started on IV Zosyn, which is continued. He has possible sepsis with a temp spike, tachycardia, and having blood pressures on the lower side. Lactic acid normal Placed him on IV fluids at 125 mL per hour. Patient spiked fever morning after admission, vancomycin was also added, continued urine cultx - negative Blood cultx - NGTD Last fever evening of (05/12), since then afebrile 2. Bladder cancer, ureteral cancer. Stated post bilateral stents. Francisco catheter placed. Urology consulted for further recommendations while inpt. Ultimately patient will need close follow up with [facility]. Per patient, plans to undergo more extensive surgical procedure with Dr. Graves pending results of most recent pathology. 3. Acute kidney injury: Creatinine of 2.2, baseline creatinine of around 1.2 Current Cr down to 1.3 Cont. IV fluids, and Francisco and avoid nephrotoxic agents. Follow the labs. Will hold his lisinopril for now 4. Hypomagnesemia: replace and monitor 5. History of diabetes: Hold metformin. Placed on insulin sliding scale. Follow the blood sugars. 6. History of hypothyroidism: Continue Synthroid. 7. History of hypertension: Holding lisinopril for acute kidney injury. IV hydralazine p.r.n. 8. CAD s/p stent. Continue statin, Zetia, and aspirin. DVT prophylaxis: Lovenox. Code: Full DISPOSITION: med tele. Plan to DC home, follow-up with PCP and urology Total Time Total Time Spent Total Time Spent (In Minutes): 35 Discharge Plan Discharge Items Patient Disposition: Home - Self-Care Reason For Visit: URINARY SYMPTOMS Discharge Diagnosis: Sepsis UTI following urologic procedure in the setting of stent placements Activity: Per Instructions section Non-emergency contact: Primary Care Provider and Urologist Call non-emergency contact if: you have any medication questions and your symptoms worsen Follow-up/Referrals: Shemar Tai MD [Primary Care Provider] - Diet: Regular Addtl Attending Provider Instructions: Follow-up with your urologist and primary care doctor. Finish antibiotic treatment with Ciprofloxacin as prescribed. Do not take lisinopril until Sunday. Pending Studies at Discharge: Yes Studies:: Final cultures Stand-Alone Forms: My [facility] [employer], Smoking Cessation Medications and DC Order Prescriptions: New Advanced Probiotic 625 mg (10 billion cell) Capsule 2 cap PO DAILY Qty: 14 RF: 0 ciprofloxacin HCl 500 mg tablet 500 mg PO Q12H 5 Days Qty: 10 RF: 0 Continued oxybutynin chloride 5 mg tablet 5 mg PO DAILY Qty: 30 RF: 2 lisinopril [Zestril] 20 mg tablet 20 mg PO QAM RF: 0 levothyroxine 175 mcg capsule 175 mcg PO QAM RF: 0 aspirin 81 mg tablet,delayed release (DR/EC) 81 mg PO QAM RF: 0 atorvastatin 80 mg Tablet 80 mg PO QAM RF: 0 fluticasone propionate [Flonase Allergy Relief] 50 mcg/actuation spr ay,suspension 2 spray INTRANASAL DAILY PRN (Reason: Nasal Congestion) RF: 0 acetaminophen 500 mg Capsule 1,000 mg PO Q6H PRN (Reason: Pain) RF: 0 tamsulosin 0.4 mg capsule 0.4 mg PO HS Qty: 30 RF: 0 amitriptyline 25 mg tablet 25 mg PO DAILY RF: 0 ibuprofen 200 mg Tablet 600 mg PO Q6H PRN (Reason: Pain) RF: 0 omeprazole 20 mg capsule,delayed release(DR/EC) 20 mg PO QAM RF: 0 metformin 500 mg tablet extended release 24 hr 1,000 mg PO QAM RF: 0 ezetimibe [Zetia] 10 mg tablet 10 mg PO QAM RF: 0 Discharge Orders: Discharge Order (Routine); Ordered 05/14/21 Ordered By: Lee Hernández/Other Patient Handouts: High Blood Sugar (Hyperglycemia), Hypoglycemia (Low Blood Sugar), Exercise: Why Fitness Matters, Diabetes: Meal Planning, Type 2 Diabetes Admission Data Admit Date/Time: 05/11/21 23:23 Attending Provider: Lee Ware Admit Provider: Toney Landaverde Primary Care Provider: Shemar Tai Other Providers: Toney Landaverde ; Harsha Bai ; Maxx Stark ; Roberto Ayala ; Zakia Jay ; John Keller ; Erendira Escobar Melissa A. ; Shelby Whipple ; Wil Arreguin ; Fan Murrieta ; Vera Nicole ; Yakelin Whipple ; Juan Miguel Sweet
[2021-05-15] MEDS ORDERED: VANCOMYCIN HCL 1,500 MG in SODIUM CHLORIDE 0.9% 500 ML IV SCH (04:00)
[2021-05-16] MEDS ORDERED: VANCOMYCIN TROUGH ONE (15:30)
== END 2021-05-14 21:20 | disposition home or self-care (01) | DRG 698 ==
LOC: ED 17:07 → 2N 23:23 → UNDODISIN 05-14 19:58

== ENCOUNTER 2023-03-18 21:22 | Inpatient (IN) ==
[2023-03-18 22:03] LABS: Appearance Urine Cloudy (Clear); Bacteria Urine Automated 4+ (Negative); Bilirubin Urine Negative (Negative); Blood Urine 2+ (Negative); Color Urine Yellow; Glucose Urine UA Negative (Negative); Ketones Urine Trace (Negative); Leukocyte Esterase Urine 3+ (Negative); Nitrite Urine Positive (Negative); Specific Gravity Urine 1.013 (1.000-1.030); Urobilinogen Urine Negative (Negative); WBC Urine Automated >30 /hpf (0-5)
[2023-03-18 22:05] LABS: Protein Urine 1+ (Negative)
[2023-03-18 22:07] LABS: Basophils # (auto) 0.07 K/uL (0-0.2); Basophils % (auto) 0.4 %; Eosinophils # (auto) 0.09 K/uL (0-0.50); Eosinophils % (auto) 0.5 %; Hematocrit (blood only) 41.4 % (42.0-52.0); Hemoglobin 14.4 g/dl (14.0-18.0); Immature Granulocytes # (auto) 0.07 K/uL (0.01-0.20); Immature Granulocytes % (auto) 0.4 %; Lymphocytes # (auto) 2.02 K/uL (1.2-3.4); Lymphocytes % (auto) 10.7 %; Mean Corpuscular Hemoglobin 30.8 pg (25.0-34.0); Mean Corpuscular Hgb Conc 34.8 g/dL (32.0-36.0); Mean Corpuscular Volume 88.7 fL (80.0-100.0); Mean Platelet Volume 8.9 fL (9.4-12.4); Monocytes # (auto) 1.58 K/uL (0.11-0.59); Monocytes % (auto) 8.4 %; Neutrophils # (auto) 14.98 K/uL (1.40-6.50); Neutrophils % (auto) 79.6 %; Platelet Count 287 K/uL (130-400); RDW Coefficient of Variation 12.7 % (11.5-14.5); RDW Standard Deviation 40.9 fL (36.4-46.3); Red Blood Count 4.67 M/uL (4.70-6.10); White Blood Count 18.81 K/ul (4.8-10.8)
[2023-03-18] MEDS ORDERED: PIPERACILLIN/TAZOBACTAM 4.5 GM/120 ML BAG IV ONE (22:24)
[2023-03-18] MEDS ORDERED: SODIUM CHLORIDE 0.9% 1000ML 1,000 ML IV ONE ×2 (22:24→22:47)
[2023-03-18 22:28] LABS: Albumin Globulin Ratio 1.2 (0.9-2); Albumin Level 4.3 gm/dl (3.4-5.0); BUN Creatinine Ratio 13.8 (10-20); Bilirubin,Total 1.1 mg/dl (0.2-1.0); Calcium 9.3 mg/dl (8.6-10.3); Creatinine Clr Calc Pharmacy 47.5 ml/min; Est GFR (African American) 44.8 ml/min; Est GFR (Non-African American) 38.6 ml/min; Globulin 3.5 gm/dl (2.5-4.0); Potassium 4.3 mmol/L (3.5-5.1); Total Protein 7.8 gm/dl (6.0-8.3)
--- NOTE | 2023-03-18 22:46 | Emergency Department Note ---
History of Present Illness General Chief complaint: Fever Stated complaint: FEVER,CHILLS,WEAKNESS History of Present Illness This 62-year-old gentleman with a history of bladder cancer presents to the ER complaining of fever chills and not feeling well for the past 2 days. Patient states his urine smell is off. He is prone to urine infections in the past. Patient has a urostomy from his bladder cancer surgery. He is no longer receiving any treatment. He only has 1 kidney. Patient denies chest pain, dys pnea, cough, vomiting, diarrhea. Home Medications Medication Instructions Recorded Confirmed Type aspirin 81 mg tablet,delayed 81 mg PO QAM 03/30/20 03/18/23 History release levothyroxine 175 mcg capsule 175 mcg PO QAM 03/30/20 03/18/23 History atorvastatin 80 mg tablet 80 mg PO QAM 05/04/20 03/18/23 History fluticasone propionate 50 2 spray intranasal DAILY PRN Nasal 06/22/20 03/18/23 History mcg/actuation nasal Congestion spray,suspension (Flonase Allergy Relief) ezetimibe 10 mg tablet (Zetia) 10 mg PO QAM 10/09/20 03/18/23 History metformin 500 mg tablet,extended 1,000 mg PO QAM 10/10/21 03/18/23 History release 24 hr omeprazole 20 mg capsule,delayed 20 mg PO QAM PRN heartburn 12/02/21 03/18/23 History release amlodipine 2.5 mg tablet 2.5 mg PO QAM 07/10/22 03/18/23 History lisinopril 20 mg tablet 20 mg PO QAM 07/10/22 03/18/23 History nitroglycerin 0.4 mg sublingual 0.4 mg sublingual Q5M PRN Chest 07/10/22 03/18/23 History tablet Pain acetaminophen 500 mg tablet 1,000 mg PO DIRECTED PRN 03/18/23 03/18/23 History (Tylenol Extra Strength) FEVER/PAIN Allergies Allergy/AdvReac Type Severity Reaction Status Date / Time No Known Allergies Allergy Mild Verified 03/18/23 23:35 Past Med/Surg History Medical History Arthritis Bladder cancer Bladder cancer AND URETERAL CANCER? 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 Chronic back pain CKD (chronic kidney disease), stage III Coronary artery disease S/p stent in 2007, no longer follows with [facility], PCP only. 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 Negative DSE 2013. Diabetes NIDDM Diabetes mellitus, type II Foot drop, right No brace GERD (gastroesophageal reflux disease) Hyperlipidemia Hypertension Hypomagnesemia Hypothyroidism Myocardial Infarction 2007 > stent x1 Ureteral cancer Ureteral cancer Surgical History History of cardiac cath stent x1 (2007) History of colonoscopy History of cystoscopy Multiple Cysto, bladder biopsy (07/12/20): MAC sedation at [facility] TURBT (05/17/20): LMA#5 at [facility] History of tooth extraction Family History Mother Diabetes Heart disease Cancer Hypertension Family history of diabetes mellitus Father Heart disease Social History Smoking Status: Former smoker Tobacco Type: Cigarettes Second Hand Exposure: No; Do You Dip or Chew Tobacco: No; Hx Alcohol Use: No Hx Substance Use: No Preferred Language: Indonesian Communication Ability: Effective Geosciences Professor Required: No Beliefs That Will Affect Care: None marital status: Current Living Situation: Spouse current occupational status: employed current occupation: [employer] How many Children do You have: 2 Feels Safe at Home: Yes Diet: regular Review of Systems A total of 10 systems reviewed and were otherwise negative Physical Exam Vital Signs Vital Signs - 24 hr 03/18/23 21:24 03/18/23 22:22 03/18/23 22:47 Temperature 37.3 C 37.2 C Temperature Source Oral Oral Pulse Rate 125 H 92 H Pulse Rate [Apical] 101 H Pulse Rhythm [Apical] Regular Pulse Strength [Apical] Normal Respiratory Rate 18 18 Respiratory Effort / Characteristics Non-Labored Spontaneous Non-Labored Respiratory Depth Normal Normal Respiratory Pattern Regular Blood Pressure 112/77 Blood Pressure [Right Arm] 123/77 Blood Pressure Mean 88 Blood Pressure Mean [Right Arm] 92 Pulse Oximetry 94 93 Oxygen Delivery Method Room Air Room Air Sepsis Recent Fever Within 48 Hours Yes Sepsis New/Unexplained Change in Mental Status No Sepsis Action Taken by Nursing No Action Required 03/19/23 00:51 Temperature 38 C H Temperature Source Oral Pulse Rate Pulse Rate [Apical] 81 Pulse Rhythm [Apical] Pulse Strength [Apical] Respiratory Rate 20 Respiratory Effort / Characteristics Respiratory Depth Respiratory Pattern Blood Pressure Blood Pressure [Right Arm] 126/73 Blood Pressure Mean Blood Pressure Mean [Right Arm] 90 Pulse Oximetry 97 Oxygen Delivery Method Room Air Sepsis Recent Fever Within 48 Hours Sepsis New/Unexplained Change in Mental Status Sepsis Action Taken by Nursing VITALS: Vitals are noted on the nurse's note and reviewed by myself. Vital signs mildly tachycardic. GENERAL: Pleasant gentleman with present, in no acute distress, nondiaphoretic, well-developed well-nourished. SKIN: The skin was without rashes, erythema, edema, or bruising. There is no tenting of the skin. Capillary reflex less than 2 seconds. HEAD: Normocephalic atraumatic. EARS: External auditory canals clear, EYES: Pupils equal round and reactive to light and accommodation. Conjunctivae without injection, sclerae without icterus. Extraocular movements intact. NOSE: Patent, turbinates without inflammation or discharge. MOUTH: Mucous membranes moist. Pharynx without erythema or exudate. Uvula midline. Airway patent. Tongue does not deviate. NECK: Supple without nuchal rigidity. No lymphadenopathy. No thyromegaly. Cervical spine is nontender. No JVD. HEART: Regular rate and rhythm LUNGS: Clear to auscultation bilaterally without wheezes, rales or rhonchi. No retractions or accessory muscle use. ABDOMEN: Positive bowel sounds x 4. Normal tympanic percussion. Soft, mild diffuse tenderness with ostomy in the right lower quadrant, without masses or organomegaly. Calvin sign negative. No guarding or rebound tenderness. No CVA tenderness MUSCULOSKELETAL: No muscle atrophy, erythema, or edema noted. NEURO: Patient was alert and oriented to person place and time. Normal sensation to light and sharp touch. No focal neurological deficits. Course Administered Medications Magnesium Sulfate/Dextrose (Magnesium Sulfate / D5w) 1 gm in 100 mls @ 100 mls/hr IV Q1H UMBERTO Stop: 03/19/23 02:48 Last Admin: 03/19/23 01:33 Dose: 100 mls/hr Documented By: SW Discontinued Medications Acetaminophen (Acetaminophen 500 Mg Tab) 1,000 mg PO NOW STA Stop: 03/19/23 00:54 Last Admin: 03/19/23 01:34 Dose: 1,000 mg Documented By: ABDIRIZAK Piperacillin Sod/Tazobactam Sod (Zosyn) 4.5 gm in 120 mls @ 240 mls/hr IV NOW ONE Stop: 03/18/23 22:53 Last Infusion: 03/19/23 00:31 Dose: 0 mls/hr Documented By: Admin: 03/18/23 23:47 Dose: 240 mls/hr Documented By: ABDIRIZAK Sodium Chloride (Nss 1000ml) 1,000 mls @ 999 mls/hr IV .Q1H1M ONE Stop: 03/18/23 23:24 Last Infusion: 03/19/23 00:31 Dose: 0 mls/hr Documented By: Admin: 03/18/23 23:26 Dose: 999 mls/hr Documented By: ABDIRIZAK Sodium Chloride (Nss 1000ml) 1,000 mls @ 999 mls/hr IV .Q1H1M ONE Stop: 03/18/23 23:47 Last Infusion: 03/19/23 00:31 Dose: 0 mls/hr Documented By: Admin: 03/18/23 23:26 Dose: 999 mls/hr Documented By: ABDIRIZAK Medical Decision Making Medical Records Attestation: I reviewed the patient's medical records. Home Medications Current Medication List: was personally reviewed by me Laboratory Data Attestation: I reviewed the patient's lab results. 03/18/23 21:44 03/18/23 21:44 Lab Results 03/18/23 03/18/23 03/18/23 Range/Units 21:44 21:44 21:44 WBC 18.81 H (4.8-10.8) K/ul RBC 4.67 L (4.70-6.10) M/uL Hgb 14.4 (14.0-18.0) g/dl Hct 41.4 L (42.0-52.0) % MCV 88.7 (80.0-100.0) fL MCH 30.8 (25.0-34.0) pg MCHC 34.8 (32.0-36.0) g/dL RDW Std Deviation 40.9 (36.4-46.3) fL RDW Coeff of Jovanna 12.7 (11.5-14.5) % Plt Count 287 (130-400) K/uL MPV 8.9 L (9.4-12.4) fL Immature Gran % (Auto) 0.4 % Neut % (Auto) 79.6 % Lymph % (Auto) 10.7 % Bradley % (Auto) 8.4 % Eos % (Auto) 0.5 % Baso % (Auto) 0.4 % Neut # (Auto) 14.98 H (1.40-6.50) K/uL Lymph # (Auto) 2.02 (1.2-3.4) K/uL Bradley # (Auto) 1.58 H (0.11-0.59) K/uL Eos # (Auto) 0.09 (0-0.50) K/uL Baso # (Auto) 0.07 (0-0.2) K/uL Immature Gran # (Auto) 0.07 (0.01-0.20) K/uL Sodium 135 L (136-145) mmol/L Potassium 4.3 (3.5-5.1) mmol/L Chloride 105 (98-107) mmol/L Carbon Dioxide 19 L (21-32) mmol/L Anion Gap 11 (3-11) BUN 25 H (6-23) mg/dl Creatinine 1.81 H (0.6-1.4) mg/dl Est Cr Clr Drug Dosing 47.5 ml/min Est GFR ( Amer) 44.8 ml/min Est GFR (Non-Af Amer) 38.6 ml/min BUN/Creatinine Ratio 13.8 (10-20) Glucose 141 H (70-99(Fasting)) mg/dl Lactate (0.4-2.0) mmol/L Calcium 9.3 (8.6-10.3) mg/dl Magnesium 1.3 L (1.7-2.4) mg/dl Total Bilirubin 1.1 H (0.2-1.0) mg/dl AST 15 (13-39) U/L ALT 19 (7-52) U/L Alkaline Phosphatase 74 (34-104) U/L Troponin I High Sens 8.4 (0-20) pg/ml Total Protein 7.8 (6.0-8.3) gm/dl Albumin 4.3 (3.4-5.0) gm/dl Globulin 3.5 (2.5-4.0) gm/dl Albumin/Globulin Ratio 1.2 (0.9-2) Procalcitonin 0.47 (0-0.5) ng/ml Urine Color Urine Appearance (Clear) Urine pH (4.5-7.5) Ur Specific [place] (1.000-1.030) Urine Protein (Negative) Urine Glucose (UA) (Negative) Urine Ketones (Negative) Urine Blood (Negative) Urine Nitrite (Negative) Urine Bilirubin (Negative) Urine Urobilinogen (Negative) Ur Leukocyte Esterase (Negative) Urine WBC (Auto) (0-5) /hpf Urine RBC (Auto) (0-4) /hpf U Hyaline Cast (Auto) (0-5) /lpf U Epithel Cells (Auto) (0-5) /lpf Urine Bacteria (Auto) (Negative) 03/18/23 03/18/23 Range/Units 21:45 23:51 WBC (4.8-10.8) K/ul RBC (4.70-6.10) M/uL Hgb (14.0-18.0) g/dl Hct (42.0-52.0) % MCV (80.0-100.0) fL MCH (25.0-34.0) pg MCHC (32.0-36.0) g/dL RDW Std Deviation (36.4-46.3) fL RDW Coeff of Jovanna (11.5-14.5) % Plt Count (130-400) K/uL MPV (9.4-12.4) fL Immature Gran % (Auto) % Neut % (Auto) % Lymph % (Auto) % Bradley % (Auto) % Eos % (Auto) % Baso % (Auto) % Neut # (Auto) (1.40-6.50) K/uL Lymph # (Auto) (1.2-3.4) K/uL Bradley # (Auto) (0.11-0.59) K/uL Eos # (Auto) (0-0.50) K/uL Baso # (Auto) (0-0.2) K/uL Immature Gran # (Auto) (0.01-0.20) K/uL Sodium (136-145) mmol/L Potassium (3.5-5.1) mmol/L Chloride (98-107) mmol/L Carbon Dioxide (21-32) mmol/L Anion Gap (3-11) BUN (6-23) mg/dl Creatinine (0.6-1.4) mg/dl Est Cr Clr Drug Dosing ml/min Est GFR ( Amer) ml/min Est GFR (Non-Af Amer) ml/min BUN/Creatinine Ratio (10-20) Glucose (70-99(Fasting)) mg/dl Lactate 1.3 (0.4-2.0) mmol/L Calcium (8.6-10.3) mg/dl Magnesium (1.7-2.4) mg/dl Total Bilirubin (0.2-1.0) mg/dl AST (13-39) U/L ALT (7-52) U/L Alkaline Phosphatase (34-104) U/L Troponin I High Sens (0-20) pg/ml Total Protein (6.0-8.3) gm/dl Albumin (3.4-5.0) gm/dl Globulin (2.5-4.0) gm/dl Albumin/Globulin Ratio (0.9-2) Procalcitonin (0-0.5) ng/ml Urine Color Yellow Urine Appearance Cloudy A (Clear) Urine pH 8.0 H (4.5-7.5) Ur Specific [place] 1.013 (1.000-1.030) Urine Protein 1+ H (Negative) Urine Glucose (UA) Negative (Negative) Urine Ketones Trace H (Negative) Urine Blood 2+ H (Negative) Urine Nitrite Positive A (Negative) Urine Bilirubin Negative (Negative) Urine Urobilinogen Negative (Negative) Ur Leukocyte Esterase 3+ H (Negative) Urine WBC (Auto) >30 H (0-5) /hpf Urine RBC (Auto) 5-10 H (0-4) /hpf U Hyaline Cast (Auto) 10-30 H (0-5) /lpf U Epithel Cells (Auto) 5-10 H (0-5) /lpf Urine Bacteria (Auto) 4+ H (Negative) Imaging Data Attestation: I personally reviewed and interpreted this imaging study as follows: Radiologist's Impression: Abdomen/Pelvis CT 03/18/23 22:24 Exam(s): CT ABDOMEN + PELVIS Without Contrast EXAM: CT Abdomen and Pelvis Without Intravenous Contrast CLINICAL HISTORY: Reason for exam: fever, uti, ? pyleo/abscess. TECHNIQUE: Axial computed tomography images of the abdomen and pelvis without intravenous contrast. Automated exposure control was utilized for the study. A dose lowering technique was utilized adhering to the principles of ALARA. COMPARISON: No relevant prior studies available. FINDINGS: Lung bases: Unremarkable. No mass. No consolidation. ABDOMEN: Liver: Hepatic steatosis. Gallbladder and bile ducts: Unremarkable. No calcified stones. No ductal dilation. Pancreas: Unremarkable. No ductal dilation. Spleen: Unremarkable. No splenomegaly. Adrenals: Unremarkable. No mass. Kidneys and ureters: RIGHT nephrectomy. Stomach and bowel: Diverticulosis, without acute diverticulitis. No small bowel obstruction. No free intraperitoneal air. PELVIS: Appendix: No findings to suggest acute appendicitis. Bladder: Cystectomy. No left-sided hydronephrosis or obstructive uropathy. Ileal conduit with RIGHT lower quadrant ileostomy. Left-sided perinephric stranding. Evaluation limited due to lack of contrast. Reproductive: Unremarkable as visualized. ABDOMEN and PELVIS: Intraperitoneal space: Unremarkable. No free air. No significant fluid collection. Bones/joints: Degenerative changes of the spine. No acute fracture. No dislocation. Soft tissues: Unremarkable. Vasculature: Atherosclerotic changes of the aorta. No abdominal aortic aneurysm. Lymph nodes: Unremarkable. No enlarged lymph nodes. IMPRESSION: 1. RIGHT nephrectomy. 2. Cystectomy. No left-sided hydronephrosis or obstructive uropathy. Ileal conduit with RIGHT lower quadrant ileostomy. Left-sided perinephric stranding. Evaluation limited due to lack of contrast. 3. Diverticulosis, without acute diverticulitis. No small bowel obstruction. No free intraperitoneal air. Electronically signed by: Sadi Virgen MD 03/19/23 00:37 AM [facility] Narrative Prior records/ancillary studies reviewed. Triage Nursing notes reviewed. Additional history obtained from family. The patient's history was concerning for fever. Differential diagnosis: Etiologies such as urosepsis, pyelonephritis, viral syndrome, otitis, p haryngitis, pneumonia, influenza, meningitis, urinary tract infection, sepsis, bacteremia, as well as others were entertained. Physical examination: As above ER treatment provided: An order was placed for continuous cardiac monitoring. The monitor shows a rate of 60-1 20 with a sinus rhythm per my interpretation. IV fluids and Zosyn were ordered APAP, magnesium for low magnesium On reassessment the patient felt better. Diagnostics interpreted by me: ECG: Ordered for tachycardia EKG: Normal sinus, normal intervals, minimal ST depression in the lateral leads most likely rate dependent, impression sinus tachycardia with minimal ST depression in the lateral leads independently interpreted by myself I think arrhythmia is unlikely. EKG shows normal sinus rhythm with no interval abnormalities such as QT prolongation or WPW. There are no findings to suggest Brugada syndrome. Cardiac monitoring in the emergency department reveals no tachycardic or bradycardic dysrhythmia. Hypertrophic cardiomyopathy was considered but there are no clear historical elements pointing toward this. EKG is not suggestive. The QRS voltage is not extremely large and there are no suggestive Q waves. The labs Independently Interpreted by myself revealed leukocytosis, urine was concerning for infection and prior urine culture was reviewed. Zosyn is sensitive. Elevated creatinine Low magnesium Negative troponin Imaging studies: Chest x-ray with no acute consolidation, pneumothorax or free air per my independent interpretation CT of the abdomen pelvis concerning for developing pyelonephritis per my independent interpretation Consultation: A consultation was placed with hospitalist. The case was discussed and diagnostics were reviewed. The patient was evaluated in the ER for further treatment. This appears to be consistent with urosepsis. Patient was immediately started on antibiotics. Prior urine cultures reviewed. Labs and diagnostics were independently interpreted by myself. Medicine was consulted and case discussed. Patient will be admitted to the medical service for further evaluation and work-up.. By the evaluation outlined above emergent etiologies such as otitis, pharyngitis, pneumonia, meningitis, bacteremia, as well as others were deemed relatively unlikely. The pt informed about the findings as listed above. All questions were answered and pleased with the treatment. The chart was completed utilizing [employer] Speech voice recognition software. Grammatical errors, random word insertions, pronoun errors, and incomplete sentences are an occassional consequence of this system due to software limitations, ambient noise, and hardware issues. Any formal questions or concerns about the content, text, or information contained within the body of this dictation should be directly addressed to the physician media assistant for clarification. Impression & Plan Acute pyelonephritis, Sepsis, Hypomagnesemia Discharge Plan Visit Data Chief Complaint: Fever Stated Complaint: FEVER,CHILLS,WEAKNESS ED Provider: Jessika Stevens ED Midlevel Provider: Imelda Posada Discharge Problem: Acute pyelonephritis, Sepsis, Hypomagnesemia Patient Disposition: Admitted As Inpatient Condition: Fair Forms Stand Alone Forms: My [facility] Prescriptions Prescriptions: No Action lisinopril 20 mg tablet 20 mg PO QAM amlodipine 2.5 mg tablet 2.5 mg PO QAM nitroglycerin 0.4 mg tablet, sublingual 0.4 mg sublingual Q5M PRN (Reason: Chest Pain) Rx Instructions: do not exceed 3 doses per episode/ Pt has never used levothyroxine 175 mcg capsule 175 mcg PO QAM aspirin 81 mg tablet,delayed release (DR/EC) 81 mg PO QAM atorvastatin 80 mg Tablet 80 mg PO QAM fluticasone propionate [Flonase Allergy Relief] 50 mcg/actuation spray,suspension 2 spray INTRANASAL DAILY PRN (Reason: Nasal Congestion) ezetimibe [Zetia] 10 mg tablet 10 mg PO QAM metformin 500 mg tablet extended release 24 hr 1,000 mg PO QAM omeprazole 20 mg capsule,delayed release(DR/EC) 20 mg PO QAM PRN (Reason: heartburn) acetaminophen [Tylenol Extra Strength] 500 mg Tablet 1,000 mg PO DIRECTED PRN (Reason: FEVER/PAIN) Referrals Referrals: Shemar Tai MD [Primary Care Provider] -
[2023-03-18 22:49] LABS: Magnesium 1.3 mg/dl (1.7-2.4)
[2023-03-18 22:56] LABS: Troponin I High Sensitivity 8.4 pg/ml (0-20)
--- NOTE | 2023-03-19 00:38 | CT Scan Report ---
Exam(s): CT ABDOMEN + PELVIS Without Contrast EXAM: CT Abdomen and Pelvis Without Intravenous Contrast CLINICAL HISTORY: Reason for exam: fever, uti, ? pyleo/abscess. TECHNIQUE: Axial computed tomography images of the abdomen and pelvis without intravenous contrast. Automated exposure control was utilized for the study. A dose lowering technique was utilized adhering to the principles of ALARA. COMPARISON: No relevant prior studies available. FINDINGS: Lung bases: Unremarkable. No mass. No consolidation. ABDOMEN: Liver: Hepatic steatosis. Gallbladder and bile ducts: Unremarkable. No calcified stones. No ductal dilation. Pancreas: Unremarkable. No ductal dilation. Spleen: Unremarkable. No splenomegaly. Adrenals: Unremarkable. No mass. Kidneys and ureters: RIGHT nephrectomy. Stomach and bowel: Diverticulosis, without acute diverticulitis. No small bowel obstruction. No free intraperitoneal air. PELVIS: Appendix: No findings to suggest acute appendicitis. Bladder: Cystectomy. No left-sided hydronephrosis or obstructive uropathy. Ileal conduit with RIGHT lower quadrant ileostomy. Left-sided perinephric stranding. Evaluation limited due to lack of contrast. Reproductive: Unremarkable as visualized. ABDOMEN and PELVIS: Intraperitoneal space: Unremarkable. No free air. No significant fluid collection. Bones/joints: Degenerative changes of the spine. No acute fracture. No dislocation. Soft tissues: Unremarkable. Vasculature: Atherosclerotic changes of the aorta. No abdominal aortic aneurysm. Lymph nodes: Unremarkable. No enlarged lymph nodes. IMPRESSION: 1. RIGHT nephrectomy. 2. Cystectomy. No left-sided hydronephrosis or obstructive uropathy. Ileal conduit with RIGHT lower quadrant ileostomy. Left-sided perinephric stranding. Evaluation limited due to lack of contrast. 3. Diverticulosis, without acute diverticulitis. No small bowel obstruction. No free intraperitoneal air. Electronically signed by: Sadi Virgen MD 03/19/23 00:37 AM
[2023-03-19] MEDS ORDERED: ACETAMINOPHEN 500 MG TAB PO STA (00:53)
[2023-03-19] MEDS: MAGNESIUM SULFATE / D5W 1 GM/100 ML BAG IV SCH ×2 (01:33→02:56)
--- NOTE | 2023-03-19 02:22 | History & Physical Report ---
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 Acute pyelonephritis On left side History of right nephrectomy History of recurrent UTI history of MDR E. coli Received IV Zosyn in the ER We will continue with IV Invanz IV fluids We will follow cultures We will follow response YOHAN on chronic kidney disease stage III Baseline creatinine 1.7 Current creatinine 1.8 Holding lisinopril and getting fluids and antibiotics We will follow labs in a.m . Abnormal EKG No chest pain or shortness of breath Troponin negative we will follow repeat troponin We will follow repeat EKG h/o urothelial CA involving the bladder and R ureter. s/p R nephroureterectomy, cystectomy, L distal ureterectomy, bilateral pelvic lymph node dissection and formation of a RLQ urostomy/ileal conduit was performed at [facility] 09/20. Hypertension Continue amlodipine Holding lisinopril IV hydralazine as needed for now History of CAD s/p stent On aspirin and statin History of bradycardia Beta-chong discontinued Hyperlipidemia on statin and Zetia Diabetes Hold metformin Insulin sliding scale We will follow blood sugars and HbA1c levels Hypothyroidism on Synthyroid DVT prophylaxis Lovenox Disposition medical floor Full code History of Present Illness Chief Complaint: Fever and chills Primary Care Provider: Shemar Tai MD 62-year-old male with past medical significant for hyperlipidemia, hypothyroidism, diabetes, CAD s/p stent, history of sinus bradycardia, hypertension, GERD, constipation, history of recurrent UTIs, beta-chong intolerance, chronic kidney stage III 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 Patient states last night had fever and started feeling chills and history of UTIs in the past were worried and came to the hospital. Denies any chest pain or shortness of breath. Urostomy seems to working okay. No nausea vomiting. Normal bowel movements. Currently no headache. Currently no earache or runny nose or cough. Resting comfortably and hemodynamically stable Past medical history as mentioned above Past surgical history s/p R nephroureterectomy, cystectomy, L distal ureterectomy, bilateral pelvic lymph node dissection and formation of a RLQ urostomy/ileal conduit was performed at [facility] 09/20. Cardiac catheter s/p stent placement,Colonoscopy Social history former smoker quit in 2001 smoked 2 packs a day for 20 years. Alcohol rarely. No drug use Family history father had diabetes. Mother had diabetes, hypothyroidism, hypertension, uncle has diabetes. Maternal grandfather had emphysema Allergies Allergy/AdvReac Type Severity Reaction Status Date / Time No Known Allergies Allergy Mild Verified 03/18/23 23:35 Home Medications Medication Instructions Recorded Confirmed Type aspirin 81 mg tablet,delayed 81 mg PO QAM 03/30/20 03/18/23 History release levothyroxine 175 mcg capsule 175 mcg PO QAM 03/30/20 03/18/23 History atorvastatin 80 mg tablet 80 mg PO QAM 05/04/20 03/18/23 History fluticasone propionate 50 2 spray intranasal DAILY PRN Nasal 06/22/20 03/18/23 History mcg/actuation nasal Congestion spray,suspension (Flonase Allergy Relief) ezetimibe 10 mg tablet (Zetia) 10 mg PO QAM 10/09/20 03/18/23 History metformin 500 mg tablet,extended 1,000 mg PO QAM 10/10/21 03/18/23 History release 24 hr omeprazole 20 mg capsule,delayed 20 mg PO QAM PRN heartburn 12/02/21 03/18/23 History release amlodipine 2.5 mg tablet 2.5 mg PO QAM 07/10/22 03/18/23 History lisinopril 20 mg tablet 20 mg PO QAM 07/10/22 03/18/23 History nitroglycerin 0.4 mg sublingual 0.4 mg sublingual Q5M PRN Chest 07/10/22 03/18/23 History tablet Pain acetaminophen 500 mg tablet 1,000 mg PO DIRECTED PRN 03/18/23 03/18/23 History (Tylenol Extra Strength) FEVER/PAIN Past Med/Surg History Medical History Arthritis Bladder cancer Bladder cancer AND URETERAL CANCER? 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 Chronic back pain CKD (chronic kidney disease), stage III Coronary artery disease S/p stent in 2007, no longer follows with [facility] cardio, PCP only. 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 Negative DSE 2013. Diabetes NIDDM Diabetes mellitus, type II Foot drop, right No brace GERD (gastroesophageal reflux disease) Hyperlipidemia Hypertension Hypomagnesemia Hypothyroidism Myocardial Infarction 2007 > stent x1 Ureteral cancer Ureteral cancer Surgical History History of cardiac cath stent x1 (2007) History of colonoscopy History of cystoscopy Multiple Cysto, bladder biopsy (07/12/20): MAC sedation at [facility] (05/17/20): LMA#5 at [facility] History of tooth extraction Family History Mother Diabetes Heart disease Cancer Hypertension Family history of diabetes mellitus Father Heart disease Social History Smoking Status: Former smoker Tobacco Type: Cigarettes Second Hand Exposure: No; Do You Dip or Chew Tobacco: No; Hx Alcohol Use: No Hx Substance Use: No Preferred Language: Chilean Communication Ability: Effective Electric Detector Operator Required: No Beliefs That Will Affect Care: None marital status: Current Living Situation: Spouse current occupational status: employed current occupation: [employer] How many Children do You have: 2 Feels Safe at Home: Yes Diet: regular Review of Systems Review of Systems: All systems reviewed & are unremarkable except as noted in HPI & below Physical Exam Physical Exam: General- Not in distress. Head- atraumatic Eyes- PERRL, ENT- oropharynx clear Neck- supple, no JVD, Lungs- clear to auscultation no added sounds. Heart- regular rhythm; no murmur, no gallop. Abdomen- normal bowel sounds, soft, nontender, Urostomy bag seen with clear urine. Extremities- no pretibial edema, no calf tenderness; peripheral pulses intact Neuro- alert, oriented x 3; PERRL, EOMI; no facial palsy; no dysarthria; motor 5/5 bilaterally; no cogwheel rigidity; patellar DTRs +2/2; toes downgoing bilaterally; finger to nose intact bilaterally Skin- warm & dry Results & Data Results & Data Vital Signs (Past 12 Hours) Vital Signs Temp Pulse Pulse Resp BP BP Pulse Ox 03/19/23 00:51 38 C H 81 20 126/73 97 03/18/23 22:47 92 H 03/18/23 22:22 37.2 C 101 H 18 123/77 93 03/18/23 21:24 37.3 C 125 H 18 112/77 94 O2 Del Method 03/19/23 00:51 Room Air 03/18/23 22:47 03/18/23 22:22 Room Air 03/18/23 21:24 Room Air Diagnostic Findings Laboratory Results WBC 18.81 K/ul (4.8-10.8) H 03/18/23 21:44 RBC 4.67 M/uL (4.70-6.10) L 03/18/23 21:44 Hgb 14.4 g/dl (14.0-18.0) 03/18/23 21:44 Hct 41.4 % (42.0-52.0) L 03/18/23 21:44 MCV 88.7 fL (80.0-100.0) 03/18/23 21:44 MCH 30.8 pg (25.0-34.0) 03/18/23 21:44 MCHC 34.8 g/dL (32.0-36.0) 03/18/23 21:44 RDW Std Deviation 40.9 fL (36.4-46.3) 03/18/23 21:44 RDW Coeff of Jovanna 12.7 % (11.5-14.5) 03/18/23 21:44 Plt Count 287 K/uL (130-400) 03/18/23 21:44 MPV 8.9 fL (9.4-12.4) L 03/18/23 21:44 Immature Gran % (Auto) 0.4 % 03/18/23 21:44 Neut % (Auto) 79.6 % 03/18/23 21:44 Lymph % (Auto) 10.7 % 03/18/23 21:44 [place] % (Auto) 8.4 % 03/18/23 21:44 Eos % (Auto) 0.5 % 03/18/23 21:44 Baso % (Auto) 0.4 % 03/18/23 21:44 Neut # (Auto) 14.98 K/uL (1.40-6.50) H 03/18/23 21:44 Lymph # (Auto) 2.02 K/uL (1.2-3.4) 03/18/23 21:44 [place] # (Auto) 1.58 K/uL (0.11-0.59) H 03/18/23 21:44 Eos # (Auto) 0.09 K/uL (0-0.50) 03/18/23 21:44 Baso # (Auto) 0.07 K/uL (0-0.2) 03/18/23 21:44 Immature Gran # (Auto) 0.07 K/uL (0.01-0.20) 03/18/23 21:44 Sodium 135 mmol/L (136-145) L 03/18/23 21:44 Potassium 4.3 mmol/L (3.5-5.1) 03/18/23 21:44 Chloride 105 mmol/L (98-107) 03/18/23 21:44 Carbon Dioxide 19 mmol/L (21-32) L 03/18/23 21:44 Anion Gap 11 (3-11) 03/18/23 21:44 BUN 25 mg/dl (6-23) H 03/18/23 21:44 Creatinine 1.81 mg/dl (0.6-1.4) H 03/18/23 21:44 Est Cr Clr Drug Dosing 47.5 ml/min 03/18/23 21:44 Est GFR ( Amer) 44.8 ml/min 03/18/23 21:44 Est GFR (Non-Af Amer) 38.6 ml/min 03/18/23 21:44 BUN/Creatinine Ratio 13.8 (10-20) 03/18/23 21:44 Glucose 141 mg/dl (70-99(Fasting)) H 03/18/23 21:44 Lactate 1.3 mmol/L (0.4-2.0) 03/18/23 23:51 Calcium 9.3 mg/dl (8.6-10.3) 03/18/23 21:44 Magnesium 1.3 mg/dl (1.7-2.4) L 03/18/23 21:44 Total Bilirubin 1.1 mg/dl (0.2-1.0) H 03/18/23 21:44 AST 15 U/L (13-39) 03/18/23 21:44 ALT 19 U/L (7-52) 03/18/23 21:44 Alkaline Phosphatase 74 U/L (34-104) 03/18/23 21:44 Troponin I High Sens 8.4 pg/ml (0-20) 03/18/23 21:44 Total Protein 7.8 gm/dl (6.0-8.3) 03/18/23 21:44 Albumin 4.3 gm/dl (3.4-5.0) 03/18/23 21:44 Globulin 3.5 gm/dl (2.5-4.0) 03/18/23 21:44 Albumin/Globulin Ratio 1.2 (0.9-2) 03/18/23 21:44 Procalcitonin 0.47 ng/ml (0-0.5) 03/18/23 21:44 Urine Color Yellow 03/18/23 21:45 Urine Appearance Cloudy (Clear) A 03/18/23 21:45 Urine pH 8.0 (4.5-7.5) H 03/18/23 21:45 Ur Specific [place] 1.013 (1.000-1.030) 03/18/23 21:45 Urine Protein 1+ (Negative) H 03/18/23 21:45 Urine Glucose (UA) Negative (Negative) 03/18/23 21:45 Urine Ketones Trace (Negative) H 03/18/23 21:45 Urine Blood 2+ (Negative) H 03/18/23 21:45 Urine Nitrite Positive (Negative) A 03/18/23 21:45 Urine Bilirubin Negative (Negative) 03/18/23 21:45 Urine Urobilinogen Negative (Negative) 03/18/23 21:45 Ur Leukocyte Esterase 3+ (Negative) H 03/18/23 21:45 Urine WBC (Auto) >30 /hpf (0-5) H 03/18/23 21:45 Urine RBC (Auto) 5-10 /hpf (0-4) H 03/18/23 21:45 U Hyaline Cast (Auto) 10-30 /lpf (0-5) H 03/18/23 21:45 U Epithel Cells (Auto) 5-10 /lpf (0-5) H 03/18/23 21:45 Urine Bacteria (Auto) 4+ (Negative) H 03/18/23 21:45 Impressions Abdomen/Pelvis CT 03/18/23 22:24 Exam(s): CT ABDOMEN + PELVIS Without Contrast EXAM: CT Abdomen and Pelvis Without Intravenous Contrast CLINICAL HISTORY: Reason for exam: fever, uti, ? pyleo/abscess. TECHNIQUE: Axial computed tomography images of the abdomen and pelvis without intravenous contrast. Automated exposure control was utilized for the study. A dose lowering technique was utilized adhering to the principles of ALARA. COMPARISON: No relevant prior studies available. FINDINGS: Lung bases: Unremarkable. No mass. No consolidation. ABDOMEN: Liver: Hepatic steatosis. Gallbladder and bile ducts: Unremarkable. No calcified stones. No ductal dilation. Pancreas: Unremarkable. No ductal dilation. Spleen: Unremarkable. No splenomegaly. Adrenals: Unremarkable. No mass. Kidneys and ureters: RIGHT nephrectomy. Stomach and bowel: Diverticulosis, without acute diverticulitis. No small bowel obstruction. No free intraperitoneal air. PELVIS: Appendix: No findings to suggest acute appendicitis. Bladder: Cystectomy. No left-sided hydronephrosis or obstructive uropathy. Ileal conduit with RIGHT lower quadrant ileostomy. Left-sided perinephric stranding. Evaluation limited due to lack of contrast. Reproductive: Unremarkable as visualized. ABDOMEN and PELVIS: Intraperitoneal space: Unremarkable. No free air. No significant fluid collection. Bones/joints: Degenerative changes of the spine. No acute fracture. No dislocation. Soft tissues: Unremarkable. Vasculature: Atherosclerotic changes of the aorta. No abdominal aortic aneurysm. Lymph nodes: Unremarkable. No enlarged lymph nodes. IMPRESSION: 1. RIGHT nephrectomy. 2. Cystectomy. No left-sided hydronephrosis or obstructive uropathy. Ileal conduit with RIGHT lower quadrant ileostomy. Left-sided perinephric stranding. Evaluation limited due to lack of contrast. 3. Diverticulosis, without acute diverticulitis. No small bowel obstruction. No free intraperitoneal air. Electronically signed by: Sadi Virgen MD 03/19/23 00:37 AM ECG Additional Comments: ECG sinus tachycardia at a rate of [address] abnormalities, ST depression lateral leads Code Status & VTE Plan VTE Prophylaxis Plan VTE Prophylaxis will be ordered: Yes
[2023-03-19] MEDS ORDERED: GLUCAGON FOR INJ 1 MG VIAL SQ PRN (03:28)
[2023-03-19] MEDS ORDERED: ACETAMINOPHEN 325 MG TAB PO PRN (03:28)
[2023-03-19] MEDS ORDERED: NITROGLYCERIN SL 0.4 MG/TAB TAB SL PRN (03:28)
[2023-03-19] MEDS ORDERED: GLUCOSE 40% GEL 15 GM TUBE PO PRN (03:28)
[2023-03-19] MEDS ORDERED: POLYETHYLENE (MIRALAX) 17 GM PACK PO PRN (03:28)
[2023-03-19] MEDS ORDERED: PANTOprazole 40 MG TAB PO PRN (03:28)
[2023-03-19] MEDS ORDERED: DEXTROSE 50% 50 ML SYRINGE IV PRN (03:28)
[2023-03-19] MEDS ORDERED: FLUTICASONE PROPIONATE NA SPR 16 GM BTL PRN (03:28)
[2023-03-19] MEDS ORDERED: hydrALAZINE HCL 20 MG/ML VIAL IV PRN (03:28)
[2023-03-19] MEDS ORDERED: CARBOHYDRATES FOR HYPOGLYCEMIA PO PRN (03:28)
[2023-03-19] MEDS ORDERED: GLUCOSE 10 TAB/TUBE PO PRN (03:28)
[2023-03-19] MEDS: ENOXAPARIN INJ 40 MG/0.4 ML SYR SQ SCH (03:52)
[2023-03-19] MEDS: ERTAPENEM SODIUM 1,000 MG in SYRINGE 0 ML IV SCH (03:57)
[2023-03-19] MEDS: SODIUM CHLORIDE 0.9% 1000ML 1,000 ML IV SCH ×2 (03:57→12:41)
[2023-03-19] MEDS ORDERED: MAGNESIUM SULFATE / D5W 1 GM/100 ML BAG IV ONE (04:00)
--- NOTE | 2023-03-19 06:57 | XRay Report ---
XR chest 1V portable CLINICAL HISTORY: sepsis TECHNIQUE: Single frontal radiograph of the chest was obtained. Comparison: Comparison is made to chest radiograph 01/26/2023 FINDINGS: No lines and tubes are seen. The cardiomediastinal silhouette is normal. The lungs are clear. No evid ence of pleural effusion or pneumothorax. IMPRESSION: No acute abnormalities and in particular no radiographic evidence of pneumonia. ACT 112: Negative or not required by law. Electronically signed by: Brendan Kelly M.D. 03/19/2023 6:56 AM
[2023-03-19 06:58] LABS: Basophils # (auto) 0.06 K/uL (0-0.2); Basophils % (auto) 0.4 %; Eosinophils # (auto) 0.03 K/uL (0-0.50); Eosinophils % (auto) 0.2 %; Hematocrit (blood only) 38.9 % (42.0-52.0); Hemoglobin 13.1 g/dl (14.0-18.0); Immature Granulocytes # (auto) 0.06 K/uL (0.01-0.20); Immature Granulocytes % (auto) 0.4 %; Lymphocytes # (auto) 1.49 K/uL (1.2-3.4); Lymphocytes % (auto) 9.2 %; Mean Corpuscular Hemoglobin 31.3 pg (25.0-34.0); Mean Corpuscular Hgb Conc 33.7 g/dL (32.0-36.0); Mean Corpuscular Volume 92.8 fL (80.0-100.0); Mean Platelet Volume 8.6 fL (9.4-12.4); Monocytes # (auto) 1.66 K/uL (0.11-0.59); Monocytes % (auto) 10.2 %; Neutrophils # (auto) 12.95 K/uL (1.40-6.50); Neutrophils % (auto) 79.6 %; Platelet Count 224 K/uL (130-400); RDW Coefficient of Variation 12.7 % (11.5-14.5); RDW Standard Deviation 43.5 fL (36.4-46.3); Red Blood Count 4.19 M/uL (4.70-6.10); White Blood Count 16.25 K/ul (4.8-10.8)
[2023-03-19] MEDS: LEVOTHYROXINE SODIUM 175 MCG TABLET PO SCH (07:11)
[2023-03-19 07:16] LABS: BUN Creatinine Ratio 11.3 (10-20); Calcium 8.6 mg/dl (8.6-10.3); Creatinine Clr Calc Pharmacy 42.3 ml/min; Est GFR (Non-African American) 33.6 ml/min; Magnesium 2.2 mg/dl (1.7-2.4); Potassium 4.7 mmol/L (3.5-5.1)
[2023-03-19 07:49] LABS: Estimated Average Glucose 160 mg/dl; Hemoglobin A1C 7.2 % (4.5-5.6)
[2023-03-19] MEDS: ATORVASTATIN 40 MG TAB PO SCH (08:12)
[2023-03-19] MEDS: ASPIRIN 81 MG ECTAB PO SCH (08:12)
[2023-03-19] MEDS: EZETIMIBE 10 MG TAB PO SCH (08:12)
[2023-03-19] MEDS: amLODIPine BESYLATE 5 MG TAB PO SCH (08:12)
[2023-03-19] MEDS: INSULIN ASPART PER UNIT CHARGE SC SCH ×4 (08:34→21:00)
--- NOTE | 2023-03-19 12:41 | Electrocardiogram Report ---
Test Reason : Blood Pressure : / mmHG Vent. Rate : 117 BPM Atrial Rate : 117 BPM P-R Int : 130 ms QRS Dur : 088 ms QT Int : 308 ms P-R-T Axes : 065 023 090 degrees QTc Int : 429 ms Sinus tachycardia Nonspecific ST abnormality Abnormal ECG When compared with ECG of 26-JAN-2023 11:56, Vent. rate has increased BY [address] now depressed in Lateral leads Confirmed by Harsha Garcia ([id number]) on 03/19/2023 12:40:40 PM Referred By: REFERRED SELF Confirmed By:Harsha Garcia
--- NOTE | 2023-03-19 14:28 | Communication Note ---
Date of Service: March 19, 2023 Patient was seen and examined at bedside. 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 He is being managed for the following: Acute pyelonephritis x left History of urinary neoplasm, right nephrectomy, recurrent UTI, MDR E. coli UTI. Patient with ileal conduit and urostomy. Patient presents with fever and chills, admitting UA suggestive of UTI. Admitting CTAP: Right nephrectomy, cystectomy. Left-sided perinephric stranding. Patient started on ertapenem 03/19, continue. WBC trending down, patient reports feeling better, patient has been afebrile lately. Follow-up admitting blood culture and urine culture. ID consult, recurrent UTI. CKD stage III: Baseline creatinine of around 1.7, admitting creatinine of 1.8/slightly up trended today at 2.03. Does not qualify acute kidney injury over CKD. Will hold lisinopril, follow BMP in AM. Patient received IV fluids in the ED. Abnormal EKG/ST depression in lateral leads: Patient with no chest pain or shortness of breath. Troponin x2 negative. Follow-up EKG with no new changes. Continue telemetry. Other chronic medical conditions: Continue with/resume home meds as and when able. h/o urothelial CA involving the bladder and R ureter.s/p R nephroureterectomy, cystectomy, L distal ureterectomy, bilateral pelvic lymph node dissection and formation of a RLQ urostomy/ileal conduit was performed at [facility] 09/20. Hypertension: Continue amlodipine, Holding lisinopril, IV hydralazine as needed for now History of CAD s/p stent: On aspirin and statin. Continue. History of bradycardia: Beta-chong discontinued Hyperlipidemia on statin and Zetia Diabetes: Hold metformin, Insulin sliding scale. a1c 7.2 this admission. Hypothyroidism on Synthyroid DVT prophylaxis Lovenox Disposition medical floor Full code On exam, patient on room air, abdomen exam with urostomy bag noted, stoma without signs of infection. Rest of the examination as in H&P. For detailed information on the patient, refer to today's H&P note.
[2023-03-20] MEDS: ERTAPENEM SODIUM 1,000 MG in SYRINGE 0 ML IV SCH (04:33)
[2023-03-20] MEDS ORDERED: traMADol HCL 50 MG TABLET PO STA (04:55)
--- NOTE | 2023-03-20 05:44 | Electrocardiogram Report ---
Test Reason : Blood Pressure : / mmHG Vent. Rate : 080 BPM Atrial Rate : 080 BPM P-R Int : 146 ms QRS Dur : 094 ms QT Int : 358 ms P-R-T Axes : 053 016 056 degrees QTc Int : 412 ms Normal sinus rhythm Normal ECG When compared with ECG of 18-MAR-2023 21:42, (unconfirmed) No significant change was found HR has decreased Confirmed by Harhsa Garcia ([id number]) on 03/20/2023 5:43:51 AM Referred By: REFERRED SELF Confirmed By:Harsha Garcia
[2023-03-20] MEDS: LEVOTHYROXINE SODIUM 175 MCG TABLET PO SCH (06:13)
[2023-03-20] MEDS: INSULIN ASPART PER UNIT CHARGE SC SCH ×3 (08:31→17:07)
[2023-03-20] MEDS: ENOXAPARIN INJ 40 MG/0.4 ML SYR SQ SCH (08:45)
[2023-03-20] MEDS: amLODIPine BESYLATE 5 MG TAB PO SCH (08:46)
[2023-03-20] MEDS: ASPIRIN 81 MG ECTAB PO SCH (08:48)
[2023-03-20] MEDS: EZETIMIBE 10 MG TAB PO SCH (08:48)
[2023-03-20] MEDS: ATORVASTATIN 40 MG TAB PO SCH (08:48)
--- NOTE | 2023-03-20 09:55 | Infectious Disease Consult ---
Date of Consultation March 20, 2023 Assessment & Plan (1) Acute pyelonephritis: Blood cultures negative todate. Urine culture is contaminated from his ostomy and repeating it would not be of value at this point. (2) Chronic kidney disease, stage III (moderate): YOHAN in setting of CKD and solitary kidney, improving. Plan I suspect he could transition to TMP-SMX DS po bid at this point with plans to treat for a total of 7 days. We talked about maintaining hydration and sterile ostomy bag changes to help prevent infection. Consultation Information Consultation was provided via telemedicine using two-way real-time interactive telecommunication between the patient and the telemedicine provider. For the duration of the visit, the provider was performing the assessment from a di fferent facility than the patient. This includesuse of bluetooth stethoscope forauscultationperformed by the telepresenter that the telemedicine provider can hear if described in the physical exam. Lumber Planer contact information: Please call [facility] [phone]. (Phone Number For Physician Use Only) After establishing a telemedicine visit, patient was: Patient was verified with two unique identifiers, Patient/authorized rep acknowledged consent and understanding and Gave permission to continue telehealth session Time Spent with Patient: Initial => 40 min History of Present Illness Reason for Consultation: Pyelonephritis Requesting Physician: Meet Ortiz MD Attending Physician: Meet Ortiz MD History of Present Illness Mr. Degroot is a 62yo male with a h/o DM and urothelial CA. He is S/P right -sided nephrectomy and ileal conduit creation. He presented to [facility] ED with acute onset fever and malaise. In the ED he was noted to have a WBC of >16K. CT imaging showed inflammation around his remaining left kidney and he was diagnosed with a likely UTI. He was started initially on pip-tazo, followed by ertapenem. Last infection was in June 2021. Today he is feeling much better-- almost back to normal. Appettite getting better. at bedside helps provide some of the history. Allergies Allergy/AdvReac Type Severity Reaction Status Date / Time No Known Allergies Allergy Mild Verified 03/18/23 23:35 Home Medications Medication Instructions Recorded Confirmed Type aspirin 81 mg tablet,delayed 81 mg PO QAM 03/30/20 03/18/23 History release levothyroxine 175 mcg capsule 175 mcg PO QAM 03/30/20 03/18/23 History atorvastatin 80 mg tablet 80 mg PO QAM 05/04/20 03/18/23 History fluticasone propionate 50 2 spray intranasal DAILY PRN Nasal 06/22/20 03/18/23 History mcg/actuation nasal Congestion spray,suspension (Flonase Allergy Relief) ezetimibe 10 mg tablet (Zetia) 10 mg PO QAM 10/09/20 03/18/23 History metformin 500 mg tablet,extended 1,000 mg PO QAM 10/10/21 03/18/23 History release 24 hr omeprazole 20 mg capsule,delayed 20 mg PO QAM PRN heartburn 12/02/21 03/18/23 History release amlodipine 2.5 mg tablet 2.5 mg PO QAM 07/10/22 03/18/23 History lisinopril 20 mg tablet 20 mg PO QAM 07/10/22 03/18/23 History nitroglycerin 0.4 mg sublingual 0.4 mg sublingual Q5M PRN Chest 07/10/22 03/18/23 History tablet Pain acetaminophen 500 mg tablet 1,000 mg PO DIRECTED PRN 03/18/23 03/18/23 History (Tylenol Extra Strength) FEVER/PAIN Patient History Medical History Arthritis Bladder cancer Bladder cancer AND URETERAL CANCER? 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 Chronic back pain CKD (chronic kidney disease), stage III Coronary artery disease S/p stent in 2007, no longer follows with [facility] cardio, PCP only. 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 Negative DSE 2013. Diabetes NIDDM Diabetes mellitus, type II Foot drop, right No brace GERD (gastroesophageal reflux disease) Hyperlipidemia Hypertension Hypomagnesemia Hypothyroidism Myocardial Infarction 2007 > stent x1 Ureteral cancer Ureteral cancer Surgical History History of cardiac cath stent x1 (2007) History of colonoscopy History of cystoscopy Multiple Cysto, bladder biopsy (07/12/20): MAC sedation at [facility] (05/17/20): LMA#[address] [facility] History of tooth extraction Family History Mother Diabetes Heart disease Cancer Hypertension Family history of diabetes mellitus Father Heart disease Social History Smoking Status: Never smoker Tobacco Type: Cigarettes Second Hand Exposure: No; Do You Dip or Chew Tobacco: No; Hx Alcohol Use: No Hx Substance Use: No Preferred Language: Cymraes Communication Ability: Effective Double Cutter Required: No Beliefs That Will Affect Care: None marital status: Current Living Situation: Spouse current occupational status: employed current occupation: [employer] How many Children do You have: 2 Feels Safe at Home: Yes Safety Concerns: Feels Safe At This Time Diet: regular Assistive Devices: None Review of System Fever and chills as per HPI No changes in vision No LAZCANO No cough or SOB Additional Comments: No chest pain No N/V or diarrhea Urostomy as per HPI No pain or swelling No rash No focal deficits Physical Exam Constitutional: No acute distress Eyes: Normal sclera Respiratory: normal respiratory rate, no distress Musculoskeletal: No swollen joints Skin: No josh Neurologic: Alert and oriented, cooperative with exam Results & Data Vital Signs (Past 12 Hours) Vital Signs Temp Pulse Resp BP Pulse Ox O2 Del Method 03/20/23 08:15 36.5 C 50 L 16 123/73 95 Room Air Laboratory Results WBC 16 -> 12.47 Hgb 12 Platelets 207 Na 137 Creatinine 1.74 BUN 24 UA with >30 WBC, 5-10 RBC Blood cultures NGTD Urine culture contaminated Diagnostic Findings CT abdomen reviewed by me: IMPRESSION: 1. RIGHT nephrectomy. 2. Cystectomy. No left-sided hydronephrosis or obstructive uropathy. Ileal conduit with RIGHT lower quadrant ileostomy. Left-sided perinephric stranding. Evaluation limited due to lack of contrast. 3. Diverticulosis, without acute diverticulitis. No small bowel obstruction. No free intraperitoneal air.
[2023-03-20 10:14] LABS: Hematocrit (blood only) 36.6 % (42.0-52.0); Mean Corpuscular Hemoglobin 30.6 pg (25.0-34.0); Mean Corpuscular Hgb Conc 32.8 g/dL (32.0-36.0); Mean Corpuscular Volume 93.4 fL (80.0-100.0); Mean Platelet Volume 8.6 fL (9.4-12.4); Platelet Count 207 K/uL (130-400); RDW Coefficient of Variation 12.6 % (11.5-14.5); RDW Standard Deviation 42.7 fL (36.4-46.3); Red Blood Count 3.92 M/uL (4.70-6.10); White Blood Count 12.47 K/ul (4.8-10.8)
[2023-03-20 10:31] LABS: BUN Creatinine Ratio 13.8 (10-20); Calcium 8.8 mg/dl (8.6-10.3); Creatinine Clr Calc Pharmacy 49.4 ml/min; Est GFR (Non-African American) 40.5 ml/min; Potassium 4.1 mmol/L (3.5-5.1)
[2023-03-20 10:46] LABS: Magnesium 2.1 mg/dl (1.7-2.4); Phosphorus 1.2 mg/dl (2.5-4.9)
[2023-03-20] MEDS ORDERED: POTASSIUM PHOS 3 MMOL/1 ML INFUSION IV STA (11:30)
[2023-03-20] MEDS ORDERED: POTASSIUM PHOSPHATE 21 MMOL in SODIUM CHLORIDE 0.9% 500 ML IV ONE (11:45)
[2023-03-20] MEDS: POTASSIUM PHOSPHATE 15 MMOL in SODIUM CHLORIDE 0.9% 250 ML IV SCH ×2 (12:46→15:49)
[2023-03-20] MEDS: POT PHOSPHATE MONOBASIC W/ SOD TAB PO SCH ×2 (13:20→17:51)
--- NOTE | 2023-03-20 19:00 | Discharge Summary ---
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 Patient states last night had fever and started feeling chills and history of UTIs in the past were worried and came to the hospital. Denies any chest pain or shortness of breath. Urostomy seems to working okay. No nausea vomiting. Normal bowel movements. Currently no headache. Currently no earache or runny nose or cough. Resting comfortably and hemodynamically stable Past medical history as mentioned above Past surgical history s/p R nephroureterectomy, cystectomy, L distal ureterectomy, bilateral pelvic lymph node dissection and formation of a RLQ urostomy/ileal conduit was performed at [facility] [place]. Cardiac catheter s/p stent placement,Colonoscopy Social history former smoker quit in 2001 smoked 2 packs a day for 20 years. Alcohol rarely. No drug use Family history father had diabetes. Mother had diabetes, hypothyroidism, hypertension, uncle has diabetes. Maternal grandfather had emphysema Admission Exam Per Admitting Provider General- Not in distress. Head- atraumatic Eyes- PERRL, ENT- oropharynx clear Neck- supple, no JVD, Lungs- clear to auscultation no added sounds. Heart- regular rhythm; no murmur, no gallop. Abdomen- normal bowel sounds, soft, nontender, Urostomy bag seen with clear urine. Extremities- no pretibial edema, no calf tenderness; peripheral pulses intact Neuro- alert, oriented x 3; PERRL, EOMI; no facial palsy; no dysarthria; motor 5/5 bilaterally; no cogwheel rigidity; patellar DTRs +2/2; toes downgoing bilaterally; finger to nose intact bilaterally Skin- warm & dry Principal Diagnosis Left-sided pyelonephritis, complicated UTI Discharge Exam Constitutional WD/WN, vitals as above no acute distress Respiratory normal respiratory effort, lungs clear to auscultation Cardiovascular Rate/Rhythm: regular rate and regular rhythm Vessels: normal peripheral pulses Extremities: no edema Gastrointestinal (Abdomen) Percussion/Palpation: abdomen soft; abdomen nontender Skin no rashes, warm and dry Neurologic no focal motor deficits Psychiatric A+Ox3, euthymic affect Genitourinary Ileal conduit present, stoma pink, clear yellow urine in bag Discharge Data Allergies Allergy/AdvReac Type Severity Reaction Status Date / Time No Known Allergies Allergy Mild Verified 03/18/23 23:35 Consultations 03/19/23 14:34 Consult Infectious Diseases Routine Ordered Studies Laboratory Results WBC 12.47 K/ul (4.8-10.8) H 03/20/23 10:00 RBC 3.92 M/uL (4.70-6.10) L 03/20/23 10:00 Hgb 12.0 g/dl (14.0-18.0) L 03/20/23 10:00 Hct 36.6 % (42.0-52.0) L 03/20/23 10:00 MCV 93.4 fL (80.0-100.0) 03/20/23 10:00 MCH 30.6 pg (25.0-34.0) 03/20/23 10:00 MCHC 32.8 g/dL (32.0-36.0) 03/20/23 10:00 RDW Std Deviation 42.7 fL (36.4-46.3) 03/20/23 10:00 RDW Coeff of Jovanna 12.6 % (11.5-14.5) 03/20/23 10:00 Plt Count 207 K/uL (130-400) 03/20/23 10:00 MPV 8.6 fL (9.4-12.4) L 03/20/23 10:00 Immature Gran % (Auto) 0.4 % 03/19/23 06:44 Neut % (Auto) 79.6 % 03/19/23 06:44 Lymph % (Auto) 9.2 % 03/19/23 06:44 [place] % (Auto) 10.2 % 03/19/23 06:44 Eos % (Auto) 0.2 % 03/19/23 06:44 Baso % (Auto) 0.4 % 03/19/23 06:44 Neut # (Auto) 12.95 K/uL (1.40-6.50) H 03/19/23 06:44 Lymph # (Auto) 1.49 K/uL (1.2-3.4) 03/19/23 06:44 [place] # (Auto) 1.66 K/uL (0.11-0.59) H 03/19/23 06:44 Eos # (Auto) 0.03 K/uL (0-0.50) 03/19/23 06:44 Baso # (Auto) 0.06 K/uL (0-0.2) 03/19/23 06:44 Immature Gran # (Auto) 0.06 K/uL (0.01-0.20) 03/19/23 06:44 Sodium 137 mmol/L (136-145) 03/20/23 10:00 Potassium 4.1 mmol/L (3.5-5.1) 03/20/23 10:00 Chloride 108 mmol/L (98-107) H 03/20/23 10:00 Carbon Dioxide 25 mmol/L (21-32) 03/20/23 10:00 Anion Gap 4 (3-11) 03/20/23 10:00 BUN 24 mg/dl (6-23) H 03/20/23 10:00 Creatinine 1.74 mg/dl (0.6-1.4) H 03/20/23 10:00 Est Cr Clr Drug Dosing 49.4 ml/min 03/20/23 10:00 Est GFR ( Amer) 47.0 ml/min 03/20/23 10:00 Est GFR (Non-Af Amer) 40.5 ml/min 03/20/23 10:00 BUN/Creatinine Ratio 13.8 (10-20) 03/20/23 10:00 Glucose 130 mg/dl (70-99(Fasting)) H 03/20/23 10:00 POC Glucose 100 mg/dl (70-99) H 03/20/23 16:42 Estimat Average Glucose 160 mg/dl 03/19/23 06:44 Hemoglobin A1c 7.2 % (4.5-5.6) H 03/19/23 06:44 Lactate 1.3 mmol/L (0.4-2.0) 03/18/23 23:51 Calcium 8.8 mg/dl (8.6-10.3) 03/20/23 10:00 Phosphorus 1.2 mg/dl (2.5-4.9) L* 03/20/23 10:00 Magnesium 2.1 mg/dl (1.7-2.4) 03/20/23 10:00 Total Bilirubin 1.1 mg/dl (0.2-1.0) H 03/18/23 21:44 AST 15 U/L (13-39) 03/18/23 21:44 ALT 19 U/L (7-52) 03/18/23 21:44 Alkaline Phosphatase 74 U/L (34-104) 03/18/23 21:44 Troponin I High Sens 14.3 pg/ml (0-20) D 03/19/23 06:44 Total Protein 7.8 gm/dl (6.0-8.3) 03/18/23 21:44 Albumin 4.3 gm/dl (3.4-5.0) 03/18/23 21:44 Globulin 3.5 gm/dl (2.5-4.0) 03/18/23 21:44 Albumin/Globulin Ratio 1.2 (0.9-2) 03/18/23 21:44 Procalcitonin 0.47 ng/ml (0-0.5) 03/18/23 21:44 Urine Color Yellow 03/18/23 21:45 Urine Appearance Cloudy (Clear) A 03/18/23 21:45 Urine pH 8.0 (4.5-7.5) H 03/18/23 21:45 Ur Specific Halls 1.013 (1.000-1.030) 03/18/23 21:45 Urine Protein 1+ (Negative) H 03/18/23 21:45 Urine Glucose (UA) Negative (Negative) 03/18/23 21:45 Urine Ketones Trace (Negative) H 03/18/23 21:45 Urine Blood 2+ (Negative) H 03/18/23 21:45 Urine Nitrite Positive (Negative) A 03/18/23 21:45 Urine Bilirubin Negative (Negative) 03/18/23 21:45 Urine Urobilinogen Negative (Negative) 03/18/23 21:45 Ur Leukocyte Esterase 3+ (Negative) H 03/18/23 21:45 Urine WBC (Auto) >30 /hpf (0-5) H 03/18/23 21:45 Urine RBC (Auto) 5-10 /hpf (0-4) H 03/18/23 21:45 U Hyaline Cast (Auto) 10-30 /lpf (0-5) H 03/18/23 21:45 U Epithel Cells (Auto) 5-10 /lpf (0-5) H 03/18/23 21:45 Urine Bacteria (Auto) 4+ (Negative) H 03/18/23 21:45 Impressions Abdomen/Pelvis CT 03/18/23 22:24 Exam(s): CT ABDOMEN + PELVIS Without Contrast EXAM: CT Abdomen and Pelvis Without Intravenous Contrast CLINICAL HISTORY: Reason for exam: fever, uti, ? pyleo/abscess. TECHNIQUE: Axial computed tomography images of the abdomen and pelvis without intravenous contrast. Automated exposure control was utilized for the study. A dose lowering technique was utilized adhering to the principles of ALARA. COMPARISON: No relevant prior studies available. FINDINGS: Lung bases: Unremarkable. No mass. No consolidation. ABDOMEN: Liver: Hepatic steatosis. Gallbladder and bile ducts: Unremarkable. No calcified stones. No ductal dilation. Pancreas: Unremarkable. No ductal dilation. Spleen: Unremarkable. No splenomegaly. Adrenals: Unremarkable. No mass. Kidneys and ureters: RIGHT nephrectomy. Stomach and bowel: Diverticulosis, without acute diverticulitis. No small bowel obstruction. No free intraperitoneal air. PELVIS: Appendix: No findings to suggest acute appendicitis. Bladder: Cystectomy. No left-sided hydronephrosis or obstructive uropathy. Ileal conduit with RIGHT lower quadrant ileostomy. Left-sided perinephric stranding. Evaluation limited due to lack of contrast. Reproductive: Unremarkable as visualized. ABDOMEN and PELVIS: Intraperitoneal space: Unremarkable. No free air. No significant fluid collection. Bones/joints: Degenerative changes of the spine. No acute fracture. No dislocation. Soft tissues: Unremarkable. Vasculature: Atherosclerotic changes of the aorta. No abdominal aortic aneurysm. Lymph nodes: Unremarkable. No enlarged lymph nodes. IMPRESSION: 1. RIGHT nephrectomy. 2. Cystectomy. No left-sided hydronephrosis or obstructive uropathy. Ileal conduit with RIGHT lower quadrant ileostomy. Left-sided perinephric stranding. Evaluation limited due to lack of contrast. 3. Diverticulosis, without acute diverticulitis. No small bowel obstruction. No free intraperitoneal air. Electronically signed by: Sadi Virgen MD 03/19/23 00:37 AM Chest X-Ray 03/19/23 00:50 XR chest 1V portable CLINICAL HISTORY: sepsis TECHNIQUE: Single frontal radiograph of the chest was obtained. Comparison: Comparison is made to chest radiograph 01/26/2023 FINDINGS: No lines and tubes are seen. The cardiomediastinal silhouette is normal. The lungs are clear. No evidence of pleural effusion or pneumothorax. IMPRESSION: No acute abnormalities and in particular no radiographic evidence of pneumonia. ACT 112: Negative or not required by law. Electronically signed by: Brendan Kelly M.D. 03/19/2023 6:56 AM Hospital Course (1) Acute pyelonephritis: 62-year-old male with PMH of recurrent UTI, CKD stage III, malignant neoplasm of urinary bladder s/p surgery w/ urostomy and ileal conduit, HLD, hypothyroidism, DM, CAD s/p stent, sinus bradycardia, HTN, GERD, constipation, beta-chong intolerance presented to ED 03/18 with complaint of fever and chills that started 1 day ago [place]. He is being managed for the following: Acute pyelonephritis x left History of urinary neoplasm, right nephrectomy, recurrent UTI, MDR E. coli UTI h/o urothelial CA involving the bladder and R ureter.s/p R nephroureterectomy, cystectomy, L distal ureterectomy, bilateral pelvic lymph node dissection and formation of a RLQ urostomy/ileal conduit was performed at [facility] [place]. Patient with ileal conduit and urostomy. Patient presents with fever and chills, admitting UA suggestive of UTI. Admitting CTAP: Right nephrectomy, cystectomy. Left-sided perinephric stranding. Patient started on ertapenem. WBC 18 K --> 16 K --> 12 K, remains afebrile Blood cultures negative, urine culture contaminated from ostomy -- repeating would not provide much value ID consulted, recommends Bactrim DS PO BID to complete 7 days of therapy Hypophosphatemia Phos 1.2 --received IV placement and discharged on p.o. replacement, will need outpatient follow-up CKD stage III Baseline creatinine of around 1.7, admitting creatinine of 1.8 Peaked at 2.03 on 03/19 Creatinine 1.7 on 03/20 Received IVF, lisinopril held. BP remained controlled during admission, will continue to hold lisinopril till follow-up with PCP and repeat labs. Abnormal EKG/ST depression in lateral leads History of CAD Patient with no chest pain or shortness of breath. Troponin x2 negative. Follow-up EKG with no new changes. Continue ASA and statin, beta-chong contraindicated due to bradycardia HTN BP controlled, amlodipine continued, holding lisinopril as above DM type II Hgb A1c 7.2 Metformin held and patient received NovoLog per protocol while hospitalized Hypothyroidism Continue levothyroxine Total Time Total Time Spent Total Time Spent (In Minutes): 40 Discharge Plan Discharge Items Patient Disposition: Home - Self-Care Reason For Visit: Fever, Chills Discharge Diagnosis: UTI Condition on Discharge: Good Activity: Resume your previous activity Non-emergency contact: Primary Care Provider Call non-emergency contact if: you have any medication questions, your symptoms worsen, your pain is not controlled and you have a fever Follow-up/Referrals: Shemar Tai MD [Primary Care Provider] - (You will be called with your follow up appointment date and time.) Diet: Carb Consistent or DM2 and Heart Healthy Addtl Attending Provider Instructions: You came to the hospital for evaluation of fever and chills. Work up showed that you had a UTI and possible kidney infection. You were treated with IV antibiotics and will be discharged on oral antibiotic - take Bactrim 1 tablet twice daily for the next 6 days. You were found to have low phosphorus -- you will need to take phosphorus replacement 4 times daily for the next 3 days. Hold BP medication Lisinopril until you follow up with your PCP. A follow up appointment will be made for you with your PCP, you will receive a phone call with appointment date and time. It was measured taking care of you. If you need to reach a member of the [facility] hospitalist team at [facility], please call [phone]. MATIAS Gastelum Pending Studies at Discharge: No Stand-Alone Forms: My [facility], Smoking Cessation Medications and DC Order Prescriptions: New Phospha 250 Neutral 250 mg Tablet 2 tab PO QID 3 Days Qty: 24 0RF sulfamethoxazole-trimethoprim [Bactrim DS] 800-160 mg tablet 1 tab PO BID Qty: 10 0RF Continued amlodipine 2.5 mg tablet 2.5 mg PO QAM nitroglycerin 0.4 mg tablet, sublingual 0.4 mg sublingual Q5M PRN (Reason: Chest Pain) Rx Instructions: do not exceed 3 doses per episode/ Pt has never used levothyroxine 175 mcg capsule 175 mcg PO QAM aspirin 81 mg tablet,delayed release (DR/EC) 81 mg PO QAM atorvastatin 80 mg Tablet 80 mg PO QAM fluticasone propionate [Flonase Allergy Relief] 50 mcg/actuation spray,suspension 2 spray INTRANASAL DAILY PRN (Reason: Nasal Congestion) ezetimibe [Zetia] 10 mg tablet 10 mg PO QAM metformin 500 mg tablet extended release 24 hr 1,000 mg PO QAM omeprazole 20 mg capsule,delayed release(DR/EC) 20 mg PO QAM PRN (Reason: heartburn) acetaminophen [Tylenol Extra Strength] 500 mg Tablet 1,000 mg PO DIRECTED PRN (Reason: FEVER/PAIN) Held lisinopril 20 mg tablet 20 mg PO QAM Hold Instructions: Hold Lisinopril until your follow up appointment with your PCP Discharge Orders: Discharge Order (Routine); Ordered 03/20/23 Ordered By: Zakia Hernández/Other Patient Handouts: Kidney Infec Dc Admission Data Admit Date/Time: 03/19/23 02:08 Attending Provider: Meet Ortiz Admit Provider: Toney Landaverde Primary Care Provider: Shemar Tai Other Providers: Toney Landaverde ; Jesus Ying ; Holly Swain ; Yamil William I. ; Caio Candelaria II ; Juliet Corado ; Tay Brown ; Zbigniew Richards ; Cruz Todd Other Interventions: Discharge Summary Assessment (RN) Last Done: 03/20/23 17:38 Supervising Physician Co-Signing Physician Notes Patient was seen and examined at bedside as a follow-up of left sided acute pyelonephritis, ID evaluated him, recommended Bactrim to complete 7-day course. Patient reported feeling better, hemodynamically stable, would like to go home. On exam, on, heart/lung/abdominal examination fairly WNL, abdomen with urostomy bag with clear urine. I have seen and examined the patient and have discussed the case with the provider above. I agree with the assessment and plan as stated.
== END 2023-03-20 19:21 | disposition home or self-care (01) | DRG 690 ==
LOC: ED 21:22 → EDINP 03-19 02:08 → 3W 03-19 03:29

== ENCOUNTER 2025-03-13 12:58 | Inpatient (IN) ==
[2025-03-13 13:41] LABS: Hematocrit (blood only) 41.0 % (42.0-52.0); Hemoglobin 13.3 g/dl (14.0-18.0); Immature Granulocytes # (auto) 0.06 K/uL (0.01-0.20); Immature Granulocytes % (auto) 0.5 %; Mean Corpuscular Hemoglobin 29.5 pg (25.0-34.0); Mean Corpuscular Volume 90.9 fL (80.0-100.0); Platelet Count 212 K/uL (130-400); RDW Standard Deviation 44.1 fL (36.4-46.3); Red Blood Count 4.51 M/uL (4.70-6.10); White Blood Count 13.07 K/ul (4.8-10.8)
[2025-03-13 13:57] LABS: Alanine Aminotransferase 18.0 U/L (7-52); Albumin Globulin Ratio 1.1 (0.9-2); Alkaline Phosphatase 72.0 U/L (34-104); Anion Gap 9.0 (3-11); Bilirubin,Total 0.9 mg/dl (0.2-1.0); Blood Urea Nitrogen 36.0 mg/dl (6-23); Calcium 9.0 mg/dl (8.6-10.3); Carbon Dioxide 23.0 mmol/L (21-32); Chloride 103.0 mmol/L (98-107); Creatinine Clr Calc Pharmacy 30.5 ml/min; Globulin 3.5 gm/dl (2.5-4.0); Glucose 137.0 mg/dl (70-99(Fasting)); Potassium 4.4 mmol/L (3.5-5.1); Sodium 135.0 mmol/L (136-145); Total Protein 7.5 gm/dl (6.0-8.3)
--- NOTE | 2025-03-13 14:51 | Emergency Department Note ---
Impression & Plan Sepsis, YOHAN (acute kidney injury), Complicated urinary tract infection, Rigors, Hydronephrosis ED Provider Note NAME: DAISY JONES AGE: 64 SEX: M : 1960 ARRIVES VIA: Walk-In INFORMANT: Patient, ED PROVIDER(S): Michael Berger DO CHIEF COMPLAINT: rigors HPI: This is a 64-year-old male with the PMHx of right nephrectomy/ureterectomy secondary to urothelial cell carcinoma in 2021, CKD, hypertension and now ileal conduit presenting to [facility] for further evaluation of nausea and vomiting accompanied by rigors. Patient is accompanied by his who provide additional history. The patient had stenting from the left kidney by [facility] on Sunday. He had some nausea and vomiting after the procedure and he thought this was related to anesthesia. They note that over the course of the last day or so he has continued with nausea as well as shaking episodes. He states he feels very similar to when he has had UTIs in the past. Patient patient states he feels weak and fatigued. He has generalized malaise. He has significant chills but no documented fevers. [facility] recommended that he was evaluated in the ED. No cough or congestion. Denies chest pain or palpitations. No shortness of breath. Minimal crampy abdominal pain. She did have some delay in her urinary output but states this has not been an issue since. No recent changes in bowel movements. Patient denies recent changes in medications or OTC supplements. Patient offers no other complaints, today. ADDITIONAL HISTORY OBTAINED: Per HPI Chronic Medical/Social Conditions Affecting Care: Per HPI PAST MEDICAL HISTORY: See Below PAST SURGICAL HISTORY: See Below FAMILY HISTORY: See Below SOCIAL HISTORY: See Below HOME MEDICATIONS: See Below ALLERGIES: See Below VITALS: See Below PHYSICAL EXAMINATION: GENERAL: Sitting up in bed, alert, active rigors in bed, well nourished, no distress, non-toxic EYE EXAM: normal conjunctiva. PERRL and EOM's grossly intact. OROPHARYNX: no exudate, no erythema, lips, buccal mucosa, and tongue normal and mucous membranes are dry NECK: supple, no nuchal rigidity, no adenopathy, non-tender LUNGS: Clear to auscultation. Normal chest wall mechanics HEART: no murmurs, regular rate, regular rhythm ABDOMEN: abdomen soft, non-tender, no masses, no rebound or guarding. urostomy is pink and well perfused. BACK: Back is symmetrical on inspection and there is no deformity, no midline tenderness, no CVA tenderness. SKIN: no rashes and no bruising UPPER EXTREMITIES: upper extremities are grossly normal. LOWER EXTREMITIES: No pitting edema. NEURO EXAM: Normal sensorium, GCS 15, normal speech, no gross weakness of arms, no gross weakness of legs. MEDICAL DECISION MAKING: Differential diagnoses includes but not limited to sepsis, bacteremia, complicated UTI, pyelonephritis, electrolyte derangements, kidney dysfunction, dehydration, pneumonia, viral URI In summary, this is a 64 year old male who presented with rigors. Differential as above. Nursing notes and pertinent past medical records reviewed. Vital signs reviewed and the patient is hypertensive but otherwise afebrile and HDS. History and presentation revealed recent procedures by [facility] in the setting of prior urothelial cell carcinoma with ileal conduit/urostomy in place. Physical examination revealed active rigors on my exam. As a result of my initial evaluation, patient has a history of urothelial cell carcinoma and prior nephrectomy/uretectomy presenting for rigors overnight. Patient had a procedure with stent removal at [facility] yesterday. Patient called into his urology team and they recommended evaluation in the emergency department. On my initial examination, the patient has active rigors. Patient's vital signs are hemodynamically stable. Labs show an YOHAN with a leukocytosis. Plan for blood cultures and IV antibiotics. I have reviewed prior culture data. There has not already of different organisms. Most appears sensitive to IV Zosyn. Patient does have prior E. coli cultures that have been resistant to cephalosporins.. Diagnostics interpreted by me include EKG and cardiac monitoring as listed below: -Cardiac Monitoring: An order was placed for continuous cardiac monitoring. The monitor shows a rate of 50-70s with regular rhythm. -ECG: EKG independently interpreted by me reveals normal sinus rhythm at a ventricular rate of [address] segment changes to suggest STEMI. Intervals are within normal limits. Patient completed laboratory studies and imaging. Results independently interpreted by me are leukocytosis. Could be reactive. Patient does have mild anemia that is stable as compared to prior. Pseudohyponatremia present in the setting of hyperglycemia. YOHAN present without significant electrolyte derangements. CXR independently interpreted by me reveals no evidence of focal consolidation to suggest pna. No large pneumothorax or pleural effusion. The patient was managed with IV fluid resuscitation as well as broad-spectrum antibiotics with IV Zosyn based on prior culture data. We did obtain a CT abdomen/pelvis for further characterization of patient's symptoms today given recent procedure. Patient was managed with 2L IVFR with NSS. CT abdomen/pelvis showed chronic changes as well as some left-sided hydronephrosis. There does appear to be some fat stranding around the left kidney. Patient is doing okay the patient likely has a complicated UTI causing his presentation today. Given his rigors, there is a possibility of gram-negative bacteremia. Blood cultures are pending. Patient is on appropriate antibiotics. Patient is feeling improvement from antibiotics as well as fluid resuscitation. I do think the patient should be observed for his SIRS like response and likely complicated UTI. Patient did spike a fever while in the ED and Tylenol was ordered. Ultimately, the decision was made to admit the patient for sepsis 2/2 complicated UTI and hydronephrosis c/b YOHAN. It was recommended to admit this patient at 1745. I discussed the case with the hospitalist service via telephone/TigerText and they are agreeable to admit the patient to their services. Based on the above, including the patient's age, coexisting illnesses, labs, imaging, and exam findings the decision to treat as an inpatient. I discussed the patient with the hospitalist team who recommended admission to their services. They received the medications, treatments, interventions indicated above and their condition remained guarded. I discussed my findings with the patient and their family and they understand and agree with the treatment plan. All patient / family questions were answered to their satisfaction. Consults/Care Managements Discussions: Per [facility] ER treatment provided: See above Procedures:none Critical Care: None The chart was completed utilizing [employer] Speech voice recognition software. Grammatical errors, random word insertions, pronoun errors, and incomplete sentences are an occasional consequence of this system due to software limitations, ambient noise, and hardware issues. Any formal questions or concerns about the content, text, or information contained within the body of this dictation should be directly addressed to the physician for clarification. Past Med/Surg History Problem List (Updated 03/13/25 @ 20:58 by Michael Berger DO) Hydronephrosis (Acute) Rigors (Acute) Complicated urinary tract infection (Acute) YOHAN (acute kidney injury) (Acute) Sepsis (Acute) Vitamin D deficiency S/P ileal conduit Complicated urinary tract infection (Acute) Acute pyelonephritis (Acute) Sepsis (Acute) Hypomagnesemia (Acute) Urothelial carcinoma Hypertension Hypertension Chronic kidney disease, stage III (moderate) YOHAN (acute kidney injury) (Acute) Acute UTI (Acute) Postoperative fever (Acute) Hypomagnesemia (Acute) Ureteral cancer Acute UTI (Acute) Sepsis (Acute) Urinary frequency Encounter for pre-operative examination Bladder cancer Ureter malignant neoplasm Hyperlipidemia Medical History Diabetes NIDDM CAD (coronary artery disease) stent x1 (2007)-F/U PCP GERD (gastroesophageal reflux disease) Cancer Skin (BCC) from back Bladder cancer AND URETERAL CANCER? Ureteral cancer Chronic back pain CKD (chronic kidney disease), stage III Hypomagnesemia Diabetes mellitus, type II Ureteral cancer Bladder cancer Foot drop, right No brace Arthritis Myocardial Infarction 2007 > stent x1 Hypertension Coronary artery disease S/p stent in 2007, no longer follows with [facility], PCP only. 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 Negative DSE 2013. Hypothyroidism Surgical History History of cardiac cath stent x1 (2007) History of cystoscopy Multiple Cysto, bladder biopsy (07/12/20): MAC sedation at [facility] TURBT (05/17/20): LMA#5 at [facility] History of colonoscopy History of tooth extraction Family History Mother Diabetes Heart disease Cancer Hypertension Family history of diabetes mellitus Father Heart disease Social History Smoking Status: Never smoker Tobacco Type: Cigarettes Second Hand Exposure: No; Do You Dip or Chew Tobacco: No; Hx Alcohol Use: No Hx Substance Use: No Preferred Language: Lao Communication Ability: Effective 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 Required: No Beliefs That Will Affect Care: None marital status: Current Living Situation: Spouse current occupational status: employed current occupation: [employer] How many Children do You have: 2 Feels Safe at Home: Yes Diet: regular Assistive Devices: Cane and Walker Allergies Allergies Allergy/AdvReac Type Severity Reaction Status Date / Time No Known Allergies Allergy Mild Verified 10/31/24 09:06 Home Meds Home Medications Medication Instructions Recorded Confirmed aspirin 81 mg tablet,delayed 81 mg PO QAM 03/30/20 03/13/25 release levothyroxine 175 mcg capsule 175 mcg PO QAM 03/30/20 03/13/25 atorvastatin 80 mg tablet 80 mg PO QAM 05/04/20 03/13/25 fluticasone propionate 50 2 spray intranasal DAILY PRN Nasal 06/22/20 03/13/25 mcg/actuation nasal Congestion spray,suspension (Flonase Allergy Relief) ezetimibe 10 mg tablet (Zetia) 10 mg PO QAM 10/09/20 03/13/25 metformin 500 mg tablet,extended 1,000 mg PO QAM 10/10/21 03/13/25 release 24 hr omeprazole 20 mg capsule,delayed 20 mg PO QAM PRN heartburn 12/02/21 03/13/25 release amlodipine 2.5 mg tablet 2.5 mg PO QAM 07/10/22 03/13/25 nitroglycerin 0.4 mg sublingual 0.4 mg sublingual Q5M PRN Chest 07/10/22 03/13/25 tablet Pain acetaminophen 500 mg tablet 1,000 mg PO DIRECTED PRN 03/18/23 03/13/25 (Tylenol Extra Strength) FEVER/PAIN tramadol 50 mg tablet 50 mg PO DAILY PRN Pain 04/09/23 03/13/25 empagliflozin 10 mg tablet 10 mg PO DAILY 04/21/24 03/13/25 (Jardiance) Previous Rx's Medication Instructions Recorded lisinopril 10 mg tablet 10 mg PO QAM #90 tabs 07/28/24 Results & Data (ED) Vital Signs Vital Signs - 24 hr 03/13/25 13:03 03/13/25 15:00 03/13/25 15:17 Temperature 36.7 C Temperature Source Oral Pulse Rate 61 63 65 Pulse Rate [Apical] Pulse Rhythm [Apical] Pulse Strength [Apical] Respiratory Rate 18 21 Respiratory Effort / Characteristics Non-Labored Spontaneous Respiratory Depth Normal Respiratory Pattern Regular Blood Pressure 116/75 153/72 H Blood Pressure [Right Arm] Blood Pressure Mean 88 99 Blood Pressure Mean [Right Arm] Pulse Oximetry 98 96 Oxygen Delivery Method Room Air Room Air Sepsis Recent Fever Within 48 Hours No Sepsis New/Unexplained Change in Mental Status N/A Sepsis Action Taken by Nursing No Action Required 03/13/25 16:00 03/13/25 17:00 03/13/25 18:24 Temperature 37.3 C Temperature Source Oral Pulse Rate Pulse Rate [Apical] 64 67 Pulse Rhythm [Apical] Pulse Strength [Apical] Respiratory Rate 18 18 Respiratory Effort / Characteristics Non-Labored Spontaneous Non-Labored Spontaneous Respiratory Depth Normal Normal Respiratory Pattern Regular Blood Pressure Blood Pressure [Right Arm] 140/78 144/72 H Blood Pressure Mean Blood Pressure Mean [Right Arm] 98 96 Pulse Oximetry 97 98 Oxygen Delivery Method Room Air Room Air Sepsis Recent Fever Within 48 Hours Sepsis New/Unexplained Change in Mental Status Sepsis Action Taken by Nursing 03/13/25 18:39 03/13/25 19:06 03/13/25 19:49 Temperature 38.1 C H 37.3 C Temperature Source Oral Oral Pulse Rate 65 Pulse Rate [Apical] 68 74 Pulse Rhythm [Apical] Regular Regular Pulse Strength [Apical] Normal Normal Respiratory Rate 17 18 Respiratory Effort / Characteristics Non-Labored Spontaneous Non-Labored Spontaneous Respiratory Depth Normal Normal Respiratory Pattern Regular Regular Blood Pressure Blood Pressure [Right Arm] 136/72 128/67 Blood Pressure Mean Blood Pressure Mean [Right Arm] 93 87 Pulse Oximetry 98 96 Oxygen Delivery Method Room Air Room Air Sepsis Recent Fever Within 48 Hours Sepsis New/Unexplained Change in Mental Status Sepsis Action Taken by Nursing 03/13/25 20:49 Temperature 36.8 C Temperature Source Oral Pulse Rate Pulse Rate [Apical] 53 L Pulse Rhythm [Apical] Regular Pulse Strength [Apical] Normal Respiratory Rate 18 Respiratory Effort / Characteristics Non-Labored Spontaneous Respiratory Depth Normal Respiratory Pattern Regular Blood Pressure Blood Pressure [Right Arm] 123/65 Blood Pressure Mean Blood Pressure Mean [Right Arm] 84 Pulse Oximetry 97 Oxygen Delivery Method Room Air Sepsis Recent Fever Within 48 Hours Sepsis New/Unexplained Change in Mental Status Sepsis Action Taken by Nursing Laboratory Data 03/13/25 13:15 03/13/25 13:15 Lab Results 03/13/25 03/13/25 03/13/25 Range/Units 13:15 15:09 15:24 WBC 13.07 H (4.8-10.8) K/ul RBC 4.51 L (4.70-6.10) M/uL Hgb 13.3 L (14.0-18.0) g/dl Hct 41.0 L (42.0-52.0) % MCV 90.9 (80.0-100.0) fL MCH 29.5 (25.0-34.0) pg MCHC 32.4 (32.0-36.0) g/dL RDW Std Deviation 44.1 (36.4-46.3) fL RDW Coeff of Jovanna 13.2 (11.5-14.5) % Plt Count 212 (130-400) K/uL MPV 9.3 L (9.4-12.4) fL Immature Gran % (Auto) 0.5 % Neut % (Auto) 70.8 % Lymph % (Auto) 16.6 % [place] % (Auto) 11.1 % Eos % (Auto) 0.5 % Baso % (Auto) 0.5 % Neut # (Auto) 9.26 H (1.40-6.50) K/uL Lymph # (Auto) 2.17 (1.20-3.40) K/uL [place] # (Auto) 1.45 H (0.11-0.59) K/uL Eos # (Auto) 0.07 (0.00-0.50) K/uL Baso # (Auto) 0.06 (0.00-0.20) K/uL Immature Gran # (Auto) 0.06 (0.01-0.20) K/uL Sodium 135 L (136-145) mmol/L Potassium 4.4 (3.5-5.1) mmol/L Chloride 103 (98-107) mmol/L Carbon Dioxide 23 (21-32) mmol/L Anion Gap 9 (3-11) BUN 36 H (6-23) mg/dl Creatinine 2.63 H (0.6-1.4) mg/dl Est Cr Clr Drug Dosing 30.5 ml/min eGFR 26.01 BUN/Creatinine Ratio 13.7 (10-20) Glucose 137 H (70-99(Fasting)) mg/dl Lactate 2.2 H* (0.4-2.0) mmol/L Calcium 9.0 (8.6-10.3) mg/dl Total Bilirubin 0.9 (0.2-1.0) mg/dl AST 28 (13-39) U/L ALT 18 (7-52) U/L Alkaline Phosphatase 72 (34-104) U/L Total Protein 7.5 (6.0-8.3) gm/dl Albumin 4.0 (3.4-5.0) gm/dl Globulin 3.5 (2.5-4.0) gm/dl Albumin/Globulin Ratio 1.1 (0.9-2) Procalcitonin 1.34 H (0-0.5) ng/ml Urine Color Urine Appearance (Clear) Urine pH (4.5-7.5) Ur Specific Rarden (1.000-1.030) Urine Protein (Negative) Urine Glucose (UA) (Negative) Urine Ketones (Negative) Urine Blood (Negative) Urine Nitrite (Negative) Urine Bilirubin (Negative) Urine Urobilinogen (Negative) Ur Leukocyte Esterase (Negative) Urine WBC (Auto) Urine RBC (Auto) U Hyaline Cast (Auto) U Epithel Cells (Auto) Urine Bacteria (Auto) Ur Renal Epithelial Cell [place] Biurate Crystals Calcium Oxalate Crystal Leucine Crystals Cystine Crystals Uric Acid Crystals Triple Phos Crystals Sulfonamide Crystals Cholesterol Crystals Talc Crystals Tyrosine Crystals Hippuric Acid Crystals Unidentified Crystals Amorphous Sediment Epithelial Casts Hyaline Casts Granular Casts Waxy Casts RBC Casts WBC Casts Other Casts Urine Mucus Urine Other Urine Trichomonas Urine Yeast Urine Sperm Ur Oval Fat Bodies Ur Culture Indicated? Urine Comment Adenovirus (PCR) Not Detected (NotDetected) B. pertussis DNA (PCR) Not Detected (NotDetected) B.parapertussis DNA PCR Not Detected (NotDetected) C. pneumoniae DNA (PCR) Not Detected (NotDetected) Coronavirus OC43 (PCR) Not Detected (NotDetected) Coronavirus HKU1 (PCR) Not Detected (NotDetected) Coronavirus 229E (PCR) Not Detected (NotDetected) SARS-CoV-2 (PCR) Not Detected (NotDetected) Coronavirus NL63 (PCR) Not Detected (NotDetected) Human Metapneumovir PCR Not Detected (NotDetected) Influenza Type A (PCR) Not Detected (NotDetected) Influenza Type B (PCR) Not Detected (NotDetected) M. pneumoniae (PCR) Not Detected (NotDetected) Parainfluenza 1 (PCR) Not Detected (NotDetected) Parainfluenza 2 (PCR) Not Detected (NotDetected) Parainfluenza 3 (PCR) Not Detected (NotDetected) Parainfluenza 4 (PCR) Not Detected (NotDetected) RSV (PCR) Not Detected (NotDetected) Entero/Rhino (PCR) Not Detected (NotDetected) 03/13/25 03/13/25 Range/Units 18:02 Unknown WBC (4.8-10.8) K/ul RBC (4.70-6.10) M/uL Hgb (14.0-18.0) g/dl Hct (42.0-52.0) % MCV (80.0-100.0) fL MCH (25.0-34.0) pg MCHC (32.0-36.0) g/dL RDW Std Deviation (36.4-46.3) fL RDW Coeff of Jovanna (11.5-14.5) % Plt Count (130-400) K/uL MPV (9.4-12.4) fL Immature Gran % (Auto) % Neut % (Auto) % Lymph % (Auto) % [place] % (Auto) % Eos % (Auto) % Baso % (Auto) % Neut # (Auto) (1.40-6.50) K/uL Lymph # (Auto) (1.20-3.40) K/uL [place] # (Auto) (0.11-0.59) K/uL Eos # (Auto) (0.00-0.50) K/uL Baso # (Auto) (0.00-0.20) K/uL Immature Gran # (Auto) (0.01-0.20) K/uL Sodium (136-145) mmol/L Potassium (3.5-5.1) mmol/L Chloride (98-107) mmol/L Carbon Dioxide (21-32) mmol/L Anion Gap (3-11) BUN (6-23) mg/dl Creatinine (0.6-1.4) mg/dl Est Cr Clr Drug Dosing ml/min eGFR BUN/Creatinine Ratio (10-20) Glucose (70-99(Fasting)) mg/dl Lactate 1.5 (0.4-2.0) mmol/L Calcium (8.6-10.3) mg/dl Total Bilirubin (0.2-1.0) mg/dl AST (13-39) U/L ALT (7-52) U/L Alkaline Phosphatase (34-104) U/L Total Protein (6.0-8.3) gm/dl Albumin (3.4-5.0) gm/dl Globulin (2.5-4.0) gm/dl Albumin/Globulin Ratio (0.9-2) Procalcitonin (0-0.5) ng/ml Urine Color Yellow Urine Appearance Clear (Clear) Urine pH 8.5 H (4.5-7.5) Ur Specific Rarden 1.015 (1.000-1.030) Urine Protein 2+ H (Negative) Urine Glucose (UA) Negative (Negative) Urine Ketones Negative (Negative) Urine Blood 2+ H (Negative) Urine Nitrite Negative (Negative) Urine Bilirubin Negative (Negative) Urine Urobilinogen Negative (Negative) Ur Leukocyte Esterase 1+ H (Negative) Urine WBC (Auto) Cancelled Urine RBC (Auto) Cancelled U Hyaline Cast (Auto) Cancelled U Epithel Cells (Auto) Cancelled Urine Bacteria (Auto) Cancelled Ur Renal Epithelial Cell Cancelled [place] Biurate Crystals Cancelled Calcium Oxalate Crystal Cancelled Leucine Crystals Cancelled Cystine Crystals Cancelled Uric Acid Crystals Cancelled Triple Phos Crystals Cancelled Sulfonamide Crystals Cancelled Cholesterol Crystals Cancelled Talc Crystals Cancelled Tyrosine Crystals Cancelled Hippuric Acid Crystals Cancelled Unidentified Crystals Cancelled Amorphous Sediment Cancelled Epithelial Casts Cancelled Hyaline Casts Cancelled Granular Casts Cancelled Waxy Casts Cancelled RBC Casts Cancelled WBC Casts Cancelled Other Casts Cancelled Urine Mucus Cancelled Urine Other Cancelled Urine Trichomonas Cancelled Urine Yeast Cancelled Urine Sperm Cancelled Ur Oval Fat Bodies Cancelled Ur Culture Indicated? Cancelled Urine Comment Cancelled Adenovirus (PCR) (NotDetected) B. pertussis DNA (PCR) (NotDetected) B.parapertussis DNA PCR (NotDetected) C. pneumoniae DNA (PCR) (NotDetected) Coronavirus OC43 (PCR) (NotDetected) Coronavirus HKU1 (PCR) (NotDetected) Coronavirus 229E (PCR) (NotDetected) SARS-CoV-2 (PCR) (NotDetected) Coronavirus NL63 (PCR) (NotDetected) Human Metapneumovir PCR (NotDetected) Influenza Type A (PCR) (NotDetected) Influenza Type B (PCR) (NotDetected) M. pneumoniae (PCR) (NotDetected) Parainfluenza 1 (PCR) (NotDetected) Parainfluenza 2 (PCR) (NotDetected) Parainfluenza 3 (PCR) (NotDetected) Parainfluenza 4 (PCR) (NotDetected) RSV (PCR) (NotDetected) Entero/Rhino (PCR) (NotDetected) Administered Medications Discontinued Medications Acetaminophen (Acetaminophen 500 Mg Tab) 1,000 mg PO NOW STA Stop: 03/13/25 18:55 Last Admin: 03/13/25 18:59 Dose: Not Given Documented By: SLOANE Acetaminophen (Acetaminophen 1000 Mg/100 Ml Iv) Confirm Administered Dose 1,000 mg IV .STK-MED ONE Stop: 03/13/25 18:55 Last Admin: 03/13/25 18:59 Dose: 1,000 mg Documented By: SLOANE Sodium Chloride (Nss) 1,000 mls @ 999 mls/hr IV .Q1H1M UMBERTO Stop: 03/13/25 15:40 Last Infusion: 03/13/25 17:36 Dose: Infused Documented By: Admin: 03/13/25 15:03 Dose: 999 mls/hr Documented By: JOSE Piperacillin Sod/Tazobactam Sod (Zosyn) 4.5 gm in 100 mls @ 200 mls/hr IV NOW ONE; Protocol Stop: 03/13/25 15:16 Last Infusion: 03/13/25 18:34 Dose: Infused Documented By: Admin: 03/13/25 17:25 Dose: 200 mls/hr Documented By: JOSE Sodium Chloride (Nss) 1,000 mls @ 999 mls/hr IV .Q1H1M UMBERTO Stop: 03/13/25 18:49 Last Infusion: 03/13/25 19:51 Dose: Infused Documented By: Admin: 03/13/25 18:35 Dose: 999 mls/hr Documented By: SLOANE Meropenem 500 mg/ Syringe 10 mls @ 2 mls/min IV Q8H UMBERTO; Protocol Stop: 03/23/25 02:29 Last Admin: 03/13/25 20:16 Dose: Not Given Documented By: Admin: 03/13/25 20:16 Dose: Not Given Documented By: Admin: 03/13/25 20:16 Dose: Not Given Documented By: SLOANE Meropenem 500 mg/ Syringe 10 mls @ 2 mls/min IV NOW STA; Protocol Stop: 03/13/25 18:29 Last Admin: 03/13/25 18:46 Dose: 2 mls/min Documented By: SLOANE Piperacillin Sod/Tazobactam Sod (Piperacillin/Tazo 4.5 Gm/D5w 100ml) Confirm Administered Dose 4.5 gm IV .STK-MED ONE Stop: 03/13/25 17:25 Last Admin: 03/13/25 17:26 Dose: Not Given Documented By: Imaging Data Radiologist's Impression: Abdomen/Pelvis CT 03/13/25 14:45 Technique: Axial computed tomography images were obtained of the abdomen and pelvis without intravenous contrast. No prior examination is available for comparison Findings: The liver is overall of normal size, attenuation, and contour with no sign of cirrhosis or significant fatty infiltration. No definite liver mass lesion is seen on this noncontrast study. There are small gallstones. There is no definite sign of acute cholecystitis. No bile duct dilatation is noted. The spleen is of normal size. No focal splenic lesion is evident. The pancreas appears normal with no sign of acute or chronic pancreatitis and no mass lesion noted. The pancreatic duct is of normal caliber. The adrenal glands appear unremarkable. The right kidney has been removed. No left renal or proximal ureteral calculi are seen. There is mild left hydronephrosis and hydroureter. There is an apparent ileal conduit. No definite renal mass lesion is identified. The aorta is of normal caliber. No abdominal adenopathy is seen. There is a small left paracentral ventral hernia containing a small bowel loop. There is an adjacent mild broad-based ventral hernia containing a small bowel loop. The stomach appears normal. There is no sign of small bowel obstruction. There is diverticulosis without definite diverticulitis. No free intraperitoneal fluid or air is identified. The bladder and prostate-resected. The iliac arteries are of normal caliber. No pelvic adenopathy is noted. There is subsegmental atelectasis in both lower lobes. There is coronary atherosclerosis Lumbar scoliosis and degenerative disc disease is seen. No fracture is identified. No focal osseous lesion is seen Impression: 1. Post-surgical findings of right nephrectomy, cystectomy, prostatectomy, and ileal conduit formation 2. Mild left hydronephrosis. No clear obstructing calculus or mass is identified. This could be secondary to ureteral stricture or delayed emptying from the ileal conduit 3. Cholelithiasis without evidence of acute cholecystitis 4. Diverticulosis without definite diverticulitis 5. Two small adjacent ventral hernias containing small bowel. There is no sign of associated obstruction ACT 112: Positive. There are findings on this exam that require communication between the performing entity and the patient following Patient Test Result Information Act ([place] ACT 112) guidelines. Electronically signed by Bob Mueller 03-13-2025 5:42 PM Chest X-Ray 03/13/25 14:51 XR chest 1V portable CLINICAL HISTORY: sepsis COMPARISON STUDY: 04/17/2023 FINDINGS: Heart size and pulmonary vasculature are normal. No consolidation or pleural effusion. No pneumothorax. IMPRESSION: No acute findings. ACT 112: Negative or not required by law. Electronically signed by: Maxx Haque M.D. 03/13/2025 4:05 PM Discharge Plan Visit Data Chief Complaint: Illness Stated Complaint: REF BY DOC, VOMITING, FEVER, CHILLS, SURGERY 03/11 ED Provider: Michael Berger Discharge Problem: Sepsis, YOHAN (acute kidney injury), Complicated urinary tract infection, Rigors, Hydronephrosis Patient Disposition: Admitted As Inpatient Condition: Serious Forms Stand Alone Forms: My [facility] Accredible Prescriptions Prescriptions: No Action lisinopril 10 mg tablet 10 mg PO QAM Qty: 90 3RF amlodipine 2.5 mg tablet 2.5 mg PO QAM nitroglycerin 0.4 mg tablet, sublingual 0.4 mg sublingual Q5M PRN (Reason: Chest Pain) Rx Instructions: do not exceed 3 doses per episode/ Pt has never used levothyroxine 175 mcg capsule 175 mcg PO QAM aspirin 81 mg tablet,delayed release (DR/EC) 81 mg PO QAM tramadol 50 mg tablet 50 mg PO DAILY PRN (Reason: Pain) Jardiance 10 mg tablet 10 mg PO DAILY atorvastatin 80 mg Tablet 80 mg PO QAM fluticasone propionate [Flonase Allergy Relief] 50 mcg/actuation spray,suspension 2 spray INTRANASAL DAILY PRN (Reason: Nasal Congestion) ezetimibe [Zetia] 10 mg tablet 10 mg PO QAM metformin 500 mg tablet extended release 24 hr 1,000 mg PO QAM omeprazole 20 mg capsule,delayed release(DR/EC) 20 mg PO QAM PRN (Reason: heartburn) acetaminophen [Tylenol Extra Strength] 500 mg Tablet 1,000 mg PO DIRECTED PRN (Reason: FEVER/PAIN) Referrals Referrals: Shemar Tai MD [Primary Care Provider] -
[2025-03-13] MEDS: SODIUM CHLORIDE 0.9% 1,000 ML IV SCH ×3 (15:03→21:36)
--- NOTE | 2025-03-13 16:04 | Electrocardiogram Report ---
Test Reason : Blood Pressure : */* mmHG Vent. Rate : 67 BPM Atrial Rate : 67 BPM P-R Int : 138 ms QRS Dur : 94 ms QT Int : 382 ms P-R-T Axes : 63 41 60 degrees QTcB Int : 403 ms Normal sinus rhythm Normal ECG When compared with ECG of 17-Apr-2023 17:59, No significant change was found Confirmed by Mac Vargas ([id number]) on 03/13/2025 4:03:52 PM Referred By: Confirmed By: Mac Vargas
--- NOTE | 2025-03-13 16:07 | XRay Report ---
XR chest 1V portable CLINICAL HISTORY: sepsis COMPARISON STUDY: 04/17/2023 FINDINGS: Heart size and pulmonary vasculature are normal. No consolidation or pleural effusion. No p neumothorax. IMPRESSION: No acute findings. ACT 112: Negative or not required by law. Electronically signed by: Maxx Haque M.D. 03/13/2025 4:05 PM
[2025-03-13 17:02] LABS: Chlamydia pneumoniae PCR Not Detected (NotDetected); Coronavirus 229E PCR Not Detected (NotDetected); Coronavirus CoV-2 (COVID19)PCR Not Detected (NotDetected); Coronavirus HKU1 PCR Not Detected (NotDetected); Coronavirus NL63 PCR Not Detected (NotDetected); Coronavirus OC43PCR Not Detected (NotDetected); Human Metapneumovirus PCR Not Detected (NotDetected); Parainfluenza Virus 1 PCR Not Detected (NotDetected); Parainfluenza Virus 2 PCR Not Detected (NotDetected); Parainfluenza Virus 3 PCR Not Detected (NotDetected); Parainfluenza Virus 4 PCR Not Detected (NotDetected); Respiratory Syncytial VirusPCR Not Detected (NotDetected); Rhinovirus/Enterovirus PCR Not Detected (NotDetected)
[2025-03-13] MEDS: PIPERACILLIN/TAZOBACTAM 4.5 GM/100 ML BAG IV ONE (17:25)
[2025-03-13] MEDS: PIPERACILLIN/TAZO 4.5 GM/D5W 100ML IV ONE (17:26)
--- NOTE | 2025-03-13 17:42 | CT Scan Report ---
Technique: Axial computed tomography images were obtained of the abdomen and pelvis without intravenous contrast. No prior examination is available for comparison Findings: The liver is overall of normal size, attenuation, and contour with no sign of cirrhosis or significant fatty infiltration. No definite liver mass lesion is seen on this noncontrast study. There are small gallstones. There is no definite sign of acute cholecystitis. No bile duct dilatation is noted. The spleen is of normal size. No focal splenic lesion is evident. The pancreas appears normal with no sign of acute or chronic pancreatitis and no mass lesion noted. The pancreatic duct is of normal caliber. The adrenal glands appear unremarkable. The right kidney has been removed. No left renal or proximal ureteral calculi are seen. There is mild left hydronephrosis and hydroureter. There is an apparent ileal conduit. No definite renal mass lesion is identified. The aorta is of normal caliber. No abdominal adenopathy is seen. There is a small left paracentral ventral hernia containing a small bowel loop. There is an adjacent mild broad-based ventral hernia containing a small bowel loop. The stomach appears normal. There is no sign of small bowel obstruction. There is diverticulosis without definite diverticulitis. No free intraperitoneal fluid or air is identified. The bladder and prostate-resected. The iliac arteries are of normal caliber. No pelvic adenopathy is noted. There is subsegmental atelectasis in both lower lobes. There is coronary atherosclerosis Lumbar scoliosis and degenerative disc disease is seen. No fracture is identified. No focal osseous lesion is seen Impression: 1. Post-surgical findings of right nephrectomy, cystectomy, prostatectomy, and ileal conduit formation 2. Mild left hydronephrosis. No clear obstructing calculus or mass is identified. This could be secondary to ureteral stricture or delayed emptying from the ileal conduit 3. Cholelithiasis without evidence of acute cholecystitis 4. Diverticulosis without definite diverticulitis 5. Two small adjacent ventral hernias containing small bowel. There is no sign of associated obstruction ACT 112: Positive. There are findings on this exam that require communication between the performing entity and the patient following Patient Test Result Information Act ([place] ACT 112) guidelines. Electronically signed by Bob Mueller 03-13-2025 5:42 PM
--- NOTE | 2025-03-13 18:17 | History & Physical Report ---
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 negative biofire respiratory panel UA: 2+ blood, 1+leuk esterase Lactate: 2.2-->1.5 Procalcitonin: 1.3 BUN: 36, Cr: 2.6 (was 2.4 on 01/06/25 per [facility] office note scanned into EMRlink) and 2.2 on 10/28/24 CT abd/pelvis: 1. Post-surgical findings of right nephrectomy, cystectomy, prostatectomy, and ileal conduit formation 2. Mild left hydronephrosis. No clear obstructing calculus or mass is identified. This could be secondary to ureteral stricture or delayed emptying from the ileal conduit 3. Cholelithiasis without evidence of acute cholecystitis 4. Diverticulosis without definite diverticulitis 5. Two small adjacent ventral hernias containing small bowel. There is no sign of associated obstruction Urine culture pending Blood culture pending In ER given Zosyn, 2L NSS IVF Continue Zosyn Follows with Dr Jenkins at [facility] consult If no improvement patient may require transfer to [facility] for consideration ureter stent placement May need to consider nephrology consult CBC, BMP in am #DM II A1c: 7.6 on 09/17/24 Hold home Jardiance, metformin Novolog sliding scale per protocol #HTN #HLD #H/O CAD s/p stent Continue amlodipine, atorvastatin, ezetimibe, aspirin DVT Prophylaxis SCDs for now Admit telemetry Full Code as per discussion with pt Follows with Dr Tai for routine care Pt was seen and care coordinated with Dr Mccauley. See addendum I spent a total of 70 minutes reviewing notes, outpatient records, labs, medication, coordinating, documenting and providing care for this patient excluding time spent in the performance of separately billed services and excluding time spent by another provider/QHP. 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 History obtained from patient, patient's and outpatient and inpatient chart review. Patient reports has had ureteral stent with stent exchange every 3 months for the past year at [facility] with Dr Jenkins. 2 days ago at [facility] had ureteral stent removed. He reports the hope was that will do okay without stent however states it was mentioned may require permanent stent placement. Patient states procedure 2 days ago was having nausea and vomiting when he returned home that evening. No further vomiting however reports ongoing nausea. States yesterday started with fever, chills, rigors. Fever 101.1F reported at home. Last had Tylenol around 10:00 AM. Reports continues with clear yellow urine output from stoma. Reports general malaise. Denies abdominal pain. Denies diar adri, hematuria, LAZCANO, dizziness, syncope, CP, SOB, palpitations, cough, sore throat, rhinorrhea, extremity edema, rashes. Allergies Allergy/AdvReac Type Severity Reaction Status Date / Time No Known Allergies Allergy Mild Verified 10/31/24 09:06 Home Medications Medication Instructions Recorded Confirmed Type aspirin 81 mg tablet,delayed 81 mg PO QAM 03/30/20 03/13/25 History release levothyroxine 175 mcg capsule 175 mcg PO QAM 03/30/20 03/13/25 History atorvastatin 80 mg tablet 80 mg PO QAM 05/04/20 03/13/25 History fluticasone propionate 50 2 spray intranasal DAILY PRN Nasal 06/22/20 03/13/25 History mcg/actuation nasal Congestion spray,suspension (Flonase Allergy Relief) ezetimibe 10 mg tablet (Zetia) 10 mg PO QAM 10/09/20 03/13/25 History metformin 500 mg tablet,extended 1,000 mg PO QAM 10/10/21 03/13/25 History release 24 hr omeprazole 20 mg capsule,delayed 20 mg PO QAM PRN heartburn 12/02/21 03/13/25 History release amlodipine 2.5 mg tablet 2.5 mg PO QAM 07/10/22 03/13/25 History nitroglycerin 0.4 mg sublingual 0.4 mg sublingual Q5M PRN Chest 07/10/22 03/13/25 History tablet Pain acetaminophen 500 mg tablet 1,000 mg PO DIRECTED PRN 03/18/23 03/13/25 History (Tylenol Extra Strength) FEVER/PAIN tramadol 50 mg tablet 50 mg PO DAILY PRN Pain 04/09/23 03/13/25 History empagliflozin 10 mg tablet 10 mg PO DAILY 04/21/24 03/13/25 History (Jardiance) lisinopril 10 mg tablet 10 mg PO QAM #90 tabs 07/28/24 03/13/25 Rx Past Med/Surg History Problem List (Updated 03/13/25 @ 20:58 by Michael Berger DO) Hydronephrosis (Acute) Rigors (Acute) Complicated urinary tract infection (Acute) YOHAN (acute kidney injury) (Acute) Sepsis (Acute) Vitamin D deficiency S/P ileal conduit Complicated urinary tract infection (Acute) Acute pyelonephritis (Acute) Sepsis (Acute) Hypomagnesemia (Acute) Urothelial carcinoma Hypertension Hypertension Chronic kidney disease, stage III (moderate) YOHAN (acute kidney injury) (Acute) Acute UTI (Acute) Postoperative fever (Acute) Hypomagnesemia (Acute) Ureteral cancer Acute UTI (Acute) Sepsis (Acute) Urinary frequency Encounter for pre-operative examination Bladder cancer Ureter malignant neoplasm Hyperlipidemia Medical History Diabetes NIDDM CAD (coronary artery disease) stent x1 (2007)-F/U PCP GERD (gastroesophageal reflux disease) Cancer Skin (BCC) from back Bladder cancer AND URETERAL CANCER? Ureteral cancer Chronic back pain CKD (chronic kidney disease), stage III Hypomagnesemia Diabetes mellitus, type II Ureteral cancer Bladder cancer Foot drop, right No brace Arthritis Myocardial Infarction 2007 > stent x1 Hypertension Coronary artery disease S/p stent in 2007, no longer follows with [facility] cardio, PCP only. 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 Negative DSE 2013. Hypothyroidism Surgical History History of cardiac cath stent x1 (2007) History of cystoscopy Multiple Cysto, bladder biopsy (07/12/20): MAC sedation at [facility] (05/17/20): LMA#5 at [facility] History of colonoscopy History of tooth extraction Family History Mother Diabetes Heart disease Cancer Hypertension Family history of diabetes mellitus Father Heart disease Social History Smoking Status: Never smoker Tobacco Type: Cigarettes Second Hand Exposure: No; Do You Dip or Chew Tobacco: No; Hx Alcohol Use: No Hx Substance Use: No Preferred Language: Hebrew Communication Ability: Effective Seal Mixing Operator Required: No Beliefs That Will Affect Care: None marital status: Current Living Situation: Spouse current occupational status: employed current occupation: [employer] How many Children do You have: 2 Feels Safe at Home: Yes Diet: regular Assistive Devices: Cane and Walker Review of Systems Review of Systems: All systems reviewed & are unremarkable except as noted in HPI & below Physical Exam Physical Exam: General: no distress, WDWN Head: normocephalic, atraumatic Eyes: conjunctiva non-injected, anicteric ENT: normal inspection external ears, nose, mucous membranes dry Neck: supple, trachea midline Lungs: clear, no respiratory distress, no wheezing/rhonchi/rales CV: RRR, no murmur, no pretibial edema Abd: normal BS, soft, +ostomy right lower quadrant draining clear yellow urine, abdomen non-tender Ext: no cyanosis, no calf tenderness Neuro: A&O x 3, no focal deficits noted, normal affect Skin: hot, dry Results & Data Results & Data Vital Signs (Past 12 Hours) Vital Signs Temp Pulse Pulse Resp BP BP Pulse Ox 03/13/25 17:00 67 18 144/72 H 98 03/13/25 16:00 64 18 140/78 97 03/13/25 15:17 65 03/13/25 15:00 63 21 153/72 H 96 03/13/25 13:03 36.7 C 61 18 116/75 98 O2 Del Method 03/13/25 17:00 Room Air 03/13/25 16:00 Room Air 03/13/25 15:17 03/13/25 15:00 Room Air 03/13/25 13:03 Room Air Laboratory Results Short CBC 03/13/25 Range/Units 13:15 WBC 13.07 H (4.8-10.8) K/ul Hgb 13.3 L (14.0-18.0) g/dl Hct 41.0 L (42.0-52.0) % Plt Count 212 (130-400) K/uL BMP 03/13/25 13:15 Sodium 135 L Potassium 4.4 Chloride 103 Carbon Dioxide 23 BUN 36 H Creatinine 2.63 H Glucose 137 H Calcium 9.0 Liver Function 03/13/25 Range/Units 13:15 Total Bilirubin 0.9 (0.2-1.0) mg/dl AST 28 (13-39) U/L ALT 18 (7-52) U/L Alkaline Phosphatase 72 (34-104) U/L Albumin 4.0 (3.4-5.0) gm/dl Urine 03/13/25 Range/Units 18:02 Urine Color Yellow Urine Appearance Clear (Clear) Urine pH 8.5 H (4.5-7.5) Ur Specific [place] 1.015 (1.000-1.030) Urine Protein 2+ H (Negative) Urine Glucose (UA) Negative (Negative) Diagnostic Findings Abdomen/Pelvis CT 03/13/25 14:45 Technique: Axial computed tomography images were obtained of the abdomen and pelvis without intravenous contrast. No prior examination is available for comparison Findings: The liver is overall of normal size, attenuation, and contour with no sign of cirrhosis or significant fatty infiltration. No definite liver mass lesion is seen on this noncontrast study. There are small gallstones. There is no definite sign of acute cholecystitis. No bile duct dilatation is noted. The spleen is of normal size. No focal splenic lesion is evident. The pancreas appears normal with no sign of acute or chronic pancreatitis and no mass lesion noted. The pancreatic duct is of normal caliber. The adrenal glands appear unremarkable. The right kidney has been removed. No left renal or proximal ureteral calculi are seen. There is mild left hydronephrosis and hydroureter. There is an apparent ileal conduit. No definite renal mass lesion is identified. The aorta is of normal caliber. No abdominal adenopathy is seen. There is a small left paracentral ventral hernia containing a small bowel loop. There is an adjacent mild broad-based ventral hernia containing a small bowel loop. The stomach appears normal. There is no sign of small bowel obstruction. There is diverticulosis without definite diverticulitis. No free intraperitoneal fluid or air is identified. The bladder and prostate-resected. The iliac arteries are of normal caliber. No pelvic adenopathy is noted. There is subsegmental atelectasis in both lower lobes. There is coronary atherosclerosis Lumbar scoliosis and degenerative disc disease is seen. No fracture is identified. No focal osseous lesion is seen Impression: 1. Post-surgical findings of right nephrectomy, cystectomy, prostatectomy, and ileal conduit formation 2. Mild left hydronephrosis. No clear obstructing calculus or mass is identified. This could be secondary to ureteral stricture or delayed emptying from the ileal conduit 3. Cholelithiasis without evidence of acute cholecystitis 4. Diverticulosis without definite diverticulitis 5. Two small adjacent ventral hernias containing small bowel. There is no sign of associated obstruction ACT 112: Positive. There are findings on this exam that require communication between the performing entity and the patient following Patient Test Result Information Act ([place] ACT 112) guidelines. Electronically signed by Bob Mueller 03-13-2025 5:42 PM Chest X-Ray 03/13/25 14:51 XR chest 1V portable CLINICAL HISTORY: sepsis COMPARISON STUDY: 04/17/2023 FINDINGS: Heart size and pulmonary vasculature are normal. No consolidation or pleural effusion. No pneumothorax. IMPRESSION: No acute findings. ACT 112: Negative or not required by law. Electronically signed by: Maxx Haque M.D. 03/13/2025 4:05 PM Supervising Physician Co-Signing Physician Notes Patient seen and examined at bedside. present as well. Patient doing ok today, some fevers here and at home. On exam, well appearing, stoma (complex anatomy) healthy appearing with yellow urine output. Febrile with leukocytosis consistent with sepsis with source of urine. Elevated procal consistent with sepsis. CT abdomen/pelvis with post surgical changes and mild hydronephrosis likely in setting of ileal tubing re moval. Complex case. Patient presenting with urosepsis in setting of complex ileal conduit and stoma creation. Treat with zosyn, follow up cultures. Continue fluid resuscitation. I have seen and discussed the case with the collaborating advanced practitioner. I agree with the above H&P. I have reviewed and confirmed the patients medical history, the findings on physical examination, and the patients diagnosis and treatment plan with Carolina Brown PA-C and agree with the information documented. I spent a total of 30 minutes coordinating, documenting, and providing care for this patient excluding time spent in the performance of separately billed services. All of the aforementioned completed outside of collaborating with the assigned advanced practitioner for a full treatment plan. I have reviewed the advanced practitioner's documentation, and I agree with, and take responsibility for the plan of care (1) Fever Fever type: unspecified Qualified Code(s): R50.9 - Fever, unspecified
[2025-03-13 18:29] LABS: Appearance Urine Clear (Clear); Glucose Urine UA Negative (Negative)
[2025-03-13] MEDS: MEROPENEM 500 MG in SYRINGE 0 ML IV STA (18:46)
[2025-03-13] MEDS ORDERED: ACETAMINOPHEN SUSP 160 MG/5 ML BTL PO STA (18:53)
[2025-03-13] MEDS: ACETAMINOPHEN 500 MG TAB PO STA (18:59)
[2025-03-13] MEDS: ACETAMINOPHEN 1000 MG/100 ML IV IV ONE (18:59)
[2025-03-13] MEDS: MEROPENEM 500 MG in SYRINGE 0 ML IV SCH (20:16)
[2025-03-13] MEDS ORDERED: GLUCOSE 40% GEL 15 GM TUBE PO PRN (21:32)
[2025-03-13] MEDS ORDERED: POLYETHYLENE (MIRALAX) 17 GM PACK PO PRN (21:32)
[2025-03-13] MEDS ORDERED: GLUCAGON FOR INJ 1 MG VIAL SQ PRN (21:32)
[2025-03-13] MEDS ORDERED: DEXTROSE 50% 50 ML SYRINGE IV PRN (21:32)
[2025-03-13] MEDS ORDERED: CARBOHYDRATES FOR HYPOGLYCEMIA PO PRN (21:32)
[2025-03-13] MEDS ORDERED: ACETAMINOPHEN 325 MG TAB PO PRN (21:32)
[2025-03-13] MEDS ORDERED: ONDANSETRON INJ 2 MG/ML 2 ML VIAL IV PRN (21:32)
[2025-03-13] MEDS ORDERED: GLUCOSE 10 TAB/TUBE PO PRN (21:32)
[2025-03-13] MEDS ORDERED: FLUTICASONE PROPIONATE NA SPR 16 GM BTL NAE PRN (21:32)
--- NOTE | 2025-03-13 21:42 | Urology Consultation ---
Date of Consultation March 13, 2025 Assessment & Plan (1) Complicated urinary tract infection: The patient has been admitted to the hospitalist service. Urologic recommendations are as follows: Patient has been placed on antibiotics in form of Zosyn and this should continue. Appropriate cultures have been sent and can be tailored based on culture results The patient is known to have acute kidney injury and therefore nephrotoxins should be avoided He should be hydrated with IV fluids The patient is noted to have hydronephrosis of a moderate nature on his current CT scan which was not present on a previous CT scan From February 2023. As the patient has had his left ureteral stent recently removed this raises the question of whether the patient has some type of ureteral stricture/kinking resulting in his left hydronephrosis For the present time would recommend conservative plan as noted above as the patient has noted to be hemodynamically stable and afebrile. If the patient should decompensate anyway such as develope fevers, or if he has any worsening of his creatinine, or if his ileal conduit stops draining, he will require transfer to [facility] where he will likely need either replacement of his ureteral stent or percutaneous nephrostomy tube placement Would recommend keeping the patient n.p.o. for the present time The above recommendations were discussed directly with the hospitalist service and expressed her understanding about the potential need for transfer The above was also discussed with the patient. Supervising Physician Co-Signing Physician Notes Discussed patient with [place]. Rounded on patient personally. 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 Dr. Jenkins at [facility] removed his stent earlier this week and then he developed nausea and vomiting with chills. He did have a temp of 38.1 previously but now temps have been in the 37's. He has been otherwise hemodynamically stable. Initial leukocytosis of 13.07 has down trended to 10.19 today. He is currently on Zosyn. Creatinine on presentation was 2.63. Previous baseline appeared to be 2.2. It is down trended to 2.4 today. Urine culture and blood cultures are pending. Patient reports subjectively feeling better. I offered him cystoscopy through his conduit was an attempt to place a left ureteral stent today however I cautioned him that it may not be successful as sometimes it is very difficult to find the anastomotic location of the left ureter and conduits. Other options would be to observe him carefully as he is clinically improving or transferring him back to [facility] for what I suspect would be a left nephrostomy tube placement. He stated that if he had any procedures, he would want it done at [facility] which is not unreasonable. He asked if I could call Dr. Jenkins but Dr. Jenkins is not on-call this weekend so I told him I would not be able to get in touch with him until Sunday. Patient ultimately would like conservative management and then to potentially talk to [facility] on Sunday which I think is reasonable as long as he remains hemodynamically stable and his kidney function does not worsen. Urology to follow. If he becomes hemodynamically stable, febrile or has worsening labs, recommend transfer to [facility]. History of Present Illness Reason for Consultation: Complicated urinary tract infection Attending Physician: Johnnie Mccauley MD History of Present Illness This is a 64-year-old male with with a past medical history of a right nephrectomy and ureterectomy as well as a cystectomy with ileal conduit formation secondary to urothelial cancer in 2021 at [facility]. The patient notes that he has had a chronic indwelling left ureteral stent in place that was exchanged at periodic intervals at [facility]. The patient notes that he most recently had a ureteroscopy at [facility] earlier this week (2 days ago) where he said that they had the stent removed and they left the stent out. Since his procedure the patient says that he has been having fevers as well as nausea and vomiting. He feels tired and fatigued. He denies any back or flank pain. He does note that his urostomy is working appropriately. He contacted his urology team and they recommended evaluation in the emergency department. Since arrival to the hospital the patient has had labs and imaging which I independently reviewed. Chest x-ray showed no evidence of pneumonia. A CT scan of the abdomen pelvis showed postsurgical findings consistent with a right nephrectomy, a cystectomy, prostatectomy, and ileal conduit formation. Mild left-sided hydronephrosis was noted without any clear obstructing kidney stone or mass noted. Interpreting radiologist felt that this could be due to to a ureter stricture or delayed emptying from his ileal conduit. Labs included CBC white blood cell count was elevated 13.0. Hemoglobin and hematocrit were 13.3 and 41.0. Platelet count was normal. Chemistry profile showed sodium was 135 with a potassium of 4.4. BUN and creatinine were 36 and 2.6. Review of records showed patient's creatinine typically runs anywhere from 1.7-2.6. Lactic acid level was initially elevated at 2.2 but has improved to 1.5 after patient had received some intravenous fluids. Urinalysis was negative for nitrites but had 1+ leukocyte Estrace. A bio fire study was performed and was not detecting any viruses. At the time of my interview the patient was resting comfortably in bed he was in no distress. Allergies Allergy/AdvReac Type Severity Reaction Status Date / Time No Known Allergies Allergy Mild Verified 10/31/24 09:06 Home Medications Medication Instructions Recorded Confirmed Type aspirin 81 mg tablet,delayed 81 mg PO QAM 03/30/20 03/13/25 History release levothyroxine 175 mcg capsule 175 mcg PO QAM 03/30/20 03/13/25 History atorvastatin 80 mg tablet 80 mg PO QAM 05/04/20 03/13/25 History fluticasone propionate 50 2 spray intranasal DAILY PRN Nasal 06/22/20 03/13/25 History mcg/actuation nasal Congestion spray,suspension (Flonase Allergy Relief) ezetimibe 10 mg tablet (Zetia) 10 mg PO QAM 10/09/20 03/13/25 History metformin 500 mg tablet,extended 1,000 mg PO QAM 10/10/21 03/13/25 History release 24 hr omeprazole 20 mg capsule,delayed 20 mg PO QAM PRN heartburn 12/02/21 03/13/25 History release amlodipine 2.5 mg tablet 2.5 mg PO QAM 07/10/22 03/13/25 History nitroglycerin 0.4 mg sublingual 0.4 mg sublingual Q5M PRN Chest 07/10/22 03/13/25 History tablet Pain acetaminophen 500 mg tablet 1,000 mg PO DIRECTED PRN 03/18/23 03/13/25 History (Tylenol Extra Strength) FEVER/PAIN tramadol 50 mg tablet 50 mg PO DAILY PRN Pain 04/09/23 03/13/25 History empagliflozin 10 mg tablet 10 mg PO DAILY 04/21/24 03/13/25 History (Jardiance) lisinopril 10 mg tablet 10 mg PO QAM #90 tabs 07/28/24 03/13/25 Rx Patient History Medical History Diabetes NIDDM CAD (coronary artery disease) stent x1 (2007)-F/U PCP GERD (gastroesophageal reflux disease) Cancer Skin (BCC) from back Bladder cancer AND URETERAL CANCER? Ureteral cancer Chronic back pain CKD (chronic kidney disease), stage III Hypomagnesemia Diabetes mellitus, type II Ureteral cancer Bladder cancer Foot drop, right No brace Arthritis Myocardial Infarction 2007 > stent x1 Hypertension Coronary artery disease S/p stent in 2007, no longer follows with [facility], PCP only. 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 Negative DSE 2013. Hypothyroidism Surgical History History of cardiac cath stent x1 (2007) History of cystoscopy Multiple Cysto, bladder biopsy (07/12/20): MAC sedation at [facility] (05/17/20): LMA#5 at [facility] History of colonoscopy History of tooth extraction Family History Mother Diabetes Heart disease Cancer Hypertension Family history of diabetes mellitus Father Heart disease Social History Smoking Status: Former smoker Tobacco Type: Cigarettes Cigarettes Per Day: 2 pk /day; Second Hand Exposure: No; Do You Dip or Chew Tobacco: No; Tobacco Cessation Education Requested by Patient: No Hx Alcohol Use: No Hx Substance Use: No Preferred Language: Nepali Communication Ability: Effective Community Services Coordinator Required: No Beliefs That Will Affect Care: None marital status: Current Living Situation: Spouse current occupational status: employed current occupation: [employer] How many Children do You have: 2 Other Information That Helps Us Care for You: No Feels Safe at Home: Yes Safety Concerns: Feels Safe At This Time Diet: regular Assistive Devices: Denture - Upper and Glasses Review of Systems Review of Systems: All systems reviewed & are unremarkable except as noted in HPI & below Physical Exam Constitutional: WD/WN, vitals as above Eyes: Wears glasses ENMT: Ears: no hearing impairment and no external ear abnormality Mouth: no oropharynx abnormality Neck: trachea midline Respiratory: normal respiratory effort; no respiratory distress and no labored breathing Cardiovascular: Rate/Rhythm: regular rate and regular rhythm Gastrointestinal (Abdomen): Abdomen is soft without distention or rigidity. There are no signs of peritonitis such as rebound tenderness or guarding. Patient has a noted ileal conduit on the right side of his abdomen that is draining clear yellow urine Musculoskeletal: No calf tenderness Skin: no rashes Neurologic: moves all extremities Psychiatric: A+Ox3, euthymic affect Genitourinary: No CVA tenderness with percussion bilaterally Results & Data Vital Signs (Past 12 Hours) Vital Signs Temp Pulse Pulse Resp BP BP Pulse Ox 03/13/25 20:49 36.8 C 53 L 18 123/65 97 03/13/25 19:49 37.3 C 74 18 128/67 96 03/13/25 19:06 65 03/13/25 18:39 38.1 C H 68 17 136/72 98 03/13/25 18:24 37.3 C 03/13/25 17:00 67 18 144/72 H 98 03/13/25 16:00 64 18 140/78 97 03/13/25 15:17 65 03/13/25 15:00 63 21 153/72 H 96 03/13/25 13:03 36.7 C 61 18 116/75 98 O2 Del Method 03/13/25 20:49 Room Air 03/13/25 19:49 Room Air 03/13/25 19:06 03/13/25 18:39 Room Air 03/13/25 18:24 03/13/25 17:00 Room Air 03/13/25 16:00 Room Air 03/13/25 15:17 03/13/25 15:00 Room Air 03/13/25 13:03 Room Air PG Care Time/CCT Total # of Minutes Spent Total Time Spent with Patient: Total time spent is greater than 50% in coordination of care (as documented) at patient's floor/unit and/or counseling patient: Coding Level of Care Code 40368 IN/OBS CONSULT LVL 5,80M Diagnoses Complicated urinary tract infection N39.0
[2025-03-13] MEDS: INSULIN ASPART PER UNIT CHARGE SC SCH (21:46)
[2025-03-13] MEDS: PIPERACILLIN/TAZOBACTAM 4.5 GM/100 ML BAG IV SCH (22:17)
[2025-03-14] MEDS: LEVOTHYROXINE SODIUM 175 MCG TABLET PO SCH (06:00)
[2025-03-14 06:31] LABS: Hematocrit (blood only) 34.0 % (42.0-52.0); Hemoglobin 11.1 g/dl (14.0-18.0); Immature Granulocytes # (auto) 0.05 K/uL (0.01-0.20); Immature Granulocytes % (auto) 0.5 %; Mean Corpuscular Hemoglobin 29.5 pg (25.0-34.0); Mean Corpuscular Volume 90.4 fL (80.0-100.0); Platelet Count 183 K/uL (130-400); RDW Standard Deviation 43.4 fL (36.4-46.3); Red Blood Count 3.76 M/uL (4.70-6.10); White Blood Count 10.19 K/ul (4.8-10.8)
[2025-03-14 06:52] LABS: Anion Gap 6.0 (3-11); Blood Urea Nitrogen 31.0 mg/dl (6-23); Calcium 8.2 mg/dl (8.6-10.3); Carbon Dioxide 22.0 mmol/L (21-32); Chloride 110.0 mmol/L (98-107); Creatinine Clr Calc Pharmacy 34.1 ml/min; Glucose 111.0 mg/dl (70-99(Fasting)); Potassium 4.4 mmol/L (3.5-5.1); Sodium 138.0 mmol/L (136-145)
[2025-03-14 08:00] LABS: Hemoglobin A1C 6.9 % (4.5-5.6)
[2025-03-14] MEDS: ATORVASTATIN 40 MG TAB PO SCH (08:04)
[2025-03-14] MEDS: ASPIRIN 81 MG ECTAB PO SCH (08:04)
[2025-03-14] MEDS: EZETIMIBE 10 MG TAB PO SCH (08:04)
[2025-03-14 10:02] LABS: A calco-baum cmplx NotReported Not Detected (NotDetected); Bact fragilis Not Reported Not Detected (NotDetected); Blood Culture Id Panel See PCR Comment (NotDetected); C auris Not Reported Not Detected (NotDetected); Calbicans Not Reported Not Detected (NotDetected); Candida glabrata Not Reported Not Detected (NotDetected); Candida krusei Not Reported Not Detected (NotDetected); Cneoformans/gatti Not Reported Not Detected (NotDetected); Cparapsilosis Not Reported Not Detected (NotDetected); Ctropicalis Not Reported Not Detected (NotDetected); E cloacae compx Not Reported Not Detected (NotDetected); Efaecalis Not Reported Not Detected (NotDetected); Efaecium Not Reported Not Detected (NotDetected); Enterobacterales Not Reported Not Detected (NotDetected); Escherichia coli Not Reported Not Detected (NotDetected); H influenzae Not Reported Not Detected (NotDetected); K aerogenes Not Reported Not Detected (NotDetected); Koxytoca Not Reported Not Detected (NotDetected); Kpneumoniae grp Not Reported Not Detected (NotDetected); Lmonocyt Not Reported Not Detected (NotDetected); N meningitidis Not Reported Not Detected (NotDetected); P aeruginosa Not Reported Not Detected (NotDetected); Proteus spp Not Reported Not Detected (NotDetected); Salmonella spp Not Reported Not Detected (NotDetected); Staph lugdunensis Not Reported Not Detected (NotDetected); Staph spp. Not Reported Not Detected (NotDetected); Staphaureus Not Reported Not Detected (NotDetected); Staphepi Not Reported Not Detected (NotDetected); Stenmaltophilia Not Reported Not Detected (NotDetected); Strep agal(GrpB) Not Reported Not Detected (NotDetected); Strep pneum Not Reported Not Detected (NotDetected); Strep pyog (GrpA) Not Reported Not Detected (NotDetected); Strep spp Not Reported DETECTED (NotDetected)
[2025-03-14 11:00] LABS: Streptococcus spp DETECTED (NotDetected)
[2025-03-14] MEDS: DAPTOmycin 850 MG in SYRINGE 0 ML IV SCH (12:22)
[2025-03-14] MEDS: ADVANCED PROBIOTIC 625 MG CAPSULE PO SCH (12:22)
--- NOTE | 2025-03-14 14:04 | Hospitalist Progress Note ---
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 negative biofire respiratory panel UA: 2+ blood, 1+leuk esterase Lactate: 2.2-->1.5 Procalcitonin: 1.3 BUN: 36, Cr: 2.6 (was 2.4 on 01/06/25 per [place] office note scanned into EMRlink) and 2.2 on 10/28/24 CT abd/pelvis: 1. Post-surgical findings of right nephrectomy, cystectomy, prostatectomy, and ileal conduit formation 2. Mild left hydronephrosis. No clear obstructing calculus or mass is identified. This could be secondary to ureteral stricture or delayed emptying from the ileal conduit 3. Cholelithiasis without evidence of acute cholecystitis 4. Diverticulosis without definite diverticulitis 5. Two small adjacent ventral hernias containing small bowel. There is no sign of associated obstruction Follows with Dr Jenkins at [place] 03/14 Clinically improving Afebrile, leukocytosis resolved Creatinine improved from 2.6-->2.4, baseline 2.2-2.4 Urine culture: Pending Blood culture: Gram-positive cocci in 1 bottle, Streptococcus species per PCR Repeat blood cultures ordered for tomorrow Continue IV Zosyn for now Evaluated by urology service- appreciate the recommendations recommend to continue present management at this point presently stable If with clinical worsening, will need to be transferred back to [facility] per Urology service #DM II A1c: 7.6 on 09/17/24 Hold home Jardiance, metformin Novolog sliding scale per protocol #HTN #HLD #H/O CAD s/p stent Continue amlodipine, atorvastatin, ezetimibe, aspirin DVT Prophylaxis SCDs for now Admit telemetry Full Code as per discussion with pt Follows with Dr Tai for routine care Admission and Anticipated Discharge Date Admission Date: March 13, 2025 Subjective follow-up for UTI, status post ureteral stent removal prior to admission, etc. Seen sitting up in bedside chair, comfortable, not in distress States he feels better overall than during admission Denies abdominal pain, nausea vomiting, fevers or chills States ileal conduit output has been back to baseline, yellow urine No other new symptoms Review of Systems Review of Systems: all noted and negative except for above Physical Exam Physical Exam: General- oriented x 3, not in distress, speaks in sentences with no effort or accessory muscle use Eyes- anicteric Neck- no JVD Lungs- clear breath sounds bilaterally, no rales/wheezes Heart- normal rate, regular rhythm; no murmurs Abdomen- normal bowel sounds, nondistended, soft, nontender ileal conduit ostomy: Yellow urine Extremities- no pretibial edema, no calf tenderness Neuro- alert, oriented x 3; no gross focal neurologic deficits Skin- warm & dry Results & Data Results & Data Vital Signs (Past 12 Hours) Vital Signs Temp Pulse Pulse Resp BP Pulse Ox O2 Del Method 03/14/25 12:42 37.2 C 59 L 16 144/75 H 96 Room Air 03/14/25 09:40 59 L 03/14/25 08:15 37.6 C H 58 L 20 128/73 95 Room Air 03/14/25 02:29 37.6 C H 62 18 145/71 H 98 Room Air all noted and reviewed including below (1) Fever Fever type: unspecified Qualified Code(s): R50.9 - Fever, unspecified
[2025-03-15 08:16] LABS: Hematocrit (blood only) 39.9 % (42.0-52.0); Hemoglobin 13.1 g/dl (14.0-18.0); Immature Granulocytes # (auto) 0.03 K/uL (0.01-0.20); Immature Granulocytes % (auto) 0.3 %; Mean Corpuscular Hemoglobin 29.9 pg (25.0-34.0); Mean Corpuscular Volume 91.1 fL (80.0-100.0); Platelet Count 225 K/uL (130-400); RDW Standard Deviation 43.8 fL (36.4-46.3); Red Blood Count 4.38 M/uL (4.70-6.10); White Blood Count 9.43 K/ul (4.8-10.8)
--- NOTE | 2025-03-15 08:20 | Urology Progress Note ---
Date of Service March 15, 2025 Assessment & Plan (1) Hydronephrosis: (2) S/P ileal conduit: (3) Urothelial carcinoma: (4) Acute UTI: (5) YOHAN (acute kidney injury): Plan 64-year-old male with a history of urothelial cancer status post right nephro ureterectomy and cystectomy with ileal conduit creation. 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 Jenkins with chronic indwelling left ureteral stents. Stent was reportedly removed earlier this week and patient presented with nausea vomiting and fevers. Options were discussed with him including observation, attempted stent placement through ileal conduit or transfer for nephrostomy tube placement. Patient has voiced desire to watch conservatively. Hemodynamically stable and labs stable. Recommend continued antibiotics for total of 10 to 14 days. Given his stability, we can continue to watch this closely but if he were to clinically worsen, recommendations were made to transfer him to [facility] per his request Patient will need outpatient follow-up with primary urologist at [facility] to follow Admission and Anticipated Discharge Date Admission Date: March 13, 2025 Subjective No acute issues overnight. Afebrile with stable vitals. Labs today show a white blood cell count of 9.4, and a creatinine is pending. His urine culture grew out Staphylococcus hemolyticus. Blood cultures are pending. Physical Exam Physical Exam: General: Alert and oriented, no acute distress HEENT: Normocephalic, mucous membranes moist Pulmonary: Nonlabored respirations Abdomen: Nondistended Extremities: Moves all 4 spontaneously Neuro: No gross deficits Skin: Warm, dry, no rashes noted Results & Data Vital Signs (Past 12 Hours) Vital Signs Temp Pulse Pulse Resp BP Pulse Ox O2 Del Method 03/15/25 03:00 36.9 C 46 L 18 130/64 97 Room Air 03/14/25 22:49 37.0 C 53 L 18 143/66 H 96 Room Air 03/14/25 21:44 52 L PG Care Time/CCT Total # of Minutes Spent Total Time Spent with Patient: Total time spent is greater than 50% in coordination of care (as documented) at patient's floor/unit and/or counseling patient: Coding Level of Care Code 33974 SUB INP/OBS CARE 2/35MIN Diagnoses Hydronephrosis N13.30 S/P ileal conduit Z93.6 Urothelial carcinoma C68.9 Acute UTI N39.0 YOHAN (acute kidney injury) N17.9
[2025-03-15 08:40] LABS: Alanine Aminotransferase 36.0 U/L (7-52); Albumin Globulin Ratio 1.0 (0.9-2); Alkaline Phosphatase 68.0 U/L (34-104); Anion Gap 9.0 (3-11); Bilirubin,Total 0.8 mg/dl (0.2-1.0); Blood Urea Nitrogen 31.0 mg/dl (6-23); Calcium 9.4 mg/dl (8.6-10.3); Carbon Dioxide 22.0 mmol/L (21-32); Chloride 109.0 mmol/L (98-107); Creatinine Clr Calc Pharmacy 32.1 ml/min; Globulin 3.9 gm/dl (2.5-4.0); Glucose 117.0 mg/dl (70-99(Fasting)); Potassium 4.1 mmol/L (3.5-5.1); Sodium 140.0 mmol/L (136-145); Total Protein 7.8 gm/dl (6.0-8.3)
--- NOTE | 2025-03-15 17:00 | Hospitalist Progress Note ---
Date of Service March 15, 2025 Assessment & Plan (1) Fever: Plan: MR. 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 S/P ureteral stent removal 2 days ago at [place]. 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 negative biofire respiratory panel UA: 2+ blood, 1+leuk esterase Lactate: 2.2-->1.5 Procalcitonin: 1.3 BUN: 36, Cr: 2.6 (was 2.4 on 01/06/25 per [place] office note scanned into EMRlink) and 2.2 on 10/28/24 CT abd/pelvis: 1. Post-surgical findings of right nephrectomy, cystectomy, prostatectomy, and ileal conduit formation 2. Mild left hydronephrosis. No clear obstructing calculus or mass is identified. This could be secondary to ureteral stricture or delayed emptying from the ileal conduit 3. Cholelithiasis without evidence of acute cholecystitis 4. Diverticulosis without definite diverticulitis 5. Two small adjacent ventral hernias containing small bowel. There is no sign of associated obstruction Follows with Dr Jenkins at [place] leukocystosis resolved, afebrile Afebrile, leukocytosis resolved baseline 2.2-2.4 Urine culture: staph heaemolyticus Blood culture: strep parasanguinis Repeat blood cultures pending discontinue zosyn, continue daptomycin--viviane transition to linezolid upon d/c If with clinical worsening, will need to be transferred back to [facility] per Urology service #DM II A1c: 7.6 on 09/17/24 Hold home Jardiance, metformin Novolog sliding scale per protocol #HTN #HLD #H/O CAD s/p stent Continue amlodipine, atorvastatin, ezetimibe, aspirin DVT Prophylaxis SCDs for now Admit telemetry Full Code as per discussion with pt Follows with Dr Tai for routine care Admission and Anticipated Discharge Date Admission Date: March 13, 2025 Subjective NAEO Reports feeling much improved over all Physical Exam Constitutional: WD/WN, vitals as above Respiratory: normal respiratory effort, lungs clear to auscultation Cardiovascular: RRR, no murmur, no edema Musculoskeletal: no cyanosis or clubbing, extremities motor strength 5/5 Results & Data Results & Data Vital Signs (Past 12 Hours) Vital Signs Temp Pulse Pulse Resp BP Pulse Ox O2 Del Method 03/15/25 16:09 37.1 C 51 L 16 130/67 98 Room Air 03/15/25 15:11 66 03/15/25 11:28 36.9 C 53 L 18 120/69 96 Room Air 03/15/25 08:24 36.6 C 42 L 18 160/70 H 98 Room Air 03/15/25 07:45 Room Air 03/15/25 07:30 42 L Laboratory Results Short CBC 03/15/25 Range/Units 07:48 WBC 9.43 (4.8-10.8) K/ul Hgb 13.1 L (14.0-18.0) g/dl Hct 39.9 L (42.0-52.0) % Plt Count 225 (130-400) K/uL BMP 03/15/25 07:48 Sodium 140 Potassium 4.1 Chloride 109 H Carbon Dioxide 22 BUN 31 H Creatinine 2.51 H Glucose 117 H Calcium 9.4 Liver Function 03/15/25 Range/Units 07:48 Total Bilirubin 0.8 (0.2-1.0) mg/dl AST 48 H (13-39) U/L ALT 36 (7-52) U/L Alkaline Phosphatase 68 (34-104) U/L Albumin 3.9 (3.4-5.0) gm/dl Medications Administered Home Medications Medication Instructions Recorded Confirmed Last Taken aspirin 81 mg tablet,delayed 81 mg PO QAM 03/30/20 03/13/25 04/17/23 release levothyroxine 175 mcg capsule 175 mcg PO QAM 03/30/20 03/13/25 04/17/23 atorvastatin 80 mg tablet 80 mg PO QAM 05/04/20 03/13/25 04/17/23 fluticasone propionate 50 2 spray intranasal DAILY PRN Nasal 06/22/20 03/13/25 Unknown mcg/actuation nasal Congestion spray,suspension (Flonase Allergy Relief) ezetimibe 10 mg tablet (Zetia) 10 mg PO QAM 10/09/20 03/13/25 04/17/23 metformin 500 mg tablet,extended 1,000 mg PO QAM 10/10/21 03/13/25 04/17/23 release 24 hr omeprazole 20 mg capsule,delayed 20 mg PO QAM PRN heartburn 12/02/21 03/13/25 01/26/23 release amlodipine 2.5 mg tablet 2.5 mg PO QAM 07/10/22 03/13/25 04/17/23 nitroglycerin 0.4 mg sublingual 0.4 mg sublingual Q5M PRN Chest 07/10/22 Unknown tablet Pain acetaminophen 500 mg tablet 1,000 mg PO DIRECTED PRN 03/18/23 03/13/25 03/18/23 17:00 (Tylenol Extra Strength) FEVER/PAIN tramadol 50 mg tablet 50 mg PO DAILY PRN Pain 04/09/23 03/13/25 Unknown empagliflozin 10 mg tablet 10 mg PO DAILY 04/21/24 03/13/25 Unknown (Jardiance) lisinopril 10 mg tablet 10 mg PO QAM #90 tabs 07/28/24 03/13/25 Unknown Active Medications Generic Name Dose Route Start Last Admin Trade Name Freq PRN Reason Stop Dose Admin Amlodipine Besylate 2.5 mg 03/14/25 09:00 03/15/25 08:00 Amlodipine Besylate 5 Mg Tab PO 04/13/25 08:59 2.5 mg QAM UMBERTO Administration Aspirin 81 mg 03/14/25 09:00 03/15/25 08:00 Aspirin 81 Mg Ectab PO 04/13/25 08:59 81 mg QAM UMBERTO Administration Atorvastatin Calcium 80 mg 03/14/25 09:00 03/14/25 08:04 Atorvastatin 40 Mg Tab PO 04/13/25 08:59 80 mg QAM UMBERTO Administration Ezetimibe 10 mg 03/14/25 09:00 03/15/25 08:00 Ezetimibe 10 Mg Tab PO 04/13/25 08:59 10 mg QAM UMBERTO Administration Daptomycin 850 mg/ Syringe 17 mls @ 10 mls/min 03/14/25 12:00 03/15/25 12:59 IV 03/28/25 11:59 10 mls/min Q24H UMBERTO Administration Protocol Insulin Aspart 0 units 03/13/25 21:32 03/15/25 13:07 Insulin Aspart Per Unit Charge SC 04/12/25 21:31 2 units ACHS UMBERTO Administration Lactobacillus Acidophilus 1,250 mg 03/14/25 09:00 03/15/25 07:59 Advanced Probiotic 625 Mg Capsule PO 04/13/25 08:59 1,250 mg DAILY UMBERTO Administration Levothyroxine Sodium 175 mcg 03/14/25 06:30 03/15/25 06:39 Levothyroxine Sodium 175 Mcg Tablet PO 04/13/25 06:29 175 mcg DAILYBB UMBERTO Administration Pantoprazole Sodium 40 mg 03/14/25 09:00 03/15/25 08:00 Pantoprazole 40 Mg Tab PO 04/13/25 08:59 40 mg QAM UMBERTO Administration (1) Fever Fever type: unspecified Qualified Code(s): R50.9 - Fever, unspecified
[2025-03-16 07:15] LABS: Hematocrit (blood only) 37.3 % (42.0-52.0); Hemoglobin 12.7 g/dl (14.0-18.0); Mean Corpuscular Hemoglobin 30.7 pg (25.0-34.0); Mean Corpuscular Volume 90.1 fL (80.0-100.0); Platelet Count 252 K/uL (130-400); RDW Standard Deviation 42.5 fL (36.4-46.3); Red Blood Count 4.14 M/uL (4.70-6.10); White Blood Count 7.96 K/ul (4.8-10.8)
[2025-03-16 07:27] LABS: Anion Gap 8.0 (3-11); Bilirubin,Total 0.7 mg/dl (0.2-1.0); Calcium 9.3 mg/dl (8.6-10.3); Carbon Dioxide 21.0 mmol/L (21-32); Chloride 111.0 mmol/L (98-107); Magnesium 1.5 mg/dl (1.7-2.4); Potassium 4.5 mmol/L (3.5-5.1); Sodium 140.0 mmol/L (136-145)
[2025-03-16 07:33] LABS: Alanine Aminotransferase 65.0 U/L (7-52); Albumin Globulin Ratio 1.0 (0.9-2); Alkaline Phosphatase 64.0 U/L (34-104); Blood Urea Nitrogen 33.0 mg/dl (6-23); Creatinine Clr Calc Pharmacy 29.0 ml/min; Globulin 3.6 gm/dl (2.5-4.0); Glucose 133.0 mg/dl (70-99(Fasting)); Total Protein 7.2 gm/dl (6.0-8.3)
[2025-03-16] MEDS: MAGNESIUM SULFATE / D5W 1 GM/100 ML BAG IV SCH (08:46)
--- NOTE | 2025-03-16 10:57 | Ultrasound Report ---
RENAL ULTRASOUND HISTORY: increasing cr , left hypdonephrosis COMPARISON: 10/12/2021 ultrasound and 03/13/2025 CT FINDINGS: Right kidney is surgically absent. Left kidney measures 13 x 5 cm. There is stable mild hyd ronephrosis. There is normal Doppler flow. No renal calculi seen. IMPRESSION: Stable left hydronephrosis. ACT 112: Negative or not required by law. Electronically signed by: Maxx Haque M.D. 03/16/2025 10:55 AM
[2025-03-16 11:13] LABS: Creatine Kinase 225.0 U/L (30-223)
--- NOTE | 2025-03-16 11:26 | Nephrology Consultation ---
Date of Consultation March 16, 2025 Assessment & Plan (1) YOHAN (acute kidney injury): * Nonoliguric YOHAN likely related to UTI, dehydration * Although 03/[address] though showed mild hydronephrosis, patient is nonoliguric * Urine sediment is difficult to interpret due to patient's urostomy * Clinically patient appears volume contracted. Will provide Plasma-Lyte at 100 cc/hour and monitor UO, BMP * Daily BMP, UO (2) Chronic kidney disease, stage III (moderate): * CKD stage G3b/A3 (moderate impairment). Baseline Cr 1.7-2.0 w/ EGFR 43 cc/min. 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 Patient is s/p R nephroureterectomy, cystectomy, L distal ureterectomy, bilateral pelvic lymph node dissection and formation of a RLQ urostomy/ileal conduit at [facility] 09/20 (3) Complicated urinary tract infection: * 03/15/2025 blood culture x 2 negative * 03/13/2025 urine culture positive for Staphylococcus hemolyticus * On IV daptomycin therapy. Recommend monitoring CPK (4) Hydronephrosis: * Left ureteral stent removed at [facility] 03/11/2025 History of Present Illness Reason for Consultation: YOHAN/CKD Attending Physician: Cristina Mcdonald MD History of Present Illness Mr. Degroot is a 64-year-old white male who is seen at the request of the [facility] hospitalist service for evaluation of YOHAN/CKD. Information for the HPI is obtained from direct patient interview and review of the EMR. HPI is summarized as follows: Mr. Degroot has CKD stage G3b/A3 (moderate impairment). Baseline Cr has been 1.7-2.0 w/ EGFR 43 cc/min. 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 Mr. Degroot underwent R nephroureterectomy, cystectomy, L distal ureterectomy, bilateral pelvic lymph node dissection and formation of a RLQ urostomy/ileal conduit at [facility] 09/20. His urologist is Dr. Jenkins. 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 He underwent laser removal of malignancy 09/22. Mr. Degroot reports that on 03/11/24 he was evaluated by [facility] urology. He underwent left ureteral stent removal. 2 days later he presented to [facility] EMD with temperature 101.1, nausea, vomiting and rigors. He received 1 dose of IV Zosyn and was transitioned to daptomycin therapy. 2 L IV normal saline were given while in the emergency department. Contrast negative abdominal CT revealed mild left hydronephrosis. No clear obstructing calculus or mass was reported. It was felt that there could be a urethral stricture. Since admission creatinine has risen to 2.7 and nephrology consultation is now requested. Mr. Degroot currently denies flank discomfort, nausea/vomiting/diarrhea. He has a Francisco catheter in place. Collection bag shows 600 cc clear yellow urine. Review of the EMR shows no exposure to known nephrotoxic agents. PMH: ASCVD s/p PCI w/ stent 2007, HTN, AODM, hypothyroidism, hyperlipidemia, GERD, BPH, depression Allergies Allergy/AdvReac Type Severity Reaction Status Date / Time No Known Allergies Allergy Mild Verified 10/31/24 09:06 Home Medications Medication Instructions Recorded Confirmed Type aspirin 81 mg tablet,delayed 81 mg PO QAM 03/30/20 03/13/25 History release levothyroxine 175 mcg capsule 175 mcg PO QAM 03/30/20 03/13/25 History atorvastatin 80 mg tablet 80 mg PO QAM 05/04/20 03/13/25 History fluticasone propionate 50 2 spray intranasal DAILY PRN Nasal 06/22/20 03/13/25 History mcg/actuation nasal Congestion spray,suspension (Flonase Allergy Relief) ezetimibe 10 mg tablet (Zetia) 10 mg PO QAM 10/09/20 03/13/25 History metformin 500 mg tablet,extended 1,000 mg PO QAM 10/10/21 03/13/25 History release 24 hr omeprazole 20 mg capsule,delayed 20 mg PO QAM PRN heartburn 12/02/21 03/13/25 History release amlodipine 2.5 mg tablet 2.5 mg PO QAM 07/10/22 03/13/25 History nitroglycerin 0.4 mg sublingual 0.4 mg sublingual Q5M PRN Chest 07/10/22 03/13/25 History tablet Pain acetaminophen 500 mg tablet 1,000 mg PO DIRECTED PRN 03/18/23 03/13/25 History (Tylenol Extra Strength) FEVER/PAIN tramadol 50 mg tablet 50 mg PO DAILY PRN Pain 04/09/23 03/13/25 History empagliflozin 10 mg tablet 10 mg PO DAILY 04/21/24 03/13/25 History (Jardiance) lisinopril 10 mg tablet 10 mg PO QAM #90 tabs 07/28/24 03/13/25 Rx Patient History Medical History Diabetes NIDDM CAD (coronary artery disease) stent x1 (2007)-F/U PCP GERD (gastroesophageal reflux disease) Cancer Skin (BCC) from back Bladder cancer AND URETERAL CANCER? Ureteral cancer Chronic back pain CKD (chronic kidney disease), stage III Hypomagnesemia Diabetes mellitus, type II Ureteral cancer Bladder cancer Foot drop, right No brace Arthritis Myocardial Infarction 2007 > stent x1 Hypertension Coronary artery disease S/p stent in 2007, no longer follows with [facility] cardio, PCP only. 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 Negative DSE 2013. Hypothyroidism Surgical History History of cardiac cath stent x1 (2007) History of cystoscopy Multiple Cysto, bladder biopsy (07/12/20): MAC sedation at [facility] (05/17/20): LMA#5 at [facility] History of colonoscopy History of tooth extraction Family History Mother Diabetes Heart disease Cancer Hypertension Family history of diabetes mellitus Father Heart disease Social History Smoking Status: Former smoker Tobacco Type: Cigarettes Cigarettes Per Day: 2 pk /day; Second Hand Exposure: No; Do You Dip or Chew Tobacco: No; Tobacco Cessation Education Requested by Patient: No Hx Alcohol Use: No Hx Substance Use: No Preferred Language: Mongolian Communication Ability: Effective Vice President Research Required: No Beliefs That Will Affect Care: None marital status: Current Living Situation: Spouse current occupational status: employed current occupation: [employer] How many Children do You have: 2 Other Information That Helps Us Care for You: No Feels Safe at Home: Yes Safety Concerns: Feels Safe At This Time Diet: regular Assistive Devices: Denture - Upper and Glasses Review of Systems Constitutional: no fever Eyes: no problem reported Ear, Nose, Mouth, Throat: no problem reported Respiratory: no cough and no dyspnea Cardiovascular: no chest pain Gastrointestinal: no abdominal pain, no nausea, no vomiting and no diarrhea/loose stools Genitourinary: no hematuria or no flank pain Integumentary: no rash Neurologic: no generalized weakness Physical Exam Constitutional: not in distress Eyes: PERRL, conjunctivae normal, anicteric sclerae ENMT: external ear and nose normal, oropharynx normal Neck: trachea midline, no thyromegaly Respiratory: normal respiratory effort, lungs clear to auscultation Cardiovascular: RRR, no murmur, no edema Gastrointestinal (Abdomen): normal bowel sounds, soft, nontender, no hepatosplenomegaly RLQ urostomy Skin: no rashes, warm and dry Neurologic: not confused Results & Data Vital Signs (Past 12 Hours) Vital Signs Temp Pulse Pulse Resp BP Pulse Ox O2 Del Method 03/16/25 11:07 36.6 C 59 L 18 135/74 99 Room Air 03/16/25 10:24 Room Air 03/16/25 08:06 36.4 C L 64 18 152/69 H 98 Room Air 03/16/25 07:22 42 L 03/16/25 02:25 36.6 C 42 L 16 161/74 H 98 Room Air 03/15/25 23:38 37 C 45 L 18 134/70 96 Room Air Laboratory Results Laboratory Results WBC 7.96 K/ul (4.8-10.8) 03/16/25 06:54 RBC 4.14 M/uL (4.70-6.10) L 03/16/25 06:54 Hgb 12.7 g/dl (14.0-18.0) L 03/16/25 06:54 Hct 37.3 % (42.0-52.0) L 03/16/25 06:54 MCV 90.1 fL (80.0-100.0) 03/16/25 06:54 MCH 30.7 pg (25.0-34.0) 03/16/25 06:54 MCHC 34.0 g/dL (32.0-36.0) 03/16/25 06:54 RDW Std Deviation 42.5 fL (36.4-46.3) 03/16/25 06:54 RDW Coeff of Jovanna 12.9 % (11.5-14.5) 03/16/25 06:54 Plt Count 252 K/uL (130-400) 03/16/25 06:54 MPV 9.2 fL (9.4-12.4) L 03/16/25 06:54 Immature Gran % (Auto) 0.3 % 03/15/25 07:48 Neut % (Auto) 65.7 % 03/15/25 07:48 Lymph % (Auto) 18.8 % 03/15/25 07:48 [place] % (Auto) 10.9 % 03/15/25 07:48 Eos % (Auto) 3.7 % 03/15/25 07:48 Baso % (Auto) 0.6 % 03/15/25 07:48 Neut # (Auto) 6.19 K/uL (1.40-6.50) 03/15/25 07:48 Lymph # (Auto) 1.77 K/uL (1.20-3.40) 03/15/25 07:48 [place] # (Auto) 1.03 K/uL (0.11-0.59) H 03/15/25 07:48 Eos # (Auto) 0.35 K/uL (0.00-0.50) 03/15/25 07:48 Baso # (Auto) 0.06 K/uL (0.00-0.20) 03/15/25 07:48 Immature Gran # (Auto) 0.03 K/uL (0.01-0.20) 03/15/25 07:48 Sodium 140 mmol/L (136-145) 03/16/25 06:54 Potassium 4.5 mmol/L (3.5-5.1) 03/16/25 06:54 Chloride 111 mmol/L (98-107) H 03/16/25 06:54 Carbon Dioxide 21 mmol/L (21-32) 03/16/25 06:54 Anion Gap 8 (3-11) 03/16/25 06:54 BUN 33 mg/dl (6-23) H 03/16/25 06:54 Creatinine 2.75 mg/dl (0.6-1.4) H 03/16/25 06:54 Est Cr Clr Drug Dosing 29.0 ml/min 03/16/25 06:54 eGFR 24.66 03/16/25 06:54 BUN/Creatinine Ratio 12.0 (10-20) 03/16/25 06:54 Glucose 133 mg/dl (70-99(Fasting)) H 03/16/25 06:54 POC Glucose 126 mg/dl (70-99) H 03/16/25 07:52 Estimat Average Glucose 151 mg/dl 03/14/25 05:45 Hemoglobin A1c 6.9 % (4.5-5.6) H 03/14/25 05:45 Lactate 1.5 mmol/L (0.4-2.0) 03/13/25 Unknown Calcium 9.3 mg/dl (8.6-10.3) 03/16/25 06:54 Phosphorus 2.7 mg/dl (2.5-4.9) 03/16/25 06:54 Magnesium 1.5 mg/dl (1.7-2.4) L 03/16/25 06:54 Total Bilirubin 0.7 mg/dl (0.2-1.0) 03/16/25 06:54 AST 65 U/L (13-39) H 03/16/25 06:54 ALT 65 U/L (7-52) H 03/16/25 06:54 Alkaline Phosphatase 64 U/L (34-104) 03/16/25 06:54 Total Creatine Kinase 225 U/L (30-223) H 03/16/25 06:54 Total Protein 7.2 gm/dl (6.0-8.3) 03/16/25 06:54 Albumin 3.6 gm/dl (3.4-5.0) 03/16/25 06:54 Globulin 3.6 gm/dl (2.5-4.0) 03/16/25 06:54 Albumin/Globulin Ratio 1.0 (0.9-2) 03/16/25 06:54 Procalcitonin 1.34 ng/ml (0-0.5) H 03/13/25 15:09 Urine Color Yellow 03/13/25 18:02 Urine Appearance Clear (Clear) 03/13/25 18:02 Urine pH 8.5 (4.5-7.5) H 03/13/25 18:02 Ur Specific [place] 1.015 (1.000-1.030) 03/13/25 18:02 Urine Protein 2+ (Negative) H 03/13/25 18:02 Urine Glucose (UA) Negative (Negative) 03/13/25 18:02 Urine Ketones Negative (Negative) 03/13/25 18:02 Urine Blood 2+ (Negative) H 03/13/25 18:02 Urine Nitrite Negative (Negative) 03/13/25 18:02 Urine Bilirubin Negative (Negative) 03/13/25 18:02 Urine Urobilinogen Negative (Negative) 03/13/25 18:02 Ur Leukocyte Esterase 1+ (Negative) H 03/13/25 18:02 Urine WBC (Auto) Cancelled 03/13/25 18:02 Urine RBC (Auto) Cancelled 03/13/25 18:02 U Hyaline Cast (Auto) Cancelled 03/13/25 18:02 U Epithel Cells (Auto) Cancelled 03/13/25 18:02 Urine Bacteria (Auto) Cancelled 03/13/25 18:02 Ur Renal Epithelial Cell Cancelled 03/13/25 18:02 [place] Biurate Crystals Cancelled 03/13/25 18:02 Calcium Oxalate Crystal Cancelled 03/13/25 18:02 Leucine Crystals Cancelled 03/13/25 18:02 Cystine Crystals Cancelled 03/13/25 18:02 Uric Acid Crystals Cancelled 03/13/25 18:02 Triple Phos Crystals Cancelled 03/13/25 18:02 Sulfonamide Crystals Cancelled 03/13/25 18:02 Cholesterol Crystals Cancelled 03/13/25 18:02 Talc Crystals Cancelled 03/13/25 18:02 Tyrosine Crystals Cancelled 03/13/25 18:02 Hippuric Acid Crystals Cancelled 03/13/25 18:02 Unidentified Crystals Cancelled 03/13/25 18:02 Amorphous Sediment Cancelled 03/13/25 18:02 Epithelial Casts Cancelled 03/13/25 18:02 Hyaline Casts Cancelled 03/13/25 18:02 Granular Casts Cancelled 03/13/25 18:02 Waxy Casts Cancelled 03/13/25 18:02 RBC Casts Cancelled 03/13/25 18:02 WBC Casts Cancelled 03/13/25 18:02 Other Casts Cancelled 03/13/25 18:02 Urine Mucus Cancelled 03/13/25 18:02 Urine Other Cancelled 03/13/25 18:02 Urine Trichomonas Cancelled 03/13/25 18:02 Urine Yeast Cancelled 03/13/25 18:02 Urine Sperm Cancelled 03/13/25 18:02 Ur Oval Fat Bodies Cancelled 03/13/25 18:02 Ur Culture Indicated? Cancelled 03/13/25 18:02 Urine Comment Cancelled 03/13/25 18:02 Adenovirus (PCR) Not Detected (NotDetected) 03/13/25 15:24 B. pertussis DNA (PCR) Not Detected (NotDetected) 03/13/25 15:24 B.parapertussis DNA PCR Not Detected (NotDetected) 03/13/25 15:24 C. pneumoniae DNA (PCR) Not Detected (NotDetected) 03/13/25 15:24 Coronavirus OC43 (PCR) Not Detected (NotDetected) 03/13/25 15:24 Coronavirus HKU1 (PCR) Not Detected (NotDetected) 03/13/25 15:24 Coronavirus 229E (PCR) Not Detected (NotDetected) 03/13/25 15:24 SARS-CoV-2 (PCR) Not Detected (NotDetected) 03/13/25 15:24 Coronavirus NL63 (PCR) Not Detected (NotDetected) 03/13/25 15:24 Human Metapneumovir PCR Not Detected (NotDetected) 03/13/25 15:24 Influenza Type A (PCR) Not Detected (NotDetected) 03/13/25 15:24 Influenza Type B (PCR) Not Detected (NotDetected) 03/13/25 15:24 M. pneumoniae (PCR) Not Detected (NotDetected) 03/13/25 15:24 Parainfluenza 1 (PCR) Not Detected (NotDetected) 03/13/25 15:24 Parainfluenza 2 (PCR) Not Detected (NotDetected) 03/13/25 15:24 Parainfluenza 3 (PCR) Not Detected (NotDetected) 03/13/25 15:24 Parainfluenza 4 (PCR) Not Detected (NotDetected) 03/13/25 15:24 RSV (PCR) Not Detected (NotDetected) 03/13/25 15:24 Entero/Rhino (PCR) Not Detected (NotDetected) 03/13/25 15:24 Streptococcus sp PCR DETECTED (NotDetected) A 03/13/25 15:09 Bld Cult ID Panel PCR See PCR Comment (NotDetected) 03/13/25 15:09 Impressions Abdomen/Pelvis CT 03/13/25 14:45 Technique: Axial computed tomography images were obtained of the abdomen and pelvis without intravenous contrast. No prior examination is available for comparison Findings: The liver is overall of normal size, attenuation, and contour with no sign of cirrhosis or significant fatty infiltration. No definite liver mass lesion is seen on this noncontrast study. There are small gallstones. There is no definite sign of acute cholecystitis. No bile duct dilatation is noted. The spleen is of normal size. No focal splenic lesion is evident. The pancreas appears normal with no sign of acute or chronic pancreatitis and no mass lesion noted. The pancreatic duct is of normal caliber. The adrenal glands appear unremarkable. The right kidney has been removed. No left renal or proximal ureteral calculi are seen. There is mild left hydronephrosis and hydroureter. There is an apparent ileal conduit. No definite renal mass lesion is identified. The aorta is of normal caliber. No abdominal adenopathy is seen. There is a small left paracentral ventral hernia containing a small bowel loop. There is an adjacent mild broad-based ventral hernia containing a small bowel loop. The stomach appears normal. There is no sign of small bowel obstruction. There is diverticulosis without definite diverticulitis. No free intraperitoneal fluid or air is identified. The bladder and prostate-resected. The iliac arteries are of normal caliber. No pelvic adenopathy is noted. There is subsegmental atelectasis in both lower lobes. There is coronary atherosclerosis Lumbar scoliosis and degenerative disc disease is seen. No fracture is identified. No focal osseous lesion is seen Impression: 1. Post-surgical findings of right nephrectomy, cystectomy, prostatectomy, and ileal conduit formation 2. Mild left hydronephrosis. No clear obstructing calculus or mass is identified. This could be secondary to ureteral stricture or delayed emptying from the ileal conduit 3. Cholelithiasis without evidence of acute cholecystitis 4. Diverticulosis without definite diverticulitis 5. Two small adjacent ventral hernias containing small bowel. There is no sign of associated obstruction ACT 112: Positive. There are findings on this exam that require communication between the performing entity and the patient following Patient Test Result Information Act ([place] ACT 112) guidelines. Electronically signed by Bob Mueller 03-13-2025 5:42 PM Chest X-Ray 03/13/25 14:51 XR chest 1V portable CLINICAL HISTORY: sepsis COMPARISON STUDY: 04/17/2023 FINDINGS: Heart size and pulmonary vasculature are normal. No consolidation or pleural effusion. No pneumothorax. IMPRESSION: No acute findings. ACT 112: Negative or not required by law. Electronically signed by: Maxx Haque M.D. 03/13/2025 4:05 PM Renal Ultrasound 03/16/25 07:52 RENAL ULTRASOUND HISTORY: increasing cr , left hypdonephrosis COMPARISON: 10/12/2021 ultrasound and 03/13/2025 CT FINDINGS: Right kidney is surgically absent. Left kidney measures 13 x 5 cm. There is stable mild hydronephrosis. There is normal Doppler flow. No renal calculi seen. IMPRESSION: Stable left hydronephrosis. ACT 112: Negative or not required by law. Electronically signed by: Maxx Haque M.D. 03/16/2025 10:55 AM PG Care Time/CCT Total # of Minutes Spent Total Time Spent with Patient: Total time spent is greater than 50% in coordination of care (as documented) at patient's floor/unit and/or counseling patient: Coding Level of Care Code 02061 IN/OBS CONSULT LVL 5,80M Diagnoses YOHAN (acute kidney injury) N17.9 Chronic kidney disease, stage III (moderate) N18.30 Complicated urinary tract infection N39.0 Hydronephrosis N13.30
--- NOTE | 2025-03-16 11:44 | Urology Progress Note ---
Date of Service March 16, 2025 Assessment & Plan (1) Hydronephrosis: (2) Complicated urinary tract infection: (3) YOHAN (acute kidney injury): (4) S/P ileal conduit: (5) Urothelial carcinoma: Plan 64-year-old male with a history of urothelial cancer status post right nephro u reterectomy and cystectomy with ileal conduit creation. 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 Jenkins with chronic indwelling left ureteral stents. Stent was reportedly recently removed. Patient presented to the ED on 03/13 with nausea vomiting and fevers. Subjectively feeling well today Afebrile and hemodynamically stable Labs today show no leukocytosis and creatinine 2.75 (was 2.51 yesterday) Urine culture grew Staphylococcus hemolyticus; Blood cultures preliminary no growth x 24 hours Renal ultrasound today reviewed and shows stable mild left hydronephrosis Recommend continued antibiotics for total of 10 to 14 days. Given his stability, we can continue to watch this closely but if he were to clinically worsen, would recommend transfer to [place] Patient will need close outpatient follow-up with primary urologist at [facility] will follow along, please contact us with any questions/concerns Plan/case reviewed with Dr. Keller Admission and Anticipated Discharge Date Admission Date: March 13, 2025 Subjective Patient seen at bedside today. He is awake and sitting up in bed on arrival. No acute distress. Reports he is feeling better overall. Denies fevers or chills. Ileal conduit draining clear yellow urine. Review of Systems Constitutional: as per Subjective / HPI Genitourinary: + as per Subjective / HPI Physical Exam Constitutional: no acute distress Respiratory: no respiratory distress and no labored breathing Gastrointestinal (Abdomen): Patient has a noted ileal conduit on the right side of his abdomen that is draining clear yellow urine Neurologic: moves all extremities and awake Psychiatric: A+Ox3, euthymic affect Results & Data Vital Signs (Past 12 Hours) Vital Signs Temp Pulse Pulse Resp BP Pulse Ox O2 Del Method 03/16/25 11:07 36.6 C 59 L 18 135/74 99 Room Air 03/16/25 10:24 Room Air 03/16/25 08:06 36.4 C L 64 18 152/69 H 98 Room Air 03/16/25 07:22 42 L 03/16/25 02:25 36.6 C 42 L 16 161/74 H 98 Room Air PG Care Time/CCT Total # of Minutes Spent Total Time Spent with Patient: Total time spent is greater than 50% in coordination of care (as documented) at patient's floor/unit and/or counseling patient: Coding Level of Care Code 31418 SUB INP/OBS CARE 2/35MIN Diagnoses Hydronephrosis N13.30 Complicated urinary tract infection N39.0 YOHAN (acute kidney injury) N17.9 S/P ileal conduit Z93.6 Urothelial carcinoma C68.9
[2025-03-16] MEDS: PLASMA-LYTE A 1,000 ML IV SCH (12:09)
[2025-03-16] MEDS: DAPTOmycin 850 MG in SYRINGE 0 ML IV SCH (12:44)
--- NOTE | 2025-03-16 13:22 | Infectious Disease Consult ---
Date of Service March 16, 2025 Telehealth Information I performed this visit using a real-time telehealth connection between my location and the patients location ([facility]). After connecting through interactive tele-video, patient was identified by name and date of and/or wristband check.Patient (or authorized healthcare textiles sales representative) was informed that this was a telemedicine visit and it was being conducted confidentially over secure lines. My office door was closed and no o ne else was present in the room with me.Patient (or authorized healthcare textiles sales representative) provided consent to proceed with the visit, expressed an understanding of privacy and security of the telemedicine visit, and gave permission to have a hospital textiles sales representative in the room in order to assist with the visit and to conduct portions of the visit, as needed. I informed the patient (or authorized healthcare textiles sales representative) that I reviewed their record and presented the opportunity for them to ask any questions regarding the visit today. The patient agreed to participate. 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 Pt S/P ureteral stent removal 2 days ago at [place] prior to admission. At [facility], blood culture (+) Strep in 1/4 bottles and urine culture (+) Staph. Plan: 1. Bacteremia 2/2 UTI - It is unclear which organism is the cause of patient's febrile episode, (blood or urine), however patient improved with directed treatment on Daptomycin IV. Thus, given clinical scenario, I will treat like upper UTI with bacteremia. Recommend switching Daptomycin IV to Linezolid 600 mg PO BID on discharge to complete 10 days of total antibiotics. - we will sign off, no need for ID clinic appointment, please contact ID physician control specialist with teledoc services for issues, concerns, or questions. 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 Pt S/P ureteral stent removal 2 days ago at [place] prior to admission. At [facility], blood culture (+) Strep in 1/ bottles and urine culture (+) Staph. ID consulted for evaluation and management. Allergies Allergy/AdvReac Type Severity Reaction Status Date / Time No Known Allergies Allergy Mild Verified 10/31/24 09:06 Home Medications Medication Instructions Recorded Confirmed Type aspirin 81 mg tablet,delayed 81 mg PO QAM 03/30/20 03/13/25 History release levothyroxine 175 mcg capsule 175 mcg PO QAM 03/30/20 03/13/25 History atorvastatin 80 mg tablet 80 mg PO QAM 05/04/20 03/13/25 History fluticasone propionate 50 2 spray intranasal DAILY PRN Nasal 06/22/20 03/13/25 History mcg/actuation nasal Congestion spray,suspension (Flonase Allergy Relief) ezetimibe 10 mg tablet (Zetia) 10 mg PO QAM 10/09/20 03/13/25 History metformin 500 mg tablet,extended 1,000 mg PO QAM 10/10/21 03/13/25 History release 24 hr omeprazole 20 mg capsule,delayed 20 mg PO QAM PRN heartburn 12/02/21 03/13/25 History release amlodipine 2.5 mg tablet 2.5 mg PO QAM 07/10/22 03/13/25 History nitroglycerin 0.4 mg sublingual 0.4 mg sublingual Q5M PRN Chest 07/10/22 03/13/25 History tablet Pain acetaminophen 500 mg tablet 1,000 mg PO DIRECTED PRN 03/18/23 03/13/25 History (Tylenol Extra Strength) FEVER/PAIN tramadol 50 mg tablet 50 mg PO DAILY PRN Pain 04/09/23 03/13/25 History empagliflozin 10 mg tablet 10 mg PO DAILY 04/21/24 03/13/25 History (Jardiance) lisinopril 10 mg tablet 10 mg PO QAM #90 tabs 07/28/24 03/13/25 Rx Patient History Medical History Diabetes NIDDM CAD (coronary artery disease) stent x1 (2007)-F/U PCP GERD (gastroesophageal reflux disease) Cancer Skin (BCC) from back Bladder cancer AND URETERAL CANCER? Ureteral cancer Chronic back pain CKD (chronic kidney disease), stage III Hypomagnesemia Diabetes mellitus, type II Ureteral cancer Bladder cancer Foot drop, right No brace Arthritis Myocardial Infarction 2007 > stent x1 Hypertension Coronary artery disease S/p stent in 2007, no longer follows with [facility], PCP only. 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 Negative DSE 2013. Hypothyroidism Surgical History History of cardiac cath stent x1 (2007) History of cystoscopy Multiple Cysto, bladder biopsy (07/12/20): MAC sedation at [facility] T[facility]BT (05/17/20): LMA#5 at [facility] History of colonoscopy History of tooth extraction Family History Mother Diabetes Heart disease Cancer Hypertension Family history of diabetes mellitus Father Heart disease Social History Smoking Status: Former smoker Tobacco Type: Cigarettes Cigarettes Per Day: 2 pk /day; Second Hand Exposure: No; Do You Dip or Chew Tobacco: No; Tobacco Cessation Education Requested by Patient: No Hx Alcohol Use: No Hx Substance Use: No Preferred Language: Frisian Communication Ability: Effective Information Technology Specialist Required: No Beliefs That Will Affect Care: None marital status: Current Living Situation: Spouse current occupational status: employed current occupation: [employer] How many Children do You have: 2 Other Information That Helps Us Care for You: No Feels Safe at Home: Yes Safety Concerns: Feels Safe At This Time Diet: regular Assistive Devices: Denture - Upper and Glasses Results & Data Vital Signs (Past 12 Hours) Vital Signs Temp Pulse Pulse Resp BP Pulse Ox O2 Del Method 03/16/25 11:07 36.6 C 59 L 18 135/74 99 Room Air 03/16/25 10:24 Room Air 03/16/25 08:06 36.4 C L 64 18 152/69 H 98 Room Air 03/16/25 07:22 42 L 03/16/25 02:25 36.6 C 42 L 16 161/74 H 98 Room Air Laboratory Results Blood culture on 03/13/2025 Blood Culture Aerobic Preliminary 03/15/25-1530 No growth in Aerobic bottle after 48 hours. Blood Culture Anaerobic Preliminary 03/15/25-1039 Organism 1 Steptococcus parasanguinis Sens No Sensitivities to Follow Blood Culture PCR Panel If viewing in EMR, results available under LAB Serology tab. Phoned positive Blood Culture Gram Stain report to ATIF RIVERA on 03/14/25 at 1059 [place] [id number]. [place] [id number]. Blood culture on 03/15/2025 NGTD Urine culture on 03/13/2025 Urine Culture Final 03/15/25-1202 Organism 1 Staphylococcus haemolyticus [place]cano Count >100,000 CFU/ml Sens Sensitivities to Follow +Mix Urine Plus Low Counts of Other Mixed Tamera S haemolyt RX M.I.C. --- --------- Daptomycin S <=0.5 Linezolid S <=1 Nitrofurantoin S <=32 Oxacillin R >2 Tetracycline S <=4 Trimeth/Sulfa R >2/38 Vancomycin S 1 S = SENSITIVE I = INTERMEDIATE R = RESISTANT Diagnostic Findings CT abd/pelvis on 03/13/2025 Impression: 1. Post-surgical findings of right nephrectomy, cystectomy, prostatectomy, and ileal conduit formation 2. Mild left hydronephrosis. No clear obstructing calculus or mass is identified. This could be secondary to ureteral stricture or delayed emptying from the ileal conduit 3. Cholelithiasis without evidence of acute cholecystitis 4. Diverticulosis without definite diverticulitis 5. Two small adjacent ventral hernias containing small bowel. There is no sign of associated obstruction Medications Administered Home Medications Medication Instructions Recorded Confirmed Last Taken aspirin 81 mg tablet,delayed 81 mg PO QAM 03/30/20 03/13/25 04/17/23 release levothyroxine 175 mcg capsule 175 mcg PO QAM 03/30/20 03/13/25 04/17/23 atorvastatin 80 mg tablet 80 mg PO QAM 05/04/20 03/13/25 04/17/23 fluticasone propionate 50 2 spray intranasal DAILY PRN Nasal 06/22/20 03/13/25 Unknown mcg/actuation nasal Congestion spray,suspension (Flonase Allergy Relief) ezetimibe 10 mg tablet (Zetia) 10 mg PO QAM 10/09/20 03/13/25 04/17/23 metformin 500 mg tablet,extended 1,000 mg PO QAM 10/10/21 03/13/25 04/17/23 release 24 hr omeprazole 20 mg capsule,delayed 20 mg PO QAM PRN heartburn 12/02/21 03/13/25 01/26/23 release amlodipine 2.5 mg tablet 2.5 mg PO QAM 07/10/22 03/13/25 04/17/23 nitroglycerin 0.4 mg sublingual 0.4 mg sublingual Q5M PRN Chest 07/10/22 03/13/25 Unknown tablet Pain acetaminophen 500 mg tablet 1,000 mg PO DIRECTED PRN 03/18/23 03/13/25 03/18/23 17:00 (Tylenol Extra Strength) FEVER/PAIN tramadol 50 mg tablet 50 mg PO DAILY PRN Pain 04/09/23 03/13/25 Unknown empagliflozin 10 mg tablet 10 mg PO DAILY 04/21/24 03/13/25 Unknown (Jardiance) lisinopril 10 mg tablet 10 mg PO QAM #90 tabs 07/28/24 03/13/25 Unknown Active Medications Generic Name Dose Route Start Last Admin Trade Name Freq PRN Reason Stop Dose Admin Amlodipine Besylate 2.5 mg 03/14/25 09:00 03/16/25 08:50 Amlodipine Besylate 5 Mg Tab PO 04/13/25 08:59 2.5 mg QAM UMBERTO Administration Aspirin 81 mg 03/14/25 09:00 03/16/25 08:50 Aspirin 81 Mg Ectab PO 04/13/25 08:59 81 mg QAM UMBERTO Administration Atorvastatin Calcium 80 mg 03/14/25 09:00 03/14/25 08:04 Atorvastatin 40 Mg Tab PO 04/13/25 08:59 80 mg QAM UMBERTO Administration Ezetimibe 10 mg 03/14/25 09:00 03/16/25 08:51 Ezetimibe 10 Mg Tab PO 04/13/25 08:59 10 mg QAM UMBERTO Administration Daptomycin 850 mg/ Syringe 17 mls @ 10 mls/min 03/16/25 12:00 03/16/25 12:44 IV 03/30/25 11:59 10 mls/min Q48H UMBERTO Administration Protocol Parenteral Electrolytes 1,000 mls @ 100 mls/hr 03/16/25 11:30 03/16/25 12:09 Plasma-Lyte A Ph 7.4 IV 03/17/25 07:29 100 mls/hr .Q10H UMBERTO Administration Insulin Aspart 0 units 03/13/25 21:32 03/16/25 12:44 Insulin Aspart Per Unit Charge SC 04/12/25 21:31 4 units ACHS UMBERTO Administration Lactobacillus Acidophilus 1,250 mg 03/14/25 09:00 03/16/25 08:51 Advanced Probiotic 625 Mg Capsule PO 04/13/25 08:59 1,250 mg DAILY UMBERTO Administration Levothyroxine Sodium 175 mcg 03/14/25 06:30 03/16/25 06:03 Levothyroxine Sodium 175 Mcg Tablet PO 04/13/25 06:29 175 mcg DAILYBB UMBERTO Administration Pantoprazole Sodium 40 mg 03/14/25 09:00 03/16/25 08:51 Pantoprazole 40 Mg Tab PO 04/13/25 08:59 40 mg QAM UMBERTO Administration
--- NOTE | 2025-03-16 14:22 | Hospitalist Progress Note ---
Date of Service March 16, 2025 Assessment & Plan (1) Fever: Plan: MR. 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 S/P ureteral stent removal 2 days ago at [place]. 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 negative biofire respiratory panel UA: 2+ blood, 1+leuk esterase Lactate: 2.2-->1.5 Procalcitonin: 1.3 CT abd/pelvis: 1. Post-surgical findings of right nephrectomy, cystectomy, prostatectomy, and ileal conduit formation 2. Mild left hydronephrosis. No clear obstructing calculus or mass is identified. This could be secondary to ureteral stricture or delayed emptying from the ileal conduit 3. Cholelithiasis without evidence of acute cholecystitis 4. Diverticulosis without definite diverticulitis 5. Two small adjacent ventral hernias containing small bowel. There is no sign of associated obstruction Follows with Dr Jenkins at [place] leukocystosis resolved, afebrile Afebrile, leukocytosis resolved baseline 2.2-2.4 Urine culture: staph heaemolyticus Blood culture: strep parasanguinis transition to linezolid If with clinical worsening, will need to be transferred back to [facility] per Urology service #YOHAN on CKD III baseline 1.7-2.0, renal US with stable hypdronephrosis started on plasma lyte 100cc/hour nephrology consulted #DM II A1c: 7.6 on 09/17/24 Hold home Jardiance, metformin Novolog sliding scale per protocol #HTN #HLD #H/O CAD s/p stent Continue amlodipine, atorvastatin, ezetimibe, aspirin DVT Prophylaxis SCDs for now Admit telemetry Full Code as per discussion with pt Follows with Dr Tai for routine care Admission and Anticipated Discharge Date Admission Date: March 13, 2025 Subjective NAEO reports overall clinically improving Physical Exam Constitutional: WD/WN, vitals as above Respiratory: normal respiratory effort, lungs clear to auscultation Cardiovascular: RRR, no murmur, no edema Musculoskeletal: no cyanosis or clubbing, extremities motor strength 5/5 Results & Data Results & Data Vital Signs (Past 12 Hours) Vital Signs Temp Pulse Pulse Resp BP Pulse Ox O2 Del Method 03/16/25 11:07 36.6 C 59 L 18 135/74 99 Room Air 03/16/25 10:24 Room Air 03/16/25 08:06 36.4 C L 64 18 152/69 H 98 Room Air 03/16/25 07:22 42 L 03/16/25 02:25 36.6 C 42 L 16 161/74 H 98 Room Air Laboratory Results Short CBC 03/16/25 Range/Units 06:54 WBC 7.96 (4.8-10.8) K/ul Hgb 12.7 L (14.0-18.0) g/dl Hct 37.3 L (42.0-52.0) % Plt Count 252 (130-400) K/uL BMP 03/16/25 03/16/25 06:54 14:08 Sodium 140 136 Potassium 4.5 4.2 Chloride 111 H 109 H Carbon Dioxide 21 21 BUN 33 H 36 H Creatinine 2.75 H 2.96 H Glucose 133 H 123 H Calcium 9.3 9.4 Cardiac Enzymes 03/16/25 Range/Units 06:54 Total Creatine Kinase 225 H (30-223) U/L Liver Function 03/16/25 Range/Units 06:54 Total Bilirubin 0.7 (0.2-1.0) mg/dl AST 65 H (13-39) U/L ALT 65 H (7-52) U/L Alkaline Phosphatase 64 (34-104) U/L Albumin 3.6 (3.4-5.0) gm/dl Medications Administered Home Medications Medication Instructions Recorded Confirmed Last Taken aspirin 81 mg tablet,delayed 81 mg PO QAM 03/30/20 03/13/25 04/17/23 release levothyroxine 175 mcg capsule 175 mcg PO QAM 03/30/20 03/13/25 04/17/23 atorvastatin 80 mg tablet 80 mg PO QAM 05/04/20 03/13/25 04/17/23 fluticasone propionate 50 2 spray intranasal DAILY PRN Nasal 06/22/20 03/13/25 Unknown mcg/actuation nasal Congestion spray,suspension (Flonase Allergy Relief) ezetimibe 10 mg tablet (Zetia) 10 mg PO QAM 10/09/20 03/13/25 04/17/23 metformin 500 mg tablet,extended 1,000 mg PO QAM 10/10/21 03/13/25 04/17/23 release 24 hr omeprazole 20 mg capsule,delayed 20 mg PO QAM PRN heartburn 12/02/21 03/13/25 01/26/23 release amlodipine 2.5 mg tablet 2.5 mg PO QAM 07/10/22 03/13/25 04/17/23 nitroglycerin 0.4 mg sublingual 0.4 mg sublingual Q5M PRN Chest 07/10/22 03/13/25 Unknown tablet Pain acetaminophen 500 mg tablet 1,000 mg PO DIRECTED PRN 03/18/23 03/13/25 03/18/23 17:00 (Tylenol Extra Strength) FEVER/PAIN tramadol 50 mg tablet 50 mg PO DAILY PRN Pain 04/09/23 03/13/25 Unknown empagliflozin 10 mg tablet 10 mg PO DAILY 04/21/24 03/13/25 Unknown (Jardiance) lisinopril 10 mg tablet 10 mg PO QAM #90 tabs 07/28/24 03/13/25 Unknown Active Medications Generic Name Dose Route Start Last Admin Trade Name Freq PRN Reason Stop Dose Admin Amlodipine Besylate 2.5 mg 03/14/25 09:00 03/16/25 08:50 Amlodipine Besylate 5 Mg Tab PO 04/13/25 08:59 2.5 mg QAM UMBERTO Administration Aspirin 81 mg 03/14/25 09:00 03/16/25 08:50 Aspirin 81 Mg Ectab PO 04/13/25 08:59 81 mg QAM UMBERTO Administration Atorvastatin Calcium 80 mg 03/14/25 09:00 03/14/25 08:04 Atorvastatin 40 Mg Tab PO 04/13/25 08:59 80 mg QAM UMBERTO Administration Ezetimibe 10 mg 03/14/25 09:00 03/16/25 08:51 Ezetimibe 10 Mg Tab PO 04/13/25 08:59 10 mg QAM UMBERTO Administration Daptomycin 850 mg/ Syringe 17 mls @ 10 mls/min 03/16/25 12:00 03/16/25 12:44 IV 03/30/25 11:59 10 mls/min Q48H UMBERTO Administration Protocol Parenteral Electrolytes 1,000 mls @ 100 mls/hr 03/16/25 11:30 03/16/25 12:09 Plasma-Lyte A Ph 7.4 IV 03/17/25 07:29 100 mls/hr .Q10H UMBERTO Administration Insulin Aspart 0 units 03/13/25 21:32 03/16/25 12:44 Insulin Aspart Per Unit Charge SC 04/12/25 21:31 4 units ACHS UMBERTO Administration Lactobacillus Acidophilus 1,250 mg 03/14/25 09:00 03/16/25 08:51 Advanced Probiotic 625 Mg Capsule PO 04/13/25 08:59 1,250 mg DAILY UMBERTO Administration Levothyroxine Sodium 175 mcg 03/14/25 06:30 03/16/25 06:03 Levothyroxine Sodium 175 Mcg Tablet PO 04/13/25 06:29 175 mcg DAILYBB UMBERTO Administration Pantoprazole Sodium 40 mg 03/14/25 09:00 03/16/25 08:51 Pantoprazole 40 Mg Tab PO 04/13/25 08:59 40 mg QAM UMBERTO Administration (1) Fever Fever type: unspecified Qualified Code(s): R50.9 - Fever, unspecified
[2025-03-16 14:57] LABS: Anion Gap 6.0 (3-11); Blood Urea Nitrogen 36.0 mg/dl (6-23); Calcium 9.4 mg/dl (8.6-10.3); Carbon Dioxide 21.0 mmol/L (21-32); Chloride 109.0 mmol/L (98-107); Creatinine Clr Calc Pharmacy 27.0 ml/min; Glucose 123.0 mg/dl (70-99(Fasting)); Potassium 4.2 mmol/L (3.5-5.1); Sodium 136.0 mmol/L (136-145)
[2025-03-16] MEDS: SIMETHICONE 80 MG CHEW PO ONE (16:12)
[2025-03-16] MEDS: SIMETHICONE 80 MG CHEW PO PRN (20:47)
[2025-03-16 22:53] VITALS: RESP 18
[2025-03-17 08:13] VITALS: O2SAT 100
[2025-03-17 08:38] LABS: Anion Gap 7.0 (3-11); Blood Urea Nitrogen 37.0 mg/dl (6-23); Calcium 9.0 mg/dl (8.6-10.3); Carbon Dioxide 21.0 mmol/L (21-32); Chloride 113.0 mmol/L (98-107); Creatinine Clr Calc Pharmacy 28.1 ml/min; Glucose 131.0 mg/dl (70-99(Fasting)); Potassium 5.0 mmol/L (3.5-5.1); Sodium 141.0 mmol/L (136-145)
--- NOTE | 2025-03-17 08:47 | Nephrology Progress Note ---
Date of Service March 17, 2025 Assessment & Plan (1) YOHAN (acute kidney injury): Plan: * Nonoliguric YOHAN likely related to UTI, dehydration * Although 03/[address] though showed mild hydronephrosis, patient is nonoliguric * Urine sediment is difficult to interpret due to patient's urostomy * Kidney function is mildly improved. Creatinine has dropped from 2.96-2.84. Patient is nonoliguric. * Daily BMP, UO * If discharge is anticipated, recommend follow-up in my office in 1 week for ongoing monitoring of kidney function. Order has been placed and outpatient EMR for BMP to be completed prior to OV. (2) Chronic kidney disease, stage III (moderate): Plan: * CKD stage G3b/A3 (moderate impairment). Baseline Cr 1.7-2.0 w/ EGFR 43 cc/min. 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 Patient is s/p R nephroureterectomy, cystectomy, L distal ureterectomy, bilateral pelvic lymph node dissection and formation of a RLQ urostomy/ileal conduit at [facility] [place] 09/20 (3) Complicated urinary tract infection: Plan: * 03/15/2025 blood culture x 2 negative * 03/13/2025 urine culture positive for Staphylococcus hemolyticus * On IV daptomycin therapy. Recommend monitoring CPK (4) Hydronephrosis: Plan: * Left ureteral stent removed at [facility] [place] 03/11/2025 Admission and Anticipated Discharge Date Admission Date: March 13, 2025 Subjective Mr. Degroot was evaluated in his hospital room this morning. He denied fever or abdominal discomfort. [place] catheter remains attached to urostomy. Patient reports brisk urine output Review of Systems Constitutional: no fever Eyes: no problem reported Ear, Nose, Mouth, Throat: no problem reported Respiratory: no cough and no dyspnea Cardiovascular: no chest pain Gastrointestinal: no abdominal pain, no nausea, no vomiting and no diarrhea/loose stools Genitourinary: no hematuria or no flank pain Integumentary: no rash Neurologic: no generalized weakness Physical Exam Constitutional: not in distress Eyes: PERRL, conjunctivae normal, anicteric sclerae ENMT: external ear and nose normal, oropharynx normal Neck: trachea midline, no thyromegaly Respiratory: normal respiratory effort, lungs clear to auscultation Cardiovascular: RRR, no murmur, no edema Gastrointestinal (Abdomen): normal bowel sounds, soft, nontender, no hepatosplenomegaly Skin: no rashes, warm and dry Neurologic: not confused Results & Data Vital Signs (Past 12 Hours) Vital Signs Temp Pulse Pulse Resp BP Pulse Ox O2 Del Method 03/17/25 08:12 36.4 C L 44 L 18 152/73 H 100 Room Air 03/17/25 07:00 53 L 03/17/25 02:03 36.6 C 38 L 18 140/69 97 Room Air 03/16/25 22:27 36.9 C 41 L 18 128/55 L 96 Room Air 03/16/25 22:23 40 L 03/16/25 21:22 Room Air Laboratory Results Laboratory Results - last 24 hr 03/16/25 03/16/25 03/16/25 06:54 11:49 14:08 Sodium 136 Potassium 4.2 Chloride 109 H Carbon Dioxide 21 Anion Gap 6 BUN 36 H Creatinine 2.96 H Est Cr Clr Drug Dosing 27.0 eGFR 22.57 BUN/Creatinine Ratio 12.2 Glucose 123 H POC Glucose 162 H Calcium 9.4 Total Creatine Kinase 225 H 03/16/25 03/16/25 03/17/25 16:45 20:12 07:36 Sodium 141 Potassium 5.0 Chloride 113 H Carbon Dioxide 21 Anion Gap 7 BUN 37 H Creatinine 2.84 H Est Cr Clr Drug Dosing 28.1 eGFR 23.72 BUN/Creatinine Ratio 13.0 Glucose 131 H POC Glucose 125 H 121 H Calcium 9.0 Total Creatine Kinase 03/17/25 08:04 Sodium Potassium Chloride Carbon Dioxide Anion Gap BUN Creatinine Est Cr Clr Drug Dosing eGFR BUN/Creatinine Ratio Glucose POC Glucose 148 H Calcium Total Creatine Kinase PG Care Time/CCT Total # of Minutes Spent Total Time Spent with Patient: Total time spent is greater than 50% in coordination of care (as documented) at patient's floor/unit and/or counseling patient: Coding Level of Care Code 73580 SUB INP/OBS CARE 3/50MIN Diagnoses YOHAN (acute kidney injury) N17.9 Chronic kidney disease, stage III (moderate) N18.30 Complicated urinary tract infection N39.0 Hydronephrosis N13.30
--- NOTE | 2025-03-17 08:55 | Urology Progress Note ---
Date of Service March 17, 2025 Assessment & Plan (1) Hydronephrosis: (2) Complicated urinary tract infection: (3) YOHAN (acute kidney injury): (4) S/P ileal conduit: (5) Urothelial carcinoma: Plan 64-year-old male with a history of urothelial cancer status post right nephro u reterectomy and cystectomy with ileal conduit creation. 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 Jenkins with chronic indwelling left ureteral stents. Stent was reportedly recently removed. Patient presented to the ED on 03/13 with nausea vomiting and fevers. Subjectively feeling well Afebrile and hemodynamically stable Creatinine 2.51 -2.75 -2.96 -2.84 Urine culture grew Staphylococcus hemolyticus; Blood cultures preliminary no growth x 48 hours Renal ultrasound 03/16 showed stable mild left hydronephrosis Recommend continued antibiotics for total of 10 to 14 days Given his stability, we can continue to monitor closely Patient is eager for discharge home which is ok from our standpoint with close outpatient follow-up with his primary urologist at [facility] and outpt labs for monitoring of renal function Urology will follow along, please contact us with any questions/concerns Plan/case reviewed with Dr. Ayala, on-call urologist Admission and Anticipated Discharge Date Admission Date: March 13, 2025 Subjective Patient seen at bedside today. He is awake and sitting in bedside chair on arrival. No acute distress. Reports he is feeling better overall. No reported pain. Denies f/c/n/v. Ileal conduit draining clear yellow urine. Had 1900ml output overnight. Review of Systems Constitutional: as per Subjective / HPI Genitourinary: + as per Subjective / HPI Physical Exam Constitutional: no acute distress Respiratory: no respiratory distress and no labored breathing Gastrointestinal (Abdomen): Patient has a noted ileal conduit on the right side of his abdomen that is draining clear yellow urine Neurologic: moves all extremities and awake Psychiatric: A+Ox3, euthymic affect Results & Data Vital Signs (Past 12 Hours) Vital Signs Temp Pulse Pulse Resp BP Pulse Ox O2 Del Method 03/17/25 08:12 36.4 C L 44 L 18 152/73 H 100 Room Air 03/17/25 07:00 53 L 03/17/25 02:03 36.6 C 38 L 18 140/69 97 Room Air 03/16/25 22:27 36.9 C 41 L 18 128/55 L 96 Room Air 03/16/25 22:23 40 L 03/16/25 21:22 Room Air PG Care Time/CCT Total # of Minutes Spent Total Time Spent with Patient: Total time spent is greater than 50% in coordination of care (as documented) at patient's floor/unit and/or counseling patient: Coding Level of Care Code 67279 SUB INP/OBS CARE 2/35MIN Diagnoses Hydronephrosis N13.30 Complicated urinary tract infection N39.0 YOHAN (acute kidney injury) N17.9 S/P ileal conduit Z93.6 Urothelial carcinoma C68.9
[2025-03-17 11:25] VITALS: PULSE 48; TEMP 97.7
--- NOTE | 2025-03-17 11:43 | Discharge Summary ---
Discharge Summary Date of Service March 17, 2025 Principal Dx & Hospital Course #1 = Principal Diagnosis (1) Fever: MR. 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 S/P ureteral stent removal at [facility] two days prior to admission. Patient noted to have staph sp in urine and strep in blood. Patient improved subjectively on IV daptomycin and ultimately transitioned to Linezolid. Patient's course complicated by YOHAN on CKD. Followed by nephrology who suspected dehydration. Patient ultimately clear for discharge with close follow up with his pcp, field marketing associate and urologist. 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 negative biofire respiratory panel UA: 2+ blood, 1+leuk esterase Lactate: 2.2-->1.5 Procalcitonin: 1.3 CT abd/pelvis: 1. Post-surgical findings of right nephrectomy, cystectomy, prostatectomy, and ileal conduit formation 2. Mild left hydronephrosis. No clear obstructing calculus or mass is identified. This could be secondary to ureteral stricture or delayed emptying from the ileal conduit 3. Cholelithiasis without evidence of acute cholecystitis 4. Diverticulosis without definite diverticulitis 5. Two small adjacent ventral hernias containing small bowel. There is no sign of associated obstruction Follows with Dr Jenkins at [facility] leukocystosis resolved, afebrile Afebrile, leukocytosis resolved baseline 2.2-2.4 Urine culture: staph heaemolyticus Blood culture: strep parasanguinis transitioned to linezolid #YOHAN on CKD III baseline 1.7-2.0, renal US with stable hypdronephrosis started on plasma lyte 100cc/hour nephrology consulted --follow up in 1 week with follow up BMP hold lisinopril and jardiance 2/2 GFR <30 #DM II A1c: 7.6 on 09/17/24 resume metformin hold jardiance discuss with pcp #HTN #HLD #H/O CAD s/p stent Continue amlodipine, atorvastatin, ezetimibe, aspirin #Sinus bradycardia asymptomatic, has followed with cardiology prior EKG without block/pr prolongation Notes For Next Care Provider Follow up BMP in 1 week with nephrology follow up Medication Changes From Visit linezolid 600mg bid x 7 more days (total 10 from date of last bcx negative) Hold lisinopril iso Cr elevatation Hold Jardiance iso GFR < 30 (28.2) Admission HPI Per Admitting Provider Patient is 64 year old male with PMH urothelial carcinoma s/p R nephroureterectomy, cystectomy, bilateral pelvic lymph node dissection and formation of a RLQ urostomy/ileal conduit at [facility] [place] 09/05/21, 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 History obtained from patient, patient's and outpatient and inpatient chart review. Patient reports has had ureteral stent with stent exchange every 3 months for the past year at [facility] with Dr Jenkins. 2 days ago at [facility] had ureteral stent removed. He reports the hope was that will do okay without stent however states it was mentioned may require permanent stent placement. Patient states procedure 2 days ago was having nausea and vomiting when he returned home that evening. No further vomiting however reports ongoing nausea. States yesterday started with fever, chills, rigors. Fever 101.1F reported at home. Last had Tylenol around 10:00 AM. Reports continues with clear yellow urine output from stoma. Reports general malaise. Denies abdominal pain. Denies diarrhea, hematuria, LAZCANO, dizziness, syncope, CP, SOB, palpitations, cough, sore throat, rhinorrhea, extremity edema, rashes. Admission Exam Per Admitting Provider General: no distress, WDWN Head: normocephalic, atraumatic Eyes: conjunctiva non-injected, anicteric ENT: normal inspection external ears, nose, mucous membranes dry Neck: supple, trachea midline Lungs: clear, no respiratory distress, no wheezing/rhonchi/rales CV: RRR, no murmur, no pretibial edema Abd: normal BS, soft, +ostomy right lower quadrant draining clear yellow urine, abdomen non-tender Ext: no cyanosis, no calf tenderness Neuro: A&O x 3, no focal deficits noted, normal affect Skin: hot, dry Discharge Exam Constitutional WD/WN, vitals as above Respiratory normal respiratory effort, lungs clear to auscultation Cardiovascular RRR, no murmur, no edema Gastrointestinal (Abdomen) Ileal conduit draining clear yellow urine Updated Medication List Medication Instructions Recorded Confirmed Type aspirin 81 mg tablet,delayed 81 mg PO QAM 03/30/20 03/13/25 History release levothyroxine 175 mcg capsule 175 mcg PO QAM 03/30/20 03/13/25 History atorvastatin 80 mg tablet 80 mg PO QAM 05/04/20 03/13/25 History fluticasone propionate 50 2 spray intranasal DAILY PRN Nasal 06/22/20 03/13/25 History mcg/actuation nasal Congestion spray,suspension (Flonase Allergy Relief) ezetimibe 10 mg tablet (Zetia) 10 mg PO QAM 10/09/20 03/13/25 History metformin 500 mg tablet,extended 1,000 mg PO QAM 10/10/21 03/13/25 History release 24 hr omeprazole 20 mg capsule,delayed 20 mg PO QAM PRN heartburn 12/02/21 03/13/25 History release amlodipine 2.5 mg tablet 2.5 mg PO QAM 07/10/22 03/13/25 History nitroglycerin 0.4 mg sublingual 0.4 mg sublingual Q5M PRN Chest 07/10/22 03/13/25 History tablet Pain acetaminophen 500 mg tablet 1,000 mg PO DIRECTED PRN 03/18/23 03/13/25 History (Tylenol Extra Strength) FEVER/PAIN tramadol 50 mg tablet 50 mg PO DAILY PRN Pain 04/09/23 03/13/25 History empagliflozin 10 mg tablet 10 mg PO DAILY 04/21/24 03/13/25 History (Jardiance) linezolid 600 mg tablet 600 mg PO BID 7 days #14 tabs 08/19/25 Rx Hospital Stay Data Consultations 03/13/25 17:55 ED Decision to Admit Stat 03/14/25 07:00 Consult Urology Routine 03/14/25 12:45 Consult Infectious Diseases Routine 03/16/25 08:44 Consult Nephrology Routine Diagnostic Imagining Performed 03/13/25 14:45 CT abd pelvis wo con Stat 03/16/25 07:52 US Renal Bladder [US renal/blad retro comp] Routine Discharge Instructions Given to Patient (Per Discharging Provider) You were admitted for fever and found to have urine infection and bacteria in the blood (bacteremia) due to the urine infection. You were started on antibiotics with improvement. You were followed by our Urology service who recommends you follow closely with Dr. Jenkins. You will continue Linezolid 600mg two times a day, next dose this evening. You will continue until all tablets completed. Please hold your lisinopril 10mg daily and Jardiance 25mg daily. Please follow up with your PCP and field marketing associate to discuss resumption of the above based upon your kidney function. Total Time Total Time Spent Total Time Spent (In Minutes): 45
[2025-03-17 12:00] VITALS: BP 123/65
--- NOTE | 2025-03-20 14:03 | Electrocardiogram Report ---
Test Reason : Blood Pressure : */* mmHG Vent. Rate : 47 BPM Atrial Rate : 47 BPM P-R Int : 140 ms QRS Dur : 98 ms QT Int : 466 ms P-R-T Axes : 60 38 80 degrees QTcB Int : 412 ms Sinus bradycardia Otherwise normal ECG When compared with ECG of 13-Mar-2025 15:12, No significant change was found HR has decreased Confirmed by Harsha Garcia ([id number]) on 03/20/2025 2:02:45 PM Referred By: Sotero Jenkins Confirmed By: Harsha Garcia
== END 2025-03-17 12:14 | disposition home or self-care (01) | DRG 872 ==
LOC: ED 12:58 → 2N 18:22 → SUATTDRO 18:22 → 2N 21:16